=== PATIENT | male | born 1975 | race Caucasian/White ===

== ENCOUNTER → 2018-05-14 | Outpatient (CLI) | payer MEDICAID ==
[~2018-05-14] MED LIST: DOXY-227 PO; HYDR-34 PO; HYDR-3729 PO; HYDR-4196 PO; INSU100V16 SQ; INSU100V5 SQ; INSU1INS2 SQ; LORA1TAB59 PO; METF-399 PO; METO-354 PO; MTF500T PO; MULT-221 PO; ONDN4T PO
== END ==
LOC: WOUNDCARE 13:20
PROVIDERS: ATTEND Surgery
DX: E11.621 Type 2 diabetes mellitus with foot ulcer (principal); L97.512 Non-pressure chronic ulcer of other part of right foot with fat layer exposed; L97.513 Non-pressure chronic ulcer of other part of right foot with necrosis of muscle; L97.522 Non-pressure chronic ulcer of other part of left foot with fat layer exposed; L03.115 Cellulitis of right lower limb; E11.42 Type 2 diabetes mellitus with diabetic polyneuropathy
CPT/HCPCS: 11042; 11043; 87070; 87075; 87205

== ENCOUNTER → 2018-05-15 | Outpatient (CLI) | payer MEDICAID ==
[2018-05-15 15:44] LABS: BASOPHILS # (AUTO) 0.1 10^3/uL (0.0-0.1); BASOPHILS % (AUTO) 1 % (0-10); EOSINOPHILS # (AUTO) 0.2 10^3/uL (0.0-0.3); EOSINOPHILS % (AUTO) 2 % (0-10); HEMATOCRIT 38 % (40-54); HEMOGLOBIN 12.9 G/DL (13.3-17.7); LYMPHOCYTES # (AUTO) 2.6 X 10^3 (1.0-4.0); LYMPHOCYTES % (AUTO) 30 % (12-44); MEAN CORPUSCULAR HEMOGLOBIN 30 PG (25-34); MEAN CORPUSCULAR HGB CONC 34 G/DL (32-36); MEAN CORPUSCULAR VOLUME 88 FL (80-99); MEAN PLATELET VOLUME 9.1 FL (7.4-10.4); MONOCYTES # (AUTO) 0.6 X 10^3 (0.0-1.0); MONOCYTES % (AUTO) 7 % (0-12); NEUTROPHILS # (AUTO) 5.3 X 10^3 (1.8-7.8); NEUTROPHILS % (AUTO) 61 % (42-75); PLATELET COUNT 319 10^3/uL (130-400); RED CELL DISTRIBUTION WIDTH 12.8 % (10.0-14.5); WHITE BLOOD COUNT 8.7 10^3/uL (4.3-11.0)
--- NOTE | 2018-05-15 17:32 | Diagnostic Imaging Report ---
INDICATION: Diabetic ulcer and wound care. AP, oblique, and lateral views of the right foot are obtained. FINDINGS: There has been amputation of the first digit at the level of the MTP joint. There is no acute fracture or acute bony abnormality. There is no overt erosive bony lesion. There is plantar and posterior calcaneal spurring. IMPRESSION: Status post amputation of first digit. No acute-appearing bony abnormality. Dictated by: Dictated on workstation # [id number]
== END ==
LOC: RAD 15:28
PROVIDERS: ATTEND Surgery
DX: E11.621 Type 2 diabetes mellitus with foot ulcer (principal); E11.42 Type 2 diabetes mellitus with diabetic polyneuropathy; L97.512 Non-pressure chronic ulcer of other part of right foot with fat layer exposed; L97.513 Non-pressure chronic ulcer of other part of right foot with necrosis of muscle; L97.522 Non-pressure chronic ulcer of other part of left foot with fat layer exposed; L03.115 Cellulitis of right lower limb
CPT/HCPCS: 36415; 73630; 85025

== ENCOUNTER → 2018-05-19 | Outpatient (CLI) | payer MEDICAID | LOC: WOUNDCARE 15:39 | PROVIDERS: ATTEND Surgery | DX: E11.621 Type 2 diabetes mellitus with foot ulcer (principal); L97.512 Non-pressure chronic ulcer of other part of right foot with fat layer exposed; L97.513 Non-pressure chronic ulcer of other part of right foot with necrosis of muscle; L97.522 Non-pressure chronic ulcer of other part of left foot with fat layer exposed; L03.115 Cellulitis of right lower limb; E11.42 Type 2 diabetes mellitus with diabetic polyneuropathy | CPT/HCPCS: 11042 ==

== ENCOUNTER → 2018-05-26 | Outpatient (CLI) | payer MEDICAID | LOC: WOUNDCARE 14:09 | PROVIDERS: ATTEND Surgery | DX: E11.621 Type 2 diabetes mellitus with foot ulcer (principal); L97.512 Non-pressure chronic ulcer of other part of right foot with fat layer exposed; L97.522 Non-pressure chronic ulcer of other part of left foot with fat layer exposed; L03.115 Cellulitis of right lower limb; E11.42 Type 2 diabetes mellitus with diabetic polyneuropathy | CPT/HCPCS: 11042; 87070; 87075; 87077; 87205 ==

== ENCOUNTER → 2018-06-02 | Outpatient (CLI) | payer MEDICAID | LOC: WOUNDCARE 15:11 | PROVIDERS: ATTEND Surgery | DX: E11.621 Type 2 diabetes mellitus with foot ulcer (principal); L97.512 Non-pressure chronic ulcer of other part of right foot with fat layer exposed; L97.522 Non-pressure chronic ulcer of other part of left foot with fat layer exposed; E11.42 Type 2 diabetes mellitus with diabetic polyneuropathy | CPT/HCPCS: 11042 ==

== ENCOUNTER → 2018-06-09 | Outpatient (CLI) | payer MEDICAID | LOC: WOUNDCARE 15:06 | PROVIDERS: ATTEND Surgery | DX: E11.621 Type 2 diabetes mellitus with foot ulcer (principal); L97.512 Non-pressure chronic ulcer of other part of right foot with fat layer exposed; E11.42 Type 2 diabetes mellitus with diabetic polyneuropathy | CPT/HCPCS: 11042 ==

== ENCOUNTER → 2018-06-18 | Outpatient (CLI) | payer MEDICAID | LOC: WOUNDCARE 14:00 | PROVIDERS: ATTEND Orthopaedic Surgery Hand Surgery | DX: E11.621 Type 2 diabetes mellitus with foot ulcer (principal); E11.42 Type 2 diabetes mellitus with diabetic polyneuropathy; L97.512 Non-pressure chronic ulcer of other part of right foot with fat layer exposed | CPT/HCPCS: 11042 ==

== ENCOUNTER → 2018-07-02 | Outpatient (CLI) | payer MEDICAID ==
--- NOTE | 2018-07-02 18:38 | Diagnostic Imaging Report ---
INDICATION: Ulcer on first digit. AP, oblique, and lateral views of the right foot are obtained and compared with 05/15/2018. There has been amputation of the first digit at the level of the MTP joint. There are mild degenerative changes of the interphalangeal joints. There is mild degenerative change of the mid tarsal joint and talonavicular joint as well as calcaneal spurring. There is no erosive bony lesion or acute bony abnormality. IMPRESSION: Evidence of previous amputation of first digit. No erosive bony lesion. Multilevel degenerative changes are stable compared to the prior study. Dictated by: Dictated on workstation # [id number]
== END ==
LOC: RAD 14:57
PROVIDERS: ATTEND Orthopaedic Surgery Hand Surgery
DX: E11.621 Type 2 diabetes mellitus with foot ulcer (principal); L97.516 Non-pressure chronic ulcer of other part of right foot with bone involvement without evidence of necrosis; E11.42 Type 2 diabetes mellitus with diabetic polyneuropathy; M19.071 Primary osteoarthritis, right ankle and foot; Z89.411 Acquired absence of right great toe
CPT/HCPCS: 73630

== ENCOUNTER → 2018-07-02 | Outpatient (CLI) | payer MEDICAID | LOC: WOUNDCARE 13:53 | PROVIDERS: ATTEND Orthopaedic Surgery Hand Surgery | DX: E11.621 Type 2 diabetes mellitus with foot ulcer (principal); L97.516 Non-pressure chronic ulcer of other part of right foot with bone involvement without evidence of necrosis; E11.42 Type 2 diabetes mellitus with diabetic polyneuropathy | CPT/HCPCS: 11042; 87070; 87077; 87205 ==

== ENCOUNTER → 2018-07-09 | Outpatient (CLI) | payer MEDICAID | LOC: WOUNDCARE 13:54 | PROVIDERS: ATTEND Orthopaedic Surgery Hand Surgery | DX: E11.621 Type 2 diabetes mellitus with foot ulcer (principal); E11.42 Type 2 diabetes mellitus with diabetic polyneuropathy; L97.516 Non-pressure chronic ulcer of other part of right foot with bone involvement without evidence of necrosis; A49.9 Bacterial infection, unspecified | CPT/HCPCS: 11042 ==

== ENCOUNTER → 2018-07-16 | Outpatient (CLI) | payer MEDICAID | LOC: WOUNDCARE 13:58 | PROVIDERS: ATTEND Orthopaedic Surgery Hand Surgery | DX: E11.621 Type 2 diabetes mellitus with foot ulcer (principal); L97.516 Non-pressure chronic ulcer of other part of right foot with bone involvement without evidence of necrosis; E11.42 Type 2 diabetes mellitus with diabetic polyneuropathy; A49.9 Bacterial infection, unspecified | CPT/HCPCS: 11042 ==

== ENCOUNTER → 2018-07-19 | Outpatient (CLI) | payer MEDICAID ==
--- NOTE | 2018-07-19 10:42 | Diagnostic Imaging Report ---
PROCEDURE: MRI right lower extremity without contrast. TECHNIQUE: Multiplanar, multisequence non contrast-enhanced MRI of the right lower extremity was accomplished. INDICATION: Nonhealing ulcer. MRI of the right foot without contrast. There is an open ulcer at the base of the second metatarsal head. The metatarsals as well as the phalanges show normal marrow signal without evidence of edema. No cortical bony erosions are demonstrated. There is no evidence of joint effusion. There is a small collection of fluid between the second and third metatarsal heads measuring approximately 1.5 cm anterior to posteriorly and 3 mm in diameter. No other fluid collections are demonstrated. The plantar fascia shows mild edema along the anterior aspect at the level of ulceration. IMPRESSION: 1. Plantar ulcer at the base of the second metatarsal head. Small amount of fluid is noted between the second and third metatarsal heads as described. No other fluid collections are seen. 2. There are no bony changes that would indicate osteomyelitis at this time. Dictated by: Dictated on workstation # [id number]
== END ==
LOC: RAD 09:47
PROVIDERS: ATTEND Orthopaedic Surgery Hand Surgery
DX: E11.621 Type 2 diabetes mellitus with foot ulcer (principal); E11.42 Type 2 diabetes mellitus with diabetic polyneuropathy; L97.516 Non-pressure chronic ulcer of other part of right foot with bone involvement without evidence of necrosis; A49.9 Bacterial infection, unspecified

== ENCOUNTER → 2018-07-23 | Outpatient (CLI) | payer MEDICAID | LOC: WOUNDCARE 13:58 | PROVIDERS: ATTEND Orthopaedic Surgery Hand Surgery | DX: E11.621 Type 2 diabetes mellitus with foot ulcer (principal); L97.516 Non-pressure chronic ulcer of other part of right foot with bone involvement without evidence of necrosis; E11.42 Type 2 diabetes mellitus with diabetic polyneuropathy | CPT/HCPCS: 11042 ==

== ENCOUNTER → 2018-08-11 | Outpatient (CLI) | payer MEDICAID ==
[2018-08-11 16:30] LABS: BASOPHILS % (AUTO) 0 % (0-10); EOSINOPHILS # (AUTO) 0.2 10^3/uL (0.0-0.3); EOSINOPHILS % (AUTO) 2 % (0-10); HEMATOCRIT 40 % (40-54); HEMOGLOBIN 13.3 G/DL (13.3-17.7); LYMPHOCYTES # (AUTO) 2.5 X 10^3 (1.0-4.0); LYMPHOCYTES % (AUTO) 26 % (12-44); MEAN CORPUSCULAR HEMOGLOBIN 30 PG (25-34); MEAN CORPUSCULAR HGB CONC 33 G/DL (32-36); MEAN CORPUSCULAR VOLUME 90 FL (80-99); MEAN PLATELET VOLUME 8.7 FL (7.4-10.4); MONOCYTES # (AUTO) 0.8 X 10^3 (0.0-1.0); MONOCYTES % (AUTO) 9 % (0-12); NEUTROPHILS # (AUTO) 5.9 X 10^3 (1.8-7.8); NEUTROPHILS % (AUTO) 63 % (42-75); PLATELET COUNT 322 10^3/uL (130-400); RED BLOOD COUNT 4.45 10^6/uL (4.35-5.85); WHITE BLOOD COUNT 9.4 10^3/uL (4.3-11.0)
[2018-08-11 17:00] LABS: ALANINE AMINOTRANSFERASE 16 U/L (0-55); ALBUMIN 4.1 GM/DL (3.2-4.5); ALKALINE PHOSPHATASE 95 U/L (40-136); BILIRUBIN,TOTAL 0.3 MG/DL (0.1-1.0); BUN/CREATININE RATIO 20; CALCIUM 9.5 MG/DL (8.5-10.1); CARBON DIOXIDE 26 MMOL/L (21-32); CHLORIDE 104 MMOL/L (98-107); CREATININE SERUM 1.26 MG/DL (0.60-1.30); GFR ESTIMATED > 60; GLUCOSE 166 MG/DL (70-105); POTASSIUM 4.6 MMOL/L (3.6-5.0); SODIUM 139 MMOL/L (135-145); TOTAL PROTEIN 8.2 GM/DL (6.4-8.2)
== END ==
LOC: LAB 16:10
PROVIDERS: ATTEND Surgery
DX: E11.621 Type 2 diabetes mellitus with foot ulcer (principal); L97.512 Non-pressure chronic ulcer of other part of right foot with fat layer exposed
CPT/HCPCS: 36415; 80053; 83036; 85025

== ENCOUNTER → 2018-08-11 | Outpatient (CLI) | payer MEDICAID | LOC: WOUNDCARE 13:58 | PROVIDERS: ATTEND Surgery | DX: E11.621 Type 2 diabetes mellitus with foot ulcer (principal); L97.512 Non-pressure chronic ulcer of other part of right foot with fat layer exposed; E11.42 Type 2 diabetes mellitus with diabetic polyneuropathy; M20.41 Other hammer toe(s) (acquired), right foot | CPT/HCPCS: 11042; 87070; 87075; 87077; 87205 ==

== ENCOUNTER → 2018-08-18 | Outpatient (CLI) | payer MEDICAID | LOC: WOUNDCARE 13:58 | PROVIDERS: ATTEND Surgery | DX: E11.621 Type 2 diabetes mellitus with foot ulcer (principal); L97.512 Non-pressure chronic ulcer of other part of right foot with fat layer exposed; E11.42 Type 2 diabetes mellitus with diabetic polyneuropathy; M20.41 Other hammer toe(s) (acquired), right foot | CPT/HCPCS: 11042 ==

== ENCOUNTER → 2018-08-20 | Outpatient (CLI) | payer MEDICAID | LOC: WOUNDCARE 10:48 | PROVIDERS: ATTEND Surgery | DX: E11.621 Type 2 diabetes mellitus with foot ulcer (principal); L97.512 Non-pressure chronic ulcer of other part of right foot with fat layer exposed; E11.42 Type 2 diabetes mellitus with diabetic polyneuropathy; M20.41 Other hammer toe(s) (acquired), right foot | CPT/HCPCS: 29445 ==

== ENCOUNTER → 2018-08-25 | Outpatient (CLI) | payer MEDICAID | LOC: WOUNDCARE 13:54 | PROVIDERS: ATTEND Surgery | DX: E11.621 Type 2 diabetes mellitus with foot ulcer (principal); L97.512 Non-pressure chronic ulcer of other part of right foot with fat layer exposed; E11.42 Type 2 diabetes mellitus with diabetic polyneuropathy; M20.41 Other hammer toe(s) (acquired), right foot | CPT/HCPCS: 11042 ==

== ENCOUNTER → 2018-09-01 | Outpatient (CLI) | payer MEDICAID | LOC: WOUNDCARE 13:46 | PROVIDERS: ATTEND Surgery | DX: E11.621 Type 2 diabetes mellitus with foot ulcer (principal); L97.512 Non-pressure chronic ulcer of other part of right foot with fat layer exposed; E11.42 Type 2 diabetes mellitus with diabetic polyneuropathy; M20.41 Other hammer toe(s) (acquired), right foot | CPT/HCPCS: 11042 ==

== ENCOUNTER → 2018-09-03 | Outpatient (CLI) | payer MEDICAID | LOC: WOUNDCARE 10:41 | PROVIDERS: ATTEND Surgery | DX: E11.621 Type 2 diabetes mellitus with foot ulcer (principal); E11.42 Type 2 diabetes mellitus with diabetic polyneuropathy; L97.512 Non-pressure chronic ulcer of other part of right foot with fat layer exposed; M20.41 Other hammer toe(s) (acquired), right foot | CPT/HCPCS: 29445 ==

== ENCOUNTER → 2018-09-05 | Outpatient (CLI) | payer MEDICAID | LOC: WOUNDCARE 09:39 | PROVIDERS: ATTEND Surgery | DX: E11.621 Type 2 diabetes mellitus with foot ulcer (principal); E11.42 Type 2 diabetes mellitus with diabetic polyneuropathy; L97.512 Non-pressure chronic ulcer of other part of right foot with fat layer exposed; M20.41 Other hammer toe(s) (acquired), right foot | CPT/HCPCS: 29445 ==

== ENCOUNTER → 2018-09-08 | Outpatient (CLI) | payer MEDICAID | LOC: WOUNDCARE 13:33 | PROVIDERS: ATTEND Surgery | DX: E11.621 Type 2 diabetes mellitus with foot ulcer (principal); L97.512 Non-pressure chronic ulcer of other part of right foot with fat layer exposed; E11.42 Type 2 diabetes mellitus with diabetic polyneuropathy; M20.41 Other hammer toe(s) (acquired), right foot | CPT/HCPCS: 11042; 87070; 87075; 87077; 87205 ==

== ENCOUNTER → 2018-09-10 | Outpatient (CLI) | payer MEDICAID | LOC: WOUNDCARE 10:33 | PROVIDERS: ATTEND Surgery | DX: E11.621 Type 2 diabetes mellitus with foot ulcer (principal); L97.512 Non-pressure chronic ulcer of other part of right foot with fat layer exposed; E11.42 Type 2 diabetes mellitus with diabetic polyneuropathy; M20.41 Other hammer toe(s) (acquired), right foot | CPT/HCPCS: 99213 ==

== ENCOUNTER → 2018-09-15 | Outpatient (CLI) | payer MEDICAID | LOC: WOUNDCARE 13:34 | PROVIDERS: ATTEND Surgery | DX: E11.621 Type 2 diabetes mellitus with foot ulcer (principal); L97.512 Non-pressure chronic ulcer of other part of right foot with fat layer exposed; E11.42 Type 2 diabetes mellitus with diabetic polyneuropathy; M20.41 Other hammer toe(s) (acquired), right foot | CPT/HCPCS: 11042 ==

== ENCOUNTER → 2018-09-22 | Outpatient (CLI) | payer MEDICAID | LOC: WOUNDCARE 13:47 | PROVIDERS: ATTEND Surgery | DX: E11.621 Type 2 diabetes mellitus with foot ulcer (principal); L97.512 Non-pressure chronic ulcer of other part of right foot with fat layer exposed; E11.42 Type 2 diabetes mellitus with diabetic polyneuropathy; M20.41 Other hammer toe(s) (acquired), right foot | CPT/HCPCS: 11042 ==

== ENCOUNTER → 2018-09-29 | Outpatient (CLI) | payer MEDICAID | LOC: WOUNDCARE 13:45 | PROVIDERS: ATTEND Surgery | DX: E11.621 Type 2 diabetes mellitus with foot ulcer (principal); L97.512 Non-pressure chronic ulcer of other part of right foot with fat layer exposed; E11.42 Type 2 diabetes mellitus with diabetic polyneuropathy; M20.41 Other hammer toe(s) (acquired), right foot | CPT/HCPCS: 11042; 87070; 87077; 87205 ==

== ENCOUNTER → 2018-10-06 | Outpatient (CLI) | payer MEDICAID | LOC: WOUNDCARE 13:00 | PROVIDERS: ATTEND Surgery | DX: E11.621 Type 2 diabetes mellitus with foot ulcer (principal); L97.512 Non-pressure chronic ulcer of other part of right foot with fat layer exposed; E11.42 Type 2 diabetes mellitus with diabetic polyneuropathy; M20.41 Other hammer toe(s) (acquired), right foot | CPT/HCPCS: 11042 ==

== ENCOUNTER → 2018-10-13 | Outpatient (CLI) | payer MEDICAID | LOC: WOUNDCARE 14:00 | PROVIDERS: ATTEND Surgery | DX: E11.621 Type 2 diabetes mellitus with foot ulcer (principal); L97.512 Non-pressure chronic ulcer of other part of right foot with fat layer exposed; E11.42 Type 2 diabetes mellitus with diabetic polyneuropathy; M20.41 Other hammer toe(s) (acquired), right foot | CPT/HCPCS: 11042 ==

== ENCOUNTER → 2018-10-20 | Outpatient (CLI) | payer MEDICAID | LOC: WOUNDCARE 12:46 | PROVIDERS: ATTEND Surgery | DX: E11.621 Type 2 diabetes mellitus with foot ulcer (principal); L97.512 Non-pressure chronic ulcer of other part of right foot with fat layer exposed; E11.42 Type 2 diabetes mellitus with diabetic polyneuropathy; M20.41 Other hammer toe(s) (acquired), right foot | CPT/HCPCS: 11042; 87070; 87077; 87205 ==

== ENCOUNTER → 2018-10-27 | Outpatient (CLI) | payer MEDICAID | LOC: WOUNDCARE 14:02 | PROVIDERS: ATTEND Surgery | DX: E11.621 Type 2 diabetes mellitus with foot ulcer (principal); L97.512 Non-pressure chronic ulcer of other part of right foot with fat layer exposed; E11.42 Type 2 diabetes mellitus with diabetic polyneuropathy; M20.41 Other hammer toe(s) (acquired), right foot | CPT/HCPCS: 11042 ==

== ENCOUNTER → 2018-11-03 | Outpatient (CLI) | payer MEDICAID | LOC: WOUNDCARE 12:45 | PROVIDERS: ATTEND Surgery | DX: E11.621 Type 2 diabetes mellitus with foot ulcer (principal); L97.512 Non-pressure chronic ulcer of other part of right foot with fat layer exposed; E11.42 Type 2 diabetes mellitus with diabetic polyneuropathy; M20.41 Other hammer toe(s) (acquired), right foot | CPT/HCPCS: 11042 ==

== ENCOUNTER → 2018-11-19 | Outpatient (CLI) | payer MEDICAID | LOC: WOUNDCARE 13:13 | PROVIDERS: ATTEND Surgery | DX: E11.621 Type 2 diabetes mellitus with foot ulcer (principal); L97.516 Non-pressure chronic ulcer of other part of right foot with bone involvement without evidence of necrosis; E11.42 Type 2 diabetes mellitus with diabetic polyneuropathy; M20.41 Other hammer toe(s) (acquired), right foot | CPT/HCPCS: 11042; 87070; 87077; 87205 ==

== ENCOUNTER → 2018-11-24 | Outpatient (CLI) | payer MEDICAID | LOC: WOUNDCARE 13:16 | PROVIDERS: ATTEND Surgery | DX: E11.621 Type 2 diabetes mellitus with foot ulcer (principal); L97.512 Non-pressure chronic ulcer of other part of right foot with fat layer exposed; E11.42 Type 2 diabetes mellitus with diabetic polyneuropathy; M20.41 Other hammer toe(s) (acquired), right foot | CPT/HCPCS: 11043 ==

== ENCOUNTER → 2018-12-01 | Outpatient (CLI) | payer MEDICAID | LOC: WOUNDCARE 14:01 | PROVIDERS: ATTEND Surgery | DX: E11.621 Type 2 diabetes mellitus with foot ulcer (principal); L97.512 Non-pressure chronic ulcer of other part of right foot with fat layer exposed; E11.42 Type 2 diabetes mellitus with diabetic polyneuropathy; M20.41 Other hammer toe(s) (acquired), right foot | CPT/HCPCS: 11042 ==

== ENCOUNTER → 2018-12-15 | Outpatient (CLI) | payer MEDICAID | LOC: WOUNDCARE 13:58 | PROVIDERS: ATTEND Surgery | DX: E11.621 Type 2 diabetes mellitus with foot ulcer (principal); L97.512 Non-pressure chronic ulcer of other part of right foot with fat layer exposed; E11.42 Type 2 diabetes mellitus with diabetic polyneuropathy; M20.41 Other hammer toe(s) (acquired), right foot | CPT/HCPCS: 11042 ==

== ENCOUNTER → 2019-01-02 | Outpatient (CLI) | payer MEDICAID | LOC: WOUNDCARE 10:56 | PROVIDERS: ATTEND Surgery | DX: E11.621 Type 2 diabetes mellitus with foot ulcer (principal); L97.512 Non-pressure chronic ulcer of other part of right foot with fat layer exposed; E11.42 Type 2 diabetes mellitus with diabetic polyneuropathy; M20.41 Other hammer toe(s) (acquired), right foot | CPT/HCPCS: 11042 ==

== ENCOUNTER → 2019-01-12 | Outpatient (CLI) | payer MEDICAID | LOC: WOUNDCARE 12:50 | PROVIDERS: ATTEND Surgery | DX: E11.621 Type 2 diabetes mellitus with foot ulcer (principal); L97.512 Non-pressure chronic ulcer of other part of right foot with fat layer exposed; E11.42 Type 2 diabetes mellitus with diabetic polyneuropathy; M20.41 Other hammer toe(s) (acquired), right foot | CPT/HCPCS: 11042 ==

== ENCOUNTER 2019-01-18 16:51 | Inpatient (IN) | payer MEDICAID ==
[~2019-01-18] VITALS: Ht 193 cm; Wt 141.3 kg
[2019-01-18] VITALS (9 sets, daily range): BP systolic 119–145; BP diastolic 73–87
[2019-01-18] MEDS ORDERED: LACTATED RINGERS 1,000 ML IV ONE (17:08)
[2019-01-18] MEDS ORDERED: ONDANSETRON 4 MG/2 ML (SDV) Z0FRAN IV PRN (17:15)
[2019-01-18] MEDS ORDERED: ACETAMINOPHEN 500 MG TAB (TYLENOL) PO PRN (17:15)
--- NOTE | 2019-01-18 17:17 | ED General ---
General Stated Complaint: FEVER 103.4/VOMITING Source of Information: Patient Exam Limitations: No Limitations (JC BERTRAND APRN) History of Present Illness Date Seen by Provider: Jan 18, 2019 Time Seen by Provider: 17:12 Initial Comments To ER by private vehicle with reports of nausea vomiting diarrhea and fever. The fever and diarrhea began on after eating hibachi, the vomiting only began today. He is diabetic, he has a previous history of right toe amputation, chronic wound on the right foot for which she is seeing Dr. Lau and is scheduled to see a surgeon in [place] this week to evaluate for more proximal amputation of the foot. Timing/Duration: 3-4 Days Severity: Moderate (JC BERTRAND APRN) Allergies and Home Medications Allergies Coded Allergies: No Known Drug Allergies (Unverified , 01/18/19) Home Medications Hydrocodone/Acetaminophen 1 Each Tablet, 1 EACH PO Q6H PRN for PAIN Prescribed by: JUAN DIEGO GREEN on 02/16/16 1048 Insulin Aspart 100 Unit/1 Ml Susp, 15 UNITS SQ WM, (Reported) WILL HOLD IF BS IS 150 OR BELOW Insulin Determir 1,000 Units/10 Ml Soln, 20 UNITS SQ HS, (Reported) Metformin HCl 1,000 Mg Tablet, 1,000 MG PO BID, (Reported) LAST KNOWN FILLED DATE; 12/07/15 #60 Multivitamin 1 Each Tablet, 1 TAB PO DAILY, (Reported) Patient Home Medication List Home Medication List Reviewed: Yes (JC BERTRAND APRN) Home Medication List Reviewed: Yes (AUREA OLGUIN) Review of Systems Review of Systems Constitutional: see HPI, fever EENTM: see HPI Respiratory: no symptoms reported Cardiovascular: no symptoms reported Gastrointestinal: No abdominal pain; diarrhea, nausea, vomiting Genitourinary: no symptoms reported Musculoskeletal: no symptoms reported Skin: no symptoms reported Psychiatric/Neurological: No Symptoms Reported Hematologic/Lymphatic: No Symptoms Reported Immunological/Allergic: no symptoms reported (JC BERTRAND APRN) Past Upjgkin-Vvcooy-Wowghr Hx Patient Social History Recent Foreign Travel: No Contact w/Someone Who Travel: No (JC BERTRAND APRN) Past Medical History Abdominal Reproductive Disorders: No Diabetes, Insulin dep (JC BERTRAND APRN) Family Medical History Cardiovascular disease 19 MOTHER Diabetes mellitus 19 MOTHER Diabetes (JC BERTRAND APRN) Physical Exam Vital Signs Vital Signs - First Documented (AUREA OLGUIN) Vital Signs Capillary Refill : (JC BERTRAND APRN) Height, Weight, BMI Height: 6'4.00" Weight: 274lbs. 0.0oz. 124.725487be; 33.4 BMI Method:Stated General Appearance: No Apparent Distress, WD/WN Eyes: Bilateral Eye Normal Inspection, Bilateral Eye PERRL HEENT: PERRL/EOMI, Normal ENT Inspection Neck: Full Range of Motion, Normal Inspection Respiratory: No Accessory Muscle Use, No Respiratory Distress Gastrointestinal: Non Tender, Soft Extremity: Normal Capillary Refill Neurologic/Psychiatric: Alert, Oriented x3 Skin: Normal Color, Warm/Dry (JC BERTRAND APRN) Focused Exam Lactate Level 01/18/19 17:17: Lactic Acid Level 1.16 (AUREA OLGUIN) Lactic Acid Level Laboratory Tests Test 01/18/19 17:17 Lactic Acid Level 1.16 MMOL/L (0.50-2.00) (AUREA OLGUIN) Progress/Results/Core Measures Suspected Sepsis SIRS Temperature: Pulse: Respiratory Rate: Laboratory Tests 01/18/19 17:17: White Blood Count 18.8H Blood Pressure / Mean: 01/18/19 17:17: Lactic Acid Level 1.16 Laboratory Tests 01/18/19 17:17: Creatinine 1.42H, INR Comment 1.1, Platelet Count 322, Total Bilirubin 0.8 (JC BERTRAND APRN) Recent Fever Within 48 Hours: Yes Infection Criteria Present: Documented Infection New/Unexplained Altered Menta: No Within 3hrs of presentation: Admin fluids, Admin 30ml/kg IBW due to BMI>30, Blood cultures prior to ABX's, Lactate level (AUREA OLGUIN) Results/Orders Lab Results Laboratory Tests Test 01/18/19 17:17 01/18/19 18:26 Range/Units White Blood Count 18.8 H 4.3-11.0 10^3/uL Red Blood Count 4.04 L 4.35-5.85 10^6/uL Hemoglobin 12.2 L 13.3-17.7 G/DL Hematocrit 36 L 40-54 % Mean Corpuscular Volume 89 80-99 FL Mean Corpuscular Hemoglobin 30 25-34 PG Mean Corpuscular Hemoglobin Concent 34 32-36 G/DL Red Cell Distribution Width 12.9 10.0-14.5 % Platelet Count 322 130-400 10^3/uL Mean Platelet Volume 9.2 7.4-10.4 FL Neutrophils (%) (Auto) 83 H 42-75 % Lymphocytes (%) (Auto) 6 L 12-44 % Monocytes (%) (Auto) 9 0-12 % Eosinophils (%) (Auto) 1 0-10 % Basophils (%) (Auto) 0 0-10 % Neutrophils # (Auto) 15.7 H 1.8-7.8 X 10^3 Lymphocytes # (Auto) 1.2 1.0-4.0 X 10^3 Monocytes # (Auto) 1.8 H 0.0-1.0 X 10^3 Eosinophils # (Auto) 0.2 0.0-0.3 10^3/uL Basophils # (Auto) 0.0 0.0-0.1 10^3/uL Neutrophils % (Manual) 89 % Lymphocytes % (Manual) 5 % Monocytes % (Manual) 4 % Eosinophils % (Manual) 2 % Blood Morphology Comment NORMAL Prothrombin Time 14.3 12.2-14.7 SEC INR Comment 1.1 0.8-1.4 Activated Partial Thromboplast Time 39 H 24-35 SEC Sodium Level 136 135-145 MMOL/L Potassium Level 4.0 3.6-5.0 MMOL/L Chloride Level 102 98-107 MMOL/L Carbon Dioxide Level 23 21-32 MMOL/L Anion Gap 11 5-14 MMOL/L Blood Urea Nitrogen 16 7-18 MG/DL Creatinine 1.42 H 0.60-1.30 MG/DL Estimat Glomerular Filtration Rate 54 BUN/Creatinine Ratio 11 Glucose Level 234 H 70-105 MG/DL Lactic Acid Level 1.16 0.50-2.00 MMOL/L Calcium Level 9.5 8.5-10.1 MG/DL Corrected Calcium 9.7 8.5-10.1 MG/DL Total Bilirubin 0.8 0.1-1.0 MG/DL Aspartate Amino Transf (AST/SGOT) 10 5-34 U/L Alanine Aminotransferase (ALT/SGPT) 13 0-55 U/L Alkaline Phosphatase 90 40-136 U/L Total Protein 8.1 6.4-8.2 GM/DL Albumin 3.8 3.2-4.5 GM/DL Urine Color KAUR H Urine Clarity SLIGHTLY CLOUDY Urine pH 5 5-9 Urine Specific [place] 1.020 1.016-1.022 Urine Protein 4+ NEGATIVE Urine Glucose (UA) 2+ H NEGATIVE Urine Ketones 3+ H NEGATIVE Urine Nitrite NEGATIVE NEGATIVE Urine Bilirubin NEGATIVE NEGATIVE Urine Urobilinogen 1 NORMAL MG/DL Urine Leukocyte Esterase 1+ H NEGATIVE Urine RBC (Auto) 4+ H NEGATIVE Urine RBC 5-10 H /HPF Urine WBC 5-10 H /HPF Urine Squamous Epithelial Cells 0-2 /HPF Urine Crystals NONE /LPF Urine Bacteria FEW H /HPF Urine Casts NONE /LPF Urine Mucus LARGE H /LPF Urine Culture Indicated CULTURE PENDING (AUREA OLGUIN) My Orders Orders - AUREA OLGUIN Ed Iv/Invasive Line Start (01/18/19 18:40) Ns Iv 1000 Ml (Sodium Chloride 0.9%) (01/18/19 18:40) Ciprofloxacin Iv 400mg/200ml (Cipro Iv S (01/18/19 19:15) (AUREA OLGUIN) Medications Given in ED Current Medications Medications Dose Ordered Sig/Sonia Route Start Time Stop Time Status Last Admin Dose Admin Acetaminophen 1,000 mg ONCE PRN PO 01/18/19 17:15 01/18/19 17:24 DC 01/18/19 17:23 1,000 MG Ibuprofen 800 mg ONCE ONCE PO 01/18/19 17:30 01/18/19 17:31 DC 01/18/19 18:01 800 MG Lactated Ringer's 1,000 ml @ 0 mls/hr Q0M ONCE IV 01/18/19 17:08 01/18/19 17:10 DC 01/18/19 17:23 0 MLS/HR Ondansetron HCl 8 mg PRN PRN IV 01/18/19 17:15 01/18/19 17:24 DC 01/18/19 17:23 8 MG (AUREA OLGUIN) Vital Signs/I&O 01/18/19 01/18/19 01/18/19 01/18/19 17:15 17:15 17:15 17:23 Temp 103.1 103.1 103.1 Pulse 114 114 Resp 16 16 B/P (MAP) 136/87 (103) 136/87 (103) Pulse Ox 98 98 100 O2 Delivery Room Air Room Air Room Air 01/18/19 19:33 Pulse 94 Resp 14 B/P (MAP) 135/78 (97) Pulse Ox 98 O2 Delivery Room Air (AUREA OLGUIN) Vital Signs/I&O Capillary Refill : (JC BERTRAND APRN) Progress Note : Progress Note 1800 Assumed care of patient, received report from Jc Bertrand APRN. Patient denies any new complaints. IV infused 700 ml. Taking second glass of water. Temp 100.2*. Patient has not been able to urinate. 1834 Patient urinated, light brown in color. Dressing removed from right foot, previous amputation of great toe. Clear drainage from stump at first metatarsal. Wound to plantar surface with eschar noted. No active drainage from this site. Culture obtained. Foot much warmer than remainder of leg. No erythema or ecchymosis. Sensation intact and pedal pulses 2+. Sterile dressing applied. [address] Camargo, agreed with with admission for observation. Patient had no vomiting or diarrhea since admission. Discussed admission with patient, agreeable. Will ask Dr. Lau to see patient tomorrow, as he had a follow up appt with him. Will notify in am. (AUREA OLGUIN) Diagnostic Imaging Diagonstic Imaging: Xray Plain Films/CT/US/NM/MRI: chest Comments NAME: JOEL CHRISTINA [employer] REC#: [id number] PT STATUS: REG ER : 1975 PHYSICIAN: JC BERTRAND APRN ADMIT DATE: 01/18/19/ER Draft Date of Exam:01/18/19 CHEST 1 VIEW, AP/PA ONLY INDICATION: Fever. Portable chest at 05:39 p.m. FINDINGS: Heart size and pulmonary vascularity are normal. Lungs are clear. There are no effusions or pneumothoraces. IMPRESSION: Negative chest. Dictated on workstation # [id number] Dict: 01/18/191754 Trans: 01/18/191757 [id number] Interpreted by: EDISON ROE MD Electronically signed by: Reviewed: Reviewed by Me (AUREA OLGUIN) Departure Communication (Admissions) NAME: CARRIJOEL Kareem [employer] REC#: [id number] PT STATUS: REG ER : 1975 PHYSICIAN: JC BERTRAND APRN ADMIT DATE: 01/18/19/ER Draft Date of Exam:01/18/19 CHEST 1 VIEW, AP/PA ONLY INDICATION: Fever. Portable chest at 05:39 p.m. FINDINGS: Heart size and pulmonary vascularity are normal. Lungs are clear. There are no effusions or pneumothoraces. IMPRESSION: Negative chest. Dictated on workstation # [id number] Dict: 01/18/191754 Trans: 01/18/191757 [id number] Interpreted by: EDISON ROE MD Electronically signed by: (JC BERTRAND APRN) Impression Primary Impression: Diarrhea Qualified Codes: R19.7 - Diarrhea, unspecified Additional Impressions: Gastroenteritis Fever Qualified Codes: R50.9 - Fever, unspecified Ulcer of right foot Qualified Codes: L97.512 - Non-pressure chronic ulcer of other part of right foot with fat layer exposed Disposition: ADMITTED INPATIENT Condition: Stable Admissions Decision to Admit Reason: Admit from ER (General) (AUREA OLGUIN) Departure-Patient Inst. Referrals: [facility] (PCP/Family) Primary Care Physician JC BERTRAND APRN Jan 18, 2019 17:17 AUREA OLGUIN Jan 18, 2019 18:12
[2019-01-18] MEDS ORDERED: IBUPROFEN 800 MG (MOTRIN) TAB PO ONE (17:30)
[2019-01-18 17:34] LABS: BASOPHILS % (AUTO) 0 % (0-10); EOSINOPHILS # (AUTO) 0.2 10^3/uL (0.0-0.3); EOSINOPHILS % (AUTO) 1 % (0-10); HEMATOCRIT 36 % (40-54); HEMOGLOBIN 12.2 G/DL (13.3-17.7); LYMPHOCYTES # (AUTO) 1.2 X 10^3 (1.0-4.0); LYMPHOCYTES % (AUTO) 6 % (12-44); MEAN CORPUSCULAR HEMOGLOBIN 30 PG (25-34); MEAN CORPUSCULAR HGB CONC 34 G/DL (32-36); MEAN CORPUSCULAR VOLUME 89 FL (80-99); MEAN PLATELET VOLUME 9.2 FL (7.4-10.4); MONOCYTES # (AUTO) 1.8 X 10^3 (0.0-1.0); MONOCYTES % (AUTO) 9 % (0-12); NEUTROPHILS # (AUTO) 15.7 X 10^3 (1.8-7.8); NEUTROPHILS % (AUTO) 83 % (42-75); PLATELET COUNT 322 10^3/uL (130-400); RED CELL DISTRIBUTION WIDTH 12.9 % (10.0-14.5); WHITE BLOOD COUNT 18.8 10^3/uL (4.3-11.0)
[2019-01-18 17:46] LABS: INR 1.1 (0.8-1.4); PROTHROMBIN TIME PATIENT 14.3 SEC (12.2-14.7)
[2019-01-18 17:53] LABS: ALBUMIN 3.8 GM/DL (3.2-4.5); BILIRUBIN,TOTAL 0.8 MG/DL (0.1-1.0); CALCIUM 9.5 MG/DL (8.5-10.1); CREATININE SERUM 1.42 MG/DL (0.60-1.30); TOTAL PROTEIN 8.1 GM/DL (6.4-8.2)
[2019-01-18 17:55] LABS: NEUTROPHILS % (MANUAL) 89 %
[2019-01-18 17:56] LABS: EOSINOPHILS % (MANUAL) 2 %; LYMPHOCYTES % (MANUAL) 5 %; MONOCYTES % (MANUAL) 4 %; RBC MORPH NORMAL
--- NOTE | 2019-01-18 17:58 | Diagnostic Imaging Report ---
INDICATION: Fever. Portable chest at 05:39 p.m. FINDINGS: Heart size and pulmonary vascularity are normal. Lungs are clear. There are no effusions or pneumothoraces. IMPRESSION: Negative chest. Dictated by: Dictated on workstation # [id number]
[2019-01-18 18:30] LABS: BILIRUBIN,URINE NEGATIVE (NEGATIVE); CLARITY,URINE SLIGHTLY CLOUDY; COLOR,URINE AMBER; GLUCOSE, URINE (UA) 2+ (NEGATIVE); KETONES,URINE 3+ (NEGATIVE); LEUKOCYTE ESTERASE ,URINE 1+ (NEGATIVE); NITRITE,URINE NEGATIVE (NEGATIVE); PH,URINE 5 (5-9); PROTEIN,URINE 4+ (NEGATIVE); UROBILINOGEN,URINE 1 MG/DL (NORMAL)
[2019-01-18 18:40] LABS: BACTERIA,URINE FEW /HPF; SQUAMOUS EPITHELIAL CELL,UR 0-2 /HPF
[2019-01-18] MEDS: NS IV 1000 ML 1,000 ML IV SCH ×2 (19:07→20:22)
[2019-01-18] MEDS ORDERED: CIPROFLOXACIN IV 400MG/200ML 200 ML IV ONE (19:15)
--- NOTE | 2019-01-18 19:43 | NUR ---
JOEL CHRISTINA admitted to room 415-1, with an admitting diagnosis of FEVER DIARRHEA DEHYDRATION WOUND R FOOT DM2, on 01/18/19 from ED via , accompanied by ED STAFF, FAMILY.JOEL CHRISTINA V introduced to surroundings, call light, bed controls, phone, TV, temperature control, lights, meal times, smoking policy, visitor policy, side rail policy, bathrooms and showers. Patient Rights given to patient in the handbook.JOEL CHRISTINA V verbalizes understanding that [facility] is not responsible for the loss or damage to any personal effects or valuables that are kept in the patients posession during their hospitalization.
[2019-01-18] MEDS ORDERED: DIPHENOXYLATE/ATROPINE 2.5MG/0.025MG (LOMOTIL) TAB PO PRN (21:30)
[2019-01-18] MEDS ORDERED: IBUPROFEN 800 MG (MOTRIN) TAB PO PRN (21:30)
[2019-01-18] MEDS: metroNIDAZOLE 500 MG (FLAGYL) TAB PO SCH (22:31)
[2019-01-19] VITALS: BP 128/82
[2019-01-19 03:55] VITALS: BP 138/89
[2019-01-19 06:19] LABS: BASOPHILS % (AUTO) 0 % (0-10); EOSINOPHILS # (AUTO) 0.3 10^3/uL (0.0-0.3); EOSINOPHILS % (AUTO) 2 % (0-10); HEMATOCRIT 32 % (40-54); HEMOGLOBIN 10.7 G/DL (13.3-17.7); LYMPHOCYTES # (AUTO) 1.1 X 10^3 (1.0-4.0); LYMPHOCYTES % (AUTO) 6 % (12-44); MEAN CORPUSCULAR HEMOGLOBIN 31 PG (25-34); MEAN CORPUSCULAR HGB CONC 34 G/DL (32-36); MEAN CORPUSCULAR VOLUME 90 FL (80-99); MEAN PLATELET VOLUME 9.3 FL (7.4-10.4); MONOCYTES # (AUTO) 1.5 X 10^3 (0.0-1.0); MONOCYTES % (AUTO) 9 % (0-12); NEUTROPHILS # (AUTO) 14.3 X 10^3 (1.8-7.8); NEUTROPHILS % (AUTO) 83 % (42-75); PLATELET COUNT 299 10^3/uL (130-400); RED CELL DISTRIBUTION WIDTH 12.9 % (10.0-14.5); WHITE BLOOD COUNT 17.2 10^3/uL (4.3-11.0)
[2019-01-19 06:41] LABS: ALANINE AMINOTRANSFERASE 13 U/L (0-55); ALBUMIN 3.3 GM/DL (3.2-4.5); ALKALINE PHOSPHATASE 93 U/L (40-136); BILIRUBIN,TOTAL 0.7 MG/DL (0.1-1.0); BUN/CREATININE RATIO 11; CARBON DIOXIDE 22 MMOL/L (21-32); CHLORIDE 105 MMOL/L (98-107); CREATININE SERUM 1.25 MG/DL (0.60-1.30); GFR ESTIMATED > 60; GLUCOSE 268 MG/DL (70-105); POTASSIUM 3.8 MMOL/L (3.6-5.0); SODIUM 137 MMOL/L (135-145); TOTAL PROTEIN 7.1 GM/DL (6.4-8.2)
[2019-01-19] MEDS: NS IV 1000 ML 1,000 ML IV SCH ×4 (06:45→22:40)
[2019-01-19] MEDS ORDERED: CIPROFLOXACIN 400 MG/D5W 200 ML (PRE-MIX) IV SCH (07:00)
[2019-01-19 08:08] VITALS: BP 167/96
[2019-01-19] MEDS: metFORMIN 500 MG (GLUCOPHAGE) TAB PO SCH ×2 (08:55→12:25)
[2019-01-19] MEDS: metroNIDAZOLE 500 MG (FLAGYL) TAB PO SCH ×2 (08:55→12:25)
[2019-01-19] MEDS: inSUlin ASPART (NovoLOG) 1 UNIT/0.01 ML (CHARGE PER UNIT) SC SCH ×5 (08:58→20:51)
[2019-01-19] MEDS ORDERED: INSU100I14 SC (09:32)
[2019-01-19] MEDS ORDERED: ATOR40TA70 PO (09:32)
[2019-01-19] MEDS ORDERED: LISI-552 PO (09:32)
[2019-01-19] MEDS ORDERED: INSU100I29 SC (09:32)
--- NOTE | 2019-01-19 09:35 | NUR ---
SPOKE WITH THE PATIENT ABOUT HIS MEDICATIONS. HE LISTED WHAT HE IS TAKING AND I COMPARED IT WITH THE EXT MED HX. HE IS PAST DUE FOR REFILLS ON SEVERAL OF HIS MEDICATIONS, HE ADMITS HE NEEDS TO GET THEM REFILLED. HIS LISINOPRIL WAS FILLED #30 FOR 30 DAYS 11-24-18 HOWEVER HE STATES HE HAS ONLY BEEN TAKING 1/2 TAB DAILY. HE TAKES A MTV DAILY OTC.
--- NOTE | 2019-01-19 09:40 | History & Physical-Hospitalist ---
History of Present Illness Source: patient Exam Limitations: no limitations Date Seen 01/19/19 Time Seen by a Provider: 09:45 Attending Physician Dean Camargo MD [facility] Referring Physician Date of Admission Jan 18, 2019 at 19:00 Home Medications & Allergies Home Medications Reviewed patient Home Medication Reconciliation performed by pharmacy medication reconciliations septic tank service technician and/or nursing. Patients Allergies have been reviewed. Allergies Allergies Coded Allergies No Known Drug Allergies (Unverified01/18/19) Past Zfmrccu-Ziurul-Kvxjkd Hx Patient Social History Alcohol Use: Denies Use Recreational Drug Use: No Smoking Status: Never a Smoker Physical Abuse Screen: No Sexual Abuse: No Recent Foreign Travel: No Contact w/other who traveled: No Recent Hopitalizations: No Recent Infectious Disease Expo: No Seasonal Allergies Seasonal Allergies: No Past Medical History Surgeries: Abdominal Cardiac: Hypertension Reproductive: No Endocrine: Diabetes, Insulin dep Family History Cardiovascular disease 19 MOTHER Diabetes mellitus 19 MOTHER Diabetes Physical Exam Physical Exam Vital Signs Vital Signs - First Documented 01/19/19 08:08 O2 Flow Rate 0.00 Capillary Refill : Less Than 3 Seconds Height, Weight, BMI Height: 6'4.00" Weight: 304lbs. 6.4oz. 138.665037rf; 36.4 BMI Method:Stated Results Results/Procedures Labs Laboratory Tests 01/18/19 17:17 01/19/19 05:25 Patient resulted labs reviewed. Clinical Quality Measures DVT/VTE Risk/Contraindication: Risk Factor Score Per Nursin RFS Level Per Nursing on Admit: 1=Low/No VTE PPX LISA GODINEZ DO Jan 19, 2019 09:40
--- NOTE | 2019-01-19 10:24 | Short Stay Summary-Hospitalist ---
History of Present Illness HPI/Chief Complaint Hospital course: Pt had a short hospital course, he was admitted placed on IV fluids and Flagyl for diarrhea but the diarrhea had resolved within the last two days. Dr. Lau will will see him before he is discharged and I did secure a follow up appointment at [facility] with Jon Ma NP of 01/23. He will see [facility] for consultation of amputation since this is a chronic wound and has had multiple toe amputations in the past. I have restarted all of his home medications accept for Metformin due to the fact that he has diarrhea issues. After seen today and we decided to DC he began running a [address] Lau contacted me and recommended broad spectrum abx and debridement and PICC line and wound care so all orders placed Source: patient, RN/MD Exam Limitations: no limitations Date Seen 01/19/19 Time Seen by a Provider: 10:00 Attending Physician Dean Camargo MD PCP [facility] Referring Physician Date of Admission Jan 18, 2019 at 19:00 Home Medications & Allergies Home Medications Reviewed patient Home Medication Reconciliation performed by pharmacy medication reconciliations oil burner technician and/or nursing. Patients Allergies have been reviewed. 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) Alcohol Use: Denies Use Recreational Drug Use: No Smoking Status: Never a Smoker Physical Abuse Screen: No Sexual Abuse: No Recent Foreign Travel: No Contact w/other who traveled: No Recent Hopitalizations: No Recent Infectious Disease Expo: No Seasonal Allergies Seasonal Allergies: No Past Medical History Surgeries: Abdominal Cardiac: Hypertension Reproductive: No Endocrine: Diabetes, Insulin dep Family History Cardiovascular disease 19 MOTHER Diabetes mellitus 19 MOTHER Diabetes Review of Systems Constitutional: see HPI, weakness EENTM: no symptoms reported Respiratory: no symptoms reported Cardiovascular: no symptoms reported Gastrointestinal: no symptoms reported Genitourinary: no symptoms reported Musculoskeletal: joint pain Skin: no symptoms reported Psychiatric/Neurological: No Symptoms Reported All Other Systems Reviewed Negative Unless Noted: Yes Physical Exam Physical Exam Vital Signs Vital Signs - First Documented 01/19/19 08:08 O2 Flow Rate 0.00 Capillary Refill : Less Than 3 Seconds Height, Weight, BMI Height: 6'4.00" Weight: 304lbs. 6.4oz. 138.904754np; 36.4 BMI Method:Stated General Appearance: No Apparent Distress, WD/WN, Chronically ill, Obese Eyes: Bilateral Eye Normal Inspection, Bilateral Eye PERRL HEENT: PERRL/EOMI, Normal ENT Inspection Neck: Full Range of Motion, Normal Inspection Respiratory: Lungs Clear, Normal Breath Sounds, No Accessory Muscle Use, No Respiratory Distress Cardiovascular: Regular Rate, Rhythm, No Edema, No Gallop, No JVD, No Murmur, Normal Peripheral Pulses Gastrointestinal: Non Tender, Soft Extremity: Normal Capillary Refill Neurologic/Psychiatric: Alert, Oriented x3 Skin: Normal Color, Warm/Dry, Rash (right foot dressing with wound draining) Results Results/Procedures Labs Laboratory Tests 01/18/19 17:17 01/19/19 05:25 Patient resulted labs reviewed. Short Stay Diagnosis Discharge Diagnosis-Short Stay Admission Diagnosis Assessment: Right foot chronic DM wound with presumed cellulitis Fever Recent diarrhea DM Plan: IV abx Monitor glucose Christian Goodrich appreciated Final Discharge Diagnosis Assessment: Right foot chronic DM wound with presumed cellulitis Fever Recent diarrhea DM Plan: IV abx Monitor glucose Christian Goodrich appreciated Conclusion Plan Plan: Lovenox Debridement IV abx Diagnosis/Problems Diagnosis/Problems (1) Gastroenteritis Status: Resolved Resolution Date/Time: 01/19/19 @ 20:13 (2) Fever Status: Acute Qualifiers: Qualified Codes: R50.9 - Fever, unspecified (3) Ulcer of right foot Status: Acute Qualifiers: Qualified Codes: L97.512 - Non-pressure chronic ulcer of other part of right foot with fat layer exposed (4) Diabetes mellitus Status: Chronic Qualifiers: Qualified Codes: E11.69 - Type 2 diabetes mellitus with other specified complication; Z79.4 - senior care (current) use of insulin (5) Diarrhea Status: Acute Qualifiers: Qualified Codes: R19.7 - Diarrhea, unspecified (6) Wound, open, foot Status: Chronic Qualifiers: Qualified Codes: S91.301D - Unspecified open wound, right foot, subsequent encounter Clinical Quality Measures DVT/VTE Risk/Contraindication: Risk Factor Score Per Nursin RFS Level Per Nursing on Admit: 1=Low/No VTE PPX LISA GODINEZ DO Jan 19, 2019 10:24
[2019-01-19] MEDS: lisINopril 10 MG (PRINIVIL) TABLET PO SCH (12:25)
[2019-01-19] MEDS: ATORVASTATIN 40 MG (LIPITOR) TABLET PO SCH (12:25)
[2019-01-19 12:26] VITALS: BP 163/83
[2019-01-19] MEDS: ACETAMINOPHEN 500 MG TAB (TYLENOL) PO PRN (14:08)
[2019-01-19] MEDS ORDERED: VANCOMYCIN INJECTION 1,000 MG in NS (IVPB) 250 ML IV SCH (14:15)
--- NOTE | 2019-01-19 14:24 | Wound Care Assessment ---
Wound Care Assessment Date Seen by Provider: Jan 19, 2019 Time Seen by Provider: 13:50 Chief Complaint Abscess R foot. HPI The patient is a 43 year old male with a non-healing R plantar foot ulcer, which has progressed to a deep space infection. Unable to obtain MRI of limb in a timely manner. Discussed case with Dr. Arellano, and she will call Dr. Fontenot. to consult re debridement of necrotic tissue. Dakin's dressings ordered. Smoking Status: Never a Smoker Recreational Drug Use: No Alcohol Use: Denies Use Exam Vital Signs Date Time Temp Pulse Resp B/P (MAP) Pulse Ox O2 Delivery O2 Flow Rate FiO2 01/19/19 14:08 101.5 01/19/19 12:26 105 20 163/83 (109) 96 Room Air 0.00 Capillary Refill : Less Than 3 Seconds Results Laboratory Tests 01/18/19 17:17: White Blood Count 18.8H, Red Blood Count 4.04L, Hemoglobin 12.2L, Hematocrit 36L , Mean Corpuscular Volume 89, Mean Corpuscular Hemoglobin 30, Mean Corpuscular Hemoglobin Concent 34, Red Cell Distribution Width 12.9, Platelet Count 322, Mean Platelet Volume 9.2, Neutrophils (%) (Auto) 83H, Lymphocytes (%) (Auto) 6L, Monocytes (%) (Auto) 9, Eosinophils (%) (Auto) 1, Basophils (%) (Auto) 0, Neutrophils # (Auto) 15.7H, Lymphocytes # (Auto) 1.2, Monocytes # (Auto) 1.8H, Eosinophils # (Auto) 0.2, Basophils # (Auto) 0.0, Neutrophils % (Manual) 89, Lymphocytes % (Manual) 5, Monocytes % (Manual) 4, Eosinophils % (Manual) 2, Blood Morphology Comment NORMAL, Prothrombin Time 14.3, INR Comment 1.1, Activated Partial Thromboplast Time 39H, Sodium Level 136, Potassium Level 4.0, Chloride Level 102, Carbon Dioxide Level 23, Anion Gap 11, Blood Urea Nitrogen 16, Creatinine 1.42H, Estimat Glomerular Filtration Rate 54, BUN/Creatinine Ratio 11, Glucose Level 234H, Lactic Acid Level 1.16, Calcium Level 9.5, Corrected Calcium 9.7, Total Bilirubin 0.8, Aspartate Amino Transf (AST/SGOT) 10, Alanine Aminotransferase (ALT/SGPT) 13, Alkaline Phosphatase 90, Total Protein 8.1, Albumin 3.8 01/18/19 18:26: Urine Color AMBERH, Urine Clarity SLIGHTLY CLOUDY, Urine pH 5, Urine Specific [place] 1.020, Urine Protein 4+, Urine Glucose (UA) 2+H, Urine Ketones 3+H, Urine Nitrite NEGATIVE, Urine Bilirubin NEGATIVE, Urine Urobilinogen 1, Urine Leukocyte Esterase 1+H, Urine RBC (Auto) 4+H, Urine RBC 5-10H, Urine WBC 5-10H, Urine Squamous Epithelial Cells 0-2, Urine Crystals NONE, Urine Bacteria FEWH, Urine Casts NONE, Urine Mucus LARGEH, Urine Culture Indicated CULTURE PENDING 01/18/19 20:05: Glucometer 236H 01/19/19 00:08: Glucometer 328H 01/19/19 04:20: Glucometer 269H 01/19/19 05:25: White Blood Count 17.2H, Red Blood Count 3.49L, Hemoglobin 10.7L, Hematocrit 32L , Mean Corpuscular Volume 90, Mean Corpuscular Hemoglobin 31, Mean Corpuscular Hemoglobin Concent 34, Red Cell Distribution Width 12.9, Platelet Count 299, Mean Platelet Volume 9.3, Neutrophils (%) (Auto) 83H, Lymphocytes (%) (Auto) 6L, Monocytes (%) (Auto) 9, Eosinophils (%) (Auto) 2, Basophils (%) (Auto) 0, N eutrophils # (Auto) 14.3H, Lymphocytes # (Auto) 1.1, Monocytes # (Auto) 1.5H, Eosinophils # (Auto) 0.3, Basophils # (Auto) 0.0, Sodium Level 137, Potassium Level 3.8, Chloride Level 105, Carbon Dioxide Level 22, Anion Gap 10, Blood Urea Nitrogen 14, Creatinine 1.25, Estimat Glomerular Filtration Rate > 60, BUN/Creatinine Ratio 11, Glucose Level 268H, Calcium Level 9.0, Corrected Calcium 9.6, Total Bilirubin 0.7, Aspartate Amino Transf (AST/SGOT) 12, Alanine Aminotransferase (ALT/SGPT) 13, Alkaline Phosphatase 93, Total Protein 7.1, Albumin 3.3 01/19/19 11:37: Glucometer 234H PAULIE MILLER MD Jan 19, 2019 14:24
[2019-01-19] MEDS ORDERED: VANCOMYCIN INJECTION 2,250 MG in NS IV 500 ML 500 ML IV NR (14:30)
[2019-01-19] MEDS ORDERED: PIPERACILLIN/TAZO 4.5 GM/NS 100 ML IV NR ×2 (14:30)
--- NOTE | 2019-01-19 14:35 | NUR ---
CR 1.25; CR CL > 80; WT 138 KG; VANCO 2250 MG IV BOLUS THEN 1750 MG IV Q12H; TROUGH AFTER 2ND DOSE
--- NOTE | 2019-01-19 14:55 | NUR ---
Pastoral care visit.
[2019-01-19 16:01] VITALS: BP 134/76
[2019-01-19] MEDS ORDERED: KETOROLAC 30 MG/ML VIAL IVP PRN (17:15)
[2019-01-19] MEDS: DAKIN'S 1/4 STRENGTH (0.125%) 473 ML BTL TOP SCH ×2 (18:22→21:07)
--- NOTE | 2019-01-19 18:33 | Consultation (Surgery) ---
History of Present Illness History of Present Illness Patient Consulted On(tavia/time) 01/19/19 18:33 Date Seen by Provider: Jan 19, 2019 Time Seen by Provider: 18:33 History of Present Illness consult requested by Dr. Arellano for right foot abscess/ulcer Patient is a 43-year-old male who states he's been undergoing wound care for approximately 6 months. Patient with nonhealing wound that is planning on having consultation with podiatry for possible transmetatarsal amputation. Patient has history of right great toe amputation. Patient states over the last 4 days he's been having increasing pain in the right foot. He's her having some swelling moderate discomfort. He start having significant fever. Patient states that it is really making things better. Walking would make the pain significantly worse. Patient was having some nausea and vomiting. patient is diabetic but states his blood sugars have been under control for quite some time. At this time he denies any nausea vomiting fever sweats chills shortness of breath or chest pain. Allergies and Home Medications Allergies Coded Allergies: No Known Drug Allergies (Unverified , 01/18/19) Home Medications Atorvastatin Calcium 40 Mg Tablet, 40 MG PO 1500, (Reported) LAST FILLED #30 11-24-19 Insulin Aspart 300 Units/3 Ml Solution, 10-15 UNITS SC TIDAC, (Reported) Insulin Detemir 100 Unit/1 Ml Insuln.pen, 30 UNITS SC BID, (Reported) Lisinopril 20 Mg Tablet, 10 MG PO 1200, (Reported) TAKES 1/2 (20MG) TABLET Metformin HCl 1,000 Mg Tablet, 1,000 MG PO 0800,1200, (Reported) LAST FILLED #180 2--19 Multivitamin 1 Each Tablet, 1 TAB PO DAILY, (Reported) Patient Home Medication List Home Medication List Reviewed: Yes Past Yialcjd-[id number]-Jztdqu Hx Patient Social History Alcohol Use: Denies Use Recreational Drug Use: No Smoking Status: Never a Smoker Recent Foreign Travel: No Contact w/Someone Who Travel: No Recent Infectious Disease Expo: No Recent Hopitalizations: No Physical Abuse Screen: No Sexual Abuse: No Seasonal Allergies Seasonal Allergies: No Surgeries History of Surgeries: Yes (RT GREAT TOE REMOVED.) Surgeries: Abdominal Respiratory History of Respiratory Disorde: No Cardiovascular History of Cardiac Disorders: Yes Cardiac Disorders: Hypertension Neurological History of Neurological Disord: No Reproductive System Hx Reproductive Disorders: No Gastrointestinal History of Gastrointestinal Di: No Musculoskeletal History of Musculoskeletal Dis: No Endocrine History of Endocrine Disorders: Yes Endocrine Disorders: Diabetes, Insulin dep HEENT History of HEENT Disorders: No Cancer History of Cancer: No Psychosocial History of Psychiatric Problem: No Integumentary History of Skin or Integumenta: No Family Medical History Significant Family History: Diabetes Family Medial History: Cardiovascular disease 19 MOTHER Diabetes mellitus 19 MOTHER Review of Systems-General Constitutional: see HPI EENTM: no symptoms reported Respiratory: no symptoms reported Cardiovascular: no symptoms reported Gastrointestinal: no symptoms reported Genitourinary: no symptoms reported Musculoskeletal: no symptoms reported Skin: see HPI Psychiatric/Neurological: No Symptoms Reported Physical Exam-General Problems Physical Exam Vital Signs Vital Signs - First Documented 01/19/19 08:08 O2 Flow Rate 0.00 Capillary Refill : Less Than 3 Seconds General Appearance: WD/WN, no apparent distress HEENT: PERRL/EOMI, normal ENT inspection Neck: non-tender, full range of motion Respiratory: chest non-tender, no respiratory distress, no accessory muscle use Cardiovascular: regular rate, rhythm Gastrointestinal: normal bowel sounds, non tender, soft Rectal: deferred Back: no CVA tenderness Extremities: normal range of motion, no pedal edema, no calf tenderness, other (right foot wound with surrounding erythema fluctuance where the right great toe amputation was also with plantar ulceration) Neurologic/Psychiatric: alert, normal mood/affect, oriented x 3 Skin: warm/dry (except right foot where erythema present) Lymphatic: no adenopathy Data Review Labs Laboratory Tests 01/18/19 20:05: Glucometer 236H 01/19/19 00:08: Glucometer 328H 01/19/19 04:20: Glucometer 269H 01/19/19 05:25: White Blood Count 17.2H, Red Blood Count 3.49L, Hemoglobin 10.7L, Hematocrit 32L , Mean Corpuscular Volume 90, Mean Corpuscular Hemoglobin 31, Mean Corpuscular Hemoglobin Concent 34, Red Cell Distribution Width 12.9, Platelet Count 299, Mean Platelet Volume 9.3, Neutrophils (%) (Auto) 83H, Lymphocytes (%) (Auto) 6L, Monocytes (%) (Auto) 9, Eosinophils (%) (Auto) 2, Basophils (%) (Auto) 0, Neutrophils # (Auto) 14.3H, Lymphocytes # (Auto) 1.1, Monocytes # (Auto) 1.5H, Eosinophils # (Auto) 0.3, Basophils # (Auto) 0.0, Sodium Level 137, Potassium Level 3.8, Chloride Level 105, Carbon Dioxide Level 22, Anion Gap 10, Blood Urea Nitrogen 14, Creatinine 1.25, Estimat Glomerular Filtration Rate > 60, BUN/Creatinine Ratio 11, Glucose Level 268H, Calcium Level 9.0, Corrected Calcium 9.6, Total Bilirubin 0.7, Aspartate Amino Transf (AST/SGOT) 12, Alanine Aminotransferase (ALT/SGPT) 13, Alkaline Phosphatase 93, Total Protein 7.1, Albumin 3.3 01/19/19 11:37: Glucometer 234H 01/19/19 16:52: Glucometer 156H Microbiology 01/18/19 Blood Culture - Preliminary, Resulted No growth 01/18/19 Urine Culture - Final, Complete NO GROWTH 01/18/19 Gram Stain, Resulted Pending 01/18/19 Wound Culture - Preliminary, Resulted Staphylococcus aureus Assessment/Plan Assessment/Plan Assessment/Plan patient is a 43-year-old male with diabetic foot ulcer with also abscess on the right lower extremity foot. Patient was discuss risk and benefits of having incision and drainage and debridement and all other indicated procedures performed and he understands and wishes to proceed. Patient to be nothing by mouth after midnight. Continue current medical management. Patient will need long-term wound care. Patient will still likely need transmetatarsal amputation. Clinical Quality Measures DVT/VTE Risk/Contraindication: Risk Factor Score Per Nursin RFS Level Per Nursing on Admit: 1=Low/No VTE PPX MARÍA CABAN DO Jan 19, 2019 18:33
[2019-01-19 19:34] VITALS: BP 125/76
[2019-01-19] MEDS: PIPERACILLIN/TAZOBACTAM (BULK) 4.5 GM in NS (IVPB) 100 ML IV SCH (21:06)
[2019-01-19] MEDS: ENOXAPARIN 40 MG/0.4 ML (LOVENOX) SYR SC SCH (21:06)
[2019-01-20] VITALS (13 sets, daily range): BP systolic 91–182; BP diastolic 54–91
[2019-01-20] MEDS: inSUlin ASPART (NovoLOG) 1 UNIT/0.01 ML (CHARGE PER UNIT) SC SCH ×9 (00:09→20:52)
[2019-01-20] MEDS ORDERED: VANCOMYCIN 1,750 MG/NS 500 ML IVPB IV SCH ×2 (02:00)
[2019-01-20] MEDS: MULTIVIT W/MINERALS TAB (THERAGRAN M) PO SCH (05:20)
[2019-01-20] MEDS: PIPERACILLIN/TAZOBACTAM (BULK) 4.5 GM in NS (IVPB) 100 ML IV SCH ×3 (05:46→20:20)
[2019-01-20 06:01] LABS: BASOPHILS % (AUTO) 0 % (0-10); EOSINOPHILS # (AUTO) 0.4 10^3/uL (0.0-0.3); EOSINOPHILS % (AUTO) 5 % (0-10); HEMATOCRIT 31 % (40-54); HEMOGLOBIN 10.4 G/DL (13.3-17.7); LYMPHOCYTES # (AUTO) 1.1 X 10^3 (1.0-4.0); LYMPHOCYTES % (AUTO) 14 % (12-44); MEAN CORPUSCULAR HGB CONC 34 G/DL (32-36); MEAN CORPUSCULAR VOLUME 89 FL (80-99); MEAN PLATELET VOLUME 9.1 FL (7.4-10.4); MONOCYTES % (AUTO) 14 % (0-12); NEUTROPHILS # (AUTO) 5.1 X 10^3 (1.8-7.8); NEUTROPHILS % (AUTO) 67 % (42-75); PLATELET COUNT 269 10^3/uL (130-400); RED CELL DISTRIBUTION WIDTH 13.4 % (10.0-14.5); WHITE BLOOD COUNT 7.6 10^3/uL (4.3-11.0)
[2019-01-20 06:02] LABS: MEAN CORPUSCULAR HEMOGLOBIN 30 PG (25-34)
[2019-01-20 06:22] LABS: ALBUMIN 2.8 GM/DL (3.2-4.5); BILIRUBIN,TOTAL 0.2 MG/DL (0.1-1.0); CALCIUM 8.4 MG/DL (8.5-10.1); CREATININE SERUM 1.3 MG/DL (0.60-1.30); POTASSIUM 3.5 MMOL/L (3.6-5.0); TOTAL PROTEIN 6.2 GM/DL (6.4-8.2)
--- NOTE | 2019-01-20 07:48 | Progress Note ---
Subjective Date Seen by a Provider: Jan 20, 2019 Time Seen by a Provider: 07:45 Subjective/Events-last exam Patient doing okay. No new complaints. right foot no change from yesterday. wbc down. denies n/v fever sweats chills shortness of breath or chest pain at this time. Focused Exam Lactate Level 01/18/19 17:17: Lactic Acid Level 1.16 Objective Exam Vital Signs Date Time Temp Pulse Resp B/P (MAP) Pulse Ox O2 Delivery O2 Flow Rate FiO2 01/20/19 04:00 96.9 78 18 151/84 (106) 98 Room Air 0.00 01/20/19 00:05 98.1 80 18 153/87 (109) 96 Room Air 0.00 01/19/19 20:15 96 Room Air 01/19/19 19:34 98.0 81 20 125/76 (92) 96 Room Air 0.00 01/19/19 16:01 99.5 102 22 134/76 (95) 96 Room Air 0.00 01/19/19 14:55 101.1 01/19/19 14:45 100.0 01/19/19 14:08 101.5 01/19/19 12:26 102.4 105 20 163/83 (109) 96 Room Air 0.00 01/19/19 08:08 99.9 100 22 167/96 (119) 97 Room Air 0.00 I & O 01/20/19 07:00 Intake Total 4562.5 ml Output Total 400 ml Balance 4162.5 ml Capillary Refill : Less Than 3 Seconds General Appearance: No Apparent Distress, WD/WN, Chronically ill, Obese HEENT: PERRL/EOMI, Normal ENT Inspection Neck: Full Range of Motion, Normal Inspection, Non Tender Respiratory: Chest Non Tender, No Accessory Muscle Use, No Respiratory Distress Cardiovascular: Regular Rate, Rhythm Gastrointestinal: non tender, soft, no organomegaly Extremity: Normal Capillary Refill, Other (right foot with ulceration plantar and fluctuant area at scar of great toe amputation surrounding erythema) Neurologic/Psychiatric: Alert, Oriented x3 Skin: Normal Color, Warm/Dry, Rash (right foot dressing with wound draining) Lymphatic: No Adenopathy Results Lab Laboratory Tests 01/19/19 11:37: Glucometer 234H 01/19/19 16:52: Glucometer 156H 01/19/19 20:44: Glucometer 128H 01/20/19 00:08: Glucometer 150H 01/20/19 04:09: Glucometer 140H 01/20/19 05:05: White Blood Count 7.6, Red Blood Count 3.41L, Hemoglobin 10.4L, Hematocrit 31L, Mean Corpuscular Volume 89, Mean Corpuscular Hemoglobin 30, Mean Corpuscular Hemoglobin Concent 34, Red Cell Distribution Width 13.4, Platelet Count 269, Mean Platelet Volume 9.1, Neutrophils (%) (Auto) 67, Lymphocytes (%) (Auto) 14, Monocytes (%) (Auto) 14H, Eosinophils (%) (Auto) 5, Basophils (%) (Auto) 0, Neutrophils # (Auto) 5.1, Lymphocytes # (Auto) 1.1, Monocytes # (Auto) 1.0, Eosinophils # (Auto) 0.4H, Basophils # (Auto) 0.0 01/20/19 05:15: Sodium Level 141, Potassium Level 3.5L, Chloride Level 111H, Carbon Dioxide Level 21, Anion Gap 9, Blood Urea Nitrogen 17, Creatinine 1.30, Estimat Mary merular Filtration Rate 60, BUN/Creatinine Ratio 13, Glucose Level 145H, Calcium Level 8.4L, Corrected Calcium 9.4, Total Bilirubin 0.2, Aspartate Amino Transf (AST/SGOT) 21, Alanine Aminotransferase (ALT/SGPT) 16, Alkaline Phosphatase 85, Total Protein 6.2L, Albumin 2.8L Microbiology 01/18/19 Blood Culture - Preliminary, Resulted No growth 01/18/19 Urine Culture - Final, Complete NO GROWTH 01/18/19 Gram Stain - Final, Resulted 01/18/19 Wound Culture - Preliminary, Resulted Staphylococcus aureus Assessment/Plan Assessment/Plan Assessment/Plan patient is a 43-year-old male with diabetic foot ulcer with also abscess on the right lower extremity foot. Patient was discuss risk and benefits of having in cision and drainage and debridement and all other indicated procedures performed and he understands and wishes to proceed. Patient to be nothing by mouth Continue current medical management. Patient will need long-term wound care. Patient will still likely need transmetatarsal amputation. To OR today for incision and drainage and debridement of right foot ulceration abscess Clinical Quality Measures DVT/VTE Risk/Contraindication: Risk Factor Score Per Nursin RFS Level Per Nursing on Admit: 1=Low/No VTE PPX MARÍA CABAN DO Jan 20, 2019 07:48
--- NOTE | 2019-01-20 07:57 | Diagnostic Imaging Report ---
INDICATION: PICC placement. COMPARISON: 01/18/2019. FINDINGS: Left PICC has tip terminating near the superior cavoatrial junction. Visualized lungs are clear. Posterior lower lobes are poorly evaluated by portable radiography. Stable borderline enlargement of cardiac silhouette. No pleural effusion or pneumothorax. IMPRESSION: Well-positioned left PICC. Dictated by: Dictated on workstation # [id number]
[2019-01-20] MEDS ORDERED: LIDOCAINE PF 2% 5 ML (XYLOCAINE) VIAL ONE (08:06)
[2019-01-20] MEDS ORDERED: MIDAZOLAM 2 MG/2 ML (VERSED) VIAL ONE (08:06)
[2019-01-20] MEDS ORDERED: ONDANSETRON 4 MG/2 ML (SDV) Z0FRAN ONE (08:06)
[2019-01-20] MEDS ORDERED: proPOfol 200 MG/20 ML (DIPRIVAN) VIAL IV ONE (08:06)
[2019-01-20] MEDS ORDERED: fentaNYL INJECTION 100 MCG/2 ML AMP ONE (08:06)
[2019-01-20] MEDS ORDERED: SEVOFLURANE (ULTANE) 15 ML INHAL SOLN ONE (08:06)
[2019-01-20] MEDS ORDERED: LIDOCAINE 1% INJ 20 ML 20 ML VIAL ONE (08:12)
[2019-01-20] MEDS ORDERED: BUP/EPI 0.5% 1:200,000 (SENSORCAINE) 30 ML VIAL ONE (08:12)
--- NOTE | 2019-01-20 08:15 | NUR ---
GOT CALL FROM PICC LINE RN OK TO USE PICC LINE
--- NOTE | 2019-01-20 08:30 | NUR ---
PT TAKEN DOWN FOR SURG
[2019-01-20] MEDS: metFORMIN 500 MG (GLUCOPHAGE) TAB PO SCH ×2 (08:37→13:47)
[2019-01-20] MEDS: DAKIN'S 1/4 STRENGTH (0.125%) 473 ML BTL TOP SCH ×2 (08:38→20:23)
[2019-01-20] MEDS ORDERED: LACTATED RINGERS 1,000 ML IV PRN (08:43)
[2019-01-20] MEDS ORDERED: HYDROmorphone 2 MG/ML VIAL (DILAUDID) IV ONE (08:45)
[2019-01-20] MEDS ORDERED: morphine INJ 10 MG/ML 1ML (SYR OR VIAL) IVP ONE (08:45)
[2019-01-20] MEDS ORDERED: ONDANSETRON 4 MG/2 ML (SDV) Z0FRAN IVP PRN (08:45)
--- NOTE | 2019-01-20 10:03 | Progress Note-Post Operative ---
Post-Operative Progess Note Surgeon (s)/Molded Candles Wicker (s) Surgeon MARÍA CABAN DO Molded Candles Wicker: NA Pre-Operative Diagnosis RIGHT FOOT ULCER/ABSCESS Post-Operative Diagnosis SAME Procedure & Operative Findings Date of Procedure 01/20/19 Procedure Performed/Findings EXCSIONAL DEBRIDEMENT 7.5X5CM SKIN SUBCUTANEOUS TISSUE AND MUSCLED USING CUT CAUTERY Anesthesia Type GEN Estimated Blood Loss Estimated blood loss (mL): MIN Specimens/Packing Specimens Removed RIGHT FOOT WOUND MARÍA CABAN DO Jan 20, 2019 10:03
--- NOTE | 2019-01-20 10:06 | Progress Note-Hospitalist ---
Subjective HPI/CC On Admission Date Seen by Provider: Jan 20, 2019 Time Seen by Provider: 09:30 Hospital course: Pt had a short hospital course, he was admitted placed on IV fluids and Flagyl for diarrhea but the diarrhea had resolved within the last two days. Dr. Lau will will see him before he is discharged and I did secure a follow up appointment at [facility] with Jon Ma NP of 01/23. He will see [facility] for consultation of amputation since this is a chronic wound and has had multiple toe amputations in the past. I have restarted all of his home medications accept for Metformin due to the fact that he has diarrhea issues. After seen today and we decided to DC he began running a [address] Lau contacted me and recommended broad spectrum abx and debridement and PICC line and wound care so all orders placed Subjective/Events-last exam Pt had debridement from Dr. Fontenot without complication Maintained on Vanc and Zosyn with normalization of white blood cell count now Blood cultures positive for Staph aureus and he is maintained on Vanc so good coverage there empirically No diarrhea reported Reviewed labs and diabetes is better controlled Appreciated both Dr. Lau and Dr. Fontenot Review of Systems General: Fatigue Focused Exam Lactate Level 01/18/19 17:17: Lactic Acid Level 1.16 Objective Exam Vital Signs Vital Signs Date Time Temp Pulse Resp B/P (MAP) Pulse Ox O2 Delivery O2 Flow Rate FiO2 01/20/19 16:00 98.6 84 22 182/88 (119) 98 Room Air 01/20/19 10:00 3 Capillary Refill : Less Than 3 Seconds General Appearance: No Apparent Distress, WD/WN, Chronically ill, Obese HEENT: PERRL/EOMI, Normal ENT Inspection Neck: Full Range of Motion, Normal Inspection, Non Tender Respiratory: Chest Non Tender, No Accessory Muscle Use, No Respiratory Distress Cardiovascular: Regular Rate, Rhythm Gastrointestinal: Non Tender, Soft Extremity: Normal Capillary Refill, Other (right foot with ulceration plantar and fluctuant area at scar of great toe amputation surrounding erythema) Neurologic/Psychiatric: Alert, Oriented x3 Skin: Normal Color, Warm/Dry, Rash (right foot dressing with wound draining) Lymphatic: No Adenopathy Results/Procedures Lab Laboratory Tests 01/20/19 05:05 01/20/19 05:15 Patient resulted labs reviewed. Assessment/Plan Assessment and Plan Assess & Plan/Chief Complaint Assessment: Right foot chronic DM wound with presumed cellulitis and osteomyelitis s/p debridement POD # 0 Staph bacteremia Fever Recent diarrhea DM Plan: IV abx Monitor glucose Christian Fontenot and Judi appreciated Diagnosis/Problems Diagnosis/Problems (1) Staphylococcus aureus bacteremia Status: Acute (2) Gastroenteritis Status: Resolved Resolution Date/Time: 01/19/19 @ 20:13 (3) Fever Status: Acute Qualifiers: Fever type: unspecified Qualified Codes: R50.9 - Fever, unspecified (4) Ulcer of right foot Status: Acute Qualifiers: Non-pressure ulcer stage: with fat layer exposed Qualified Codes: L97.512 - Non-pressure chronic ulcer of other part of right foot with fat layer exposed (5) Diabetes mellitus Status: Chronic Qualifiers: Diabetes mellitus type: type 2 Diabetes mellitus skilled nursing insulin use: with intermediate frame tender use Diabetes mellitus complication status: with other specified complication Qualified Codes: E11.69 - Type 2 diabetes mellitus with other specified complication; Z79.4 - halfway (current) use of insulin (6) Diarrhea Status: Acute Qualifiers: Diarrhea type: unspecified type Qualified Codes: R19.7 - Diarrhea, unspecified (7) Wound, open, foot Status: Chronic Qualifiers: Encounter type: subsequent encounter Laterality: right Qualified Codes: S91.301D - Unspecified open wound, right foot, subsequent encounter Clinical Quality Measures DVT/VTE Risk/Contraindication: Risk Factor Score Per Nursin RFS Level Per Nursing on Admit: 1=Low/No VTE PPX LISA GODINEZ DO Jan 20, 2019 10:06
--- NOTE | 2019-01-20 10:20 | NUR ---
PT BACK FROM RECOVERY WITH PARAMEDICAL AIDE ASHLEY -- REPORT TO THIS RN --
[2019-01-20] MEDS ORDERED: TROUGH ORDER-PHARMACY XX NR (13:00)
[2019-01-20] MEDS: NS IV 1000 ML 1,000 ML IV SCH ×2 (13:46→22:54)
[2019-01-20] MEDS: lisINopril 10 MG (PRINIVIL) TABLET PO SCH (13:47)
--- NOTE | 2019-01-20 15:01 | OPERATIVE REPORT ---
DATE OF SERVICE: 01/20/2019 PREOPERATIVE DIAGNOSIS: Right foot ulceration/abscess. POSTOPERATIVE DIAGNOSIS: Right foot ulceration/abscess. PROCEDURE: Excisional debridement 7.5 x 5 cm skin and subcutaneous tissue and muscle using cautery. SURGEON: María Fontenot DO. ANESTHESIA: General. ESTIMATED BLOOD LOSS: Minimal. COMPLICATIONS: None. INDICATIONS: The patient is a 43-year-old male with a right foot ulcer with an abscess. He is diabetic. The patient understands risks and benefits of procedure and wished to proceed with procedure. Consent was signed in the chart. DESCRIPTION OF PROCEDURE: The patient was taken to the operating suite, prepped and draped in sterile fashion. Timeout was performed. Over the fluctuant area of abscess on the right great toe location, cautery was used to cut the end of the fluctuant area. Some purulent material erupted from all the tissue, the skin and subcutaneous tissue and some of the muscles necrotic. This incision was then extended down into the ulceration on the plantar surface. The entire area was opened and the necrotic skin, subcutaneous tissue and part of the muscle were removed. Overall, dimensions 7.5 x 5 cm. The wound was then irrigated with copious amounts of irrigation and suctioned. Hemostasis was achieved. The wound was then packed with Kerlix wet to dry and sterile bandage was applied. The patient tolerated the procedure well without any complications, was taken to recovery room in stable condition. SPECIMEN: Culture of some of the tissue was sent as well. Job ID: [id number] DocumentID: [id number] Dictated Date: 01/20/2019 10:02:36 Diamond Powder Technician Date: 01/20/2019 15:00:26 Dictated By: MARÍA FONTENOT DO [facility]
[2019-01-20] MEDS: VANCOMYCIN INJECTION 1,500 MG in NS IV 500 ML 500 ML IV SCH (15:42)
[2019-01-20] MEDS: ATORVASTATIN 40 MG (LIPITOR) TABLET PO SCH (16:37)
[2019-01-20] MEDS: ACETAMINOPHEN 500 MG TAB (TYLENOL) PO PRN (20:19)
[2019-01-20] MEDS: ENOXAPARIN 40 MG/0.4 ML (LOVENOX) SYR SC SCH (20:20)
[2019-01-21] VITALS: BP 152/86
[2019-01-21] MEDS: VANCOMYCIN INJECTION 1,500 MG in NS IV 500 ML 500 ML IV SCH ×2 (02:03→14:35)
[2019-01-21] MEDS: ONDANSETRON 4 MG/2 ML (SDV) Z0FRAN IV PRN ×2 (03:23→17:38)
[2019-01-21 03:41] VITALS: BP 160/80
[2019-01-21] MEDS: PIPERACILLIN/TAZOBACTAM (BULK) 4.5 GM in NS (IVPB) 100 ML IV SCH ×3 (04:54→21:31)
[2019-01-21 05:05] LABS: BASOPHILS # (AUTO) 0.1 10^3/uL (0.0-0.1); BASOPHILS % (AUTO) 1 % (0-10); EOSINOPHILS # (AUTO) 0.2 10^3/uL (0.0-0.3); EOSINOPHILS % (AUTO) 2 % (0-10); HEMATOCRIT 29 % (40-54); HEMOGLOBIN 9.7 G/DL (13.3-17.7); LYMPHOCYTES # (AUTO) 1.3 X 10^3 (1.0-4.0); LYMPHOCYTES % (AUTO) 14 % (12-44); MEAN CORPUSCULAR HEMOGLOBIN 30 PG (25-34); MEAN CORPUSCULAR HGB CONC 34 G/DL (32-36); MEAN CORPUSCULAR VOLUME 89 FL (80-99); MONOCYTES # (AUTO) 1.2 X 10^3 (0.0-1.0); MONOCYTES % (AUTO) 13 % (0-12); NEUTROPHILS # (AUTO) 6.5 X 10^3 (1.8-7.8); NEUTROPHILS % (AUTO) 70 % (42-75); PLATELET COUNT 285 10^3/uL (130-400); RED CELL DISTRIBUTION WIDTH 13.1 % (10.0-14.5); WHITE BLOOD COUNT 9.3 10^3/uL (4.3-11.0)
[2019-01-21 05:23] LABS: ALBUMIN 2.7 GM/DL (3.2-4.5); BILIRUBIN,TOTAL 0.3 MG/DL (0.1-1.0); CREATININE SERUM 1.41 MG/DL (0.60-1.30); POTASSIUM 3.9 MMOL/L (3.6-5.0)
[2019-01-21] MEDS: MULTIVIT W/MINERALS TAB (THERAGRAN M) PO SCH (06:06)
[2019-01-21] MEDS: inSUlin ASPART (NovoLOG) 1 UNIT/0.01 ML (CHARGE PER UNIT) SC SCH ×7 (06:07→21:12)
[2019-01-21 08:00] VITALS: BP 162/68
[2019-01-21] MEDS: metFORMIN 500 MG (GLUCOPHAGE) TAB PO SCH ×2 (09:41→12:50)
[2019-01-21] MEDS: NS IV 1000 ML 1,000 ML IV SCH ×2 (09:42→21:33)
--- NOTE | 2019-01-21 12:12 | Progress Note-Hospitalist ---
Subjective HPI/CC On Admission Date Seen by Provider: Jan 21, 2019 Time Seen by Provider: 10:00 Hospital course: Pt had a short hospital course, he was admitted placed on IV fluids and Flagyl for diarrhea but the diarrhea had resolved within the last two days. Dr. Lau will will see him before he is discharged and I did secure a follow up appointment at [facility] with Jon Ma NP of 01/23. He will see [facility] for consultation of amputation since this is a chronic wound and has had multiple toe amputations in the past. I have restarted all of his home medications accept for Metformin due to the fact that he has diarrhea issues. After seen today and we decided to DC he began running a [address] Lau contacted me and recommended broad spectrum abx and debridement and PICC line and wound care so all orders placed Subjective/Events-last exam Pt doing well but overall having some low sugars so holding his insulin. Eating okay. BM is loose but not diarrhea. Maintain on broad spectrum antibiotics until culture returns. No pain is reported other than the right foot. Review of Systems Musculoskeletal: foot pain Focused Exam Lactate Level Objective Exam Vital Signs Vital Signs Date Time Temp Pulse Resp B/P (MAP) Pulse Ox O2 Delivery O2 Flow Rate FiO2 01/21/19 16:00 99.7 105 18 184/70 (108) 92 Room Air 01/21/19 12:59 0.00 Capillary Refill : Less Than 3 Seconds General Appearance: No Apparent Distress, WD/WN, Chronically ill, Obese HEENT: PERRL/EOMI, Normal ENT Inspection Neck: Full Range of Motion, Normal Inspection, Non Tender Respiratory: Chest Non Tender, No Accessory Muscle Use, No Respiratory Distress Cardiovascular: Regular Rate, Rhythm Gastrointestinal: Non Tender, Soft Extremity: Normal Capillary Refill, Other (right foot with ulceration plantar and fluctuant area at scar of great toe amputation surrounding erythema) Neurologic/Psychiatric: Alert, Oriented x3 Skin: Normal Color, Warm/Dry, Rash (right foot dressing with wound draining) Lymphatic: No Adenopathy Results/Procedures Lab Laboratory Tests 01/21/19 04:45 Patient resulted labs reviewed. Assessment/Plan Assessment and Plan Assess & Plan/Chief Complaint Assessment: Right foot chronic DM wound with presumed cellulitis and osteomyelitis s/p d ebridement POD # 1 Staph bacteremia Fever Recent diarrhea DM Plan: IV abx Vanc PICC Monitor glucose Christian Fontenot and Judi appreciated Diagnosis/Problems Diagnosis/Problems (1) Staphylococcus aureus bacteremia Status: Acute (2) Gastroenteritis Status: Resolved Resolution Date/Time: 01/19/19 @ 20:13 (3) Fever Status: Acute Qualifiers: Fever type: unspecified Qualified Codes: R50.9 - Fever, unspecified (4) Ulcer of right foot Status: Acute Qualifiers: Non-pressure ulcer stage: with fat layer exposed Qualified Codes: L97.512 - Non-pressure chronic ulcer of other part of right foot with fat layer exposed (5) Diabetes mellitus Status: Chronic Qualifiers: Diabetes mellitus type: type 2 Diabetes mellitus terminal clerk insulin use: with [facility] use Diabetes mellitus complication status: with other specified complication Qualified Codes: E11.69 - Type 2 diabetes mellitus with other specified complication; Z79.4 - [facility] (current) use of insulin (6) Diarrhea Status: Acute Qualifiers: Diarrhea type: unspecified type Qualified Codes: R19.7 - Diarrhea, unspecified (7) Wound, open, foot Status: Chronic Qualifiers: Encounter type: subsequent encounter Laterality: right Qualified Codes: S91.301D - Unspecified open wound, right foot, subsequent encounter Clinical Quality Measures DVT/VTE Risk/Contraindication: Risk Factor Score Per Nursin RFS Level Per Nursing on Admit: 1=Low/No VTE PPX LISA GODINEZ DO Jan 21, 2019 12:11
--- NOTE | 2019-01-21 12:44 | Anesthesia-General Post-Op ---
General Patient Condition Mental Status/LOC: Same as Preop Cardiovascular: Satisfactory Nausea/Vomiting: Absent Respiratory: Satisfactory Pain: Controlled Complications: Absent Post Op Complications Complications None Follow Up Care/Instructions Patient Instructions None needed. Anesthesia/Patient Condition Patient Condition Patient is doing well, no complaints, stable vital signs, no apparent adverse anesthesia problems. No complications reported per nursing. KARON IGLESIAS CRNA Jan 21, 2019 12:44
[2019-01-21] MEDS: lisINopril 10 MG (PRINIVIL) TABLET PO SCH (12:49)
[2019-01-21] MEDS: DAKIN'S 1/4 STRENGTH (0.125%) 473 ML BTL TOP SCH ×2 (12:49→21:34)
[2019-01-21 12:59] VITALS: BP 170/66
[2019-01-21] MEDS ORDERED: TROUGH ORDER-PHARMACY XX NR (13:00)
--- NOTE | 2019-01-21 14:30 | NUR ---
VANCO TROUGH NOT DONE NOT ORDERED IN LAB ONLY ON EMAR. PHARMACIST NOTIFIED AND WILL REORDER. VANC GIVEN ORDERED.
[2019-01-21 16:00] VITALS: BP 184/70
[2019-01-21] MEDS: ATORVASTATIN 40 MG (LIPITOR) TABLET PO SCH (17:06)
--- NOTE | 2019-01-21 17:10 | NUR ---
VOMITED X1. REFUSED INSULIN.
--- NOTE | 2019-01-21 17:40 | NUR ---
ZOFRAN 8MG IV FOR NAUSEA.
[2019-01-21 20:00] VITALS: BP 172/68
--- NOTE | 2019-01-21 20:48 | Progress Note ---
Subjective Date Seen by a Provider: Jan 21, 2019 Time Seen by a Provider: 17:25 Subjective/Events-last exam Patient pain is controlled in right foot. Feels a like hes having the shakes a little. He has no other complaints at this time. Objective Exam Vital Signs Date Time Temp Pulse Resp B/P (MAP) Pulse Ox O2 Delivery O2 Flow Rate FiO2 01/21/19 20:00 101.1 106 20 172/68 (102) 94 Room Air 01/21/19 16:00 99.7 105 18 184/70 (108) 92 Room Air 01/21/19 12:59 98.2 88 22 170/66 (100) 99 Room Air 0.00 01/21/19 08:00 98.4 92 20 162/68 (99) 97 Room Air 0.00 01/21/19 08:00 Room Air 01/21/19 03:41 98.8 89 18 160/80 (106) 93 Room Air 01/21/19 00:00 99.7 104 20 152/86 (108) 97 Room Air I & O 01/21/19 07:00 Intake Total 3555 ml Output Total 400 ml Balance 3155 ml Capillary Refill : Less Than 3 SecondsLess Than 3 Seconds General Appearance: No Apparent Distress, WD/WN, Chronically ill, Obese HEENT: PERRL/EOMI, Normal ENT Inspection Neck: Full Range of Motion, Normal Inspection, Non Tender Respiratory: Chest Non Tender, No Accessory Muscle Use, No Respiratory Distress Cardiovascular: Regular Rate, Rhythm Gastrointestinal: non tender, soft, no organomegaly Extremity: Normal Capillary Refill, Other (right foot wound stable from yesterday after debridement and incision and drainage) Neurologic/Psychiatric: Alert, Oriented x3 Skin: Normal Color, Warm/Dry, Rash (right foot dressing with wound draining) Lymphatic: No Adenopathy Results Lab Laboratory Tests 01/21/19 04:45: White Blood Count 9.3, Red Blood Count 3.20L, Hemoglobin 9.7L, Hematocrit 29L, Mean Corpuscular Volume 89, Mean Corpuscular Hemoglobin 30, Mean Corpuscular Hemoglobin Concent 34, Red Cell Distribution Width 13.1, Platelet Count 285, Mean Platelet Volume 9.0, Neutrophils (%) (Auto) 70, Lymphocytes (%) (Auto) 14, Monocytes (%) (Auto) 13H, Eosinophils (%) (Auto) 2, Basophils (%) (Auto) 1, Neutrophils # (Auto) 6.5, Lymphocytes # (Auto) 1.3, Monocytes # (Auto) 1.2H, Eosinophils # (Auto) 0.2, Basophils # (Auto) 0.1, Sodium Level 139, Potassium Level 3.9, Chloride Level 108H, Carbon Dioxide Level 20L, Anion Gap 11, Blood Urea Nitrogen 12, Creatinine 1.41H, Estimat Glomerular Filtration Rate 55, BUN/Creatinine Ratio 9, Glucose Level 150H, Calcium Level 8.0L, Corrected Calcium 9.0, Total Bilirubin 0.3, Aspartate Amino Transf (AST/SGOT) 19, Alanine Aminotransferase (ALT/SGPT) 18, Alkaline Phosphatase 75, Total Protein 6.0L, Albumin 2.7L 01/21/19 16:11: Glucometer 165H Microbiology 01/18/19 Blood Culture - Preliminary, Resulted Staphylococcus aureus 01/20/19 C. difficile GDH Antigen & Toxins - Final, Resulted 01/20/19 Stool Culture - Preliminary, Resulted 01/19/19 MRSA Screen - Final, Complete 01/18/19 Urine Culture - Final, Complete NO GROWTH 01/20/19 Gram Stain - Final, Resulted 01/20/19 Anaerobic Culture, Resulted Pending 01/20/19 Surgical Culture - Preliminary, Resulted Staphylococcus aureus Assessment/Plan Assessment/Plan Assessment/Plan s/p right foot incision, drainage, and debridment continue wound care and medical management no changes to care at this time. will follow. Clinical Quality Measures DVT/VTE Risk/Contraindication: Risk Factor Score Per Nursin RFS Level Per Nursing on Admit: 1=Low/No VTE PPX MARÍA CABAN DO Jan 21, 2019 20:48
[2019-01-21] MEDS: ACETAMINOPHEN 500 MG TAB (TYLENOL) PO PRN (21:17)
[2019-01-21] MEDS: ENOXAPARIN 40 MG/0.4 ML (LOVENOX) SYR SC SCH (21:18)
[2019-01-22 00:40] VITALS: BP 139/75
[2019-01-22] MEDS ORDERED: TROUGH ORDER-PHARMACY XX NR (01:00)
[2019-01-22] MEDS: VANCOMYCIN INJECTION 1,500 MG in NS IV 500 ML 500 ML IV SCH (02:23)
[2019-01-22] MEDS: ONDANSETRON 4 MG/2 ML (SDV) Z0FRAN IV PRN (03:23)
[2019-01-22] MEDS: PIPERACILLIN/TAZOBACTAM (BULK) 4.5 GM in NS (IVPB) 100 ML IV SCH (04:27)
[2019-01-22 04:53] VITALS: BP 158/87
[2019-01-22] MEDS: MULTIVIT W/MINERALS TAB (THERAGRAN M) PO SCH (06:48)
[2019-01-22 06:51] LABS: BASOPHILS % (AUTO) 0 % (0-10); EOSINOPHILS # (AUTO) 0.1 10^3/uL (0.0-0.3); EOSINOPHILS % (AUTO) 2 % (0-10); HEMATOCRIT 26 % (40-54); HEMOGLOBIN 8.6 G/DL (13.3-17.7); LYMPHOCYTES # (AUTO) 1.4 X 10^3 (1.0-4.0); LYMPHOCYTES % (AUTO) 16 % (12-44); MEAN CORPUSCULAR HEMOGLOBIN 30 PG (25-34); MEAN CORPUSCULAR HGB CONC 33 G/DL (32-36); MEAN CORPUSCULAR VOLUME 90 FL (80-99); MEAN PLATELET VOLUME 8.7 FL (7.4-10.4); MONOCYTES # (AUTO) 1.1 X 10^3 (0.0-1.0); MONOCYTES % (AUTO) 12 % (0-12); NEUTROPHILS % (AUTO) 70 % (42-75); PLATELET COUNT 290 10^3/uL (130-400); RED CELL DISTRIBUTION WIDTH 13.3 % (10.0-14.5); WHITE BLOOD COUNT 8.6 10^3/uL (4.3-11.0)
[2019-01-22] MEDS: NS IV 1000 ML 1,000 ML IV SCH (06:52)
[2019-01-22 07:09] LABS: ALANINE AMINOTRANSFERASE 21 U/L (0-55); ALBUMIN 2.4 GM/DL (3.2-4.5); ALKALINE PHOSPHATASE 60 U/L (40-136); BILIRUBIN,TOTAL 0.3 MG/DL (0.1-1.0); BUN/CREATININE RATIO 8; CALCIUM 7.3 MG/DL (8.5-10.1); CARBON DIOXIDE 21 MMOL/L (21-32); CHLORIDE 110 MMOL/L (98-107); CREATININE SERUM 1.16 MG/DL (0.60-1.30); GFR ESTIMATED > 60; GLUCOSE 180 MG/DL (70-105); POTASSIUM 3.2 MMOL/L (3.6-5.0); SODIUM 140 MMOL/L (135-145); TOTAL PROTEIN 5.4 GM/DL (6.4-8.2)
[2019-01-22] MEDS: inSUlin ASPART (NovoLOG) 1 UNIT/0.01 ML (CHARGE PER UNIT) SC SCH ×2 (07:20→08:04)
[2019-01-22 08:00] VITALS: BP 170/84
[2019-01-22] MEDS: metFORMIN 500 MG (GLUCOPHAGE) TAB PO SCH (09:30)
--- NOTE | 2019-01-22 09:30 | Physician Query Clarification ---
PQ-Intro New Diagnosis Admission/Discharge Admission Date: Jan 19, 2019 at 12:26 Discharge Date: The medical record reflects the following clinical scenario: History/Risk Factors: Previous amputation or right great toe. 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 Clinical Findings: Positive blood culture for moderate growth of Staphylococcus aureus (MRSA isolated). WBC 17.2, T 102.4, pulse 105 and BP 163/83. Treatment: Debridement of muscle necrosis right foot-Dr. Fontenot and IV Zosyn and IV Vancomycin HCI. Question: What condition best reflects the above clinical scenario? Please document a response in the Progress Noter or Discharge Summary. 1. Staph aureus bacteremia with sepsis. 2. Staph aureus bacteremia only without sepsis. 3. Other, with explanation of the clinical findings. 4. Clinically undetermined, no explanation for the clinical findings. PHYSICIAN RESPONSE What condition reflects above: 1 Please remember a lack of response to the above will prompt a phone page by CDI/Coding staff. In responding to this query, please exercise your independent professional judgment. The purpose of this communication is to more accurately reflect the complexity of your patients condition. The fact that a question is asked does not imply that any particular answer is desired or expected. Thank you for your timely response to this clarification. Requestors name: Apple Carr [facility] Phone # ext [phone] or [phone] THIS PHYSICIAN QUERY FORM IS A PERMANENT PART OF THE MEDICAL RECORD [facility] Jan 22, 2019 09:30 LISA GODINEZ DO Jan 22, 2019 10:50
--- NOTE | 2019-01-22 09:38 | Physician Query Clarification ---
PQ-Link Infection to Dev/Proc Admission/Discharge Admission Date: Jan 19, 2019 at 12:26 Discharge Date: The medical record reflects the following clinical scenario: History/Risk Factors: Previous right great toe amputation. Chronic wound right foot with ulcer with diabetes and necrosis of muscle. Clinical Findings: MRSA infection Treatment: Excision debridement of right foot Question: Can you specify if the chronic wound infection is a complication/infection of amputation stump? Please document a response in Progress Note or Discharge Summary. 1. Yes - [infection] is due to/associated with [device or procedure]. 2. No - [infection] is not due to/associated with [device or procedure]. 3. Other, with explanation of the clinical findings. 4. Clinically undetermined, no explanation for the clinical findings. PHYSICIAN RESPONSE Specify if infection: Clinically undetermined Please remember a lack of response to the above will prompt a phone page by CDI/Coding staff. In responding to this query, please exercise your independent professional judgment. The purpose of this communication is to more accurately reflect the complexity of your patients condition. The fact that a question is asked does not imply that any particular answer is desired or expected. Thank you for your timely response to this clarification. Requestors name: Apple Carr [facility] Phone # ext [phone] or [phone] THIS PHYSICIAN QUERY FORM IS A PERMANENT PART OF THE MEDICAL RECORD [facility] Jan 22, 2019 09:38 LISA GODINEZ DO Jan 22, 2019 10:51
[2019-01-22] MEDS ORDERED: ATOR40TA70 PO (10:01)
[2019-01-22] MEDS ORDERED: DAPT500V3 IV (10:01)
--- NOTE | 2019-01-22 10:35 | Discharge Summary-Hospitalist ---
Diagnosis/Chief Complaint Date of Admission Jan 19, 2019 at 12:26 Date of Discharge Discharge Date: Jan 19, 2019 Admission Diagnosis Assessment: Right foot chronic DM wound with presumed cellulitis Fever Recent diarrhea DM Plan: IV abx Monitor glucose Christian Fontenot and Judi appreciated Discharge Diagnosis (1) Staphylococcus aureus bacteremia Status: Acute (2) Gastroenteritis Status: Resolved (3) Fever Status: Acute (4) Ulcer of right foot Status: Acute (5) Diabetes mellitus Status: Chronic (6) Diarrhea Status: Acute (7) Wound, open, foot Status: Chronic Discharge Summary Discharge Physical Exam Allergies: Coded Allergies: No Known Drug Allergies (Unverified , 01/18/19) Vitals & I&Os Vital Signs Date Time Temp Pulse Resp B/P (MAP) Pulse Ox O2 Delivery O2 Flow Rate FiO2 01/22/19 11:57 91 18 170/84 90 Room Air 0.00 01/22/19 08:00 98.9 General Appearance: No Apparent Distress, WD/WN Respiratory: Chest Non Tender, Lungs Clear, Normal Breath Sounds, No Accessory Muscle Use, No Respiratory Distress Cardiovascular: Regular Rate, Rhythm, No Edema, No Gallop, No JVD, No Murmur, Normal Peripheral Pulses Neurologic/Psychiatric: Alert, Oriented x3, No Motor/Sensory Deficits, Normal Mood/Affect Hospital Course Was the Problem List Reviewed?: Yes Hospital Course: Pt had a complex hospital course for 4 days. He was admitted for cellulitis of the right foot acute on chronic while managed by Dr. Lau in wound care preparing for additional amputation but he was admitted for severe diarrhea and dehydration. He was given supportive care, IV fluids and pt's diarrhea resolved but fever of [address] Lau was consulted and found pt to be in sepsis, given IV fluid and antibiotics empirically per protocol and Staph aureus resulted in the blood culture confirming Staph Bacteremia. He remained afebrile and was able to have a pic line placed. He Weill have Daptomycin IV daily for one week to treat the bacteremia and then Dr. Lau will switch over to oral antibiotics and proceed on with additional amputations as planned. All home medications were confirmed and he was deemed stable for DC with close follow up at [facility]. Labs (last 24 hrs) Laboratory Tests 01/22/19 01:20: Vancomycin Level Trough 18.8 01/22/19 06:20: Glucometer 181H 01/22/19 06:35: White Blood Count 8.6, Red Blood Count 2.87L, Hemoglobin 8.6L, Hematocrit 26L, Mean Corpuscular Volume 90, Mean Corpuscular Hemoglobin 30, Mean Corpuscular Hemoglobin Concent 33, Red Cell Distribution Width 13.3, Platelet Count 290, Mean Platelet Volume 8.7, Neutrophils (%) (Auto) 70, Lymphocytes (%) (Auto) 16, Monocytes (%) (Auto) 12, Eosinophils (%) (Auto) 2, Basophils (%) (Auto) 0, Elier trophils # (Auto) 6.0, Lymphocytes # (Auto) 1.4, Monocytes # (Auto) 1.1H, Eosinophils # (Auto) 0.1, Basophils # (Auto) 0.0, Sodium Level 140, Potassium Level 3.2L, Chloride Level 110H, Carbon Dioxide Level 21, Anion Gap 9, Blood Urea Nitrogen 9, Creatinine 1.16, Estimat Glomerular Filtration Rate > 60, BUN/Creatinine Ratio 8, Glucose Level 180H, Calcium Level 7.3L, Corrected Calcium 8.6, Total Bilirubin 0.3, Aspartate Amino Transf (AST/SGOT) 22, Alanine Aminotransferase (ALT/SGPT) 21, Alkaline Phosphatase 60, Total Protein 5.4L, Albumin 2.4L 01/22/19 10:50: Glucometer 194H Microbiology 01/18/19 Blood Culture - Final, Complete Staphylococcus aureus 01/20/19 C. difficile GDH Antigen & Toxins - Final, Resulted 01/20/19 Stool Culture - Preliminary, Resulted 01/19/19 MRSA Screen - Final, Complete 01/18/19 Urine Culture - Final, Complete NO GROWTH 01/20/19 Gram Stain - Final, Resulted 01/20/19 Anaerobic Culture - Preliminary, Resulted No anaerobes isolated 01/20/19 Surgical Culture - Preliminary, Resulted Staphylococcus aureus Patient resulted labs reviewed. Pending Labs Discussion & Recommendations Discharge Planning: <30 minutes discharge planning Discharge Home Medications: Active Scripts Active Daptomycin 500 Mg Vial 500 Mg IV DAILY 7 Days Atorvastatin Calcium 40 Mg Tablet 40 Mg PO 1500 30 Days HOLD WHILE ON DAPTOMYCIN (CUBICIN) IV Reported Levemir Flextouch (Insulin Detemir) 100 Unit/1 Ml Insuln.pen 30 Units SC BID Lisinopril 20 Mg Tablet 10 Mg PO 1200 TAKES 1/2 (20MG) TABLET Novolog Flexpen (Insulin Aspart) 300 Units/3 Ml Solution 10-15 Units SC TIDAC One-A-Day Essential (Multivitamin) 1 Each Tablet 1 Tab PO DAILY Instructions to patient/family Please see electronic discharge instructions given to patient. Clinical Quality Measures DVT/VTE Risk/Contraindication: Risk Factor Score Per Nursin RFS Level Per Nursing on Admit: 1=Low/No VTE PPX Problem Qualifiers (1) Fever: Fever type: unspecified Qualified Codes: R50.9 - Fever, unspecified (2) Ulcer of right foot: Non-pressure ulcer stage: with fat layer exposed Qualified Codes: L97.512 - Non-pressure chronic ulcer of other part of right foot with fat layer exposed (3) Diabetes mellitus: Diabetes mellitus type: type 2 Diabetes mellitus long-term insulin use: with long-term use Diabetes mellitus complication status: with other specified complication Qualified Codes: E11.69 - Type 2 diabetes mellitus with other specified complication; 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
[2019-01-22] MEDS ORDERED: DAPTOmycin 500 MG/NS 50 ML IVPB IV SCH ×2 (11:00)
--- NOTE | 2019-01-22 11:06 | NUR ---
CM/SS set up daily [facility] with [facility] for daily at 2pm. Patient and Day Surg have all this information, patient will stop in for registration this day. He did not feel he had any other discharge needs.
[2019-01-22 11:57] VITALS: BP 170/84
== END 2019-01-22 11:57 | disposition home or self-care (01) | DRG 854 ==
LOC: EDUNIT# 16:51 → ER 16:53 → 4TH 19:00 → OBSVTOIN 01-19 12:26
PROVIDERS: ADMIT Family Medicine; ATTEND Family Medicine
PROC: 0KBV0ZZ Excision of Right Foot Muscle, Open Approach (ICD-10-PCS; principal; 2019-01-20 08:45)
DX: A41.02 Sepsis due to Methicillin resistant Staphylococcus aureus (principal); E11.621 Type 2 diabetes mellitus with foot ulcer; L97.513 Non-pressure chronic ulcer of other part of right foot with necrosis of muscle; E11.628 Type 2 diabetes mellitus with other skin complications; L02.611 Cutaneous abscess of right foot; L03.115 Cellulitis of right lower limb; B95.62 Methicillin resistant Staphylococcus aureus infection as the cause of diseases classified elsewhere; E66.9 Obesity, unspecified; K52.9 Noninfective gastroenteritis and colitis, unspecified; I10 Essential (primary) hypertension; Z89.411 Acquired absence of right great toe; Z79.4 Long term (current) use of insulin; Z68.37 Body mass index [BMI] 37.0-37.9, adult
CPT/HCPCS: 36415; 36569; 71045; 76937; 80053; 80202; 81000; 82962; 83605; 85007; 85025; 85027; 85610; 85730; 87015; 87040; 87045; 87046; 87070; 87075; 87077; 87081; 87088; 87186; 87205; 87449; 87899; 96361; 96374; G0378

== ENCOUNTER → 2019-01-26 | Outpatient (CLI) | payer MEDICAID ==
[~2019-01-26] MED LIST changes: +ATOR40TA70 PO; +DAPT500V3 IV; +DOXY100C42 PO; +INSU100I14 SC; +INSU100I29 SC; +LISI-552 PO; +RIFA300C3 PO
== END ==
LOC: WOUNDCARE 12:18
PROVIDERS: ATTEND Surgery
DX: E11.621 Type 2 diabetes mellitus with foot ulcer (principal); L97.512 Non-pressure chronic ulcer of other part of right foot with fat layer exposed; M65.071 Abscess of tendon sheath, right ankle and foot; E11.42 Type 2 diabetes mellitus with diabetic polyneuropathy; M20.41 Other hammer toe(s) (acquired), right foot
CPT/HCPCS: 11042; 11045

== ENCOUNTER 2019-01-28 14:09 | Outpatient (RCR) | payer MEDICAID ==
[2019-01-23 14:09] VITALS: BP_SYST 162; BP_SYST 178; BP_DIAS 102; BP_DIAS 92
[2019-01-23] MEDS: DAPTOmycin 500 MG/NS 50 ML IVPB IV SCH ×2 (14:35)
[2019-01-24 14:42] VITALS: BP 150/90
[2019-01-24] MEDS: DAPTOmycin 500 MG/NS 50 ML IVPB IV SCH ×2 (15:00)
[2019-01-25 14:08] VITALS: BP 173/114
[2019-01-25] MEDS: DAPTOmycin 500 MG/NS 50 ML IVPB IV SCH ×2 (14:14)
[2019-01-26] MEDS: DAPTOmycin 500 MG/NS 50 ML IVPB IV SCH ×2 (13:45)
[2019-01-26 14:17] VITALS: BP 161/99
[2019-01-27 11:00] VITALS: BP 158/89
[2019-01-27] MEDS: DAPTOmycin 500 MG/NS 50 ML IVPB IV SCH ×2 (11:10)
[~2019-01-28] VITALS: Ht 193 cm; Wt 136.3 kg
[~2019-01-28 14:09] MED LIST changes: -DOXY100C42 PO; -RIFA300C3 PO
[2019-01-28] MEDS: DAPTOmycin 500 MG/NS 50 ML IVPB IV SCH ×2 (14:21)
[2019-01-28 14:28] VITALS: BP 158/89
[2019-01-29] MEDS ORDERED: DOXY100C42 PO (08:57)
[2019-01-29] MEDS ORDERED: RIFA300C3 PO (08:57)
--- NOTE | 2019-01-29 09:12 | Physician Query-Final Dx ---
JACQUI ROMERO 01/29/19 0912: Final Diagnosis Give Final Diagnosis Please give Final Diagnosis Dr Arellano Please give a diagnosis for the Daptomycin treatment thank you LISA ARELLANO DO 01/29/19 1117: Final Diagnosis Give Final Diagnosis Staph aureus bacteremia JACQUI ROMERO Jan 29, 2019 09:12 LISA ARELLANO DO Jan 29, 2019 11:17
== END 2019-04-23 | disposition home or self-care (01) ==
LOC: SDC 14:09
PROVIDERS: ATTEND Internal Medicine
DX: R78.81 Bacteremia (principal); B95.8 Unspecified staphylococcus as the cause of diseases classified elsewhere
CPT/HCPCS: 96365

== ENCOUNTER 2019-01-28 22:41 | Observation (INO) | payer MEDICAID ==
[~2019-01-28] VITALS: Ht 193 cm; Wt 136.3 kg
[2019-01-28] MEDS ORDERED: fentaNYL INJECTION 100 MCG/2 ML AMP ONE (22:53)
[2019-01-28] MEDS ORDERED: ONDANSETRON 4 MG/2 ML (SDV) Z0FRAN ONE (22:53)
[2019-01-28] MEDS ORDERED: FAMOTIDINE 20MG/2ML IV (PEPCID) ONE (22:53)
[2019-01-28] MEDS ORDERED: NS IV 1000 ML 1,000 ML ONE (22:53)
[2019-01-28] MEDS ORDERED: PROMETHAZINE INJ 25 MG/ML (PHENERGAN) AMP ONE (23:23)
[2019-01-29 00:15] LABS: CREATININE SERUM 1.51 MG/DL (0.60-1.30); POTASSIUM 3.5 MMOL/L (3.6-5.0)
[2019-01-29 00:16] LABS: BILIRUBIN,TOTAL 0.5 MG/DL (0.1-1.0); CALCIUM 9.4 MG/DL (8.5-10.1)
--- OUTSIDE RECORDS SUMMARY | 2019-01-29 00:16 | XMS REPORT ---
Author Author Migration, Doctor Organization [facility] Address Unknown Phone Unavailable Care Team Providers Care Account Liaison Hospice Name Role Phone Migration, Doctor Unavailable Unavailable PROBLEMS Type Condition ICD9-CM Code WIS15-WI Code Onset Dates Condition Status SNOMED Code Problem Type 2 diabetes mellitus with foot ulcer E11.621 Active 270905602 Problem Non-pressure chronic ulcer of other part of right foot with unspecified severity L97.519 Active 984650337 Problem 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 Active 720056201 Problem Diabetic retinopathy associated with type 2 diabetes mellitus, without macular edema, with unspecified retinopathy severity E11.319 Active 002011759 Problem Non-pressure chronic ulcer of other part of right foot with fat layer exposed L97.512 Active 688982491 Problem Boxers fracture S62.309A Active 04821972 Problem Erectile dysfunction due to diseases classified elsewhere N52.1 Active 349268098 Problem Eye exam abnormal R93.8 Active 629590024 Problem 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 L97.412 Active 131795408 Problem long-term current use of insulin Z79.4 Active 518786658 Problem Type 2 diabetes mellitus with unspecified complications E11.8 Active 00793631 Problem Diabetes mellitus due to underlying condition with foot ulcer E08.621 Active 344654808 ALLERGIES No Information ENCOUNTERS Encounter Location Date Diagnosis [facility] [id number] [address] December, Type 2 diabetes mellitus with foot ulcer E11.621 [facility] [id number] [address] December, [facility] [id number] [address] December, [facility] [id number] [address] Nov, [facility] [address] [address] Nov, [facility] [id number] [place] [address] Nov, [facility] [id number] [place] [address] Nov, Type 2 diabetes mellitus with foot ulcer E11.621 [facility] [id number] [place] [address] Nov, Type 2 diabetes mellitus with foot ulcer E11.621 and Erectile dysfunction due to diseases classified elsewhere N52.1 [facility] [id number] [place] [address] Oct, [facility] [id number] [place] [address] Oct, [facility] [id number] [place] [address] Sep, [facility] [id number] [place] [address] Sep, [facility] [id number] [place] [address] Sep, Type 2 diabetes mellitus with foot ulcer E11.621 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.4 [facility] [id number] [place] [address] Sep, [facility] [address] [address] Aug, [facility] [id number] [place] [address] Jul, [facility] [id number] [place] [address] Jun, Type 2 diabetes mellitus with unspecified complications E11.8 [facility] [id number] [place] [address] Jun, [facility] [address] [address] Jun, Type 2 diabetes mellitus with unspecified complications E11.8 [facility] [id number] [place] [address] May, [facility] [id number] [place] [address] May, Impingement syndrome, shoulder, left M75.42 and Bankart lesion of left shoulder, subsequent encounter S43.492D [facility] [id number] [place] [address] May, Type 2 diabetes mellitus with unspecified complications E11.8 [facility] [id number] [place] [address] May, Type 2 diabetes mellitus with unspecified complications E11.8 [facility] [id number] [place] [address] May, Type 2 diabetes mellitus with unspecified complications E11.8 [facility] [id number] [place] [address] May, Type 2 diabetes mellitus with foot ulcer E11.621 [facility] [id number] [place] [address] May, Diabetes mellitus due to underlying condition with foot ulcer E08.621 [facility] [id number] [place] [address] Apr, Type 2 diabetes mellitus with foot ulcer E11.621 [facility] [id number] [place] [address] Mar, Impingement syndrome, shoulder, left M75.42 [facility] [id number] [place] [address] Mar, [facility] [id number] [place] [address] Mar, Type 2 diabetes mellitus with unspecified complications E11.8 and Angioedema, initial encounter T78.3[address] [facility] [id number] [place] [address] Mar, 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 L97.412 [address] [id number] [place] [address] Feb, 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 L97.412 [facility] [id number] [place] [address] Feb, Impingement syndrome, shoulder, left M75.42 [address] [id number] [place] [address] Jan, Non-pressure chronic ulcer of other part of right foot with unspecified severity L97.519 [facility] [id number] [place] [address] December, Non-pressure chronic ulcer of other part of right foot with unspecified severity L97.519 [facility] [id number] [place] [address] December, Left anterior shoulder pain M25.512 ; Type 2 diabetes mellitus with unspecified complications E11.8 and long-term current use of insulin Z79.4 [address] [id number] [place] [address] Nov, Non-pressure chronic ulcer of other part of right foot with unspecified severity L97.519 [address] [id number] [place] [address] Oct, Type 2 diabetes mellitus with foot ulcer E11.621 [address] [id number] [place] [address] Sep, Type 2 diabetes mellitus with unspecified complications E11.8 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.4 [facility] [id number] [place] [address] Aug, Type 2 diabetes mellitus with foot ulcer E11.621 and 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 L97.412 [facility] [id number] [place] [address] Aug, Type 2 diabetes mellitus with foot ulcer E11.621 ; 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 ; Other specified postprocedural states Z98.890 and Decubitus ulcer of right foot, stage 4 L89.894 [facility] [id number] [place] [address] Apr, [facility] [id number] [place] [address] Mar, [facility] [id number] [place] [address] Jan, [facility] [id number] [place] [address] Jan, [facility] [id number] [place] [address] December, [facility] [id number] [place] [address] December, Type 2 diabetes mellitus with foot ulcer E11.621 [address] [id number] [place] [address] December, [facility] [id number] [place] [address] December, Boxer's fracture with routine healing S62.309D [address] [id number] [place] [address] Nov, [facility] [id number] [place] [address] Nov, Boxers fracture S62.309A [address] [id number] [place] [address] Oct, Diabetic retinopathy associated with type 2 diabetes mellitus, without macular edema, with unspecified retinopathy severity E11.319 [facility] [id number] [place] [address] Oct, Diabetic retinopathy associated with type 2 diabetes mellitus, without macular edema, with unspecified retinopathy severity E11.319 ; Boxers fracture S62.309A ; Type 2 diabetes mellitus with foot ulcer E11.621 and Non-pressure chronic ulcer of other part of right foot with unspecified severity L97.519 [facility] [id number] [place] [address] Oct, Boxers fracture S62.309A [facility] [id number] [place] [address] Oct, Boxers fracture S62.309A and Left wrist pain M25.532 [facility] [id number] [place] [address] Oct, Acute left otitis media H66.92 and Acute upper respiratory infection J06.9 [facility] [id number] [place] [address] Jul, [facility] [id number] [place] [address] Jun, [address] [facility] [id number] [place] [address] Jun, [facility] [id number] [place] [address] May, [facility] [id number] [place] [address] May, [facility] [id number] [place] [address] Apr, Diabetes 250.00 [address] [place] [address] Feb, [facility] [address] [id number] [address] Feb, [facility] [id number] [place] [address] Feb, [facility] [address] [address] Feb, Diabetes 250.00 and Diabetic ulcer of right great toe 250.80 [facility] [address] [facility] [id number] [place] [address] 16 Feb, 2015 Diabetes mellitus 250.00 and Abscess of great toe, right 681.10 [facility] [id number] [place] [address], [place] [address] 14 Nov, 2014 [facility] [id number] [place] [address] Nov, [facility] [id number] [place] [address] Jul, [facility] [address] [address] Jul, [facility] [address] [address] Jun, [facility] [address] [address] Jun, [facility] [address] [address] May, [facility] [id number] [address] May, [facility] [id number] [place] [address] Apr, [facility] [id number] [address] Apr, [facility] [id number] [place] [address] Feb, [facility] [place] [facility] [address] [id number] [place] [address] Feb, [facility] [place] [facility] [address] [id number] [place] [address] Feb, [facility] [place] [facility] [address] [id number] [place] [address] Feb, [facility] [place] [facility] [address] [id number] [place] [address] Nov, [facility] [place] [facility] [address] [id number] [place] [address] Nov, [facility] [place] [facility] [address] [id number] [place] [address] Aug, [facility] [place] [facility] [address] [id number] [place] [address] Aug, [facility] [place] [facility] [address] [id number] [place] [address] Aug, [facility] [place] [facility] [address] [id number] [place] [address] Aug, [facility] [place] [facility] [address] [id number] [place] [address] Jul, [facility] [place] [facility] [address] [id number] [place] [address] Jul, [facility] [place] [facility] [address] [id number] [place] [address] Jul, [facility] [place] [facility] [address] [id number] [place] [address] Jul, [facility] [place] [facility] [address] [id number] [place] [address] Apr, [facility] [place] [facility] [address] [id number] [place] [address] Mar, [facility] [place] [facility] [address] [id number] [place] [address] Mar, [facility] [address] [id number] [place] [address] Mar, [facility] [place] [facility] [address] [id number] [place] [address] Mar, [facility] [place] [facility] [address] [id number] [place] [address] Mar, [facility] [place] [facility] [address] [id number] [place] [address] Nov, [facility] [place] [facility] [address] [id number] [place] [address] Sep, [facility] [place] [facility] [address] [id number] [place] [address] Sep, [facility] [place] [facility] [address] [id number] [place] [address] Jul, [facility] [address] [id number] [place] [address] Jul, [facility] [place] [facility] [address] [id number] [place] [address] Jul, [facility] [place] [facility] [address] [facility] [id number] [place] [address] Jul, [facility] [place] [facility] [address] [id number] [place] [address] May, [facility] [place] [facility] [address] [id number] [place] [address] May, [facility] [place] [facility] [address] [id number] [place] [address] May, [facility] [place] [facility] [address] [id number] [place] [address] May, [facility] [place] [facility] [address] [id number] [place] [address] May, [facility] [address] [facility] [id number] [address] May, [facility] [address] [facility] [id number] [address] May, [facility] [address] [facility] [id number] [address] Apr, [facility] [address] [facility] [id number] [address] Mar, IMMUNIZATIONS No Known Immunizations SOCIAL HISTORY Never Assessed REASON FOR VISIT EMR-[facility] [place] PLAN OF CARE VITAL SIGNS MEDICATIONS Unknown Medications RESULTS No Results PROCEDURES No Known procedures INSTRUCTIONS MEDICATIONS ADMINISTERED No Known Medications MEDICAL (GENERAL) HISTORY Type Description Date Medical History diabetes mellitus Medical History Eye exam abnormal Medical History Eye exam abnormal Surgical History cholecystectomy Surgical History appendectomy Surgical History amputation, right great toe Hospitalization History surgeries
--- OUTSIDE RECORDS SUMMARY | 2019-01-29 00:16 | XMS REPORT ---
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 Name Role Phone OSCAR AVILEZ Unavailable PROBLEMS Type Condition ICD9-CM Code QET46-BP Code Onset Dates Condition Status SNOMED Code Problem Non-pressure chronic ulcer of other part of right foot with unspecified severity L97.519 Active 395440764 Problem Type 2 diabetes mellitus with foot ulcer E11.621 Active 780673918 Problem Boxers fracture S62.309A Active 15329557 Problem Non-pressure chronic ulcer of other part of right foot with fat layer exposed L97.512 Active 171265040 Problem Eye exam abnormal R93.8 Active 695443703 Problem Diabetes mellitus due to underlying condition with foot ulcer E08.621 Active 153194688 Problem Diabetic retinopathy associated with type 2 diabetes mellitus, without macular edema, with unspecified retinopathy severity E11.319 Active 417877661 Problem 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 Active 324880743 Problem 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 L97.412 Active 231369470 Problem Type 2 diabetes mellitus with unspecified complications E11.8 Active 77659972 Problem halfway current use of insulin Z79.4 Active [id number] ALLERGIES No Information ENCOUNTERS Encounter Location Date Diagnosis [facility] [id number] [address] Nov, [facility] [address] [address] Oct, [facility] [address] [address] Oct, [facility] [id number] [address] Sep, [facility] [address] [address] Sep, [facility] [address] [address] Sep, Type 2 diabetes mellitus with foot ulcer E11.621 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 [facility] [address] [address] Sep, [facility] [id number] [place] [address] Aug, [facility] [address] [place] [address] Jul, [place] [facility] [id number] [place] [address] Jun, Type 2 diabetes mellitus with unspecified complications E11.8 [facility] [id number] [place] [address] Jun, [facility] [address] [place] [address] Jun, Type 2 diabetes mellitus with unspecified complications E11.8 [place] [address] [place] [address] May, [facility] [address] [address] May, Impingement syndrome, shoulder, left M75.42 and Bankart lesion of left shoulder, subsequent encounter S43.492D [facility] [address] [address] May, Type 2 diabetes mellitus with unspecified complications E11.8 [facility] [address] [address] May, Type 2 diabetes mellitus with unspecified complications E11.8 [facility] [address], [place] [address] May, Type 2 diabetes mellitus with unspecified complications E11.8 [facility] [id number] [place] [address] May, Type 2 diabetes mellitus with foot ulcer E11.621 [place] [id number] [place] [address] May, Diabetes mellitus due to underlying condition with foot ulcer E08.621 [place] [address] [address] Apr, Type 2 diabetes mellitus with foot ulcer E11.621 [facility] [id number] [place] [address] Mar, Impingement syndrome, shoulder, left M75.42 [facility] [id number] [place] [address] Mar, [place] [address] [address] Mar, Type 2 diabetes mellitus with unspecified complications E11.8 and Angioedema, initial encounter T78.3XXA [place] [address] [address] Mar, 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 L97.412 [facility] [id number] [place] [address] Feb, 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 L97.412 [facility] [id number] [place] [address] Feb, Impingement syndrome, shoulder, left M75.42 [place] [facility] [address] [address] Jan, Non-pressure chronic ulcer of other part of right foot with unspecified severity L97.519 [facility] [id number] [place] [address] December, Non-pressure chronic ulcer of other part of right foot with unspecified severity L97.519 [place] [address] [place] [address] December, Left anterior shoulder pain M25.512 ; Type 2 diabetes mellitus with unspecified complications E11.8 and halfway current use of insulin Z79.4 [place] [address] [place] [address] Nov, Non-pressure chronic ulcer of other part of right foot with unspecified severity L97.519 [facility] [id number] [place] [address] Oct, Type 2 diabetes mellitus with foot ulcer E11.621 [facility] [id number] [place] [address] Sep, Type 2 diabetes mellitus with unspecified complications E11.8 and halfway current use of insulin Z79.4 [facility] [id number] [place] [address] Aug, Type 2 diabetes mellitus with foot ulcer E11.621 and 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 L97.412 [place] [address] [place] [address] Aug, Type 2 diabetes mellitus with foot ulcer E11.621 ; 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 ; Other specified postprocedural states Z98.890 and Decubitus ulcer of right foot, stage 4 L89.894 [facility] [address], [place] [address] Apr, [facility] [id number] [place] [address] Mar, [place] [address] [place] [place] [address] Jan, [facility] [id number] [place] [address] Jan, [place] [address] [place] [place] [address] December, [facility] [id number] [place] [place] [address] December, Type 2 diabetes mellitus with foot ulcer E11.621 [facility] [id number] [place] [address] December, [facility] [id number] [place] [address] December, Boxer's fracture with routine healing S62.309D [place] [address] [address] Nov, [facility] [id number] [place] [address] Nov, Boxers fracture S62.309A [facility] [id number] [place] [address] Oct, Diabetic retinopathy associated with type 2 diabetes mellitus, without macular edema, with unspecified retinopathy severity E11.319 [facility] [id number] [place] [address] Oct, Diabetic retinopathy associated with type 2 diabetes mellitus, without macular edema, with unspecified retinopathy severity E11.319 ; Boxers fracture S62.309A ; Type 2 diabetes mellitus with foot ulcer E11.621 and Non-pressure chronic ulcer of other part of right foot with unspecified severity L97.519 [place] [address] [place] [place] [address] Oct, Boxers fracture S62.309A [facility] [id number] [place] [address] Oct, Boxers fracture S62.309A and Left wrist pain M25.532 [facility] [address] [place] [place] [address] Oct, Acute left otitis media H66.92 and Acute upper respiratory infection J06.9 [facility] [address], [place] [address] Jul, [facility] [address], [place] [address] Jun, [facility] [address], [place] [address] Jun, [facility] [id number] [place] [address] May, [facility] [address], [place] [address] May, [facility] [id number] [place] [address] Apr, Diabetes 250.00 [facility] [id number] [place] [address] Feb, [facility] [address], [place] [address] Feb, [facility] [address], [place] [address] Feb, [facility] [address], [place] [address] Feb, Diabetes 250.00 and Diabetic ulcer of right great toe 250.80 [facility] [address], [place] [address] Feb, Diabetes mellitus 250.00 and Abscess of great toe, right 681.10 [facility] [address], [place] [address] Nov, [facility] [address], [place] [address] Nov, [facility] [id number], [place] [address] Jul, [facility] [address] [address] Jul, [facility] [place] [facility] [address] [id number] [place] [address] Jun, [facility] [place] [facility] [address] [id number] [place] [address] Jun, [facility] [place] [facility] [address] [id number] [place] [address] May, [facility] [place] [facility] [address] [id number] [place] [address] May, [facility] [place] [facility] [address] [id number] [place] [address] Apr, [facility] [place] [facility] [address] [id number] [place] [address] Apr, [facility] [place] [facility] [address] [id number] [place] [address] Feb, [facility] [place] [facility] [address] [id number] [place] [address] Feb, [facility] [place] [facility] [address] [id number] [place] [address] Feb, [facility] [place] [facility] [address] [id number] [place] [address] Feb, [facility] [place] [facility] [address] [id number] [place] [address] Nov, [facility] [place] [facility] [address] [id number] [place] [address] Nov, [facility] [place] [facility] [address] [id number] [place] [address] Aug, [facility] [place] [facility] [address] [id number] [place] [address] Aug, [facility] [place] [facility] [address] [id number] [place] [address] Aug, [facility] [address] [id number] [place] [address] Aug, [facility] [place] [facility] [address] [id number] [place] [address] Jul, [facility] [place] [facility] [address] [id number] [place] [address] Jul, [facility] [place] [facility] [address] [id number] [place] [address] Jul, [facility] [place] [facility] [address] [id number] [place] [address] Jul, [facility] [place] [facility] [address] [id number] [place] [address] Apr, [facility] [place] [facility] [address] [id number] [place] [address] Mar, [facility] [place] [facility] [address] [id number] [place] [address] Mar, [facility] [place] [facility] [address] [id number] [place] [address] Mar, [facility] [place] [facility] [address] [id number] [place] [address] Mar, [facility] [place] [facility] [address] [id number] [place] [address] Mar, [facility] [place] [facility] [address] [id number] [place] [address] Nov, [facility] [place] [facility] [address] [id number] [place] [address] Sep, [facility] [place] [facility] [address] [id number] [place] [address] Sep, [facility] [place] [facility] [address] [id number] [place] [address] Jul, [facility] [place] [facility] [address], [place] [address] Jul, [facility] [address], [place] [address] Jul, [facility] [address], [place] [address] Jul, [facility] [address], [place] [address] May, [facility] [address], [place] [address] May, [facility] [address] [place] [address] May, [facility] [address], [place] [address] May, [facility] [address], [place] [address] May, [facility] [address], [place] [address] May, [facility] [address], [place] [address] May, [facility] [id number], [place] [address] Apr, [facility] [id number], [place] [address] Mar, IMMUNIZATIONS No Known Immunizations SOCIAL HISTORY Never Assessed REASON FOR VISIT BS f/u- foot wound PLAN OF CARE VITAL SIGNS MEDICATIONS Unknown Medications RESULTS No Results PROCEDURES No Known procedures INSTRUCTIONS MEDICATIONS ADMINISTERED No Known Medications MEDICAL (GENERAL) HISTORY Type Description Date Medical History diabetes mellitus Medical History Eye exam abnormal Medical History Eye exam abnormal Surgical History cholecystectomy Surgical History appendectomy Surgical History amputation, right great toe Hospitalization History surgeries
--- OUTSIDE RECORDS SUMMARY | 2019-01-29 00:17 | XMS REPORT ---
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 [employer] Name Role Phone FATMATAOSCAR Unavailable PROBLEMS Type Condition ICD9-CM Code RYJ26-VG Code Onset Dates Condition Status SNOMED Code Problem Non-pressure chronic ulcer of other part of right foot with unspecified severity L97.519 Active 895382344 Problem Boxers fracture S62.309A Active 85435287 Problem Type 2 diabetes mellitus with foot ulcer E11.621 Active 767079033 Problem Diabetic retinopathy associated with type 2 diabetes mellitus, without macular edema, with unspecified retinopathy severity E11.319 Active 622271813 Problem Eye exam abnormal R93.8 Active 070841822 Problem Diabetes mellitus due to underlying condition with foot ulcer E08.621 Active 937348624 Problem Non-pressure chronic ulcer of other part of right foot with fat layer exposed L97.512 Active 640352906 Problem 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 L97.412 Active 037339603 Problem 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 Active 458670271 Problem 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 Z79.4 Active 088419279 Problem Type 2 diabetes mellitus with unspecified complications E11.8 Active 55182489 ALLERGIES No Information ENCOUNTERS Encounter Location Date Diagnosis [facility] [facility] [id number] [address] Jun, [facility] [id number] [address] Jun, Type 2 diabetes mellitus with unspecified complications E11.8 [facility] [id number] [address] May, [facility] [address] [address] May, Impingement syndrome, shoulder, left M75.42 and Bankart lesion of left shoulder, subsequent encounter S43.492D [place] [id number] [place] [address] May, Type 2 diabetes mellitus with unspecified complications E11.8 [facility] [facility] [id number] [place] [address] May, Type 2 diabetes mellitus with unspecified complications E11.8 [facility] [facility] [id number] [place] [address] May, Type 2 diabetes mellitus with unspecified complications E11.8 [place] [address] [address] May, Type 2 diabetes mellitus with foot ulcer E11.621 [place] [id number] [place] [address] May, Diabetes mellitus due to underlying condition with foot ulcer E08.621 [place] [id number] [place] [address] Apr, Type 2 diabetes mellitus with foot ulcer E11.621 [place] [id number] [place] [address] Mar, Impingement syndrome, shoulder, left M75.42 [facility] [facility] [id number] [place] [address] Mar, [place] [id number] [place] [address] Mar, Type 2 diabetes mellitus with unspecified complications E11.8 and Angioedema, initial encounter T78.3XXA [place] [address] [address] Mar, 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 L97.412 [facility] [facility] [address] [address] Feb, 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 L97.412 [facility] [id number] [place] [address] Feb, Impingement syndrome, shoulder, left M75.42 [facility] [facility] [id number] [place] [address] Jan, Non-pressure chronic ulcer of other part of right foot with unspecified severity L97.519 [facility] [id number] [place] [address] December, Non-pressure chronic ulcer of other part of right foot with unspecified severity L97.519 [facility] [id number] [place] [address] December, Left anterior shoulder pain M25.512 ; Type 2 diabetes mellitus with unspecified complications E11.8 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 [place] [id number] [place] [address] Nov, Non-pressure chronic ulcer of other part of right foot with unspecified severity L97.519 [facility] [id number] [place] [address] Oct, Type 2 diabetes mellitus with foot ulcer E11.621 [facility] [place] [id number] [place] [address] Sep, Type 2 diabetes mellitus with unspecified complications E11.8 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 [place] [address] [place] [address] Aug, Type 2 diabetes mellitus with foot ulcer E11.621 and 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 L97.412 [place] [id number] [place] [address] Aug, Type 2 diabetes mellitus with foot ulcer E11.621 ; 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 ; Other specified postprocedural states Z98.890 and Decubitus ulcer of right foot, stage 4 L89.894 [facility] [address] [address] Apr, [facility] [address] [place] [address] Mar, [facility] [id number] [place] [address] Jan, [facility] [id number] [place] [address] Jan, [facility] [id number] [place] [address] December, [place] [id number] [place] [address] December, Type 2 diabetes mellitus with foot ulcer E11.621 [place] [id number] [place] [address] December, [facility] [address] [place] [address] December, Boxer's fracture with routine healing S62.309D [facility] [address] [place] [address] Nov, [place] [address] [place] [address] Nov, Boxers fracture S62.309A [place] [address] [address] Oct, Diabetic retinopathy associated with type 2 diabetes mellitus, without macular edema, with unspecified retinopathy severity E11.319 [place] [id number] [place] [address] Oct, Diabetic retinopathy associated with type 2 diabetes mellitus, without macular edema, with unspecified retinopathy severity E11.319 ; Boxers fracture S62.309A ; Type 2 diabetes mellitus with foot ulcer E11.621 and Non-pressure chronic ulcer of other part of right foot with unspecified severity L97.519 [facility] [address] [address] Oct, Boxers fracture S62.309A [facility] [address] [address] 15 Oct, 2015 Boxers fracture S62.309A and Left wrist pain M25.532 [facility] [address], [place] [address] Oct, Acute left otitis media H66.92 and Acute upper respiratory infection J06.9 [facility] [address] [place] [address] Jul, [facility] [address] [address] Jun, [facility] [address] [place] [address] Jun, [facility] [address] [address] May, [facility] [address] [place] [address] May, [facility] [address] [address] Apr, Diabetes 250.00 [facility] [address] [address] Feb, [facility] [address] [address] Feb, [facility] [address] [place] [address] Feb, [facility] [address] [address] Feb, Diabetes 250.00 and Diabetic ulcer of right great toe 250.80 [facility] [address] [address] 16 Feb, 2015 Diabetes mellitus 250.00 and Abscess of great toe, right 681.10 [facility] [place] [address] [id number] [place] [address] 14 Nov, 2014 [facility] [address] [facility] [id number] [place] [address] Nov, [facility] [address] [id number] [place] [address] Jul, [facility] [address] [id number] [place] [address] Jul, [facility] [address] [facility] [id number] [place] [address] Jun, [facility] [id number] [place] [address] Jun, [facility] [id number] [place] [address] May, [facility] [address] [id number] [place] [address] May, [facility] [address] [place] [address] Apr, [facility] [address] [id number] [place] [address] Apr, [facility] [address] [id number] [address] Feb, [facility] [place] [facility] [address] [id number] [place] [address] Feb, [facility] [address] [facility] [id number] [address] Feb, [facility] [place] [facility] [address] [facility] [id number] [place] [address] Feb, [facility] [address] [facility] [id number] [place] [address] Nov, [facility] [address] [id number] [place] [address] Nov, [facility] [place] [facility] [address] [id number] [place] [address] Aug, [facility] [place] [facility] [address] [id number] [place] [address] Aug, [facility] [place] [facility] [address] [id number] [place] [address] Aug, [facility] [place] [facility] [address] [id number] [place] [address] Aug, [facility] [place] [facility] [address] [id number] [place] [address] Jul, [facility] [place] [facility] [address] [id number] [place] [address] Jul, [facility] [place] [facility] [address] [id number] [place] [address] Jul, [facility] [place] [facility] [address] [id number] [place] [address] Jul, [facility] [place] [facility] [address] [id number] [place] [address] Apr, [facility] [place] [facility] [address] [id number] [place] [address] Mar, [facility] [place] [facility] [address] [id number] [place] [address] Mar, [facility] [place] [facility] [address] [id number] [place] [address] Mar, [facility] [place] [facility] [address] [id number] [place] [address] Mar, [facility] [place] [facility] [address] [id number] [place] [address] Mar, [facility] [place] [facility] [address] [id number] [place] [address] Nov, [facility] [place] [facility] [address] [id number] [place] [address] Sep, [facility] [place] [facility] [address] [id number] [place] [address] Sep, [facility] [place] [facility] [address] [id number] [place] [address] Jul, [facility] [place] [facility] [address] [id number] [place] [address] Jul, [facility] [place] [facility] [address] [id number] [place] [address] Jul, [facility] [place] [facility] [address] [id number] [place] [address] Jul, [facility] [place] [facility] [address] [id number] [place] [address] May, [facility] [place] [facility] [address] [id number] [place] [address] May, [facility] [place] [facility] [address] [id number] [place] [address] May, [facility] [place] [facility] [address] [id number] [place] [address] May, [facility] [place] [facility] [address] [id number] [address] May, [facility] [place] [facility] [address] [id number] [place] [address] May, [facility] [place] [facility] [address] [id number] [place] [address] May, [facility] [place] [facility] [address] [id number] [place] [address] Apr, [facility] [place] [facility] [address] [id number] [place] [address] Mar, IMMUNIZATIONS No Known Immunizations SOCIAL HISTORY Never Assessed REASON FOR VISIT BS ck attempt PLAN OF CARE VITAL SIGNS MEDICATIONS Unknown Medications RESULTS No Results PROCEDURES No Known procedures INSTRUCTIONS MEDICATIONS ADMINISTERED No Known Medications MEDICAL (GENERAL) HISTORY Type Description Date Medical History diabetes mellitus Medical History Eye exam abnormal Medical History Eye exam abnormal Surgical History cholecystectomy Surgical History appendectomy Surgical History amputation, right great toe Hospitalization History surgeries
--- OUTSIDE RECORDS SUMMARY | 2019-01-29 00:17 | XMS REPORT ---
Author Author Migration, Doctor Organization [facility] Address Unknown Phone Unavailable Care Team Providers Care Clinical Care Manager Name Role Phone Migration, Doctor Unavailable Unavailable PROBLEMS Type Condition ICD9-CM Code ZVM61-SM Code Onset Dates Condition Status SNOMED Code Problem Non-pressure chronic ulcer of other part of right foot with unspecified severity L97.519 Active 539353287 Problem Type 2 diabetes mellitus with foot ulcer E11.621 Active 638747781 Problem Boxers fracture S62.309A Active 17272784 Problem Non-pressure chronic ulcer of other part of right foot with fat layer exposed L97.512 Active 433104624 Problem Eye exam abnormal R93.8 Active 848705226 Problem Diabetes mellitus due to underlying condition with foot ulcer E08.621 Active 102981969 Problem Diabetic retinopathy associated with type 2 diabetes mellitus, without macular edema, with unspecified retinopathy severity E11.319 Active 584239616 Problem 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 Active 185848824 Problem 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 L97.412 Active 572435364 Problem Type 2 diabetes mellitus with unspecified complications E11.8 Active 98734997 Problem 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 Active 150377918 ALLERGIES No Information ENCOUNTERS Encounter Location Date Diagnosis [place] [id number] [address] Nov, [facility] [id number] [address] Oct, [facility] [id number] [place] [address] Oct, [facility] [id number] [place] [address] Sep, [facility] [address] [address] Sep, [place] [address] [address] Sep, Type 2 diabetes mellitus with foot ulcer E11.621 and intermediate current use of insulin Z79.4 [facility] [address] [address] Sep, [facility] [id number] [place] [address] Aug, [facility] [id number] [place] [address] Jul, [place] [id number] [place] [address] Jun, Type 2 diabetes mellitus with unspecified complications E11.8 [place] [id number] [place] [address] Jun, [facility] [id number] [place] [address] Jun, Type 2 diabetes mellitus with unspecified complications E11.8 [place] [address] [address] May, [facility] [id number] [place] [address] May, Impingement syndrome, shoulder, left M75.42 and Bankart lesion of left shoulder, subsequent encounter S43.492D [facility] [address] [address] May, Type 2 diabetes mellitus with unspecified complications E11.8 [facility] [address] [address] May, Type 2 diabetes mellitus with unspecified complications E11.8 [facility] [address] [address] May, Type 2 diabetes mellitus with unspecified complications E11.8 [facility] [id number] [place] [address] May, Type 2 diabetes mellitus with foot ulcer E11.621 [place] [id number] [place] [address] May, Diabetes mellitus due to underlying condition with foot ulcer E08.621 [place] [id number] [place] [address] Apr, Type 2 diabetes mellitus with foot ulcer E11.621 [place] [id number] [place] [address] Mar, Impingement syndrome, shoulder, left M75.42 [place] [id number] [place] [address] Mar, [place] [id number] [place] [address] Mar, Type 2 diabetes mellitus with unspecified complications E11.8 and Angioedema, initial encounter T78.3XXA [place] [id number] [place] [address] Mar, 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 L97.412 [place] [id number] [place] [address] Feb, 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 L97.412 [place] [id number] [place] [address] Feb, Impingement syndrome, shoulder, left M75.42 [place] [id number] [place] [address] Jan, Non-pressure chronic ulcer of other part of right foot with unspecified severity L97.519 [place] [id number] [place] [address] December, Non-pressure chronic ulcer of other part of right foot with unspecified severity L97.519 [place] [id number] [place] [address] December, Left anterior shoulder pain M25.512 ; Type 2 diabetes mellitus with unspecified complications E11.8 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 [place] [id number] [place] [address] Nov, Non-pressure chronic ulcer of other part of right foot with unspecified severity L97.519 [place] [id number] [place] [address] Oct, Type 2 diabetes mellitus with foot ulcer E11.621 [place] [address] [address] Sep, Type 2 diabetes mellitus with unspecified complications E11.8 and intermediate current use of insulin Z79.4 [place] [id number] [place] [address] Aug, Type 2 diabetes mellitus with foot ulcer E11.621 and 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 L97.412 [place] [id number] [place] [address] Aug, Type 2 diabetes mellitus with foot ulcer E11.621 ; 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 ; Other specified postprocedural states Z98.890 and Decubitus ulcer of right foot, stage 4 L89.894 [place] [id number] [place] [address] Apr, [place] [id number] [place] [address] Mar, [place] [id number] [place] [address] Jan, [place] [id number] [place] [address] Jan, [place] [id number] [place] [address] December, [place] [address] [address] December, Type 2 diabetes mellitus with foot ulcer E11.621 [place] [address] [place] [address] December, [place] [id number] [place] [address] December, Boxer's fracture with routine healing S62.309D [place] [id number] [place] [address] Nov, [place] [id number] [place] [address] Nov, Boxers fracture S62.309A [place] [id number] [place] [address] Oct, Diabetic retinopathy associated with type 2 diabetes mellitus, without macular edema, with unspecified retinopathy severity E11.319 [place] [address] [place] [address] Oct, Diabetic retinopathy associated with type 2 diabetes mellitus, without macular edema, with unspecified retinopathy severity E11.319 ; Boxers fracture S62.309A ; Type 2 diabetes mellitus with foot ulcer E11.621 and Non-pressure chronic ulcer of other part of right foot with unspecified severity L97.519 [place] [address] [place] [address] Oct, Boxers fracture S62.309A [place] [address] [place] [address] Oct, Boxers fracture S62.309A and Left wrist pain M25.532 [facility] [address] [address] Oct, Acute left otitis media H66.92 and Acute upper respiratory infection J06.9 [place] [id number] [address] Jul, [facility] [address] [address] Jun, [facility] [address] [address] Jun, [facility] [address] [address] May, [facility] [address] [address] May, [facility] [address] [place] [address] Apr, Diabetes 250.00 [facility] [address] [address] Feb, [facility] [id number] [place] [address] Feb, [facility] [address] [address] Feb, [facility] [address] [address] Feb, Diabetes 250.00 and Diabetic ulcer of right great toe 250.80 [facility] [address] [address] Feb, Diabetes mellitus 250.00 and Abscess of great toe, right 681.10 [facility] [address] [address] Nov, [facility] [address] [address] Nov, [facility] [address] [address] Jul, [facility] [id number] [address] Jul, [facility] [place] [facility] [address] [id number] [place] [address] Jun, [facility] [place] [facility] [address] [id number] [place] [address] Jun, [facility] [place] [facility] [address] [id number] [place] [address] May, [facility] [place] [facility] [address] [id number] [place] [address] May, [facility] [place] [facility] [address] [id number] [place] [address] Apr, [facility] [place] [facility] [address] [id number] [place] [address] Apr, [facility] [place] [facility] [address] [id number] [place] [address] Feb, [facility] [place] [facility] [address] [id number] [place] [address] Feb, [facility] [place] [facility] [address] [id number] [place] [address] Feb, [facility] [place] [facility] [address] [id number] [place] [address] Feb, [facility] [place] [facility] [address] [id number] [place] [address] Nov, [facility] [place] [facility] [address] [id number] [place] [address] Nov, [facility] [place] [facility] [address] [id number] [place] [address] Aug, [facility] [place] [facility] [address] [id number] [place] [address] Aug, [facility] [place] [facility] [address] [id number] [place] [address] Aug, [facility] [place] [facility] [address] [id number] [address] Aug, [facility] [address] [id number] [place] [address] Jul, [facility] [place] [facility] [address] [id number] [place] [address] Jul, [facility] [address] [facility] [id number] [place] [address] Jul, [facility] [place] [facility] [address] [id number] [place] [address] Jul, [facility] [address] [id number] [place] [address] Apr, [facility] [address] [id number] [place] [address] Mar, [facility] [address] [place] [address] Mar, [facility] [place] [facility] [address] [id number] [place] [address] Mar, [facility] [address] [id number] [place] [address] Mar, [facility] [place] [facility] [address] [facility] [id number] [place] [address] Mar, [facility] [address] [id number] [place] [address] Nov, [facility] [place] [facility] [address] [id number] [address] Sep, [facility] [place] [facility] [address] [id number] [place] [address] Sep, [facility] [place] [facility] [address] [id number] [place] [address] Jul, [facility] [place] [facility] [address] [facility] [id number] [place] [address] Jul, [facility] [place] [facility] [id number] [address] Jul, [facility] [address] [address] Jul, [facility] [address] [facility] [id number] [address] May, [facility] [address] [facility] [id number] [address] May, [facility] [address] [facility] [id number] [address] May, [facility] [address] [address] May, [facility] [address] [address] May, [facility] [address] [address] May, [facility] [address] [address] May, [facility] [address] [address] Apr, [facility] [id number] [address] Mar, IMMUNIZATIONS No Known Immunizations SOCIAL HISTORY Never Assessed REASON FOR VISIT [facility] PLAN OF CARE VITAL SIGNS MEDICATIONS Medication Instructions Dosage Frequency Start Date End Date Duration Status Bactrim DS 800-160 mg 1 tablet by Oral route 2 times per day for 10 day(s) Mar, Active metformin 1,000 mg 1 tablet by Oral route 2 times per day with meals Apr, Active Levemir Flexpen 100 unit/mL (3 mL) 25 Unit by Subcutaneous route 1 time per day May, Active Cephalexin 500 mg take 1 Capsule by Oral route 3 times per day for 10 days Feb, Active TobraDex 0.3-0.1 % 2 drop by Ophthalmic route 2 times per day for 7 day(s) Sep, Active Silvadene 1 % apply 1 dose a 1/16 inch (1.5 mm) thick layer to entire burn area by Topical route 1 time per day May, Active RESULTS No Results PROCEDURES No Known procedures INSTRUCTIONS MEDICATIONS ADMINISTERED No Known Medications MEDICAL (GENERAL) HISTORY Type Description Date Medical History diabetes mellitus Medical History Eye exam abnormal Medical History Eye exam abnormal Surgical History cholecystectomy Surgical History appendectomy Surgical History amputation, right great toe Hospitalization History surgeries
--- OUTSIDE RECORDS SUMMARY | 2019-01-29 00:17 | XMS REPORT ---
Author Author OSCAR AVILEZ Organization [facility] Address [address] [place] [address] Care Team Providers Care Director Insurance Name Role Phone FATM[employer] Unavailable PROBLEMS Type Condition ICD9-CM Code [id number] Code Onset Dates Condition Status SNOMED Code Problem Non-pressure chronic ulcer of other part of right foot with unspecified severity L97.519 Active 725764206 Problem Boxers fracture S62.309A Active 74194844 Problem Type 2 diabetes mellitus with foot ulcer E11.621 Active 232845209 Problem Diabetic retinopathy associated with type 2 diabetes mellitus, without macular edema, with unspecified retinopathy severity E11.319 Active 175344525 Problem Eye exam abnormal R93.8 Active 281832607 Problem Diabetes mellitus due to underlying condition with foot ulcer E08.621 Active 004566664 Problem Non-pressure chronic ulcer of other part of right foot with fat layer exposed L97.512 Active 367936776 Problem 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 L97.412 Active 347001180 Problem 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 Active 469893638 Problem 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 Active 837406859 Problem Type 2 diabetes mellitus with unspecified complications E11.8 Active 25187150 ALLERGIES No Information ENCOUNTERS Encounter Location Date Diagnosis [place] [address] [facility] [id number] [address] Jul, [facility] [id number] [address] Jun, Type 2 diabetes mellitus with unspecified complications E11.8 [facility] [id number] [address] Jun, [facility] [id number] [address] Jun, Type 2 diabetes mellitus with unspecified complications E11.8 [place] [address] [address] May, [facility] [id number] [place] [address] May, Impingement syndrome, shoulder, left M75.42 and Bankart lesion of left shoulder, subsequent encounter S43.492D [place] [id number] [place] [address] May, Type 2 diabetes mellitus with unspecified complications E11.8 [place] [address] [id number] [place] [address] May, Type 2 diabetes mellitus with unspecified complications E11.8 [place] [id number] [place] [address] May, Type 2 diabetes mellitus with unspecified complications E11.8 [place] [address] [id number] [place] [address] May, Type 2 diabetes mellitus with foot ulcer E11.621 [place] [id number] [place] [address] May, Diabetes mellitus due to underlying condition with foot ulcer E08.621 [place] [id number] [place] [address] Apr, Type 2 diabetes mellitus with foot ulcer E11.621 [place] [address] [address] [id number] [place] [address] Mar, Impingement syndrome, shoulder, left M75.42 [place] [address] [id number] [place] [address] Mar, [place] [address] [id number] [place] [address] Mar, Type 2 diabetes mellitus with unspecified complications E11.8 and Angioedema, initial encounter T78.3XXA [place] [id number] [place] [address] Mar, 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 L97.412 [place] [address] [id number] [place] [address] Feb, 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 L97.412 [place] [id number] [place] [address] Feb, Impingement syndrome, shoulder, left M75.42 [place] [address] [address] [id number] [place] [address] Jan, Non-pressure chronic ulcer of other part of right foot with unspecified severity L97.519 [place] [id number] [place] [address] December, Non-pressure chronic ulcer of other part of right foot with unspecified severity L97.519 [place] [id number] [place] [address] December, Left anterior shoulder pain M25.512 ; Type 2 diabetes mellitus with unspecified complications E11.8 and long term current use of insulin Z79.4 [place] [address] [id number] [place] [address] Nov, Non-pressure chronic ulcer of other part of right foot with unspecified severity L97.519 [place] [address] [id number] [place] [address] Oct, Type 2 diabetes mellitus with foot ulcer E11.621 [place] [address] [id number] [place] [address] Sep, Type 2 diabetes mellitus with unspecified complications E11.8 and 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 [place] [id number] [place] [address] Aug, Type 2 diabetes mellitus with foot ulcer E11.621 and 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 L97.412 [facility] [address], [place] [address] Aug, Type 2 diabetes mellitus with foot ulcer E11.621 ; 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 ; Other specified postprocedural states Z98.890 and Decubitus ulcer of right foot, stage 4 L89.894 [facility] [address] [place] [address] Apr, [facility] [id number] [address] Mar, [place] [address] [address] [id number] [place] [address] Jan, [place] [address] [address] [id number] [place] [address] Jan, [facility] [id number] [place] [address] December, [facility] [address] [place] [address] December, Type 2 diabetes mellitus with foot ulcer E11.621 [place] [address] [place] [address] December, [facility] [address], [place] [address] December, Boxer's fracture with routine healing S62.309D [facility] [address], [place] [address] Nov, [place] [address] [place] [address] [id number] [place] [address] Nov, Boxers fracture S62.309A [place] [address], [place] [address] Oct, Diabetic retinopathy associated with type 2 diabetes mellitus, without macular edema, with unspecified retinopathy severity E11.319 [place] [address], [place] [address] Oct, Diabetic retinopathy associated with type 2 diabetes mellitus, without macular edema, with unspecified retinopathy severity E11.319 ; Boxers fracture S62.309A ; Type 2 diabetes mellitus with foot ulcer E11.621 and Non-pressure chronic ulcer of other part of right foot with unspecified severity L97.519 [facility] [id number] [place] [address] Oct, Boxers fracture S62.309A [facility] [id number] [place] [address] Oct, Boxers fracture S62.309A and Left wrist pain M25.532 [facility] [address], [place] [address] Oct, Acute left otitis media H66.92 and Acute upper respiratory infection J06.9 [facility] [id number] [place] [address] Jul, [facility] [id number] [place] [address] Jun, [facility] [id number] [place] [address] Jun, [facility] [address], [place] [address] May, [facility] [id number] [place] [address] May, [facility] [address] [place] [address] Apr, Diabetes 250.00 [facility] [id number] [place] [address] Feb, [facility] [id number] [address] Feb, [facility] [address] [place] [address] Feb, [facility] [address] [facility] [id number] [place] [address] 27 Feb, 2015 Diabetes 250.00 and Diabetic ulcer of right great toe 250.80 [facility] [address] [facility] [id number] [place] [address] 16 Feb, 2015 Diabetes mellitus 250.00 and Abscess of great toe, right 681.10 [facility] [address] [id number] [place] [address] 14 Nov, 2014 [facility] [address] [facility] [id number] [place] [address], [place] [address] Nov, [facility] [address] [facility] [id number] [place] [address] Jul, [facility] [address] [place] [address] Jul, [facility] [id number] [place] [address] Jun, [facility] [address] [address] Jun, [facility] [address] [address] May, [facility] [id number] [place] [address] May, [facility] [address] [facility] [id number], [place] [address] Apr, [facility] [id number] [place] [address] Apr, [facility] [address] [facility] [id number] [place] [address] Feb, [facility] [id number] [place] [address] Feb, [facility] [address] [id number] [place] [address] Feb, [facility] [place] [facility] [address] [id number] [place] [address] Feb, [facility] [place] [facility] [address] [id number] [place] [address] Nov, [facility] [place] [facility] [address] [id number] [place] [address] Nov, [facility] [place] [facility] [address] [id number] [place] [address] Aug, [facility] [place] [facility] [address] [id number] [place] [address] Aug, [facility] [place] [facility] [address] [id number] [place] [address] Aug, [facility] [place] [facility] [address] [id number] [place] [address] Aug, [facility] [place] [facility] [address] [id number] [place] [address] Jul, [facility] [place] [facility] [address] [id number] [place] [address] Jul, [facility] [place] [facility] [address] [id number] [place] [address] Jul, [facility] [place] [facility] [address] [id number] [place] [address] Jul, [facility] [place] [facility] [address] [id number] [place] [address] Apr, [facility] [place] [facility] [address] [id number] [place] [address] Mar, [facility] [place] [facility] [address] [id number] [place] [address] Mar, [facility] [place] [facility] [address] [id number] [place] [address] Mar, [facility] [place] [facility] [address] [id number] [place] [address] Mar, [facility] [place] [facility] [address] [id number] [place] [address] Mar, [facility] [place] [facility] [address] [id number] [place] [address] Nov, [facility] [place] [facility] [address] [id number] [place] [address] Sep, [facility] [place] [facility] [address] [id number] [place] [address] Sep, [facility] [place] [facility] [address] [id number] [place] [address] Jul, [facility] [place] [facility] [address] [id number] [place] [address] Jul, [facility] [place] [facility] [address] [id number] [place] [address] Jul, [facility] [place] [facility] [address] [id number] [place] [address] Jul, [facility] [place] [facility] [address] [id number] [place] [address] May, [facility] [place] [facility] [address] [id number], [place] [address] May, [facility] [place] [facility] [address] [id number], [place] [address] May, [facility] [place] [facility] [address] [id number] [place] [address] May, [facility] [place] [facility] [address] [id number] [place] [address] May, [facility] [place] [facility] [address] [id number] [place] [address] May, [facility] [place] [facility] [address] [facility] [id number] [place] [address] May, [facility] [address] [facility] [id number] [place] [address] Apr, [facility] [address] [facility] [id number] [place] [address] Mar, IMMUNIZATIONS No Known Immunizations SOCIAL HISTORY Never Assessed REASON FOR VISIT BS f/u PLAN OF CARE VITAL SIGNS MEDICATIONS Unknown Medications RESULTS No Results PROCEDURES No Known procedures INSTRUCTIONS MEDICATIONS ADMINISTERED No Known Medications MEDICAL (GENERAL) HISTORY Type Description Date Medical History diabetes mellitus Medical History Eye exam abnormal Medical History Eye exam abnormal Surgical History cholecystectomy Surgical History appendectomy Surgical History amputation, right great toe Hospitalization History surgeries
--- OUTSIDE RECORDS SUMMARY | 2019-01-29 00:17 | XMS REPORT ---
Author Author OSCAR AVILEZ Organization [facility] Address [address] [place] [address] Care Team Providers Care Post Framer Name Role Phone OSCAR AVILEZ Unavailable PROBLEMS Type Condition ICD9-CM Code LCG62-ZG Code Onset Dates Condition Status SNOMED Code Problem Non-pressure chronic ulcer of other part of right foot with unspecified severity L97.519 Active 718041380 Problem Boxers fracture S62.309A Active 17459794 Problem Type 2 diabetes mellitus with foot ulcer E11.621 Active 467611210 Problem Diabetic retinopathy associated with type 2 diabetes mellitus, without macular edema, with unspecified retinopathy severity E11.319 Active 906943627 Problem Eye exam abnormal R93.8 Active 606029004 Problem Diabetes mellitus due to underlying condition with foot ulcer E08.621 Active 364789039 Problem Non-pressure chronic ulcer of other part of right foot with fat layer exposed L97.512 Active 528947086 Problem 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 L97.412 Active 592986390 Problem 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 Active 700341622 Problem jail current use of insulin Z79.4 Active 448004738 Problem Type 2 diabetes mellitus with unspecified complications E11.8 Active 16591660 ALLERGIES No Information ENCOUNTERS Encounter Location Date Diagnosis [place] [id number] [address] Jun, Type 2 diabetes mellitus with unspecified complications E11.8 [place] [address], [place] [address] May, [place] [address] [address] May, Impingement syndrome, shoulder, left M75.42 and Bankart lesion of left shoulder, subsequent encounter S43.492D [place] [id number] [place] [address] May, Type 2 diabetes mellitus with unspecified complications E11.8 [place] [id number] [place] [address] May, Type 2 diabetes mellitus with unspecified complications E11.8 [place] [id number] [place] [address] May, Type 2 diabetes mellitus with unspecified complications E11.8 [place] [id number] [place] [address] May, Type 2 diabetes mellitus with foot ulcer E11.621 [place] [id number] [place] [address] May, Diabetes mellitus due to underlying condition with foot ulcer E08.621 [place] [id number] [place] [address] Apr, Type 2 diabetes mellitus with foot ulcer E11.621 [place] [id number] [place] [address] Mar, Impingement syndrome, shoulder, left M75.42 [place] [id number] [place] [address] Mar, [place] [id number] [place] [address] Mar, Type 2 diabetes mellitus with unspecified complications E11.8 and Angioedema, initial encounter T78.3XXA [place] [id number] [place] [address] Mar, 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 L97.412 [place] [id number] [place] [address] Feb, 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 L97.412 [place] [id number] [place] [address] Feb, Impingement syndrome, shoulder, left M75.42 [place] [address] [place] [address] Jan, Non-pressure chronic ulcer of other part of right foot with unspecified severity L97.519 [place] [id number] [place] [address] December, Non-pressure chronic ulcer of other part of right foot with unspecified severity L97.519 [place] [id number] [place] [address] December, Left anterior shoulder pain M25.512 ; Type 2 diabetes mellitus with unspecified complications E11.8 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.4 [place] [id number] [place] [address] Nov, Non-pressure chronic ulcer of other part of right foot with unspecified severity L97.519 [place] [id number] [place] [address] Oct, Type 2 diabetes mellitus with foot ulcer E11.621 [place] [id number] [place] [address] Sep, Type 2 diabetes mellitus with unspecified complications E11.8 and jail current use of insulin Z79.4 [place] [id number] [place] [address] Aug, Type 2 diabetes mellitus with foot ulcer E11.621 and 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 L97.412 [place] [id number] [place] [address] Aug, Type 2 diabetes mellitus with foot ulcer E11.621 ; 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 ; Other specified postprocedural states Z98.890 and Decubitus ulcer of right foot, stage 4 L89.894 [place] [id number] [place] [address] Apr, [facility] [address], [place] [address] Mar, [facility] [address] [place] [address] Jan, [facility] [address], [place] [address] Jan, [facility] [id number] [place] [address] December, [facility] [id number] [place] [address] December, Type 2 diabetes mellitus with foot ulcer E11.621 [place] [id number] [place] [address] December, [facility] [id number] [place] [address] December, Boxer's fracture with routine healing S62.309D [facility] [address] [place] [address] Nov, [facility] [id number] [place] [address] Nov, Boxers fracture S62.309A [facility] [address] [place] [address] Oct, Diabetic retinopathy associated with type 2 diabetes mellitus, without macular edema, with unspecified retinopathy severity E11.319 [facility] [id number], [place] [address] Oct, Diabetic retinopathy associated with type 2 diabetes mellitus, without macular edema, with unspecified retinopathy severity E11.319 ; Boxers fracture S62.309A ; Type 2 diabetes mellitus with foot ulcer E11.621 and Non-pressure chronic ulcer of other part of right foot with unspecified severity L97.519 [facility] [id number] [place] [address] Oct, Boxers fracture S62.309A [facility] [address] [place] [address] Oct, Boxers fracture S62.309A and Left wrist pain M25.532 [facility] [address], [place] [address] Oct, Acute left otitis media H66.92 and Acute upper respiratory infection J06.9 [facility] [address], [place] [address] Jul, [facility] [id number] [place] [address] Jun, [facility] [address], [place] [address] Jun, [facility] [address] [place] [address] May, [facility] [address], [place] [address] May, [facility] [address], [place] [address] Apr, Diabetes 250.00 [facility] [address], [place] [address] Feb, [facility] [address], [place] [address] Feb, [facility] [id number], [place] [address] Feb, [facility] [id number] [place] [address] Feb, Diabetes 250.00 and Diabetic ulcer of right great toe 250.80 [facility] [id number], [place] [address] Feb, Diabetes mellitus 250.00 and Abscess of great toe, right 681.10 [facility] [place] [facility] [address] [id number] [place] [address] 14 Nov, 2014 [facility] [place] [facility] [address] [id number] [place] [address] 13 Nov, 2014 [facility] [place] [facility] [address] [id number] [place] [address] 15 Jul, 2014 [facility] [place] [facility] [address] [id number] [place] [address] Jul, [facility] [place] [facility] [address] [id number] [place] [address] Jun, [facility] [place] [facility] [address] [id number] [place] [address] Jun, [facility] [place] [facility] [address] [id number] [place] [address] May, [facility] [place] [facility] [address] [id number] [place] [address] May, [facility] [place] [facility] [address] [id number] [place] [address] Apr, [facility] [place] [facility] [address] [id number] [place] [address] Apr, [facility] [place] [facility] [address] [id number] [place] [address] Feb, [facility] [place] [facility] [address] [id number] [place] [address] Feb, [facility] [place] [facility] [address] [id number] [place] [address] Feb, [facility] [place] [facility] [address] [id number] [place] [address] Feb, [facility] [place] [facility] [address] [id number] [place] [address] Nov, [facility] [place] [facility] [address] [id number] [place] [address] Nov, [facility] [address] [id number] [place] [address] Aug, [facility] [place] [facility] [address] [id number] [place] [address] Aug, [facility] [address] [id number] [place] [address] Aug, [facility] [place] [facility] [address] [id number] [place] [address] Aug, [facility] [place] [facility] [address] [id number] [place] [address] Jul, [facility] [place] [facility] [address] [id number] [place] [address] Jul, [facility] [address] [id number] [place] [address] Jul, [facility] [place] [facility] [address] [id number] [place] [address] Jul, [facility] [place] [facility] [address] [id number] [place] [address] Apr, [facility] [place] [facility] [address] [id number] [place] [address] Mar, [facility] [place] [facility] [address] [id number] [place] [address] Mar, [facility] [place] [facility] [address] [id number] [place] [address] Mar, [facility] [place] [facility] [address] [id number] [place] [address] Mar, [facility] [place] [facility] [address] [id number] [place] [address] Mar, [facility] [place] [facility] [address] [id number] [place] [address] Nov, [facility] [address] [facility] [id number] [address] Sep, [facility] [address] [facility] [id number], [place] [address] Sep, [facility] [address] [facility] [id number], [place] [address] Jul, [facility] [address] [facility] [id number] [place] [address] Jul, [facility] [address] [facility] [id number] [place] [address] Jul, [facility] [address] [facility] [id number] [place] [address] Jul, [facility] [address], [place] [address] May, [facility] [address] [place] [address] May, [facility] [address], [place] [address] May, [facility] [address], [place] [address] May, [facility] [address], [place] [address] May, [facility] [address], [place] [address] May, [facility] [id number], [place] [address] May, [facility] [address], [place] [address] Apr, [facility] [id number], [place] [address] Mar, IMMUNIZATIONS No Known Immunizations SOCIAL HISTORY Never Assessed REASON FOR VISIT BS ck PLAN OF CARE VITAL SIGNS MEDICATIONS Medication Instructions Dosage Frequency Start Date End Date Duration Status NovoLog Flexpen 100 UNIT/ML Subcutaneous 3 times a day Inject 20 units 8h 24 May, 2018 Active RESULTS No Results PROCEDURES No Known procedures INSTRUCTIONS MEDICATIONS ADMINISTERED No Known Medications MEDICAL (GENERAL) HISTORY Type Description Date Medical History diabetes mellitus Medical History Eye exam abnormal Medical History Eye exam abnormal Surgical History cholecystectomy Surgical History appendectomy Surgical History amputation, right great toe Hospitalization History surgeries
--- OUTSIDE RECORDS SUMMARY | 2019-01-29 00:18 | XMS REPORT ---
Author Author GERARDO PATEL [facility] Address [address] [place] [address] Care Team Providers Care Tools Programmer Name Role Phone GERARDO PATEL Unavailable PROBLEMS Type Condition ICD9-CM Code QCK00-SW Code Onset Dates Condition Status SNOMED Code Problem Non-pressure chronic ulcer of other part of right foot with unspecified severity L97.519 Active 932919020 Problem Boxers fracture S62.309A Active 43386141 Problem Type 2 diabetes mellitus with foot ulcer E11.621 Active 844631782 Problem Diabetic retinopathy associated with type 2 diabetes mellitus, without macular edema, with unspecified retinopathy severity E11.319 Active 852077192 Problem Eye exam abnormal R93.8 Active 749788851 Problem Diabetes mellitus due to underlying condition with foot ulcer E08.621 Active 575637204 Problem Non-pressure chronic ulcer of other part of right foot with fat layer exposed L97.512 Active 831604961 Problem 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 L97.412 Active 915587167 Problem 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 Active 847674283 Problem senior care current use of insulin Z79.4 Active 403996467 Problem Type 2 diabetes mellitus with unspecified complications E11.8 Active 06973210 ALLERGIES No Information ENCOUNTERS Encounter Location Date Diagnosis [place] [id number] [place] [address] May, Impingement syndrome, shoulder, left M75.42 and Bankart lesion of left shoulder, subsequent encounter S43.492D [place] [id number] [place] [address] May, Type 2 diabetes mellitus with unspecified complications E11.8 [place] [address], [place] [address] May, Type 2 diabetes mellitus with unspecified complications E11.8 [place] [id number] [place] [address] May, Type 2 diabetes mellitus with unspecified complications E11.8 [place] [address] [place] [id number] [place] [address] May, Type 2 diabetes mellitus with foot ulcer E11.621 [place] [address] [place] [id number] [place] [address] May, Diabetes mellitus due to underlying condition with foot ulcer E08.621 [place] [address] [place] [id number] [place] [address] Apr, Type 2 diabetes mellitus with foot ulcer E11.621 [place] [address] [place] [id number] [place] [address] Mar, Impingement syndrome, shoulder, left M75.42 [place] [address] [place] [id number] [place] [address] Mar, [place] [address] [place] [id number] [place] [address] Mar, Type 2 diabetes mellitus with unspecified complications E11.8 and Angioedema, initial encounter T78.3XXA [place] [address] [place] [id number] [place] [address] Mar, 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 L97.412 [place] [address] [place] [id number] [place] [address] Feb, 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 L97.412 [place] [address] [place] [id number] [place] [address] Feb, Impingement syndrome, shoulder, left M75.42 [place] [address] [place] [id number] [place] [address] Jan, Non-pressure chronic ulcer of other part of right foot with unspecified severity L97.519 [place] [address] [place] [id number] [place] [address] December, Non-pressure chronic ulcer of other part of right foot with unspecified severity L97.519 [place] [address] [place] [id number] [place] [address] December, Left anterior shoulder pain M25.512 ; Type 2 diabetes mellitus with unspecified complications E11.8 and 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.4 [place] [address] [place] [id number] [place] [address] Nov, Non-pressure chronic ulcer of other part of right foot with unspecified severity L97.519 [place] [address] [place] [id number] [place] [address] Oct, Type 2 diabetes mellitus with foot ulcer E11.621 [place] [address] [place] [id number] [place] [address] Sep, Type 2 diabetes mellitus with unspecified complications E11.8 and 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.4 [place] [address] [place] [id number] [place] [address] Aug, Type 2 diabetes mellitus with foot ulcer E11.621 and 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 L97.412 [place] [address] [place] [id number] [place] [address] Aug, Type 2 diabetes mellitus with foot ulcer E11.621 ; 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 ; Other specified postprocedural states Z98.890 and Decubitus ulcer of right foot, stage 4 L89.894 [place] [address] [place] [id number] [place] [address] Apr, [place] [address] [place] [id number] [place] [address] Mar, [place] [address] [place] [id number] [place] [address] Jan, [facility] [address] [address] Jan, [facility] [id number] [place] [address] December, [facility] [id number] [place] [address] December, Type 2 diabetes mellitus with foot ulcer E11.621 [place] [address] [place] [id number] [place] [address] December, [place] [address] [place] [id number] [place] [address] December, Boxer's fracture with routine healing S62.309D [place] [address] [place] [id number] [place] [address] Nov, [place] [address] [place] [id number] [place] [address] Nov, Boxers fracture S62.309A [place] [address] [place] [id number] [place] [address] 30 Oct, 2015 Diabetic retinopathy associated with type 2 diabetes mellitus, without macular edema, with unspecified retinopathy severity E11.319 [place] [address] [place] [address] Oct, Diabetic retinopathy associated with type 2 diabetes mellitus, without macular edema, with unspecified retinopathy severity E11.319 ; Boxers fracture S62.309A ; Type 2 diabetes mellitus with foot ulcer E11.621 and Non-pressure chronic ulcer of other part of right foot with unspecified severity L97.519 [place] [address] [place] [id number] [place] [address] Oct, Boxers fracture S62.309A [place] [address] [place] [id number] [place] [address] 15 Oct, 2015 Boxers fracture S62.309A and Left wrist pain M25.532 [facility] [address], [place] [address] Oct, Acute left otitis media H66.92 and Acute upper respiratory infection J06.9 [facility] [address] [address] Jul, [facility] [address] [place] [id number] [place] [address] Jun, [facility] [address] [place] [id number] [address] Jun, [facility] [address] [place] [id number] [place] [address] May, [facility] [address] [place] [id number] [place] [address] May, [facility] [address] [place] [id number] [place] [address] Apr, Diabetes 250.00 [facility] [address] [place] [id number] [place] [address] Feb, [facility] [address] [place] [id number] [place] [address] Feb, [facility] [address], [place] [address] Feb, [facility] [address] [place] [id number] [address] Feb, Diabetes 250.00 and Diabetic ulcer of right great toe 250.80 [facility] [address], [place] [address] Feb, Diabetes mellitus 250.00 and Abscess of great toe, right 681.10 [facility] [address], [place] [address] 14 Nov, 2014 [facility] [address] [place] [id number] [place] [address] Nov, [facility] [place] [facility] [address] [id number] [place] [address] Jul, [facility] [place] [facility] [address] [id number] [place] [address] Jul, [facility] [place] [facility] [address] [id number] [place] [address] Jun, [facility] [place] [facility] [address] [id number] [place] [address] Jun, [facility] [place] [facility] [address] [id number] [place] [address] May, [facility] [place] [facility] [address] [id number] [place] [address] May, [facility] [place] [facility] [address] [id number] [place] [address] Apr, [facility] [place] [facility] [address] [id number] [place] [address] Apr, [facility] [place] [facility] [address] [id number] [place] [address] Feb, [facility] [place] [facility] [address] [id number] [place] [address] Feb, [facility] [place] [facility] [address] [id number] [place] [address] Feb, [facility] [place] [facility] [address] [id number], [place] [address] Feb, [facility] [place] [facility] [address] [id number] [place] [address] Nov, [facility] [place] [facility] [address] [id number] [place] [address] Nov, [facility] [place] [facility] [address] [id number] [place] [address] Aug, [facility] [place] [facility] [address] [id number] [address] Aug, [facility] [address] [id number] [place] [address] Aug, [facility] [place] [facility] [address] [facility] [id number] [place] [address] Aug, [facility] [address] [facility] [id number] [place] [address] Jul, [facility] [place] [facility] [address] [id number] [place] [address] Jul, [facility] [address] [id number] [place] [address] Jul, [facility] [place] [facility] [address] [id number] [place] [address] Jul, [facility] [address] [place] [address] Apr, [facility] [place] [facility] [address] [id number] [place] [address] Mar, [facility] [address] [id number] [place] [address] Mar, [facility] [place] [facility] [address] [place] [id number] [place] [address] Mar, [facility] [place] [facility] [address] [id number] [place] [address] Mar, [facility] [place] [facility] [address] [id number], [place] [address] Mar, [facility] [place] [facility] [address] [id number] [place] [address] Nov, [facility] [place] [facility] [address] [facility] [id number] [place] [address] Sep, [facility] [place] [facility] [address] [place] [id number] [place] [address] Sep, [facility] [place] [facility] [address], [place] [address] Jul, [facility] [address], [place] [address] Jul, [facility] [address], [place] [address] Jul, [facility] [address] [place] [address] Jul, [facility] [address], [place] [address] May, [facility] [id number] [place] [address] May, [facility] [address] [place] [id number] [place] [address] May, [facility] [address] [place] [id number] [place] [address] May, [facility] [address], [place] [address] May, [facility] [address] [place] [address] May, [facility] [address], [place] [address] May, [facility] [address], [place] [address] Apr, [facility] [address] [place] [id number], [place] [address] Mar, IMMUNIZATIONS No Known Immunizations SOCIAL HISTORY Never Assessed REASON FOR VISIT BS f/u PLAN OF CARE VITAL SIGNS MEDICATIONS Medication Instructions Dosage Frequency Start Date End Date Duration Status Levemir FlexTouch 100 UNIT/ML Subcutaneous twice a day 28 units 12h 06 Sep, 2017 Active RESULTS No Results PROCEDURES No Known procedures INSTRUCTIONS MEDICATIONS ADMINISTERED No Known Medications MEDICAL (GENERAL) HISTORY Type Description Date Medical History diabetes mellitus Medical History Eye exam abnormal Medical History Eye exam abnormal Surgical History cholecystectomy Surgical History appendectomy Surgical History amputation, right great toe Hospitalization History surgeries
--- OUTSIDE RECORDS SUMMARY | 2019-01-29 00:18 | XMS REPORT ---
Author Author OSCAR AVILEZ Organization [facility] Address [address] [place] [address] Care Team Providers Care Retail Product Demo Specialist Name Role Phone OSCAR AVILEZ Unavailable PROBLEMS Type Condition ICD9-CM Code [id number] Code Onset Dates Condition Status SNOMED Code Problem Non-pressure chronic ulcer of other part of right foot with unspecified severity L97.519 Active 012309670 Problem Boxers fracture S62.309A Active 90816441 Problem Type 2 diabetes mellitus with foot ulcer E11.621 Active 230125144 Problem Diabetic retinopathy associated with type 2 diabetes mellitus, without macular edema, with unspecified retinopathy severity E11.319 Active 569551764 Problem Eye exam abnormal R93.8 Active 713399611 Problem Diabetes mellitus due to underlying condition with foot ulcer E08.621 Active 468493863 Problem Non-pressure chronic ulcer of other part of right foot with fat layer exposed L97.512 Active 222343773 Problem 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 L97.412 Active 531766802 Problem 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 Active 789488281 Problem longterm current use of insulin Z79.4 Active 279129060 Problem Type 2 diabetes mellitus with unspecified complications E11.8 Active 79770341 ALLERGIES No Information ENCOUNTERS Encounter Location Date Diagnosis [place] [id number], [place] [address] May, [facility] [address], [place] [address] May, Impingement syndrome, shoulder, left M75.42 and Bankart lesion of left shoulder, subsequent encounter S43.492D [facility] [id number], [place] [address] May, Type 2 diabetes mellitus with unspecified complications E11.8 [place] [address], [place] [address] May, Type 2 diabetes mellitus with unspecified complications E11.8 [place] [address] [place] [address] [id number] [place] [address] May, Type 2 diabetes mellitus with unspecified complications E11.8 [place] [id number] [place] [address] May, Type 2 diabetes mellitus with foot ulcer E11.621 [place] [id number] [place] [address] May, Diabetes mellitus due to underlying condition with foot ulcer E08.621 [place] [id number] [place] [address] Apr, Type 2 diabetes mellitus with foot ulcer E11.621 [place] [id number] [place] [address] Mar, Impingement syndrome, shoulder, left M75.42 [place] [id number] [place] [address] Mar, [place] [id number] [place] [address] Mar, Type 2 diabetes mellitus with unspecified complications E11.8 and Angioedema, initial encounter T78.3XXA [place] [id number] [place] [address] Mar, 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 L97.412 [place] [id number] [place] [address] Feb, 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 L97.412 [place] [id number] [place] [address] Feb, Impingement syndrome, shoulder, left M75.42 [place] [id number] [place] [address] Jan, Non-pressure chronic ulcer of other part of right foot with unspecified severity L97.519 [place] [address] [id number] [place] [address] December, Non-pressure chronic ulcer of other part of right foot with unspecified severity L97.519 [place] [address] [id number] [place] [address] December, Left anterior shoulder pain M25.512 ; Type 2 diabetes mellitus with unspecified complications E11.8 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 [place] [address] [place] [id number] [place] [address] Nov, Non-pressure chronic ulcer of other part of right foot with unspecified severity L97.519 [place] [address] [id number] [place] [address] Oct, Type 2 diabetes mellitus with foot ulcer E11.621 [place] [id number] [place] [address] Sep, Type 2 diabetes mellitus with unspecified complications E11.8 and longterm current use of insulin Z79.4 [place] [address] [place] [id number] [place] [address] Aug, Type 2 diabetes mellitus with foot ulcer E11.621 and 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 L97.412 [place] [id number] [place] [address] Aug, Type 2 diabetes mellitus with foot ulcer E11.621 ; 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 ; Other specified postprocedural states Z98.890 and Decubitus ulcer of right foot, stage 4 L89.894 [place] [id number] [place] [address] Apr, [place] [address] [id number] [place] [address] Mar, [facility] [address], [place] [address] Jan, [facility] [address], [place] [address] Jan, [facility] [address], [place] [address] December, [facility] [id number] [place] [address] December, Type 2 diabetes mellitus with foot ulcer E11.621 [place] [address] [place] [id number] [place] [address] December, [place] [address] [id number] [place] [address] December, Boxer's fracture with routine healing S62.309D [place] [address] [id number] [place] [address] Nov, [place] [address] [id number] [place] [address] Nov, Boxers fracture S62.309A [place] [address] [place] [address] Oct, Diabetic retinopathy associated with type 2 diabetes mellitus, without macular edema, with unspecified retinopathy severity E11.319 [place] [address], [place] [address] Oct, Diabetic retinopathy associated with type 2 diabetes mellitus, without macular edema, with unspecified retinopathy severity E11.319 ; Boxers fracture S62.309A ; Type 2 diabetes mellitus with foot ulcer E11.621 and Non-pressure chronic ulcer of other part of right foot with unspecified severity L97.519 [place] [address], [place] [address] Oct, Boxers fracture S62.309A [place] [address] [place] [address] Oct, Boxers fracture S62.309A and Left wrist pain M25.532 [facility] [id number] [place] [address] Oct, Acute left otitis media H66.92 and Acute upper respiratory infection J06.9 [facility] [id number] [place] [address] Jul, [facility] [id number] [place] [address] Jun, [facility] [id number] [place] [address] Jun, [facility] [id number] [place] [address] May, [facility] [id number] [place] [address] May, [facility] [id number] [place] [address] Apr, Diabetes 250.00 [facility] [id number] [place] [address] Feb, [facility] [id number] [place] [address] Feb, [facility] [id number] [place] [address] Feb, [facility] [id number] [place] [address] Feb, Diabetes 250.00 and Diabetic ulcer of right great toe 250.80 [facility] [id number] [place] [address] Feb, Diabetes mellitus 250.00 and Abscess of great toe, right 681.10 [facility] [id number] [place] [address] Nov, [facility] [place] [facility] [address] [id number] [place] [address] Nov, [facility] [place] [facility] [address] [id number] [place] [address] Jul, [facility] [place] [facility] [address] [id number] [place] [address] Jul, [facility] [place] [facility] [address] [id number] [place] [address] Jun, [facility] [place] [facility] [address] [id number] [place] [address] Jun, [facility] [place] [facility] [address] [id number] [place] [address] May, [facility] [place] [facility] [address] [id number] [place] [address] May, [facility] [place] [facility] [address] [id number] [place] [address] Apr, [facility] [place] [facility] [address] [id number] [place] [address] Apr, [facility] [place] [facility] [address] [id number] [place] [address] Feb, [facility] [place] [facility] [address] [id number] [place] [address] Feb, [facility] [place] [facility] [address] [id number] [place] [address] Feb, [facility] [place] [facility] [address] [id number] [place] [address] Feb, [facility] [place] [facility] [address] [id number] [place] [address] Nov, [facility] [place] [facility] [address] [id number] [place] [address] Nov, [facility] [place] [facility] [address] [id number] [place] [address] Aug, [facility] [place] [facility] [address] [id number] [place] [address] Aug, [facility] [place] [facility] [address] [id number] [place] [address] Aug, [facility] [place] [facility] [address] [id number] [place] [address] Aug, [facility] [place] [facility] [address] [id number] [place] [address] Jul, [facility] [place] [facility] [address] [id number] [place] [address] Jul, [facility] [place] [facility] [address] [id number] [place] [address] Jul, [facility] [place] [facility] [address] [id number] [place] [address] Jul, [facility] [place] [facility] [address] [id number] [place] [address] Apr, [facility] [place] [facility] [address] [id number] [place] [address] Mar, [facility] [place] [facility] [address] [id number] [place] [address] Mar, [facility] [place] [facility] [address] [id number] [place] [address] Mar, [facility] [place] [facility] [address] [id number] [address] Mar, [facility] [place] [facility] [address] [id number] [place] [address] Mar, [facility] [place] [facility] [address] [id number] [place] [address] Nov, [facility] [place] [facility] [address] [id number] [place] [address] Sep, [facility] [place] [facility] [address], [place] [address] Sep, [facility] [address], [place] [address] Jul, [facility] [address], [place] [address] Jul, [facility] [address], [place] [address] Jul, [facility] [address], [place] [address] Jul, [facility] [id number] [place] [address] May, [facility] [id number] [place] [address] May, [facility] [id number] [place] [address] May, [facility] [address], [place] [address] May, [facility] [id number] [place] [address] May, [facility] [address], [place] [address] May, [facility] [address], [place] [address] May, [facility] [address], [place] [address] Apr, [facility] [address], [place] [address] Mar, IMMUNIZATIONS No Known Immunizations SOCIAL HISTORY [...]
--- OUTSIDE RECORDS SUMMARY | 2019-01-29 00:18 | XMS REPORT ---
Author Author COLLIN GUEVARA [facility] Address [address] [place] [address] Care Team Providers Care Actuarial Assistant Name Role Phone PAOLA COLLIN Unavailable PROBLEMS Type Condition ICD9-CM Code KND38-IT Code Onset Dates Condition Status SNOMED Code Problem Non-pressure chronic ulcer of other part of right foot with unspecified severity L97.519 Active 689103690 Problem Boxers fracture S62.309A Active 42753703 Problem Type 2 diabetes mellitus with foot ulcer E11.621 Active 368159323 Problem Diabetic retinopathy associated with type 2 diabetes mellitus, without macular edema, with unspecified retinopathy severity E11.319 Active 222604695 Problem Eye exam abnormal R93.8 Active 867405200 Problem Diabetes mellitus due to underlying condition with foot ulcer E08.621 Active 515100711 Problem Non-pressure chronic ulcer of other part of right foot with fat layer exposed L97.512 Active 810646977 Problem 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 L97.412 Active 249638923 Problem 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 Active 359557200 Problem assisted current use of insulin Z79.4 Active 120993975 Problem Type 2 diabetes mellitus with unspecified complications E11.8 Active 18062565 ALLERGIES No Information ENCOUNTERS Encounter Location Date Diagnosis [place] [id number] [address] Jun, Type 2 diabetes mellitus with unspecified complications E11.8 [place] [id number] [address] May, [place] [address] [address] May, Impingement syndrome, shoulder, left M75.42 and Bankart lesion of left shoulder, subsequent encounter S43.492D [place] [id number] [place] [address] May, Type 2 diabetes mellitus with unspecified complications E11.8 [place] [id number] [place] [address] May, Type 2 diabetes mellitus with unspecified complications E11.8 [place] [id number] [place] [address] May, Type 2 diabetes mellitus with unspecified complications E11.8 [place] [id number] [place] [address] May, Type 2 diabetes mellitus with foot ulcer E11.621 [place] [id number] [place] [address] May, Diabetes mellitus due to underlying condition with foot ulcer E08.621 [place] [id number] [place] [address] Apr, Type 2 diabetes mellitus with foot ulcer E11.621 [place] [id number] [place] [address] Mar, Impingement syndrome, shoulder, left M75.42 [place] [id number] [place] [address] Mar, [place] [id number] [place] [address] Mar, Type 2 diabetes mellitus with unspecified complications E11.8 and Angioedema, initial encounter T78.3XXA [place] [id number] [place] [address] Mar, 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 L97.412 [place] [id number] [place] [address] Feb, 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 L97.412 [place] [id number] [place] [address] Feb, Impingement syndrome, shoulder, left M75.42 [place] [id number] [place] [address] Jan, Non-pressure chronic ulcer of other part of right foot with unspecified severity L97.519 [place] [id number] [place] [address] December, Non-pressure chronic ulcer of other part of right foot with unspecified severity L97.519 [place] [id number] [place] [address] December, Left anterior shoulder pain M25.512 ; Type 2 diabetes mellitus with unspecified complications E11.8 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 [place] [id number] [place] [address] Nov, Non-pressure chronic ulcer of other part of right foot with unspecified severity L97.519 [place] [id number] [place] [address] Oct, Type 2 diabetes mellitus with foot ulcer E11.621 [place] [id number] [place] [address] Sep, Type 2 diabetes mellitus with unspecified complications E11.8 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 [place] [id number] [place] [address] Aug, Type 2 diabetes mellitus with foot ulcer E11.621 and 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 L97.412 [place] [id number] [place] [address] Aug, Type 2 diabetes mellitus with foot ulcer E11.621 ; 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 ; Other specified postprocedural states Z98.890 and Decubitus ulcer of right foot, stage 4 L89.894 [place] [address] [place] [address] Apr, [facility] [address], [place] [address] Mar, [facility] [address], [place] [address] Jan, [facility] [address], [place] [address] Jan, [facility] [address], [place] [address] December, [facility] [address] [place] [address] December, Type 2 diabetes mellitus with foot ulcer E11.621 [place] [address], [place] [address] December, [facility] [address], [place] [address] December, Boxer's fracture with routine healing S62.309D [facility] [address], [place] [address] Nov, [facility] [address] [address] Nov, Boxers fracture S62.309A [facility] [address] [address] Oct, Diabetic retinopathy associated with type 2 diabetes mellitus, without macular edema, with unspecified retinopathy severity E11.319 [facility] [id number], [place] [address] Oct, Diabetic retinopathy associated with type 2 diabetes mellitus, without macular edema, with unspecified retinopathy severity E11.319 ; Boxers fracture S62.309A ; Type 2 diabetes mellitus with foot ulcer E11.621 and Non-pressure chronic ulcer of other part of right foot with unspecified severity L97.519 [facility] [id number] [address] Oct, Boxers fracture S62.309A [facility] [id number] [place] [address] Oct, Boxers fracture S62.309A and Left wrist pain M25.532 [facility] [address] [place] [address] Oct, Acute left otitis media H66.92 and Acute upper respiratory infection J06.9 [facility] [address] [place] [address] Jul, [facility] [id number] [place] [address] Jun, [facility] [id number] [place] [address] Jun, [facility] [id number] [place] [address] May, [facility] [address] [place] [address] May, [facility] [address] [place] [address] Apr, Diabetes 250.00 [facility] [address] [place] [address] Feb, [facility] [address] [place] [address] Feb, [facility] [address] [place] [address] Feb, [facility] [id number] [place] [address] Feb, Diabetes 250.00 and Diabetic ulcer of right great toe 250.80 [facility] [address] [place] [address] Feb, Diabetes mellitus 250.00 and Abscess of great toe, right 681.10 [facility] [address] [id number] [place] [address] 14 Nov, 2014 [facility] [address] [id number] [place] [address] Nov, [facility] [address] [facility] [id number] [place] [address] Jul, [facility] [address] [id number] [place] [address] Jul, [facility] [address] [id number] [place] [address] Jun, [facility] [address] [facility] [id number] [place] [address] Jun, [facility] [address] [facility] [id number] [place] [address] May, [facility] [address] [id number] [place] [address] May, [facility] [address] [id number] [place] [address] Apr, [facility] [place] [facility] [address] [id number] [place] [address] Apr, [facility] [address] [id number] [place] [address] Feb, [facility] [place] [facility] [address] [id number] [place] [address] Feb, [facility] [place] [facility] [address] [id number] [place] [address] Feb, [facility] [place] [facility] [address] [facility] [id number] [place] [address] Feb, [facility] [place] [facility] [address] [facility] [id number] [place] [address] Nov, [facility] [address] [id number] [place] [address] Nov, [facility] [address] [id number] [place] [address] Aug, [facility] [address] [id number] [place] [address] Aug, [facility] [address] [id number] [place] [address] Aug, [facility] [address] [id number] [place] [address] Aug, [facility] [address] [id number] [place] [address] Jul, [facility] [address] [id number] [place] [address] Jul, [facility] [address] [id number] [place] [address] Jul, [facility] [address] [id number] [place] [address] Jul, [facility] [address] [id number] [place] [address] Apr, [facility] [address] [id number] [place] [address] Mar, [facility] [place] [facility] [address] [id number] [place] [address] Mar, [facility] [address] [id number] [place] [address] Mar, [facility] [place] [facility] [address] [id number] [place] [address] Mar, [facility] [place] [facility] [address] [id number] [place] [address] Mar, [facility] [address] [id number] [place] [address] Nov, [facility] [address] [facility] [id number] [place] [address] Sep, [facility] [address] [facility] [id number], [place] [address] Sep, [facility] [address] [facility] [id number], [place] [address] Jul, [facility] [address] [facility] [id number], [place] [address] Jul, [facility] [address] [facility] [id number] [place] [address] Jul, [facility] [address] [facility] [id number], [place] [address] Jul, [facility] [address] [facility] [id number], [place] [address] May, [facility] [address] [facility] [id number], [place] [address] May, [facility] [address] [facility] [id number], [place] [address] May, [facility] [address] [facility] [id number], [place] [address] May, [facility] [address] [facility] [id number], [place] [address] May, [facility] [address] [facility] [id number], [place] [address] May, [facility] [address] [facility] [id number], [place] [address] May, [facility] [address] [facility] [id number], [place] [address] Apr, [facility] [id number] [address] Mar, IMMUNIZATIONS No Known Immunizations SOCIAL HISTORY Never Assessed REASON FOR VISIT 8 week f/u - [employer], [place] PLAN OF CARE Activity Details Follow Up prn Reason: VITAL SIGNS Height 76 in 2018-05-29 Blood pressure systolic 141 mmHg 2018-05-29 Blood pressure diastolic 88 mmHg 2018-05-29 MEDICATIONS Unknown Medications RESULTS No Results PROCEDURES Procedure Date Ordered Result Body Site DRAIN/INJECT, JOINT/BURSA May 29, 2018 DEPO MEDROL 80 MG/ML May 29, 2018 INSTRUCTIONS MEDICATIONS ADMINISTERED No Known Medications MEDICAL (GENERAL) HISTORY Type Description Date Medical History diabetes mellitus Medical History Eye exam abnormal Medical History Eye exam abnormal Surgical History cholecystectomy Surgical History appendectomy Surgical History amputation, right great toe Hospitalization History surgeries
--- OUTSIDE RECORDS SUMMARY | 2019-01-29 00:18 | XMS REPORT ---
Author Author OSCAR AVILEZ Organization [facility] Address [address] [place] [address] Care Team Providers Care Steward/Stewardess Night Name Role Phone FATMATAOSCAR Unavailable PROBLEMS Type Condition ICD9-CM Code LPI81-[place] Code Onset Dates Condition Status SNOMED Code Problem Non-pressure chronic ulcer of other part of right foot with unspecified severity L97.519 Active 739020763 Problem Boxers fracture S62.309A Active 41071692 Problem Type 2 diabetes mellitus with foot ulcer E11.621 Active 239667319 Problem Diabetic retinopathy associated with type 2 diabetes mellitus, without macular edema, with unspecified retinopathy severity E11.319 Active 565455388 Problem Eye exam abnormal R93.8 Active 285485784 Problem Diabetes mellitus due to underlying condition with foot ulcer E08.621 Active 692105271 Problem Non-pressure chronic ulcer of other part of right foot with fat layer exposed L97.512 Active 883341136 Problem 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 L97.412 Active 069594173 Problem 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 Active 265214583 Problem longterm current use of insulin Z79.4 Active 472402789 Problem Type 2 diabetes mellitus with unspecified complications E11.8 Active 53836461 ALLERGIES No Information ENCOUNTERS Encounter Location Date Diagnosis [place] [id number] [place] [address] May, Impingement syndrome, shoulder, left M75.42 and Bankart lesion of left shoulder, subsequent encounter S43.492D [place] [address] [place] [id number] [place] [address] May, Type 2 diabetes mellitus with unspecified complications E11.8 [place] [id number] [address] May, Type 2 diabetes mellitus with unspecified complications E11.8 [place] [address] [place] [id number] [place] [address] May, Type 2 diabetes mellitus with unspecified complications E11.8 [place] [address] [place] [id number] [place] [address] May, Type 2 diabetes mellitus with foot ulcer E11.621 [place] [address] [place] [id number] [place] [address] May, Diabetes mellitus due to underlying condition with foot ulcer E08.621 [place] [address] [place] [id number] [place] [address] Apr, Type 2 diabetes mellitus with foot ulcer E11.621 [place] [address] [place] [id number] [place] [address] Mar, Impingement syndrome, shoulder, left M75.42 [place] [address] [address] Mar, [place] [address] [place] [id number] [place] [address] Mar, Type 2 diabetes mellitus with unspecified complications E11.8 and Angioedema, initial encounter T78.3XXA [place] [address] [place] [id number] [place] [address] Mar, 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 L97.412 [place] [address] [place] [id number] [place] [address] Feb, 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 L97.412 [place] [address] [place] [id number] [place] [address] Feb, Impingement syndrome, shoulder, left M75.42 [place] [address] [place] [id number] [place] [address] Jan, Non-pressure chronic ulcer of other part of right foot with unspecified severity L97.519 [place] [address] [place] [address] December, Non-pressure chronic ulcer of other part of right foot with unspecified severity L97.519 [place] [address] [place] [id number] [place] [address] December, Left anterior shoulder pain M25.512 ; Type 2 diabetes mellitus with unspecified complications E11.8 and longterm current use of insulin Z79.4 [place] [address] [place] [id number] [place] [address] Nov, Non-pressure chronic ulcer of other part of right foot with unspecified severity L97.519 [place] [address] [place] [id number] [place] [address] Oct, Type 2 diabetes mellitus with foot ulcer E11.621 [place] [address] [place] [id number] [place] [address] Sep, Type 2 diabetes mellitus with unspecified complications E11.8 and longterm current use of insulin Z79.4 [place] [address] [place] [id number] [place] [address] Aug, Type 2 diabetes mellitus with foot ulcer E11.621 and 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 L97.412 [place] [address] [place] [id number] [place] [address] Aug, Type 2 diabetes mellitus with foot ulcer E11.621 ; 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 ; Other specified postprocedural states Z98.890 and Decubitus ulcer of right foot, stage 4 L89.894 [place] [address] [place] [id number] [place] [address] Apr, [place] [address] [place] [id number] [place] [address] Mar, [place] [address] [place] [id number] [place] [address] Jan, [place] [address] [place] [address] Jan, [facility] [address] [place] [id number] [place] [address] December, [place] [address] [place] [id number] [place] [address] December, Type 2 diabetes mellitus with foot ulcer E11.621 [place] [address] [place] [id number] [place] [address] December, [place] [address] [place] [id number] [place] [address] December, Boxer's fracture with routine healing S62.309D [place] [address] [place] [id number] [place] [address] Nov, [place] [address] [place] [id number] [place] [address] Nov, Boxers fracture S62.309A [place] [address] [place] [id number] [place] [address] 30 Oct, 2015 Diabetic retinopathy associated with type 2 diabetes mellitus, without macular edema, with unspecified retinopathy severity E11.319 [place] [address] [place] [id number] [place] [address] Oct, Diabetic retinopathy associated with type 2 diabetes mellitus, without macular edema, with unspecified retinopathy severity E11.319 ; Boxers fracture S62.309A ; Type 2 diabetes mellitus with foot ulcer E11.621 and Non-pressure chronic ulcer of other part of right foot with unspecified severity L97.519 [place] [address] [place] [id number] [place] [address] Oct, Boxers fracture S62.309A [place] [address] [place] [address] 15 Oct, 2015 Boxers fracture S62.309A and Left wrist pain M25.[address] [facility] [address] [address] Oct, Acute left otitis media H66.92 and Acute upper respiratory infection J06.9 [facility] [address] [address] Jul, [facility] [address] [address] Jun, [facility] [address] [place] [address] Jun, [facility] [address] [place] [id number] [place] [address] May, [facility] [address] [place] [id number] [place] [address] May, [facility] [address] [place] [id number] [place] [address] Apr, Diabetes 250.00 [facility] [address] [address] Feb, [facility] [address] [place] [id number] [place] [address] Feb, [facility] [address] [address] Feb, [facility] [address] [place] [address] Feb, Diabetes 250.00 and Diabetic ulcer of right great toe 250.80 [facility] [address] [address] Feb, Diabetes mellitus 250.00 and Abscess of great toe, right 681.10 [facility] [address] [address] 14 Nov, 2014 [facility] [address] [address] Nov, [facility] [place] [facility] [address] [id number] [place] [address] Jul, [facility] [place] [facility] [address] [id number] [place] [address] Jul, [facility] [place] [facility] [address] [id number] [place] [address] Jun, [facility] [place] [facility] [address] [id number] [place] [address] Jun, [facility] [place] [facility] [address] [id number] [place] [address] May, [facility] [place] [facility] [address] [id number] [place] [address] May, [facility] [place] [facility] [address] [id number] [place] [address] Apr, [facility] [place] [facility] [address] [id number] [place] [address] Apr, [facility] [place] [facility] [address] [id number] [place] [address] Feb, [facility] [place] [facility] [address] [id number] [place] [address] Feb, [facility] [place] [facility] [address] [id number] [place] [address] Feb, [facility] [place] [facility] [address] [id number] [place] [address] Feb, [facility] [place] [facility] [address] [id number] [place] [address] Nov, [facility] [place] [facility] [address] [id number] [place] [address] Nov, [facility] [place] [facility] [address] [id number] [place] [address] Aug, [facility] [place] [facility] [address] [id number] [place] [address] Aug, [facility] [address] [id number] [place] [address] Aug, [facility] [place] [facility] [address] [id number] [place] [address] Aug, [facility] [place] [facility] [address] [id number] [place] [address] Jul, [facility] [place] [facility] [address] [id number] [place] [address] Jul, [facility] [place] [facility] [address] [id number] [place] [address] Jul, [facility] [place] [facility] [address] [id number] [place] [address] Jul, [facility] [place] [facility] [address] [id number] [place] [address] Apr, [facility] [place] [facility] [address] [id number] [place] [address] Mar, [facility] [place] [facility] [address] [id number] [place] [address] Mar, [facility] [place] [facility] [address] [id number] [place] [address] Mar, [facility] [place] [facility] [address] [id number] [place] [address] Mar, [facility] [place] [facility] [address] [id number] [address] Mar, [facility] [place] [facility] [address] [id number] [place] [address] Nov, [facility] [place] [facility] [address] [id number] [place] [address] Sep, [facility] [place] [facility] [address] [id number] [place] [address] Sep, [facility] [place] [facility] [address] [address] Jul, [facility] [address] [address] Jul, [facility] [address] [facility] [id number] [address] Jul, [facility] [address] [address] Jul, [facility] [address] [address] May, [facility] [address] [place] [address] May, [facility] [address] [place] [address] May, [facility] [address] [place] [address] May, [facility] [address] [address] May, [facility] [address] [place] [address] May, [facility] [address], [place] [address] May, [facility] [address] [address] Apr, [facility] [address], [place] [address] Mar, IMMUNIZATIONS No Known Immunizations SOCIAL HISTORY Never Assessed REASON FOR VISIT Refill request PLAN OF CARE VITAL SIGNS MEDICATIONS Medication Instructions Dosage Frequency Start Date End Date Duration Status Levemir FlexTouch 100 UNIT/ML Subcutaneous twice a day 25 units 12h 06 Sep, 2017 30 days Active NovoLog Flexpen 100 UNIT/ML Subcutaneous 3 times a day Inject 40 units 8h 24 May, 2018 30 days Active RESULTS No Results PROCEDURES No Known procedures INSTRUCTIONS MEDICATIONS ADMINISTERED No Known Medications MEDICAL (GENERAL) HISTORY Type Description Date Medical History diabetes mellitus Medical History Eye exam abnormal Medical History Eye exam abnormal Surgical History cholecystectomy Surgical History appendectomy Surgical History amputation, right great toe Hospitalization History surgeries
--- OUTSIDE RECORDS SUMMARY | 2019-01-29 00:19 | XMS REPORT ---
Author Author GERARDO PATEL [facility] Address [address] [place] [address] Care Team Providers Care Summer Sessions Director Name Role Phone GERARDO PATEL Unavailable PROBLEMS Type Condition ICD9-CM Code TEU40-WA Code Onset Dates Condition Status SNOMED Code Problem Non-pressure chronic ulcer of other part of right foot with unspecified severity L97.519 Active 794945196 Problem Boxers fracture S62.309A Active 51834184 Problem Type 2 diabetes mellitus with foot ulcer E11.621 Active 330163027 Problem Diabetic retinopathy associated with type 2 diabetes mellitus, without macular edema, with unspecified retinopathy severity E11.319 Active 333709426 Problem Eye exam abnormal R93.8 Active 344092540 Problem Diabetes mellitus due to underlying condition with foot ulcer E08.621 Active 637137526 Problem Non-pressure chronic ulcer of other part of right foot with fat layer exposed L97.512 Active 075278967 Problem 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 L97.412 Active 657840206 Problem 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 Active 875498733 Problem FDC current use of insulin Z79.4 Active 049147109 Problem Type 2 diabetes mellitus with unspecified complications E11.8 Active 97077759 ALLERGIES No Known Allergies ENCOUNTERS Encounter Location Date Diagnosis [facility] [id number] [address] May, [facility] [id number] [address] May, [facility] [id number] [address] May, Type 2 diabetes mellitus with foot ulcer E11.621 [facility] [id number] [address] May, Diabetes mellitus due to underlying condition with foot ulcer E08.621 [facility] [id number] [place] [address] Apr, Type 2 diabetes mellitus with foot ulcer E11.621 [facility] [id number] [place] [address] Mar, Impingement syndrome, shoulder, left M75.42 [place] [facility] [address] [address] Mar, [place] [address] [address] Mar, Type 2 diabetes mellitus with unspecified complications E11.8 and Angioedema, initial encounter T78.3XXA [place] [facility] [address] [address] Mar, 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 L97.412 [facility] [id number] [place] [address] Feb, 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 L97.412 [facility] [id number] [place] [address] Feb, Impingement syndrome, shoulder, left M75.42 [place] [id number] [place] [address] Jan, Non-pressure chronic ulcer of other part of right foot with unspecified severity L97.519 [facility] [id number] [place] [address] December, Non-pressure chronic ulcer of other part of right foot with unspecified severity L97.519 [facility] [id number] [place] [address] December, Left anterior shoulder pain M25.512 ; Type 2 diabetes mellitus with unspecified complications E11.8 and [employer]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.4 [place] [address] [place] [address] Nov, Non-pressure chronic ulcer of other part of right foot with unspecified severity L97.519 [facility] [id number] [place] [address] Oct, Type 2 diabetes mellitus with foot ulcer E11.621 [place] [address] [address] Sep, Type 2 diabetes mellitus with unspecified complications E11.8 and [employer]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.4 [facility] [facility] [id number] [place] [address] Aug, Type 2 diabetes mellitus with foot ulcer E11.621 and 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 L97.412 [facility] [id number] [place] [address] Aug, Type 2 diabetes mellitus with foot ulcer E11.621 ; 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 ; Other specified postprocedural states Z98.890 and Decubitus ulcer of right foot, stage 4 L89.894 [place] [facility] [id number] [place] [address] Apr, [facility] [id number] [place] [address] Mar, [facility] [id number] [place] [address] Jan, [facility] [id number] [place] [address] Jan, [facility] [id number] [place] [address] December, [facility] [id number] [place] [address] December, Type 2 diabetes mellitus with foot ulcer E11.621 [place] [address] [place] [address] December, [facility] [id number] [place] [address] December, Boxer's fracture with routine healing S62.309D [facility] [id number] [place] [address] Nov, [place] [id number] [place] [address] Nov, Boxers fracture S62.309A [place] [id number] [place] [address] Oct, Diabetic retinopathy associated with type 2 diabetes mellitus, without macular edema, with unspecified retinopathy severity E11.319 [place] [facility] [id number] [place] [address] Oct, Diabetic retinopathy associated with type 2 diabetes mellitus, without macular edema, with unspecified retinopathy severity E11.319 ; Boxers fracture S62.309A ; Type 2 diabetes mellitus with foot ulcer E11.621 and Non-pressure chronic ulcer of other part of right foot with unspecified severity L97.519 [place] [id number] [place] [address] Oct, Boxers fracture S62.309A [place] [address] [place] [address] Oct, Boxers fracture S62.309A and Left wrist pain M25.532 [facility] [address] [place] [address] Oct, Acute left otitis media H66.92 and Acute upper respiratory infection J06.9 [place] [address] [place] [address] Jul, [place] [address] [place] [address] Jun, [place] [address] [address] Jun, [facility] [address] [address] May, [facility] [address] [address] May, [facility] [address] [place] [address] Apr, Diabetes 250.00 [facility] [id number] [place] [address] Feb, [facility] [id number] [place] [address] Feb, [facility] [address] [address] Feb, [facility] [address] [place] [address] Feb, Diabetes 250.00 and Diabetic ulcer of right great toe 250.80 [facility] [address] [place] [address] Feb, Diabetes mellitus 250.00 and Abscess of great toe, right 681.10 [facility] [address] [address] 14 Nov, 2014 [facility] [id number] [address] Nov, [facility] [address] [address] Jul, [facility] [address] [address] Jul, [facility] [id number] [address] Jun, [facility] [address] [address] Jun, [facility] [place] [facility] [address] [id number] [place] [address] May, [facility] [place] [facility] [address] [id number] [place] [address] May, [facility] [place] [facility] [address] [id number] [place] [address] Apr, [facility] [place] [facility] [address] [id number] [place] [address] Apr, [facility] [place] [facility] [address] [id number] [place] [address] Feb, [facility] [place] [facility] [address] [id number] [place] [address] Feb, [facility] [place] [facility] [address] [id number] [place] [address] Feb, [facility] [place] [facility] [address] [id number] [place] [address] Feb, [facility] [place] [facility] [address] [id number] [place] [address] Nov, [facility] [place] [facility] [address] [id number] [place] [address] Nov, [facility] [place] [facility] [address] [id number] [place] [address] Aug, [facility] [place] [facility] [address] [id number] [place] [address] Aug, [facility] [place] [facility] [address] [id number] [place] [address] Aug, [facility] [place] [facility] [address] [id number] [place] [address] Aug, [facility] [place] [facility] [address] [id number] [place] [address] Jul, [facility] [place] [facility] [address] [id number] [place] [address] 12 Jul, 2013 [facility] [address] [id number] [place] [address] Jul, [facility] [address] [id number] [place] [address] Jul, [facility] [address] [id number] [place] [address] Apr, [facility] [address] [id number] [place] [address] Mar, [facility] [address] [id number] [place] [address] Mar, [facility] [address] [id number] [place] [address] Mar, [facility] [address] [id number] [place] [address] Mar, [facility] [address] [id number] [place] [address] Mar, [facility] [address] [id number] [place] [address] Nov, [facility] [address] [id number] [place] [address] Sep, [facility] [address] [id number] [place] [address] Sep, [facility] [address] [id number] [place] [address] Jul, [facility] [address] [id number] [place] [address] 18 Jul, 2012 [facility] [address] [id number] [place] [address] 14 Jul, 2012 [facility] [address] [id number] [place] [address] Jul, [facility] [address] [address] May, [facility] [address] [address] May, [facility] [address] [address] May, [facility] [address] [address] May, [facility] [address] [address] May, [facility] [address] [place] [address] May, [facility] [address] [address] May, [facility] [address] [address] Apr, [facility] [address] [address] Mar, IMMUNIZATIONS No Known Immunizations SOCIAL HISTORY Never Assessed REASON FOR VISIT DM foot wound Pt has a hole in bottom of R foot, now has a new one where the " index toe" connects to the foot PRIETO Nelson PLAN OF CARE Activity Details Follow Up 4 Weeks Reason:DM VITAL SIGNS Height 76 in 2018-05-07 Weight 286.5 lbs 2018-05-07 Temperature 98.4 degrees Fahrenheit 2018-05-07 Heart Rate 96 bpm 2018-05-07 Respiratory Rate 18 2018-05-07 BMI 34.87 kg/m2 2018-05-07 Blood pressure systolic 156 mmHg 2018-05-07 Blood pressure diastolic 92 mmHg 2018-05-07 MEDICATIONS Medication Instructions Dosage Frequency Start Date End Date Duration Status NovoLog 100 UNIT/ML Subcutaneous 3 times a day before meals Inject 25 units 90 days Active Levemir FlexTouch 100 UNIT/ML Subcutaneous Once a day Inject 35 units at bedtime 24h Sep, Active Multivitamin Adult - Orally Once a day 24h Active Advil Active Silvadene 1 % Externally Once a day 1 application to affected area 24h Mar, Active Metformin HCl 1000 MG Orally 2 times a day TAKE ONE TABLET BY MOUTH TWICE DAILY WITH MEALS 12h 90 days Active Atorvastatin Calcium 40 mg Orally Once a day 1 tablet 24h Mar, 30 day(s) Active Lisinopril 20 MG Orally Once a day 1 tablet 24h Mar, 30 day(s) Active RESULTS No Results PROCEDURES No Known procedures INSTRUCTIONS MEDICATIONS ADMINISTERED No Known Medications MEDICAL (GENERAL) HISTORY Type Description Date Medical History diabetes mellitus Medical History Eye exam abnormal Medical History Eye exam abnormal Surgical History cholecystectomy Surgical History appendectomy Surgical History amputation, right great toe Hospitalization History surgeries
--- OUTSIDE RECORDS SUMMARY | 2019-01-29 00:19 | XMS REPORT ---
Author Author ROSCOE TOTH Organization [facility] Address [address] [place] [address] Care Team Providers Care Byproducts Operator Name Role Phone ROSCOE TOTH Unavailable PROBLEMS Type Condition ICD9-CM Code [id number] Code Onset Dates Condition Status SNOMED Code Problem Diabetic retinopathy associated with type 2 diabetes mellitus, without macular edema, with unspecified retinopathy severity E11.319 Active 438107300 Problem Boxers fracture S62.309A Active 98388157 Problem Eye exam abnormal R93.8 Active 532527564 Problem Type 2 diabetes mellitus with unspecified complications E11.8 Active 16730625 Problem FCI current use of insulin Z79.4 Active 359771726 Problem Type 2 diabetes mellitus with foot ulcer E11.621 Active 265010846 Problem Non-pressure chronic ulcer of other part of right foot with unspecified severity L97.519 Active 378373953 Problem 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 L97.412 Active 647689129 Problem 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 Active 704205943 ALLERGIES No Known Allergies ENCOUNTERS Encounter Location Date Diagnosis [place] [id number] [place] [address] May, [place] [id number] [place] [address] Apr, [place] [id number] [place] [address] Mar, Impingement syndrome, shoulder, left M75.42 [place] [id number] [place] [address] Mar, [place] [id number] [place] [address] 14 Mar, 2018 Type 2 diabetes mellitus with unspecified complications E11.8 and Angioedema, initial encounter T78.3XXA [place] [id number] [place] [address] Mar, 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 L97.412 [place] [id number] [place] [address] Feb, 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 L97.412 [place] [id number] [place] [address] Feb, Impingement syndrome, shoulder, left M75.42 [place] [address] [address] Jan, Non-pressure chronic ulcer of other part of right foot with unspecified severity L97.519 [place] [id number] [place] [address] December, Non-pressure chronic ulcer of other part of right foot with unspecified severity L97.519 [place] [id number] [place] [address] December, Left anterior shoulder pain M25.512 ; Type 2 diabetes mellitus with unspecified complications E11.8 and FCI current use of insulin Z79.4 [place] [id number] [place] [address] Nov, Non-pressure chronic ulcer of other part of right foot with unspecified severity L97.519 [place] [id number] [place] [address] Oct, Type 2 diabetes mellitus with foot ulcer E11.621 [place] [id number] [place] [address] Sep, Type 2 diabetes mellitus with unspecified complications E11.8 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.4 [place] [id number] [place] [address] Aug, Type 2 diabetes mellitus with foot ulcer E11.621 and 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 L97.412 [facility] [address] [place] [address] Aug, Type 2 diabetes mellitus with foot ulcer E11.621 ; 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 ; Other specified postprocedural states Z98.890 and Decubitus ulcer of right foot, stage 4 L89.894 [facility] [address] [address] Apr, [facility] [id number] [place] [address] Mar, [facility] [id number] [place] [address] Jan, [facility] [id number] [place] [address] Jan, [facility] [address] [place] [address] December, [facility] [id number] [place] [address] December, Type 2 diabetes mellitus with foot ulcer E11.621 [facility] [address] [address] December, [facility] [address] [address] December, Boxer's fracture with routine healing S62.309D [facility] [address] [address] Nov, [facility] [id number] [place] [address] Nov, Boxers fracture S62.309A [facility] [address] [address] Oct, Diabetic retinopathy associated with type 2 diabetes mellitus, without macular edema, with unspecified retinopathy severity E11.319 [facility] [id number] [place] [address] Oct, Diabetic retinopathy associated with type 2 diabetes mellitus, without macular edema, with unspecified retinopathy severity E11.319 ; Boxers fracture S62.309A ; Type 2 diabetes mellitus with foot ulcer E11.621 and Non-pressure chronic ulcer of other part of right foot with unspecified severity L97.519 [facility] [id number] [place] [address] Oct, Boxers fracture S62.309A [facility] [address] [address] Oct, Boxers fracture S62.309A and Left wrist pain M25.532 [facility] [id number] [place] [address] Oct, Acute left otitis media H66.92 and Acute upper respiratory infection J06.9 [facility] [id number] [place] [address] Jul, [facility] [id number] [place] [address] Jun, [place] [id number] [place] [address] Jun, [facility] [id number] [place] [address] May, [facility] [id number] [place] [address] May, [facility] [id number] [place] [address] 16 Apr, 2015 Diabetes 250.00 [place] [id number] [place] [address] Feb, [facility] [address] [address] Feb, [facility] [address] [id number], [place] [address] Feb, [facility] [address] [facility] [id number], [place] [address] Feb, Diabetes 250.00 and Diabetic ulcer of right great toe 250.80 [facility] [id number] [place] [address] 16 Feb, 2015 Diabetes mellitus 250.00 and Abscess of great toe, right 681.10 [facility] [address] [id number], [place] [address] 14 Nov, 2014 [facility] [address] [facility] [id number] [place] [address] Nov, [facility] [address] [facility] [id number], [place] [address] Jul, [facility] [address] [facility] [id number], [place] [address] Jul, [facility] [id number] [address] Jun, [facility] [address] [facility] [id number], [place] [address] Jun, [facility] [id number] [address] May, [facility] [address] [id number], [place] [address] May, [facility] [address] [facility] [id number], [place] [address] Apr, [facility] [address] [facility] [id number], [place] [address] Apr, [facility] [address] [facility] [id number], [place] [address] Feb, [facility] [address] [facility] [id number] [place] [address] Feb, [facility] [place] [facility] [address] [id number] [place] [address] Feb, [facility] [place] [facility] [address] [id number] [place] [address] Feb, [facility] [place] [facility] [address] [id number] [place] [address] Nov, [facility] [place] [facility] [address] [id number] [place] [address] Nov, [facility] [place] [facility] [address] [id number] [place] [address] Aug, [facility] [place] [facility] [address] [id number] [place] [address] Aug, [facility] [place] [facility] [address] [id number] [place] [address] Aug, [facility] [place] [facility] [address] [id number] [place] [address] Aug, [facility] [place] [facility] [address] [id number] [place] [address] Jul, [facility] [place] [facility] [address] [id number] [place] [address] Jul, [facility] [place] [facility] [address] [id number] [place] [address] Jul, [facility] [place] [facility] [address] [id number] [place] [address] Jul, [facility] [place] [facility] [address] [id number] [place] [address] Apr, [facility] [place] [facility] [address] [id number] [place] [address] Mar, [facility] [place] [facility] [address] [id number] [place] [address] Mar, [facility] [place] [facility] [address] [id number] [place] [address] Mar, [facility] [place] [facility] [address] [id number] [place] [address] Mar, [facility] [place] [facility] [address] [id number] [place] [address] Mar, [facility] [place] [facility] [address] [id number] [place] [address] Nov, [facility] [place] [facility] [address] [id number] [place] [address] Sep, [facility] [place] [facility] [address] [id number] [place] [address] Sep, [facility] [place] [facility] [address] [id number] [place] [address] Jul, [facility] [place] [facility] [address] [id number] [place] [address] Jul, [facility] [place] [facility] [address] [id number] [place] [address] Jul, [facility] [place] [facility] [address] [id number] [place] [address] Jul, [facility] [place] [facility] [address] [facility] [id number], [place] [address] May, [facility] [place] [facility] [address] [id number], [place] [address] May, [facility] [place] [facility] [address] [id number] [place] [address] May, [facility] [place] [facility] [address] [id number] [place] [address] May, [facility] [place] [facility] [address] [id number], [place] [address] May, [facility] [place] [facility] [address] [id number], [place] [address] May, [facility] [address] [facility] [id number], [place] [address] May, [facility] [address] [facility] [id number], [place] [address] Apr, [facility] [address] [facility] [id number], [place] [address] Mar, IMMUNIZATIONS No Known Immunizations SOCIAL HISTORY Never Assessed REASON FOR VISIT Swelling, PT reports that Thursday 03/15 he woke up with some swelling on his bot shannon lip right side, Saturday the whole lower lip was swollen. PT notes it has cont inued to worsened along with discomfort and burning.PT denies any injury and has been trying ibuprofen that has not seemed to help. PT does report this has kevin ewhat happened previously but not to this extent, it was in the past when he acc idently bit his lip and caused a small infected puss pocket. PT feels this is no t the same caswe. -Ruslan MOREAU PLAN OF CARE Activity Details Follow Up Will call after lab Reason: VITAL SIGNS Height 76 in 2018-03-18 Weight 280 lbs 2018-03-18 Temperature 98.8 degrees Fahrenheit 2018-03-18 Heart Rate 104 bpm 2018-03-18 Respiratory Rate 18 2018-03-18 Oximetry 96 % 2018-03-18 BMI 34.08 kg/m2 2018-03-18 Blood pressure systolic 150 mmHg 2018-03-18 Blood pressure diastolic 90 mmHg 2018-03-18 MEDICATIONS Medication Instructions Dosage Frequency Start Date End Date Duration Status Ibuprofen 800 MG Orally 3 times a day 8h Active PredniSONE 20 mg Orally Once a day 2 tablet 24h Mar, Mar, 05 days Active Silvadene 1 % Externally Once a day 1 application to affected area 24h Mar, Active Multivitamin Adult - Orally Once a day 24h Active Metformin HCl 1000 MG Orally 2 times a day TAKE ONE TABLET BY MOUTH TWICE DAILY WITH MEALS 12h 90 days Active Levemir FlexTouch 100 UNIT/ML Subcutaneous Once a day Inject 35 units at bedtime 24h Sep, Active NovoLog 100 UNIT/ML Subcutaneous 3 times a day before meals Inject 25 units 90 days Active RESULTS No Results PROCEDURES Procedure Date Ordered Result Body Site GLYCATED HEMOGLOBIN TEST Mar 18, 2018 LAB NOT BILLED BY [facility] Mar 18, 2018 INSTRUCTIONS MEDICATIONS ADMINISTERED No Known Medications MEDICAL (GENERAL) HISTORY Type Description Date Medical History diabetes mellitus Medical History Eye exam abnormal Medical History Eye exam abnormal Surgical History cholecystectomy Surgical History appendectomy Surgical History amputation, right great toe Hospitalization History surgeries
--- OUTSIDE RECORDS SUMMARY | 2019-01-29 00:19 | XMS REPORT ---
Author Author ROSCOE TOTH Organization [facility] Address [address] [place] [address] Care Team Providers Care Anvil Worker Name Role Phone ROSCOE TOTH Unavailable PROBLEMS Type Condition ICD9-CM Code JZN40-CK Code Onset Dates Condition Status SNOMED Code Problem Diabetic retinopathy associated with type 2 diabetes mellitus, without macular edema, with unspecified retinopathy severity E11.319 Active 059486244 Problem Boxers fracture S62.309A Active 02429990 Problem Eye exam abnormal R93.8 Active 867725549 Problem Type 2 diabetes mellitus with unspecified complications E11.8 Active 30780734 Problem MCC current use of insulin Z79.4 Active 429189426 Problem Type 2 diabetes mellitus with foot ulcer E11.621 Active 578975287 Problem Non-pressure chronic ulcer of other part of right foot with unspecified severity L97.519 Active 422221456 Problem 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 L97.412 Active 418124015 Problem 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 Active 814198344 ALLERGIES No Information ENCOUNTERS Encounter Location Date Diagnosis [facility] [facility] [id number] [place] [address] May, [place] [facility] [id number] [place] [address] Apr, [place] [id number] [place] [address] Mar, Impingement syndrome, shoulder, left M75.42 [facility] [facility] [id number] [place] [address] Mar, [place] [id number] [place] [address] 14 Mar, 2018 Type 2 diabetes mellitus with unspecified complications E11.8 and Angioedema, initial encounter T78.3XXA [facility] [facility] [id number] [place] [address] Mar, 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 L97.412 [place] [id number] [place] [address] Feb, 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 L97.412 [place] [id number] [place] [address] Feb, Impingement syndrome, shoulder, left M75.42 [place] [address] [address] Jan, Non-pressure chronic ulcer of other part of right foot with unspecified severity L97.519 [place] [id number] [place] [address] December, Non-pressure chronic ulcer of other part of right foot with unspecified severity L97.519 [facility] [id number] [place] [address] December, Left anterior shoulder pain M25.512 ; Type 2 diabetes mellitus with unspecified complications E11.8 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.4 [place] [id number] [place] [address] Nov, Non-pressure chronic ulcer of other part of right foot with unspecified severity L97.519 [place] [id number] [place] [address] Oct, Type 2 diabetes mellitus with foot ulcer E11.621 [place] [id number] [place] [address] Sep, Type 2 diabetes mellitus with unspecified complications E11.8 and MCC current use of insulin Z79.4 [place] [id number] [place] [address] Aug, Type 2 diabetes mellitus with foot ulcer E11.621 and 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 L97.412 [facility] [id number] [place] [address] Aug, Type 2 diabetes mellitus with foot ulcer E11.621 ; 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 ; Other specified postprocedural states Z98.890 and Decubitus ulcer of right foot, stage 4 L89.894 [facility] [id number] [place] [address] Apr, [facility] [id number] [place] [address] Mar, [facility] [id number] [place] [address] Jan, [place] [id number] [place] [address] Jan, [facility] [id number] [place] [address] December, [facility] [id number] [place] [address] December, Type 2 diabetes mellitus with foot ulcer E11.621 [facility] [address] [address] December, [facility] [id number] [place] [address] December, Boxer's fracture with routine healing S62.309D [facility] [address] [address] Nov, [facility] [id number] [place] [address] Nov, Boxers fracture S62.309A [facility] [id number] [place] [address] Oct, Diabetic retinopathy associated with type 2 diabetes mellitus, without macular edema, with unspecified retinopathy severity E11.319 [facility] [id number] [place] [address] Oct, Diabetic retinopathy associated with type 2 diabetes mellitus, without macular edema, with unspecified retinopathy severity E11.319 ; Boxers fracture S62.309A ; Type 2 diabetes mellitus with foot ulcer E11.621 and Non-pressure chronic ulcer of other part of right foot with unspecified severity L97.519 [facility] [id number] [place] [address] Oct, Boxers fracture S62.309A [facility] [address] [address] Oct, Boxers fracture S62.309A and Left wrist pain M25.532 [facility] [id number] [place] [address] Oct, Acute left otitis media H66.92 and Acute upper respiratory infection J06.9 [facility] [id number] [place] [address] Jul, [facility] [id number] [place] [address] Jun, [place] [id number] [place] [address] Jun, [facility] [id number] [place] [address] May, [facility] [id number] [place] [address] May, [facility] [id number] [place] [address] 16 Apr, 2015 Diabetes 250.00 [facility] [id number] [place] [address] Feb, [facility] [address] [address] Feb, [facility] [address] [id number] [address] Feb, [facility] [address] [facility] [id number] [address] Feb, Diabetes 250.00 and Diabetic ulcer of right great toe 250.80 [facility] [id number] [place] [address] 16 Feb, 2015 Diabetes mellitus 250.00 and Abscess of great toe, right 681.10 [facility] [address] [id number] [address] 14 Nov, 2014 [facility] [address] [facility] [id number] [place] [address] Nov, [facility] [id number] [address] Jul, [facility] [address] [facility] [id number] [address] Jul, [facility] [id number] [address] Jun, [facility] [id number] [address] Jun, [facility] [address] [address] May, [facility] [address] [id number], [place] [address] May, [facility] [address] [facility] [id number] [address] Apr, [facility] [address] [facility] [id number] [address] Apr, [facility] [id number] [address] Feb, [facility] [address] [id number] [place] [address] Feb, [facility] [place] [facility] [address] [id number] [place] [address] Feb, [facility] [place] [facility] [address] [id number] [place] [address] Feb, [facility] [place] [facility] [address] [id number] [place] [address] Nov, [facility] [place] [facility] [address] [id number] [place] [address] Nov, [facility] [place] [facility] [address] [id number] [place] [address] Aug, [facility] [place] [facility] [address] [id number] [place] [address] Aug, [facility] [place] [facility] [address] [id number] [place] [address] Aug, [facility] [place] [facility] [address] [id number] [place] [address] Aug, [facility] [place] [facility] [address] [id number] [place] [address] Jul, [facility] [place] [facility] [address] [id number] [place] [address] Jul, [facility] [place] [facility] [address] [id number] [place] [address] Jul, [facility] [place] [facility] [address] [id number] [place] [address] Jul, [facility] [place] [facility] [address] [id number] [place] [address] Apr, [facility] [place] [facility] [address] [id number] [place] [address] Mar, [facility] [place] [facility] [address] [id number] [place] [address] Mar, [facility] [place] [facility] [address] [id number] [place] [address] Mar, [facility] [place] [facility] [address] [id number] [place] [address] Mar, [facility] [place] [facility] [address] [id number] [place] [address] Mar, [facility] [place] [facility] [address] [id number] [place] [address] Nov, [facility] [place] [facility] [address] [id number] [place] [address] Sep, [facility] [place] [facility] [address] [id number] [place] [address] Sep, [facility] [place] [facility] [address] [id number] [place] [address] Jul, [facility] [place] [facility] [address] [id number] [place] [address] Jul, [facility] [place] [facility] [address] [id number] [place] [address] Jul, [facility] [place] [facility] [address] [id number] [place] [address] Jul, [facility] [place] [facility] [address] [id number] [place] [address] May, [facility] [place] [facility] [address] [id number] [address] May, [facility] [place] [facility] [address] [id number] [place] [address] May, [facility] [place] [facility] [address] [id number] [place] [address] May, [facility] [place] [facility] [address] [id number] [place] [address] May, [facility] [place] [facility] [address] [id number] [place] [address] May, [facility] [address] [facility] [id number], [place] [address] May, [facility] [address] [facility] [id number], [place] [address] Apr, [facility] [address] [facility] [id number][place] [address] Mar, IMMUNIZATIONS No Known Immunizations SOCIAL HISTORY Never Assessed REASON FOR VISIT PLAN OF CARE VITAL SIGNS MEDICATIONS Medication Instructions Dosage Frequency Start Date End Date Duration Status Atorvastatin Calcium 40 mg Orally Once a day 1 tablet 24h Mar, 30 day(s) Active Lisinopril 10 mg Orally Once a day 1 tablet [...]
--- OUTSIDE RECORDS SUMMARY | 2019-01-29 00:19 | XMS REPORT ---
Author Author OSCAR AVILEZ Organization [facility] [place] Address [address] [place] [address] Care Team Providers Care Academic Services Professional Name Role Phone OSCAR AVILEZ Unavailable PROBLEMS Type Condition ICD9-CM Code CZT24-FZ Code Onset Dates Condition Status SNOMED Code Problem Non-pressure chronic ulcer of other part of right foot with unspecified severity L97.519 Active 081617370 Problem Boxers fracture S62.309A Active 83698182 Problem Type 2 diabetes mellitus with foot ulcer E11.621 Active 047474558 Problem Diabetic retinopathy associated with type 2 diabetes mellitus, without macular edema, with unspecified retinopathy severity E11.319 Active 928710098 Problem Eye exam abnormal R93.8 Active 334522139 Problem Diabetes mellitus due to underlying condition with foot ulcer E08.621 Active 155592891 Problem Non-pressure chronic ulcer of other part of right foot with fat layer exposed L97.512 Active 271851623 Problem 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 L97.412 Active 503906890 Problem 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 Active 111226942 Problem intermediate current use of insulin Z79.4 Active 831968207 Problem Type 2 diabetes mellitus with unspecified complications E11.8 Active 85124289 ALLERGIES No Known Allergies ENCOUNTERS Encounter Location Date Diagnosis [facility] [place] [id number], [place] [address] May, [facility] [place] [address], [place] [address] May, [facility] [place] [id number] [place] [address] May, Diabetes mellitus due to underlying condition with foot ulcer E08.621 [facility] [place] [id number], [place] [address] Apr, Type 2 diabetes mellitus with foot ulcer E11.621 [place] [id number] [place] [address] Mar, Impingement syndrome, shoulder, left M75.42 [place] [id number] [place] [address] Mar, [place] [id number] [place] [address] Mar, Type 2 diabetes mellitus with unspecified complications E11.8 and Angioedema, initial encounter T78.3XXA [place] [id number] [place] [address] Mar, 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 L97.412 [place] [id number] [place] [address] Feb, 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 L97.412 [place] [id number] [place] [address] Feb, Impingement syndrome, shoulder, left M75.42 [place] [id number] [place] [address] Jan, Non-pressure chronic ulcer of other part of right foot with unspecified severity L97.519 [place] [id number] [place] [address] December, Non-pressure chronic ulcer of other part of right foot with unspecified severity L97.519 [place] [id number] [place] [address] December, Left anterior shoulder pain M25.512 ; Type 2 diabetes mellitus with unspecified complications E11.8 and intermediate current use of insulin Z79.4 [place] [id number] [place] [address] Nov, Non-pressure chronic ulcer of other part of right foot with unspecified severity L97.519 [place] [id number] [place] [address] Oct, Type 2 diabetes mellitus with foot ulcer E11.621 [place] [id number] [place] [address] Sep, Type 2 diabetes mellitus with unspecified complications E11.8 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 [place] [id number] [place] [address] Aug, Type 2 diabetes mellitus with foot ulcer E11.621 and 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 L97.412 [place] [id number] [place] [address] Aug, Type 2 diabetes mellitus with foot ulcer E11.621 ; 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 ; Other specified postprocedural states Z98.890 and Decubitus ulcer of right foot, stage 4 L89.894 [place] [id number] [place] [address] Apr, [place] [id number] [place] [address] Mar, [place] [id number] [place] [address] Jan, [place] [id number] [place] [phone] Jan, [place] [id number] [place] [address] December, [place] [id number] [place] [address] December, Type 2 diabetes mellitus with foot ulcer E11.621 [place] [id number] [place] [address] December, [place] [id number] [place] [address] December, Boxer's fracture with routine healing S62.309D [place] [id number] [place] [address] Nov, [facility] [place] [id number] [place] [address] Nov, Boxers fracture S62.309A [place] [id number] [place] [address] Oct, Diabetic retinopathy associated with type 2 diabetes mellitus, without macular edema, with unspecified retinopathy severity E11.319 [place] [id number] [place] [address] Oct, Diabetic retinopathy associated with type 2 diabetes mellitus, without macular edema, with unspecified retinopathy severity E11.319 ; Boxers fracture S62.309A ; Type 2 diabetes mellitus with foot ulcer E11.621 and Non-pressure chronic ulcer of other part of right foot with unspecified severity L97.519 [place] [id number] [place] [address] Oct, Boxers fracture S62.309A [place] [id number] [place] [address] Oct, Boxers fracture S62.309A and Left wrist pain M25.532 [facility] [address] [place] [address] Oct, Acute left otitis media H66.92 and Acute upper respiratory infection J06.9 [facility] [place] [id number] [place] [address] Jul, [facility] [place] [id number] [place] [phone] Jun, [place] [id number] [place] [address] Jun, [facility] [place] [id number] [place] [address] May, [facility] [place] [id number], [place] [address] May, [facility] [place] [address], [place] [address] Apr, Diabetes 250.00 [facility] [place] [address], [place] [address] Feb, [facility] [place] [address], [place] [address] Feb, [facility] [place] [address], [place] [address] Feb, [facility] [place] [address], [place] [address] Feb, Diabetes 250.00 and Diabetic ulcer of right great toe 250.80 [facility] [place] [address], [place] [address] Feb, Diabetes mellitus 250.00 and Abscess of great toe, right 681.10 [facility] [place] [address], [place] [address] Nov, [facility] [place] [address], [place] [address] Nov, [facility] [place] [id number], [place] [address] Jul, [facility] [place] [address], [place] [address] Jul, [facility] [place] [address], [place] [address] Jun, [facility] [place] [address], [place] [address] Jun, [facility] [place] [id number], [place] [address] May, [facility] [place] [address] [place] [address] May, [facility] [address] [id number] [place] [address] Apr, [facility] [place] [facility] [address] [id number] [place] [address] Apr, [facility] [address] [id number] [place] [address] Feb, [facility] [place] [facility] [address] [id number] [place] [address] Feb, [facility] [address] [id number] [place] [address] Feb, [facility] [address] [id number] [place] [address] Feb, [facility] [address] [id number] [place] [address] Nov, [facility] [address] [id number] [place] [address] Nov, [facility] [place] [facility] [address] [id number] [place] [address] Aug, [facility] [address] [id number] [place] [address] Aug, [facility] [place] [facility] [address] [id number] [place] [address] Aug, [facility] [place] [facility] [address] [id number] [place] [address] Aug, [facility] [place] [facility] [address] [id number] [place] [address] Jul, [facility] [place] [facility] [address] [id number] [place] [address] Jul, [facility] [place] [facility] [address] [id number] [place] [address] Jul, [facility] [address] [id number] [place] [address] Jul, [facility] [place] [facility] [address] [id number] [place] [address] Apr, [facility] [place] [facility] [address] [id number] [place] [address] Mar, [facility] [place] [facility] [address] [id number] [place] [address] Mar, [facility] [place] [facility] [address] [id number] [place] [address] Mar, [facility] [place] [facility] [address] [id number] [place] [address] Mar, [facility] [place] [facility] [address] [id number] [place] [address] Mar, [facility] [place] [facility] [address] [id number] [place] [address] Nov, [facility] [place] [facility] [address] [id number] [place] [address] Sep, [facility] [place] [facility] [address] [id number] [place] [address] Sep, [facility] [place] [facility] [address] [id number] [place] [address] Jul, [facility] [place] [facility] [address] [id number] [place] [address] Jul, [facility] [place] [facility] [address] [id number] [place] [address] Jul, [facility] [place] [facility] [address] [id number] [place] [address] Jul, [facility] [place] [facility] [address] [id number] [place] [address] May, [facility] [place] [facility] [address] [id number] [address] May, [facility] [place] [address], [place] [address] May, [facility] [place] [address], [place] [address] May, [facility] [place] [address], [place] [address] May, [facility] [place] [id number] [place] [address] May, [facility] [place] [id number] [place] [address] May, [facility] [place] [address], [place] [address] Apr, [facility] [place] [address], [place] [address] Mar, IMMUNIZATIONS No Known Immunizations SOCIAL HISTORY Never Assessed REASON FOR VISIT Diabetes, Hole on the bottom of right foot-index js -Ruslan MOREAU PLAN OF CARE Activity Details Follow Up 4 Weeks Reason:dm2 uncontrolled VITAL SIGNS Height 76 in 2018-05-01 Weight 287.3 lbs 2018-05-01 Temperature 98.6 degrees Fahrenheit 2018-05-01 Heart Rate 103 bpm 2018-05-01 Respiratory Rate 18 2018-05-01 Oximetry 96 % 2018-05-01 BMI 34.97 kg/m2 2018-05-01 Blood pressure systolic 160 mmHg 2018-05-01 Blood pressure diastolic 90 mmHg 2018-05-01 MEDICATIONS Medication Instructions Dosage Frequency Start Date End Date Duration Status Metformin HCl 1000 MG Orally 2 times a day TAKE ONE TABLET BY MOUTH TWICE DAILY WITH MEALS 12h 90 days Active Lisinopril 20 MG Orally Once a day 1 tablet 24h Mar, 30 day(s) Active Multivitamin Adult - Orally Once a day 24h Active Levemir FlexTouch 100 UNIT/ML Subcutaneous Once a day Inject 35 units at bedtime 24h Sep, Active NovoLog 100 UNIT/ML Subcutaneous 3 times a day before meals Inject 25 units 90 days Active Ibuprofen 800 MG Orally 3 times a day 8h Not-Taking Advil Active Silvadene 1 % Externally Once a day 1 application to affected area 24h Mar, Active Atorvastatin Calcium 40 mg Orally Once [...]
[2019-01-29 00:20] LABS: ALBUMIN 3.3 GM/DL (3.2-4.5); TOTAL PROTEIN 8.1 GM/DL (6.4-8.2)
--- OUTSIDE RECORDS SUMMARY | 2019-01-29 00:20 | XMS REPORT ---
Author Author OSCAR AVILEZ Organization [facility] Address [address] [place] [address] Care Team Providers Care Heel Curver Name Role Phone OSCAR AVILEZ Unavailable PROBLEMS Type Condition ICD9-CM Code SZE07-TM Code Onset Dates Condition Status SNOMED Code Problem Diabetic retinopathy associated with type 2 diabetes mellitus, without macular edema, with unspecified retinopathy severity E11.319 Active 726791821 Problem Boxers fracture S62.309A Active 93379455 Problem Eye exam abnormal R93.8 Active 409036811 Problem Type 2 diabetes mellitus with unspecified complications E11.8 Active 19821689 Problem longterm current use of insulin Z79.4 Active 378489511 Problem Type 2 diabetes mellitus with foot ulcer E11.621 Active 236658149 Problem Non-pressure chronic ulcer of other part of right foot with unspecified severity L97.519 Active 937378170 Problem 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 L97.412 Active 832886286 Problem 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 Active 715225078 ALLERGIES No Known Allergies ENCOUNTERS Encounter Location Date Diagnosis [place] [id number] [place] [address] May, [place] [id number] [place] [address] Apr, [place] [id number] [place] [address] 30 Mar, 2018 Impingement syndrome, shoulder, left M75.42 [place] [id number] [place] [address] Mar, [place] [id number] [place] [address] 14 Mar, 2018 Type 2 diabetes mellitus with unspecified complications E11.8 and Angioedema, initial encounter T78.3XXA [place] [id number] [place] [address] Mar, 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 L97.412 [place] [id number] [place] [address] Feb, 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 L97.412 [place] [id number] [place] [address] Feb, Impingement syndrome, shoulder, left M75.42 [place] [address] [address] Jan, Non-pressure chronic ulcer of other part of right foot with unspecified severity L97.519 [place] [id number] [place] [address] December, Non-pressure chronic ulcer of other part of right foot with unspecified severity L97.519 [place] [id number] [place] [address] December, Left anterior shoulder pain M25.512 ; Type 2 diabetes mellitus with unspecified complications E11.8 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 [place] [id number] [place] [address] Nov, Non-pressure chronic ulcer of other part of right foot with unspecified severity L97.519 [place] [id number] [place] [address] Oct, Type 2 diabetes mellitus with foot ulcer E11.621 [place] [id number] [place] [address] Sep, Type 2 diabetes mellitus with unspecified complications E11.8 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 [id number] [place] [address] Aug, Type 2 diabetes mellitus with foot ulcer E11.621 ; 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 ; Other specified postprocedural states Z98.890 and Decubitus ulcer of right foot, stage [address] [facility] [id number] [place] [address] Apr, [facility] [id number] [place] [address] Mar, [facility] [id number] [place] [address] Jan, [place] [id number] [place] [address] Jan, [facility] [id number] [place] [address] December, [facility] [id number] [place] [address] December, Type 2 diabetes mellitus with foot ulcer E11.621 [facility] [id number] [place] [address] December, [facility] [id number] [place] [address] December, Boxer's fracture with routine healing S62.309D [facility] [id number] [place] [address] Nov, [facility] [id number] [place] [address] Nov, Boxers fracture S62.309A [facility] [id number] [place] [address] Oct, Diabetic retinopathy associated with type 2 diabetes mellitus, without macular edema, with unspecified retinopathy severity E11.319 [facility] [id number] [place] [address] Oct, Diabetic retinopathy associated with type 2 diabetes mellitus, without macular edema, with unspecified retinopathy severity E11.319 ; Boxers fracture S62.309A ; Type 2 diabetes mellitus with foot ulcer E11.621 and Non-pressure chronic ulcer of other part of right foot with unspecified severity L97.519 [facility] [id number] [place] [address] Oct, Boxers fracture S62.309A [facility] [id number] [place] [address] Oct, Boxers fracture S62.309A and Left wrist pain M25.532 [facility] [id number] [place] [address] Oct, Acute left otitis media H66.92 and Acute upper respiratory infection J06.9 [facility] [id number] [place] [address] Jul, [place] [id number] [place] [address] Jun, [place] [id number] [place] [address] Jun, [facility] [id number] [place] [address] May, [facility] [id number] [place] [address] May, [facility] [id number] [place] [address] Apr, Diabetes [address] [facility] [id number] [place] [address] Feb, [facility] [id number] [place] [address] Feb, [facility] [address] [id number] [place] [address] Feb, [facility] [address] [id number] [place] [address] Feb, Diabetes 250.00 and Diabetic ulcer of right great toe 250.80 [facility] [address] [id number] [address] 16 Feb, 2015 Diabetes mellitus 250.00 and Abscess of great toe, right 681.10 [facility] [address] [id number] [place] [address] 14 Nov, 2014 [facility] [id number] [place] [address] Nov, [facility] [address] [facility] [id number] [place] [address] Jul, [facility] [address] [facility] [id number] [address] Jul, [facility] [address] [facility] [id number] [place] [address] Jun, [facility] [address] [facility] [id number] [address] Jun, [facility] [address] [facility] [id number] [place] [address] May, [facility] [address] [facility] [id number] [place] [address] May, [facility] [address] [id number] [place] [address] Apr, [facility] [address] [facility] [id number] [place] [address] Apr, [facility] [address] [facility] [id number] [place] [address] Feb, [facility] [address] [id number] [place] [address] Feb, [facility] [address] [id number] [place] [address] Feb, [facility] [place] [facility] [address] [id number] [place] [address] Feb, [facility] [place] [facility] [address] [id number] [place] [address] Nov, [facility] [place] [facility] [address] [id number] [place] [address] Nov, [facility] [place] [facility] [address] [id number] [place] [address] Aug, [facility] [place] [facility] [address] [id number] [place] [address] Aug, [facility] [address] [id number] [place] [address] Aug, [facility] [place] [facility] [address] [id number] [place] [address] Aug, [facility] [place] [facility] [address] [id number] [place] [address] Jul, [facility] [place] [facility] [address] [id number] [place] [address] Jul, [facility] [place] [facility] [address] [id number] [place] [address] Jul, [facility] [place] [facility] [address] [id number] [place] [address] Jul, [facility] [place] [facility] [address] [id number] [place] [address] Apr, [facility] [place] [facility] [address] [id number] [place] [address] Mar, [facility] [place] [facility] [address] [id number] [place] [address] Mar, [facility] [place] [facility] [address] [id number] [place] [address] Mar, [facility] [place] [facility] [address] [id number] [place] [address] Mar, [facility] [place] [facility] [address] [id number] [place] [address] Mar, [facility] [place] [facility] [address] [id number] [place] [address] Nov, [facility] [place] [facility] [address] [id number] [place] [address] Sep, [facility] [place] [facility] [address] [id number] [place] [address] Sep, [facility] [place] [facility] [address] [id number] [place] [address] Jul, [facility] [place] [facility] [address] [id number] [place] [address] Jul, [facility] [place] [facility] [address] [id number] [place] [address] Jul, [facility] [place] [facility] [address] [id number] [place] [address] Jul, [facility] [place] [facility] [address] [id number] [place] [address] May, [facility] [place] [facility] [address] [id number] [place] [address] May, [facility] [place] [facility] [address] [id number] [place] [address] May, [facility] [place] [facility] [address] [id number] [place] [address] May, [facility] [place] [facility] [address] [id number] [place] [address] May, [facility] [place] [facility] [address] [id number] [address] May, [facility] [address] [facility] [id number] [place] [address] May, [facility] [address] [facility] [id number] [address] Apr, [facility] [address] [facility] [id number] [place] [address] Mar, IMMUNIZATIONS No Known Immunizations SOCIAL HISTORY Never Assessed REASON FOR VISIT Foot Wound f/u, PT stated that the wound is sealing -Sami MOREAU PLAN OF CARE Activity Details Follow Up 4 Weeks Reason:dm foot wound VITAL SIGNS Height 76 in 2018-02-10 Weight 293.6 lbs 2018-02-10 Temperature 98.7 degrees Fahrenheit 2018-02-10 Heart Rate 94 bpm 2018-02-10 Respiratory Rate 18 2018-02-10 BMI 35.73 kg/m2 2018-02-10 Blood pressure systolic 138 mmHg 2018-02-10 Blood pressure diastolic 82 mmHg 2018-02-10 MEDICATIONS Medication Instructions Dosage Frequency Start Date End Date Duration Status Multivitamin Adult - Orally Once a day 24h Active Metformin HCl 1000 MG Orally 2 times a day TAKE ONE TABLET BY MOUTH TWICE DAILY WITH MEALS 12h 90 days Active NovoLog 100 UNIT/ML Subcutaneous 3 times a day before meals Inject 25 units 90 days Active Levemir FlexTouch 100 UNIT/ML Subcutaneous Once a day Inject 35 units at bedtime 24h Sep, Active RESULTS No Results PROCEDURES No Known procedures INSTRUCTIONS MEDICATIONS ADMINISTERED No Known Medications MEDICAL (GENERAL) HISTORY Type Description Date Medical History diabetes mellitus Medical History Eye exam abnormal Medical History Eye exam abnormal Surgical History cholecystectomy Surgical History appendectomy Surgical History amputation, right great toe Hospitalization History surgeries
--- OUTSIDE RECORDS SUMMARY | 2019-01-29 00:20 | XMS REPORT ---
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 Role Phone COLLIN GUEVARA Unavailable PROBLEMS Type Condition ICD9-CM Code OCK55-LY Code Onset Dates Condition Status SNOMED Code Problem Diabetic retinopathy associated with type 2 diabetes mellitus, without macular edema, with unspecified retinopathy severity E11.319 Active 263460427 Problem Boxers fracture S62.309A Active 96960214 Problem Eye exam abnormal R93.8 Active 357124500 Problem Type 2 diabetes mellitus with unspecified complications E11.8 Active 41707344 Problem [facility] current use of insulin Z79.4 Active 746847592 Problem Type 2 diabetes mellitus with foot ulcer E11.621 Active 001869175 Problem Non-pressure chronic ulcer of other part of right foot with unspecified severity L97.519 Active 668211951 Problem 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 L97.412 Active 555407436 Problem 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 Active 320273693 ALLERGIES No Information ENCOUNTERS Encounter Location Date Diagnosis [place] [id number] [place] [id number] May, [place] [id number] [place] [address] Apr, [place] [id number] [place] [address] 30 Mar, 2018 Impingement syndrome, shoulder, left M75.42 [place] [id number] [place] [id number] 16 Mar, 2018 [place] [id number] [place] [address] 14 Mar, 2018 Type 2 diabetes mellitus with unspecified complications E11.8 and Angioedema, initial encounter T78.3XXA [place] [id number] [place] [address] Mar, 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 L97.412 [place] [id number] [place] [address] Feb, 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 L97.412 [place] [id number] [place] [address] Feb, Impingement syndrome, shoulder, left M75.42 [place] [address] [address] Jan, Non-pressure chronic ulcer of other part of right foot with unspecified severity L97.519 [place] [id number] [place] [address] December, Non-pressure chronic ulcer of other part of right foot with unspecified severity L97.519 [place] [id number] [place] [address] December, Left anterior shoulder pain M25.512 ; Type 2 diabetes mellitus with unspecified complications E11.8 and [facility] current use of insulin Z79.4 [place] [id number] [place] [address] Nov, Non-pressure chronic ulcer of other part of right foot with unspecified severity L97.519 [place] [id number] [place] [address] Oct, Type 2 diabetes mellitus with foot ulcer E11.621 [place] [id number] [place] [address] Sep, Type 2 diabetes mellitus with unspecified complications E11.8 and [facility] current use of insulin Z79.4 [place] [id number] [place] [address] Aug, Type 2 diabetes mellitus with foot ulcer E11.621 and 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 L97.412 [facility] [id number] [place] [address] Aug, Type 2 diabetes mellitus with foot ulcer E11.621 ; 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 ; Other specified postprocedural states Z98.890 and Decubitus ulcer of right foot, stage 4 L89.894 [facility] [id number] [place] [address] Apr, [facility] [id number] [place] [address] Mar, [facility] [id number] [place] [address] Jan, [place] [id number] [place] [address] Jan, [facility] [id number] [place] [address] December, [facility] [id number] [place] [address] December, Type 2 diabetes mellitus with foot ulcer E11.621 [facility] [address] [address] December, [facility] [id number] [place] [address] December, Boxer's fracture with routine healing S62.309D [facility] [address] [address] Nov, [facility] [id number] [place] [address] Nov, Boxers fracture S62.309A [facility] [id number] [place] [address] Oct, Diabetic retinopathy associated with type 2 diabetes mellitus, without macular edema, with unspecified retinopathy severity E11.319 [facility] [id number] [place] [address] Oct, Diabetic retinopathy associated with type 2 diabetes mellitus, without macular edema, with unspecified retinopathy severity E11.319 ; Boxers fracture S62.309A ; Type 2 diabetes mellitus with foot ulcer E11.621 and Non-pressure chronic ulcer of other part of right foot with unspecified severity L97.519 [facility] [id number] [place] [address] Oct, Boxers fracture S62.309A [facility] [address] [address] Oct, Boxers fracture S62.309A and Left wrist pain M25.532 [facility] [id number] [place] [address] Oct, Acute left otitis media H66.92 and Acute upper respiratory infection J06.9 [facility] [id number] [place] [address] Jul, [facility] [id number] [place] [address] Jun, [place] [id number] [place] [address] Jun, [facility] [id number] [place] [address] May, [facility] [id number] [place] [address] May, [facility] [id number] [place] [address] 16 Apr, 2015 Diabetes 250.00 [facility] [id number] [place] [address] Feb, [facility] [address] [address] Feb, [facility] [address] [id number] [address] Feb, [facility] [address] [facility] [id number], [place] [address] Feb, Diabetes 250.00 and Diabetic ulcer of right great toe 250.80 [facility] [id number] [place] [address] 16 Feb, 2015 Diabetes mellitus 250.00 and Abscess of great toe, right 681.10 [facility] [address] [id number], [place] [address] 14 Nov, 2014 [facility] [address] [facility] [id number] [place] [address] Nov, [facility] [id number] [address] Jul, [facility] [address] [facility] [id number], [place] [address] Jul, [facility] [id number] [address] Jun, [facility] [id number] [address] Jun, [facility] [address] [address] May, [facility] [address] [id number], [place] [address] May, [facility] [address] [facility] [id number], [place] [address] Apr, [facility] [address] [facility] [id number], [place] [address] Apr, [facility] [id number], [place] [address] Feb, [facility] [address] [id number] [place] [address] Feb, [facility] [place] [facility] [address] [id number] [place] [address] Feb, [facility] [place] [facility] [address] [id number] [place] [address] Feb, [facility] [place] [facility] [address] [id number] [place] [address] Nov, [facility] [place] [facility] [address] [id number] [place] [address] Nov, [facility] [place] [facility] [address] [id number] [place] [address] Aug, [facility] [place] [facility] [address] [id number] [place] [address] Aug, [facility] [place] [facility] [address] [id number] [place] [address] Aug, [facility] [place] [facility] [address] [id number] [place] [address] Aug, [facility] [place] [facility] [address] [id number] [place] [address] Jul, [facility] [place] [facility] [address] [id number] [place] [address] Jul, [facility] [place] [facility] [address] [id number] [place] [address] Jul, [facility] [place] [facility] [address] [id number] [place] [address] Jul, [facility] [place] [facility] [address] [id number] [place] [address] Apr, [facility] [place] [facility] [address] [id number] [place] [address] Mar, [facility] [place] [facility] [address] [id number] [place] [address] Mar, [facility] [place] [facility] [address] [id number] [place] [address] Mar, [facility] [place] [facility] [address] [id number] [place] [address] Mar, [facility] [place] [facility] [address] [id number] [place] [address] Mar, [facility] [place] [facility] [address] [id number] [place] [address] Nov, [facility] [place] [facility] [address] [id number] [place] [address] Sep, [facility] [place] [facility] [address] [id number] [place] [address] Sep, [facility] [place] [facility] [address] [id number] [place] [address] Jul, [facility] [place] [facility] [address] [id number] [place] [address] Jul, [facility] [place] [facility] [address] [id number] [place] [address] Jul, [facility] [place] [facility] [address] [id number] [place] [address] Jul, [facility] [place] [facility] [address] [id number] [place] [address] May, [facility] [place] [facility] [address] [id number], [place] [address] May, [facility] [place] [facility] [address] [id number] [place] [address] May, [facility] [place] [facility] [address] [id number] [place] [address] May, [facility] [place] [facility] [address] [id number] [place] [address] May, [facility] [place] [facility] [address] [id number] [place] [address] May, [facility] [address] [facility] [id number], [place] [address] May, [facility] [address] [facility] [id number], [place] [address] Apr, [facility] [address] [facility] [id number], [place] [address] Mar, IMMUNIZATIONS No Known Immunizations SOCIAL HISTORY Never Assessed REASON FOR VISIT left shoulder pain-xray done PLAN OF CARE Activity Details Follow Up 8 weeks Reason: VITAL SIGNS MEDICATIONS Unknown Medications RESULTS No Results PROCEDURES Procedure Date Ordered Result Body Site DRAIN/INJECT, JOINT/BURSA February 06, 2018 DEPO MEDROL 80 MG/ML February 06, 2018 INSTRUCTIONS MEDICATIONS ADMINISTERED No Known Medications MEDICAL (GENERAL) HISTORY Type Description Date Medical History diabetes mellitus Medical History Eye exam abnormal Medical History Eye exam abnormal Surgical History cholecystectomy Surgical History appendectomy Surgical History amputation, right great toe Hospitalization History surgeries
--- OUTSIDE RECORDS SUMMARY | 2019-01-29 00:20 | XMS REPORT ---
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 Name Role Phone OSCAR AVILEZ Unavailable PROBLEMS Type Condition ICD9-CM Code DEJ40-LE Code Onset Dates Condition Status SNOMED Code Problem Diabetic retinopathy associated with type 2 diabetes mellitus, without macular edema, with unspecified retinopathy severity E11.319 Active 757489352 Problem Boxers fracture S62.309A Active 95514776 Problem Eye exam abnormal R93.8 Active 591282918 Problem Type 2 diabetes mellitus with unspecified complications E11.8 Active 54750963 Problem assisted current use of insulin Z79.4 Active 605061669 Problem Type 2 diabetes mellitus with foot ulcer E11.621 Active 162179116 Problem Non-pressure chronic ulcer of other part of right foot with unspecified severity L97.519 Active 524280006 Problem 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 L97.412 Active 497008170 Problem 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 Active 747013358 ALLERGIES No Known Allergies ENCOUNTERS Encounter Location Date Diagnosis [facility] [id number] [place] [address] May, [facility] [id number] [place] [address] Apr, [place] [id number] [place] [address] Mar, Impingement syndrome, shoulder, left M75.42 [place] [id number] [place] [address] Mar, [facility] [facility] [id number] [place] [address] Mar, Type 2 diabetes mellitus with unspecified complications E11.8 and Angioedema, initial encounter T78.3XXA [facility] [facility] [id number] [place] [address] Mar, 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 L97.412 [place] [id number] [place] [address] Feb, 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 L97.412 [facility] [id number] [place] [address] Feb, Impingement syndrome, shoulder, left M75.42 [place] [address] [address] Jan, Non-pressure chronic ulcer of other part of right foot with unspecified severity L97.519 [place] [id number] [place] [address] December, Non-pressure chronic ulcer of other part of right foot with unspecified severity L97.519 [facility] [id number] [place] [address] December, Left anterior shoulder pain M25.512 ; Type 2 diabetes mellitus with unspecified complications E11.8 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.4 [place] [id number] [place] [address] Nov, Non-pressure chronic ulcer of other part of right foot with unspecified severity L97.519 [facility] [id number] [place] [address] Oct, Type 2 diabetes mellitus with foot ulcer E11.621 [place] [id number] [place] [address] Sep, Type 2 diabetes mellitus with unspecified complications E11.8 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.4 [place] [id number] [place] [address] Aug, Type 2 diabetes mellitus with foot ulcer E11.621 and 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 L97.412 [facility] [id number] [place] [address] Aug, Type 2 diabetes mellitus with foot ulcer E11.621 ; 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 ; Other specified postprocedural states Z98.890 and Decubitus ulcer of right foot, stage 4 L89.894 [facility] [id number] [place] [address] Apr, [facility] [id number] [place] [address] Mar, [facility] [id number] [place] [address] Jan, [place] [id number] [place] [address] Jan, [facility] [id number] [place] [address] December, [facility] [id number] [place] [address] December, Type 2 diabetes mellitus with foot ulcer E11.621 [facility] [id number] [place] [address] December, [facility] [id number] [place] [address] December, Boxer's fracture with routine healing S62.309D [facility] [id number] [place] [address] Nov, [facility] [id number] [place] [address] Nov, Boxers fracture S62.309A [facility] [id number] [place] [address] Oct, Diabetic retinopathy associated with type 2 diabetes mellitus, without macular edema, with unspecified retinopathy severity E11.319 [facility] [id number] [place] [address] Oct, Diabetic retinopathy associated with type 2 diabetes mellitus, without macular edema, with unspecified retinopathy severity E11.319 ; Boxers fracture S62.309A ; Type 2 diabetes mellitus with foot ulcer E11.621 and Non-pressure chronic ulcer of other part of right foot with unspecified severity L97.519 [facility] [id number] [place] [address] Oct, Boxers fracture S62.309A [facility] [id number] [place] [address] Oct, Boxers fracture S62.309A and Left wrist pain M25.532 [facility] [id number] [place] [address] Oct, Acute left otitis media H66.92 and Acute upper respiratory infection J06.9 [facility] [id number] [place] [address] Jul, [place] [id number] [place] [address] Jun, [place] [id number] [place] [address] Jun, [facility] [id number] [place] [address] May, [facility] [id number] [place] [address] May, [facility] [id number] [place] [address] Apr, Diabetes 250.00 [facility] [id number] [place] [address] Feb, [facility] [id number] [place] [address] Feb, [facility] [address] [id number] [place] [address] Feb, [facility] [address] [id number] [place] [address] Feb, Diabetes 250.00 and Diabetic ulcer of right great toe 250.80 [facility] [address] [id number] [address] 16 Feb, 2015 Diabetes mellitus 250.00 and Abscess of great toe, right 681.10 [facility] [address] [id number] [place] [address] 14 Nov, 2014 [facility] [id number] [place] [address] Nov, [facility] [address] [facility] [id number] [place] [address] Jul, [facility] [address] [facility] [id number] [place] [address] Jul, [facility] [address] [facility] [id number] [place] [address] Jun, [facility] [address] [facility] [id number] [address] Jun, [facility] [address] [facility] [id number] [place] [address] May, [facility] [address] [facility] [id number] [place] [address] May, [facility] [address] [id number] [place] [address] Apr, [facility] [address] [facility] [id number] [place] [address] Apr, [facility] [address] [facility] [id number] [place] [address] Feb, [facility] [address] [id number] [place] [address] Feb, [facility] [address] [id number] [place] [address] Feb, [facility] [place] [facility] [address] [id number] [place] [address] Feb, [facility] [place] [facility] [address] [id number] [place] [address] Nov, [facility] [place] [facility] [address] [id number] [place] [address] Nov, [facility] [place] [facility] [address] [id number] [place] [address] Aug, [facility] [place] [facility] [address] [id number] [place] [address] Aug, [facility] [address] [id number] [place] [address] Aug, [facility] [place] [facility] [address] [id number] [place] [address] Aug, [facility] [place] [facility] [address] [id number] [place] [address] Jul, [facility] [place] [facility] [address] [id number] [place] [address] Jul, [facility] [place] [facility] [address] [id number] [place] [address] Jul, [facility] [place] [facility] [address] [id number] [place] [address] Jul, [facility] [place] [facility] [address] [id number] [place] [address] Apr, [facility] [place] [facility] [address] [id number] [place] [address] Mar, [facility] [place] [facility] [address] [id number] [place] [address] Mar, [facility] [place] [facility] [address] [id number] [place] [address] Mar, [facility] [place] [facility] [address] [id number] [place] [address] Mar, [facility] [place] [facility] [address] [id number] [place] [address] Mar, [facility] [place] [facility] [address] [id number] [place] [address] Nov, [facility] [place] [facility] [address] [id number] [place] [address] Sep, [facility] [place] [facility] [address] [id number] [place] [address] Sep, [facility] [place] [facility] [address] [id number] [place] [address] Jul, [facility] [place] [facility] [address] [id number] [place] [address] Jul, [facility] [place] [facility] [address] [id number] [place] [address] Jul, [facility] [place] [facility] [address] [id number] [place] [address] Jul, [facility] [place] [facility] [address] [id number] [place] [address] May, [facility] [place] [facility] [address] [id number] [place] [address] May, [facility] [place] [facility] [address] [id number] [place] [address] May, [facility] [place] [facility] [address] [id number] [place] [address] May, [facility] [place] [facility] [address] [id number] [place] [address] May, [facility] [place] [facility] [address] [id number] [place] [address] May, [facility] [address] [facility] [id number] [place] [address] May, [facility] [address] [facility] [id number] [place] [address] Apr, [facility] [address] [facility] [id number] [place] [address] Mar, IMMUNIZATIONS No Known Immunizations SOCIAL HISTORY Never Assessed REASON FOR VISIT DM foot wound f/u . Lesley.PRIETO Santillan PLAN OF CARE Activity Details Follow Up 4 Weeks Reason:diabetic foot wound. VITAL SIGNS Height 76 in 2018-03-13 Weight 292.5 lbs 2018-03-13 Temperature 98.1 degrees Fahrenheit 2018-03-13 Heart Rate 90 bpm 2018-03-13 Respiratory Rate 18 2018-03-13 BMI 35.60 kg/m2 2018-03-13 Blood pressure systolic 140 mmHg 2018-03-13 Blood pressure diastolic 84 mmHg 2018-03-13 MEDICATIONS Medication Instructions Dosage Frequency Start Date End Date Duration Status NovoLog 100 UNIT/ML Subcutaneous 3 times a day before meals Inject 25 units 90 days Active Silvadene 1 % Externally Once a day 1 application to affected area 24h Mar, Active Metformin HCl 1000 MG Orally 2 times a day TAKE ONE TABLET BY MOUTH TWICE DAILY WITH MEALS 12h 90 days Active Multivitamin Adult - Orally Once a [...]
--- OUTSIDE RECORDS SUMMARY | 2019-01-29 00:20 | XMS REPORT ---
Author Author OSCAR AVILEZ Organization [facility] Address [address] [place] [address] Care Team Providers Care Gold Reclaimer Name Role Phone OSCAR AVILEZ Unavailable PROBLEMS Type Condition ICD9-CM Code [id number] Code Onset Dates Condition Status SNOMED Code Problem Diabetic retinopathy associated with type 2 diabetes mellitus, without macular edema, with unspecified retinopathy severity E11.319 Active 236821310 Problem Boxers fracture S62.309A Active 95929077 Problem Eye exam abnormal R93.8 Active 288735731 Problem Type 2 diabetes mellitus with unspecified complications E11.8 Active 84774161 Problem alf current use of insulin Z79.4 Active 076272185 Problem Type 2 diabetes mellitus with foot ulcer E11.621 Active 640215856 Problem Non-pressure chronic ulcer of other part of right foot with unspecified severity L97.519 Active 356958018 Problem 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 L97.412 Active 868652196 Problem 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 Active 372459222 ALLERGIES No Known Allergies ENCOUNTERS Encounter Location Date Diagnosis [facility] [id number] [place] [address] Apr, [place] [address] [address] Mar, [place] [facility] [id number] [place] [address] Mar, [place] [address] [address] Mar, Type 2 diabetes mellitus with unspecified complications E11.8 and Angioedema, initial encounter T78.3XXA [place] [address] [address] 09 Mar, 2018 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 L97.412 [facility] [facility] [id number] [place] [address] Feb, 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 L97.412 [facility] [facility] [id number] [place] [address] Feb, Impingement syndrome, shoulder, left M75.42 [place] [id number] [place] [address] Jan, Non-pressure chronic ulcer of other part of right foot with unspecified severity L97.519 [place] [id number] [place] [address] December, Non-pressure chronic ulcer of other part of right foot with unspecified severity L97.519 [place] [id number] [place] [address] December, Left anterior shoulder pain M25.512 ; Type 2 diabetes mellitus with unspecified complications E11.8 and alf current use of insulin Z79.4 [place] [facility] [id number] [place] [address] Nov, Non-pressure chronic ulcer of other part of right foot with unspecified severity L97.519 [place] [id number] [place] [address] Oct, Type 2 diabetes mellitus with foot ulcer E11.621 [place] [id number] [place] [address] Sep, Type 2 diabetes mellitus with unspecified complications E11.8 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 [address] [address] Apr, [facility] [id number] [place] [address] Mar, [facility] [id number] [place] [address] Jan, [place] [id number] [place] [address] Jan, [place] [id number] [place] [address] December, [facility] [id number] [place] [address] December, Type 2 diabetes mellitus with foot ulcer E11.621 [place] [id number] [place] [address] December, [place] [id number] [place] [address] December, Boxer's fracture with routine healing S62.309D [place] [id number] [place] [address] Nov, [place] [id number] [place] [address] Nov, Boxers fracture S62.309A [place] [id number] [place] [address] Oct, Diabetic retinopathy associated with type 2 diabetes mellitus, without macular edema, with unspecified retinopathy severity E11.319 [place] [id number] [place] [address] Oct, Diabetic retinopathy associated with type 2 diabetes mellitus, without macular edema, with unspecified retinopathy severity E11.319 ; Boxers fracture S62.309A ; Type 2 diabetes mellitus with foot ulcer E11.621 and Non-pressure chronic ulcer of other part of right foot with unspecified severity L97.519 [facility] [address] [address] Oct, Boxers fracture S62.309A [facility] [id number] [place] [address] Oct, Boxers fracture S62.309A and Left wrist pain M25.532 [facility] [id number] [place] [address] Oct, Acute left otitis media H66.92 and Acute upper respiratory infection J06.9 [facility] [id number] [place] [address] Jul, [facility] [id number] [place] [address] Jun, [facility] [id number] [place] [address] Jun, [facility] [id number] [place] [address] May, [facility] [id number] [place] [address] May, [facility] [id number] [place] [address] Apr, Diabetes 250.00 [facility] [id number] [place] [address] Feb, [facility] [id number] [place] [address] Feb, [facility] [id number] [place] [address] Feb, [facility] [address] [facility] [id number] [place] [address] 27 Feb, 2015 Diabetes 250.00 and Diabetic ulcer of right great toe 250.80 [facility] [address] [facility] [id number] [place] [address] 16 Feb, 2015 Diabetes mellitus 250.00 and Abscess of great toe, right 681.10 [facility] [address] [facility] [id number] [place] [address] 14 Nov, 2014 [facility] [address] [facility] [id number] [place] [address] Nov, [facility] [id number] [place] [address] Jul, [facility] [id number] [address] Jul, [facility] [id number] [address] Jun, [facility] [id number] [place] [address] Jun, [facility] [id number] [address] May, [facility] [id number] [place] [address] May, [facility] [id number] [place] [address] Apr, [facility] [address] [facility] [id number] [place] [address] Apr, [facility] [id number] [place] [address] Feb, [facility] [address] [facility] [id number] [place] [address] Feb, [facility] [id number] [place] [address] Feb, [facility] [place] [facility] [address] [id number] [place] [address] Feb, [facility] [place] [facility] [address] [id number] [place] [address] Nov, [facility] [place] [facility] [address] [id number] [place] [address] Nov, [facility] [place] [facility] [address] [id number] [place] [address] Aug, [facility] [place] [facility] [address] [id number] [place] [address] Aug, [facility] [place] [facility] [address] [id number] [place] [address] Aug, [facility] [place] [facility] [address] [id number] [place] [address] Aug, [facility] [place] [facility] [address] [id number] [place] [address] Jul, [facility] [place] [facility] [address] [id number] [place] [address] Jul, [facility] [place] [facility] [address] [id number] [place] [address] Jul, [facility] [place] [facility] [address] [id number] [place] [address] Jul, [facility] [place] [facility] [address] [id number] [place] [address] Apr, [facility] [place] [facility] [address] [id number] [place] [address] Mar, [facility] [place] [facility] [address] [id number] [place] [address] Mar, [facility] [place] [facility] [address] [id number] [place] [address] Mar, [facility] [place] [facility] [address] [id number] [place] [address] Mar, [facility] [place] [facility] [address] [id number] [place] [address] Mar, [facility] [place] [facility] [address] [id number] [place] [address] Nov, [facility] [place] [facility] [address] [id number] [place] [address] Sep, [facility] [place] [facility] [address] [id number] [place] [address] Sep, [facility] [place] [facility] [address] [id number] [place] [address] Jul, [facility] [place] [facility] [address] [id number] [place] [address] Jul, [facility] [place] [facility] [address] [facility] [id number] [place] [address] Jul, [facility] [place] [facility] [address] [id number] [place] [address] Jul, [facility] [place] [facility] [address] [facility] [id number] [place] [address] May, [facility] [place] [facility] [address] [facility] [id number] [place] [address] May, [facility] [place] [facility] [address] [facility] [id number] [place] [address] May, [facility] [place] [facility] [address] [id number] [place] [address] May, [facility] [place] [facility] [address] [id number] [place] [address] May, [facility] [place] [facility] [address] [facility] [id number] [place] [address] May, [facility] [place] [facility] [address] [facility] [id number] [place] [address] May, [facility] [address] [facility] [id number] [place] [address] Apr, [facility] [address] [facility] [id number] [address] Mar, IMMUNIZATIONS No Known Immunizations SOCIAL HISTORY Never Assessed REASON FOR VISIT Righ foot wound f/u, Wound is getting better-Sami [employer] PLAN OF CARE VITAL SIGNS Height 76 in 2018-01-10 Weight 297.6 lbs 2018-01-10 Temperature 98.2 degrees Fahrenheit 2018-01-10 Heart Rate 68 bpm 2018-01-10 Respiratory Rate 18 2018-01-10 BMI 36.22 kg/m2 2018-01-10 Blood pressure systolic 138 mmHg 2018-01-10 Blood pressure diastolic 88 mmHg 2018-01-10 MEDICATIONS Medication Instructions Dosage Frequency Start Date End Date Duration Status NovoLog 100 UNIT/ML Subcutaneous 3 times a day before meals Inject 25 units 90 days Active Multivitamin Adult - Orally Once a day 24h Active Levemir FlexTouch 100 UNIT/ML Subcutaneous Once a day Inject 35 units at bedtime 24h Sep, Active Metformin HCl 1000 MG Orally 2 times a day TAKE ONE TABLET BY MOUTH TWICE DAILY WITH MEALS 12h 90 days Active RESULTS No Results PROCEDURES No Known procedures INSTRUCTIONS MEDICATIONS ADMINISTERED No Known Medications MEDICAL (GENERAL) HISTORY Type Description Date Medical History diabetes mellitus Medical History Eye exam abnormal Medical History Eye exam abnormal Surgical History cholecystectomy Surgical History appendectomy Surgical History amputation, right great toe Hospitalization History surgeries
--- OUTSIDE RECORDS SUMMARY | 2019-01-29 00:21 | XMS REPORT ---
Author Author GERARDO PATEL [facility] Address [address] [place] [address] Care Team Providers Care Manager Inspection Name Role Phone GERARDO PATEL Unavailable PROBLEMS Type Condition ICD9-CM Code QRH90-KP Code Onset Dates Condition Status SNOMED Code Problem Diabetic retinopathy associated with type 2 diabetes mellitus, without macular edema, with unspecified retinopathy severity E11.319 Active 955959939 Problem Boxers fracture S62.309A Active 64079364 Problem Eye exam abnormal R93.8 Active 474400446 Problem Type 2 diabetes mellitus with unspecified complications E11.8 Active 02978595 Problem detention current use of insulin Z79.4 Active 938677700 Problem Type 2 diabetes mellitus with foot ulcer E11.621 Active 783867795 Problem Non-pressure chronic ulcer of other part of right foot with unspecified severity L97.519 Active 106894526 Problem 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 L97.412 Active 560813666 Problem 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 Active 356085242 ALLERGIES No Known Allergies ENCOUNTERS Encounter Location Date Diagnosis [facility] [id number] [place] [address] Apr, [place] [facility] [id number] [place] [address] Mar, [place] [id number] [place] [address] Mar, [place] [address] [address] Mar, Type 2 diabetes mellitus with unspecified complications E11.8 and Angioedema, initial encounter T78.3XXA [place] [address] [address] Mar, 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 L97.412 [place] [id number] [place] [address] Feb, 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 L97.412 [place] [id number] [place] [address] Feb, Impingement syndrome, shoulder, left M75.42 [place] [id number] [place] [address] Jan, Non-pressure chronic ulcer of other part of right foot with unspecified severity L97.519 [place] [id number] [place] [address] December, Non-pressure chronic ulcer of other part of right foot with unspecified severity L97.519 [place] [id number] [place] [address] December, Left anterior shoulder pain M25.512 ; Type 2 diabetes mellitus with unspecified complications E11.8 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.4 [place] [id number] [place] [address] Nov, Non-pressure chronic ulcer of other part of right foot with unspecified severity L97.519 [place] [address], [place] [address] Oct, Type 2 diabetes mellitus with foot ulcer E11.621 [place] [id number] [place] [address] Sep, Type 2 diabetes mellitus with unspecified complications E11.8 and detention current use of insulin Z79.4 [place] [address] [place] [address] Aug, Type 2 diabetes mellitus with foot ulcer E11.621 and 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 L97.412 [place] [address] [address] Aug, Type 2 diabetes mellitus with foot ulcer E11.621 ; 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 ; Other specified postprocedural states Z98.890 and Decubitus ulcer of right foot, stage 4 L89.894 [facility] [address] [address] Apr, [facility] [id number] [place] [address] Mar, [facility] [address] [place] [address] Jan, [place] [id number] [place] [address] Jan, [place] [id number] [place] [address] December, [facility] [id number] [place] [address] December, Type 2 diabetes mellitus with foot ulcer E11.621 [place] [id number] [place] [address] December, [place] [address] [place] [address] December, Boxer's fracture with routine healing S62.309D [facility] [id number] [place] [address] Nov, [place] [address] [address] Nov, Boxers fracture S62.309A [place] [address] [place] [address] Oct, Diabetic retinopathy associated with type 2 diabetes mellitus, without macular edema, with unspecified retinopathy severity E11.319 [place] [id number] [place] [address] Oct, Diabetic retinopathy associated with type 2 diabetes mellitus, without macular edema, with unspecified retinopathy severity E11.319 ; Boxers fracture S62.309A ; Type 2 diabetes mellitus with foot ulcer E11.621 and Non-pressure chronic ulcer of other part of right foot with unspecified severity L97.519 [facility] [id number] [place] [address] Oct, Boxers fracture S62.309A [facility] [id number] [place] [address] Oct, Boxers fracture S62.309A and Left wrist pain M25.532 [facility] [id number] [place] [address] Oct, Acute left otitis media H66.92 and Acute upper respiratory infection J06.9 [facility] [id number] [place] [address] Jul, [facility] [id number] [place] [address] Jun, [facility] [id number] [place] [address] Jun, [facility] [id number] [place] [address] May, [facility] [id number] [place] [address] May, [facility] [id number] [place] [address] Apr, Diabetes 250.00 [facility] [id number] [place] [address] Feb, [facility] [id number] [place] [address] Feb, [facility] [id number] [place] [address] Feb, [facility] [address] [facility] [id number], [place] [address] 27 Feb, 2015 Diabetes 250.00 and Diabetic ulcer of right great toe 250.80 [facility] [address] [facility] [id number], [place] [address] 16 Feb, 2015 Diabetes mellitus 250.00 and Abscess of great toe, right 681.10 [facility] [address] [id number], [place] [address] 14 Nov, 2014 [facility] [address] [id number], [place] [address] Nov, [facility] [address] [facility] [id number], [place] [address] Jul, [facility] [id number] [address] Jul, [facility] [id number] [address] Jun, [facility] [id number] [address] Jun, [facility] [address], [place] [address] May, [facility] [id number] [address] May, [facility] [address] [facility] [id number], [place] [address] Apr, [facility] [address] [facility] [id number], [place] [address] Apr, [facility] [address] [facility] [id number], [place] [address] Feb, [facility] [address] [facility] [id number], [place] [address] Feb, [facility] [address] [address] Feb, [facility] [place] [facility] [address] [id number] [place] [address] Feb, [facility] [place] [facility] [address] [id number] [place] [address] Nov, [facility] [place] [facility] [address] [id number] [place] [address] Nov, [facility] [place] [facility] [address] [id number] [place] [address] Aug, [facility] [place] [facility] [address] [id number] [place] [address] Aug, [facility] [place] [facility] [address] [id number] [place] [address] Aug, [facility] [place] [facility] [address] [id number] [place] [address] Aug, [facility] [place] [facility] [address] [id number] [place] [address] Jul, [facility] [place] [facility] [address] [id number] [place] [address] Jul, [facility] [place] [facility] [address] [id number] [place] [address] Jul, [facility] [place] [facility] [address] [id number] [place] [address] Jul, [facility] [place] [facility] [address] [id number] [place] [address] Apr, [facility] [place] [facility] [address] [id number] [place] [address] Mar, [facility] [place] [facility] [address] [id number] [place] [address] Mar, [facility] [place] [facility] [address] [id number] [place] [address] Mar, [facility] [place] [facility] [address] [id number] [place] [address] Mar, [facility] [place] [facility] [address] [id number] [place] [address] Mar, [facility] [place] [facility] [address] [id number] [place] [address] Nov, [facility] [place] [facility] [address] [id number] [place] [address] Sep, [facility] [place] [facility] [address] [id number] [place] [address] Sep, [facility] [place] [facility] [address] [id number] [place] [address] Jul, [facility] [place] [facility] [address] [id number] [place] [address] Jul, [facility] [place] [facility] [address] [id number] [place] [address] Jul, [facility] [place] [facility] [address] [id number] [place] [address] Jul, [facility] [place] [facility] [address] [id number] [place] [address] May, [facility] [place] [facility] [address] [id number] [place] [address] May, [facility] [place] [facility] [address] [id number] [place] [address] May, [facility] [place] [facility] [address] [id number] [place] [address] May, [facility] [place] [facility] [address] [id number] [place] [address] May, [facility] [place] [facility] [address] [id number] [place] [address] May, [facility] [place] [facility] [address] [id number] [place] [address] May, [facility] [address] [facility] [id number] [place] [address] Apr, [facility] [address] [facility] [id number] [place] [address] Mar, IMMUNIZATIONS No Known Immunizations SOCIAL HISTORY Never Assessed REASON FOR VISIT Diabetes WB-MA, Left shoulder has been bothering the patieint for the past few w [employer] PLAN OF CARE Activity Details Follow Up 3 Months Reason:DM and fasting labs VITAL SIGNS Height 76 in 2017-12-09 Weight 299 lbs 2017-12-09 Temperature 97.7 degrees Fahrenheit 2017-12-09 Heart Rate 80 bpm 2017-12-09 Respiratory Rate 20 2017-12-09 BMI 36.39 kg/m2 2017-12-09 Blood pressure systolic 152 mmHg 2017-12-09 Blood pressure diastolic 94 mmHg 2017-12-09 MEDICATIONS Medication Instructions Dosage Frequency Start Date [...] - Orally Once a day 24h Active RESULTS Name Result Date Reference Range A1C (IN HOUSE) 2017-12-09 A1C IN HOUSE 9.9 4.3 - 5.6 % Previous A1c 11.2 Lot [id number] Exp date 09/2019 MICROALBUMIN, URINE (IN HOUSE) 2017-12-09 MICROALBUMIN Abnormal Lot # [id number] Exp date 07/2018 Clarity clear Color yellow ALB 150 CRE 300 A:C (IN HOUSE) 30-300 Control Control Lot # Exp date Xray : Shoulder, Left 2 view (IN HOUSE) 2017-12-09 PROCEDURES Procedure Date Ordered Result Body Site X-RAY EXAM OF SHOULDER December 09, 2017 MICROALBUMIN, SEMIQUANT December 09, 2017 GLYCATED HEMOGLOBIN TEST December 09, 2017 INSTRUCTIONS MEDICATIONS ADMINISTERED No Known Medications MEDICAL (GENERAL) HISTORY Type Description Date Medical History diabetes mellitus Medical History Eye exam abnormal Medical History Eye exam abnormal Surgical History cholecystectomy Surgical History appendectomy Surgical History amputation, right great toe Hospitalization History surgeries
--- OUTSIDE RECORDS SUMMARY | 2019-01-29 00:21 | XMS REPORT ---
Author Author OSCAR AVILEZ Organization [facility] Address [address] [place] [address] Care Team Providers Care Atmospheric Physicist Name Role Phone OSCAR AVILEZ Unavailable PROBLEMS Type Condition ICD9-CM Code OSC21-XY Code Onset Dates Condition Status SNOMED Code Problem Diabetic retinopathy associated with type 2 diabetes mellitus, without macular edema, with unspecified retinopathy severity E11.319 Active 024432390 Problem Boxers fracture S62.309A Active 91705419 Problem Eye exam abnormal R93.8 Active 580725523 Problem Type 2 diabetes mellitus with unspecified complications E11.8 Active 29342168 Problem correction current use of insulin Z79.4 Active 010911013 Problem Type 2 diabetes mellitus with foot ulcer E11.621 Active 589868709 Problem Non-pressure chronic ulcer of other part of right foot with unspecified severity L97.519 Active 468953683 Problem 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 L97.412 Active 800705716 Problem 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 Active 294745192 ALLERGIES No Known Allergies ENCOUNTERS Encounter Location Date Diagnosis [place] [id number] [place] [address] Apr, [place] [id number] [place] [address] Mar, [place] [id number] [place] [address] Mar, 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 L97.412 [place] [address] [id number] [place] [address] Feb, 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 L97.412 [place] [address] [id number] [place] [address] Feb, Impingement syndrome, shoulder, left M75.42 [place] [id number] [place] [address] Jan, Non-pressure chronic ulcer of other part of right foot with unspecified severity L97.519 [place] [id number] [place] [address] December, Non-pressure chronic ulcer of other part of right foot with unspecified severity L97.519 [place] [id number] [place] [address] December, Left anterior shoulder pain M25.512 ; Type 2 diabetes mellitus with unspecified complications E11.8 and correction current use of insulin Z79.4 [place] [id number] [place] [address] Nov, Non-pressure chronic ulcer of other part of right foot with unspecified severity L97.519 [place] [id number] [place] [address] Oct, Type 2 diabetes mellitus with foot ulcer E11.621 [place] [id number] [place] [address] Sep, Type 2 diabetes mellitus with unspecified complications E11.8 and correction current use of insulin Z79.4 [place] [id number] [place] [address] Aug, Type 2 diabetes mellitus with foot ulcer E11.621 and 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 L97.412 [place] [id number] [place] [address] Aug, Type 2 diabetes mellitus with foot ulcer E11.621 ; 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 ; Other specified postprocedural states Z98.890 and Decubitus ulcer of right foot, stage 4 L89.894 [place] [id number] [place] [address] Apr, [facility] [address] [address] Mar, [facility] [address] [address] Jan, [facility] [address] [address] Jan, [facility] [address], [place] [address] December, [facility] [address], [place] [address] December, Type 2 diabetes mellitus with foot ulcer E11.621 [facility] [address], [place] [address] December, [facility] [address], [place] [address] December, Boxer's fracture with routine healing S62.309D [facility] [address], [place] [address] Nov, [facility] [address], [place] [address] Nov, Boxers fracture S62.309A [facility] [address], [place] [address] Oct, Diabetic retinopathy associated with type 2 diabetes mellitus, without macular edema, with unspecified retinopathy severity E11.319 [facility] [id number], [place] [address] Oct, Diabetic retinopathy associated with type 2 diabetes mellitus, without macular edema, with unspecified retinopathy severity E11.319 ; Boxers fracture S62.309A ; Type 2 diabetes mellitus with foot ulcer E11.621 and Non-pressure chronic ulcer of other part of right foot with unspecified severity L97.519 [facility] [id number] [place] [address] Oct, Boxers fracture S62.309A [facility] [address] [facility] [id number] [place] [address] Oct, Boxers fracture S62.309A and Left wrist pain M25.532 [facility] [address], [place] [address] Oct, Acute left otitis media H66.92 and Acute upper respiratory infection J06.9 [facility] [address] [place] [address] Jul, [facility] [id number] [place] [address] Jun, [facility] [id number] [place] [address] Jun, [facility] [id number] [place] [address] May, [facility] [id number] [place] [address] May, [facility] [id number] [place] [address] Apr, Diabetes [address] [facility] [address] [place] [address] Feb, [facility] [address] [place] [address] Feb, [facility] [address] [place] [address] Feb, [facility] [address] [place] [address] Feb, Diabetes 250.00 and Diabetic ulcer of right great toe 250.80 [facility] [address], [place] [address] Feb, Diabetes mellitus 250.00 and Abscess of great toe, right 681.10 [facility] [place] [facility] [address] [id number] [place] [address] 14 Nov, 2014 [facility] [place] [facility] [address] [id number] [place] [address] 13 Nov, 2014 [facility] [place] [facility] [address] [id number] [place] [address] 15 Jul, 2014 [facility] [place] [facility] [address] [id number] [place] [address] Jul, [facility] [place] [facility] [address] [id number] [place] [address] Jun, [facility] [place] [facility] [address] [id number] [place] [address] Jun, [facility] [place] [facility] [address] [id number] [place] [address] May, [facility] [place] [facility] [address] [id number] [place] [address] May, [facility] [place] [facility] [address] [id number] [place] [address] Apr, [facility] [place] [facility] [address] [id number] [place] [address] Apr, [facility] [place] [facility] [address] [id number] [place] [address] Feb, [facility] [place] [facility] [address] [id number] [place] [address] Feb, [facility] [place] [facility] [address] [id number] [place] [address] Feb, [facility] [place] [facility] [address] [id number] [place] [address] Feb, [facility] [place] [facility] [address] [id number] [place] [address] 29 Nov, 2013 [facility] [place] [facility] [address] [id number], [place] [address] Nov, [facility] [address] [id number] [place] [address] Aug, [facility] [place] [facility] [address] [id number] [place] [address] Aug, [facility] [place] [facility] [address] [id number] [place] [address] Aug, [facility] [place] [facility] [address] [id number] [place] [address] Aug, [facility] [place] [facility] [address] [id number] [place] [address] Jul, [facility] [place] [facility] [address] [id number] [place] [address] Jul, [facility] [address] [id number] [place] [address] Jul, [facility] [place] [facility] [address] [id number] [place] [address] Jul, [facility] [place] [facility] [address] [id number] [place] [address] Apr, [facility] [place] [facility] [address] [facility] [id number] [place] [address] Mar, [facility] [place] [facility] [address] [id number] [place] [address] Mar, [facility] [place] [facility] [address] [id number] [place] [address] Mar, [facility] [place] [facility] [address] [id number] [place] [address] Mar, [facility] [place] [facility] [address] [id number] [place] [address] Mar, [facility] [place] [facility] [address] [id number] [place] [address] Nov, [facility] [place] [facility] [address] [facility] [id number], [place] [address] Sep, [facility] [address] [facility] [id number], [place] [address] Sep, [facility] [address] [facility] [id number], [place] [address] Jul, [facility] [address] [facility] [id number] [place] [address] Jul, [facility] [address] [facility] [id number] [place] [address] Jul, [facility] [address] [facility] [id number] [place] [address], [place] [address] Jul, [facility] [id number], [place] [address] May, [facility] [address] [address] May, [facility] [address], [place] [address] May, [facility] [address], [place] [address] May, [facility] [address], [place] [address] May, [facility] [address], [place] [address] May, [facility] [address] [facility] [id number], [place] [address] May, [facility] [address] [facility] [id number], [place] [address] Apr, [facility] [address] [facility] [id number], [place] [address] Mar, IMMUNIZATIONS No Known Immunizations SOCIAL HISTORY Never Assessed REASON FOR VISIT Foot wound f/u from the right foot[place] PLAN OF CARE Activity Details Follow Up 4 Weeks Reason:diabetic foot wound VITAL SIGNS Height 76 in 2017-12-11 Weight 298.5 lbs 2017-12-11 Temperature 98.4 degrees Fahrenheit 2017-12-11 Heart Rate 76 bpm 2017-12-11 Respiratory Rate 20 2017-12-11 BMI 36.33 kg/m2 2017-12-11 Blood pressure systolic 134 mmHg 2017-12-11 Blood pressure diastolic 88 mmHg 2017-12-11 MEDICATIONS Medication Instructions Dosage Frequency Start Date [...] Orally Once a day 24h Active RESULTS No Results PROCEDURES No Known procedures INSTRUCTIONS MEDICATIONS ADMINISTERED No Known Medications MEDICAL (GENERAL) HISTORY Type Description Date Medical History diabetes mellitus Medical History Eye exam abnormal Medical History Eye exam abnormal Surgical History cholecystectomy Surgical History appendectomy Surgical History amputation, right great toe Hospitalization History surgeries
--- OUTSIDE RECORDS SUMMARY | 2019-01-29 00:21 | XMS REPORT ---
Author Author OSCAR AVILEZ Organization [facility] Address [address] [place] [address] Care Team Providers Care Media Analytics Manager Name Role Phone OSCAR AVILEZ Unavailable PROBLEMS Type Condition ICD9-CM Code YFV75-AK Code Onset Dates Condition Status SNOMED Code Problem Diabetic retinopathy associated with type 2 diabetes mellitus, without macular edema, with unspecified retinopathy severity E11.319 Active 204420046 Problem Boxers fracture S62.309A Active 52666531 Problem Eye exam abnormal R93.8 Active 487669774 Problem Type 2 diabetes mellitus with unspecified complications E11.8 Active 85985041 Problem USP current use of insulin Z79.4 Active 326751172 Problem Type 2 diabetes mellitus with foot ulcer E11.621 Active 062267492 Problem Non-pressure chronic ulcer of other part of right foot with unspecified severity L97.519 Active 827202895 Problem 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 L97.412 Active 869053769 Problem 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 Active 477380234 ALLERGIES No Known Allergies ENCOUNTERS Encounter Location Date Diagnosis [place] [id number] [place] [address] Mar, [facility] [id number] [place] [address] Mar, [place] [id number] [place] [address] Feb, 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 L97.412 [facility] [id number] [place] [address] Feb, Impingement syndrome, shoulder, left M75.42 [place] [id number] [place] [address] Jan, Non-pressure chronic ulcer of other part of right foot with unspecified severity L97.519 [place] [id number] [place] [address] December, Non-pressure chronic ulcer of other part of right foot with unspecified severity L97.519 [place] [id number] [place] [address] December, Left anterior shoulder pain M25.512 ; Type 2 diabetes mellitus with unspecified complications E11.8 and USP current use of insulin Z79.4 [place] [id number] [place] [address] Nov, Non-pressure chronic ulcer of other part of right foot with unspecified severity L97.519 [place] [id number] [place] [address] Oct, Type 2 diabetes mellitus with foot ulcer E11.621 [place] [address] [address] Sep, Type 2 diabetes mellitus with unspecified complications E11.8 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.4 [place] [id number] [place] [address] Aug, Type 2 diabetes mellitus with foot ulcer E11.621 and 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 L97.412 [place] [id number] [place] [address] Aug, Type 2 diabetes mellitus with foot ulcer E11.621 ; 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 ; Other specified postprocedural states Z98.890 and Decubitus ulcer of right foot, stage 4 L89.894 [place] [id number] [place] [address] Apr, [place] [id number] [place] [address] Mar, [place] [address] [address] Jan, [place] [address] [place] [address] Jan, [facility] [address] [place] [address] December, [place] [id number] [place] [address] December, Type 2 diabetes mellitus with foot ulcer E11.621 [place] [address] [place] [address] December, [place] [id number] [place] [address] December, Boxer's fracture with routine healing S62.309D [place] [id number] [place] [address] Nov, [place] [id number] [place] [address] Nov, Boxers fracture S62.309A [place] [id number] [place] [address] 30 Oct, 2015 Diabetic retinopathy associated with type 2 diabetes mellitus, without macular edema, with unspecified retinopathy severity E11.319 [place] [address] [place] [address] Oct, Diabetic retinopathy associated with type 2 diabetes mellitus, without macular edema, with unspecified retinopathy severity E11.319 ; Boxers fracture S62.309A ; Type 2 diabetes mellitus with foot ulcer E11.621 and Non-pressure chronic ulcer of other part of right foot with unspecified severity L97.519 [place] [address] [place] [address] Oct, Boxers fracture S62.309A [place] [address] [place] [address] 15 Mar, 2016 Boxers fracture S62.309A and Left wrist pain M25.532 [facility] [address], [place] [address] Oct, Acute left otitis media H66.92 and Acute upper respiratory infection J06.9 [facility] [address], [place] [address] Jul, [facility] [id number] [place] [address] Jun, [facility] [id number] [address] Jun, [facility] [id number] [place] [address] May, [facility] [id number] [place] [address] May, [facility] [id number] [place] [address] Apr, Diabetes 250.00 [facility] [id number] [place] [address] Feb, [facility] [id number] [place] [address] Feb, [facility] [address], [place] [address] Feb, [facility] [id number] [place] [address] Feb, Diabetes 250.00 and Diabetic ulcer of right great toe 250.80 [facility] [id number] [place] [address] Feb, Diabetes mellitus 250.00 and Abscess of great toe, right 681.10 [facility] [address], [place] [address] Nov, [facility] [id number] [place] [address] [place] [address] Nov, [facility] [place] [facility] [address] [id number] [place] [address] Jul, [facility] [place] [facility] [address] [id number] [place] [address] Jul, [facility] [place] [facility] [address] [id number] [place] [address] Jun, [facility] [place] [facility] [address] [id number] [place] [address] Jun, [facility] [place] [facility] [address] [id number] [place] [address] May, [facility] [place] [facility] [address] [id number] [place] [address] May, [facility] [place] [facility] [address] [id number] [place] [address] Apr, [facility] [place] [facility] [address] [id number] [place] [address] Apr, [facility] [place] [facility] [address] [id number] [place] [address] Feb, [facility] [place] [facility] [address] [id number] [place] [address] Feb, [facility] [place] [facility] [address] [id number] [place] [address] Feb, [facility] [place] [facility] [address] [id number] [place] [address] Feb, [facility] [place] [facility] [address] [id number] [place] [address] Nov, [facility] [place] [facility] [address] [id number] [place] [address] Nov, [facility] [place] [facility] [address] [id number] [place] [address] Aug, [facility] [place] [facility] [address] [id number] [place] [address] Aug, [facility] [place] [facility] [address] [id number] [place] [address] Aug, [facility] [place] [facility] [address] [id number] [place] [address] Aug, [facility] [place] [facility] [address] [id number] [place] [address] Jul, [facility] [place] [facility] [address] [id number] [place] [address] Jul, [facility] [place] [facility] [address] [id number] [place] [address] Jul, [facility] [place] [facility] [address] [id number] [place] [address] Jul, [facility] [place] [facility] [address] [id number] [place] [address] Apr, [facility] [place] [facility] [address] [id number] [place] [address] Mar, [facility] [place] [facility] [address] [id number] [place] [address] Mar, [facility] [place] [facility] [address] [id number] [place] [address] Mar, [facility] [place] [facility] [address] [id number] [place] [address] Mar, [facility] [place] [facility] [address] [id number] [place] [address] Mar, [facility] [place] [facility] [address] [id number] [place] [address] Nov, [facility] [place] [facility] [address] [id number] [place] [address] Sep, [facility] [place] [facility] [address] [id number] [place] [address] Sep, [facility] [address], [place] [address] Jul, [facility] [address], [place] [address] Jul, [facility] [address], [place] [address] Jul, [facility] [address], [place] [address] Jul, [facility] [address], [place] [address] May, [facility] [address] [place] [address] May, [facility] [address] [place] [address] May, [facility] [address] [place] [address] May, [facility] [address] [place] [address] May, [facility] [address], [place] [address] May, [facility] [address], [place] [address] May, [facility] [address], [place] [address] Apr, [facility] [address], [place] [address] Mar, IMMUNIZATIONS No Known Immunizations SOCIAL HISTORY Never Assessed REASON FOR VISIT F/U foot ulcer----Iliana PLAN OF CARE Activity Details Follow Up 4 Weeks Reason:dm foot wound VITAL SIGNS Height 76 in 2017-11-11 Weight 304 lbs 2017-11-11 Temperature 98.7 degrees Fahrenheit 2017-11-11 Heart Rate 60 bpm 2017-11-11 Respiratory Rate 20 2017-11-11 BMI 37.00 kg/m2 2017-11-11 Blood pressure systolic 144 mmHg 2017-11-11 Blood pressure diastolic 90 mmHg 2017-11-11 MEDICATIONS Medication Instructions Dosage Frequency Start Date End Date Duration Status Levemir FlexTouch 100 UNIT/ML Subcutaneous Once a day Inject 30 units at bedtime 24h Sep, 90 days Active Metformin HCl 1000 MG Orally 2 times a day TAKE ONE TABLET BY MOUTH TWICE DAILY WITH MEALS 12h 90 days Active Multivitamin Adult - Orally Once a day 24h Active NovoLog 100 UNIT/ML Subcutaneous 3 times [...]
--- OUTSIDE RECORDS SUMMARY | 2019-01-29 00:22 | XMS REPORT ---
Author Author GERARDO PATEL [facility] Address [address] [place] [address] Care Team Providers Care Protocol Manager Name Role Phone GERARDO PATEL Unavailable PROBLEMS Type Condition ICD9-CM Code JWT55-CW Code Onset Dates Condition Status SNOMED Code Problem Diabetic retinopathy associated with type 2 diabetes mellitus, without macular edema, with unspecified retinopathy severity E11.319 Active 680027943 Problem Boxers fracture S62.309A Active 56893731 Problem Eye exam abnormal R93.8 Active 261180076 Problem Type 2 diabetes mellitus with unspecified complications E11.8 Active 66805373 Problem 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 Active 329723319 Problem Type 2 diabetes mellitus with foot ulcer E11.621 Active 324325077 Problem Non-pressure chronic ulcer of other part of right foot with unspecified severity L97.519 Active 076091726 Problem 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 L97.412 Active 418017852 Problem 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 Active 940868680 ALLERGIES No Known Allergies ENCOUNTERS Encounter Location Date Diagnosis [place] [address], [place] [address] Feb, [facility] [id number] [place] [address] Feb, [facility] [address], [place] [address] Jan, Non-pressure chronic ulcer of other part of right foot with unspecified severity L97.519 [facility] [address], [place] [address] December, Non-pressure chronic ulcer of other part of right foot with unspecified severity L97.519 [facility] [id number] [place] [address] December, Left anterior shoulder pain M25.512 ; Type 2 diabetes mellitus with unspecified complications E11.8 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.4 [place] [id number] [place] [address] Nov, Non-pressure chronic ulcer of other part of right foot with unspecified severity L97.519 [place] [id number] [place] [address] Oct, Type 2 diabetes mellitus with foot ulcer E11.621 [place] [id number] [place] [address] Sep, Type 2 diabetes mellitus with unspecified complications E11.8 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.4 [place] [id number] [place] [address] Aug, Type 2 diabetes mellitus with foot ulcer E11.621 and 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 L97.412 [place] [id number] [place] [address] Aug, Type 2 diabetes mellitus with foot ulcer E11.621 ; 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 ; Other specified postprocedural states Z98.890 and Decubitus ulcer of right foot, stage 4 L89.894 [place] [id number] [place] [address] Apr, [place] [id number] [place] [address] Mar, [place] [id number] [place] [address] Jan, [place] [id number] [place] [address] Jan, [place] [id number] [place] [address] December, [place] [address] [place] [address] December, Type 2 diabetes mellitus with foot ulcer E11.621 [place] [address] [place] [address] December, [place] [id number] [place] [address] December, Boxer's fracture with routine healing S62.309D [place] [id number] [place] [address] Nov, [place] [id number] [place] [address] Nov, Boxers fracture S62.309A [place] [id number] [place] [address] Oct, Diabetic retinopathy associated with type 2 diabetes mellitus, without macular edema, with unspecified retinopathy severity E11.319 [place] [address] [place] [address] Oct, Diabetic retinopathy associated with type 2 diabetes mellitus, without macular edema, with unspecified retinopathy severity E11.319 ; Boxers fracture S62.309A ; Type 2 diabetes mellitus with foot ulcer E11.621 and Non-pressure chronic ulcer of other part of right foot with unspecified severity L97.519 [place] [address] [place] [address] Oct, Boxers fracture S62.309A [place] [address] [place] [address] Oct, Boxers fracture S62.309A and Left wrist pain M25.532 [facility] [address] [place] [address] Oct, Acute left otitis media H66.92 and Acute upper respiratory infection J06.9 [place] [id number] [place] [address] Jul, [facility] [id number], [place] [address] Jun, [facility] [address], [place] [address] Jun, [facility] [address], [place] [address] May, [facility] [address], [place] [address] May, [facility] [id number], [place] [address] Apr, Diabetes 250.00 [facility] [address], [place] [address] Feb, [facility] [address], [place] [address] Feb, [facility] [address], [place] [address] Feb, [facility] [address], [place] [address] Feb, Diabetes 250.00 and Diabetic ulcer of right great toe 250.80 [facility] [id number], [place] [address] Feb, Diabetes mellitus 250.00 and Abscess of great toe, right 681.10 [facility] [address], [place] [address] Nov, [facility] [id number], [place] [address] Nov, [facility] [address], [place] [address] Jul, [facility] [id number], [place] [address] Jul, [facility] [place] [facility] [address] [id number] [place] [address] Jun, [facility] [place] [facility] [address] [id number] [place] [address] Jun, [facility] [place] [facility] [address] [id number] [place] [address] May, [facility] [place] [facility] [address] [id number] [place] [address] May, [facility] [place] [facility] [address] [id number] [place] [address] Apr, [facility] [place] [facility] [address] [id number] [place] [address] Apr, [facility] [place] [facility] [address] [id number] [place] [address] Feb, [facility] [place] [facility] [address] [id number] [place] [address] Feb, [facility] [place] [facility] [address] [id number] [place] [address] Feb, [facility] [place] [facility] [address] [id number] [place] [address] Feb, [facility] [place] [facility] [address] [id number] [place] [address] Nov, [facility] [place] [facility] [address] [id number] [place] [address] Nov, [facility] [place] [facility] [address] [id number] [place] [address] Aug, [facility] [place] [facility] [address] [id number] [place] [address] Aug, [facility] [place] [facility] [address] [id number] [place] [address] Aug, [facility] [place] [facility] [address] [id number] [place] [address] Aug, [facility] [place] [facility] [address] [id number] [place] [address] Jul, [facility] [place] [facility] [address] [id number] [place] [address] Jul, [facility] [place] [facility] [address] [id number] [place] [address] Jul, [facility] [place] [facility] [address] [id number] [place] [address] Jul, [facility] [place] [facility] [address] [id number] [place] [address] Apr, [facility] [place] [facility] [address] [id number] [place] [address] Mar, [facility] [place] [facility] [address] [id number] [place] [address] Mar, [facility] [place] [facility] [address] [id number] [place] [address] Mar, [facility] [place] [facility] [address] [id number] [place] [address] Mar, [facility] [place] [facility] [address] [id number] [place] [address] Mar, [facility] [place] [facility] [address] [id number] [place] [address] Nov, [facility] [place] [facility] [address] [id number] [address] Sep, [facility] [place] [facility] [address] [id number] [place] [address] Sep, [facility] [place] [facility] [address] [id number] [place] [address] Jul, [facility] [place] [facility] [address] [id number] [place] [address] Jul, [facility] [place] [facility] [address], [place] [address] Jul, [facility] [address], [place] [address] Jul, [facility] [address], [place] [address] May, [facility] [address], [place] [address] May, [facility] [address], [place] [address] May, [facility] [id number] [place] [address] May, [facility] [id number] [place] [address] May, [facility] [id number] [place] [phone] May, [facility] [id number] [address] May, [facility] [id number] [address] Apr, [facility] [id number] [address] Mar, IMMUNIZATIONS No Known Immunizations SOCIAL HISTORY Never Assessed REASON FOR VISIT Diabetes- Alexys Gambino RN PLAN OF CARE Activity Details Follow Up 2 Months Reason:DM VITAL SIGNS Height 76 in 2017-08-14 Weight 297 lbs 2017-08-14 Temperature 98.7 degrees Fahrenheit 2017-08-14 Heart Rate 78 bpm 2017-08-14 Respiratory Rate 22 2017-08-14 BMI 36.15 kg/m2 2017-08-14 Blood pressure systolic 146 mmHg 2017-08-14 Blood pressure diastolic 86 mmHg 2017-08-14 MEDICATIONS Medication Instructions Dosage Frequency Start Date End Date Duration Status Levemir Flexpen 100 unit/mL (3 mL) 30 Unit by Subcutaneous route 1 time per day May, Active Metformin HCl 1000 MG Orally 2 times a day TAKE ONE TABLET BY MOUTH TWICE DAILY WITH MEALS 12h 90 days Active NovoLog 100 UNIT/ML Subcutaneous 3 times a day before meals 25u Active RESULTS Name Result Date Reference Range A1C (IN HOUSE) 2017-08-14 A1C IN HOUSE 11.2 4.3 - 5.6 % Previous A1c 9.0 Lot [id number] Exp date 05/23 PROCEDURES Procedure Date Ordered Result Body Site GLYCATED HEMOGLOBIN TEST Aug 14, 2017 INSTRUCTIONS MEDICATIONS ADMINISTERED No Known Medications MEDICAL (GENERAL) HISTORY Type Description Date Medical History diabetes mellitus Medical History Eye exam abnormal Medical History Eye exam abnormal Surgical History cholecystectomy Surgical History appendectomy Surgical History amputation, right great toe
--- OUTSIDE RECORDS SUMMARY | 2019-01-29 00:22 | XMS REPORT ---
Author Author GERARDO PATEL Organization [employer] Address Unknown Phone Unavailable Care Team Providers Care Jack Setter Name Role Phone GERARDO PATEL CP Unavailable Allergies No Known Allergies Problems Problem Type Condition Code Onset Dates Condition Status Problem Secondary diabetes mellitus with neurological manifestations, not stated as uncontrolled, or unspecified 249.60 Active Problem Diabetes with neurological manifestations, type II or unspecified type, uncontrolled 250.62 Active Problem Unspecified conjunctivitis 372.30 Active Problem Cellulitis and abscess of foot, except toes 682.7 Active Problem Diabetic ulcer of right great toe 250.80 Active Problem Unspecified hereditary and idiopathic peripheral neuropathy 356.9 Active Problem Diabetes 250.00 Active Problem Unspecified disease of nail 703.9 Active Problem Injury, other and unspecified, knee, leg, ankle, and foot 959.7 Active Problem Psychosexual dysfunction with inhibited sexual excitement 302.72 Active Problem Open wound of toe(s), without mention of complication 893.0 Active Medications No Known Medications Results No Known Results Summary Purpose [employer]Clinical[employer] Submission
--- OUTSIDE RECORDS SUMMARY | 2019-01-29 00:22 | XMS REPORT ---
Author Author OSCAR AVILEZ Organization [facility] Address [address] [place] [address] Care Team Providers Care Permastone Applicator Name Role Phone OSCAR AVILEZ Unavailable PROBLEMS Type Condition ICD9-CM Code [id number] Code Onset Dates Condition Status SNOMED Code Problem Diabetic retinopathy associated with type 2 diabetes mellitus, without macular edema, with unspecified retinopathy severity E11.319 Active 253823257 Problem Boxers fracture S62.309A Active 23329979 Problem Eye exam abnormal R93.8 Active 251053600 Problem Type 2 diabetes mellitus with unspecified complications E11.8 Active 43992085 Problem correction current use of insulin Z79.4 Active 025364150 Problem Type 2 diabetes mellitus with foot ulcer E11.621 Active 848855128 Problem Non-pressure chronic ulcer of other part of right foot with unspecified severity L97.519 Active 558215561 Problem 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 L97.412 Active 954230373 Problem 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 Active 981520965 ALLERGIES No Known Allergies ENCOUNTERS Encounter Location Date Diagnosis [place] [id number] [place] [address] Mar, [facility] [id number] [place] [address] Mar, [place] [id number] [place] [address] Feb, 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 L97.412 [facility] [id number] [place] [address] Feb, Impingement syndrome, shoulder, left M75.42 [place] [id number] [place] [address] Jan, Non-pressure chronic ulcer of other part of right foot with unspecified severity L97.519 [place] [id number] [place] [address] December, Non-pressure chronic ulcer of other part of right foot with unspecified severity L97.519 [place] [id number] [place] [address] December, Left anterior shoulder pain M25.512 ; Type 2 diabetes mellitus with unspecified complications E11.8 and correction current use of insulin Z79.4 [place] [id number] [place] [address] Nov, Non-pressure chronic ulcer of other part of right foot with unspecified severity L97.519 [place] [id number] [place] [address] Oct, Type 2 diabetes mellitus with foot ulcer E11.621 [place] [address] [address] Sep, Type 2 diabetes mellitus with unspecified complications E11.8 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.4 [place] [id number] [place] [address] Aug, Type 2 diabetes mellitus with foot ulcer E11.621 and 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 L97.412 [place] [id number] [place] [address] Aug, Type 2 diabetes mellitus with foot ulcer E11.621 ; 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 ; Other specified postprocedural states Z98.890 and Decubitus ulcer of right foot, stage 4 L89.894 [place] [id number] [place] [address] Apr, [place] [id number] [place] [address] Mar, [place] [address] [address] Jan, [place] [id number] [place] [address] Jan, [facility] [id number] [place] [address] December, [place] [id number] [place] [address] December, Type 2 diabetes mellitus with foot ulcer E11.621 [place] [id number] [place] [address] December, [place] [id number] [place] [address] December, Boxer's fracture with routine healing S62.309D [place] [id number] [place] [address] Nov, [place] [id number] [place] [address] Nov, Boxers fracture S62.309A [place] [id number] [place] [address] 30 Oct, 2015 Diabetic retinopathy associated with type 2 diabetes mellitus, without macular edema, with unspecified retinopathy severity E11.319 [place] [id number] [place] [address] Oct, Diabetic retinopathy associated with type 2 diabetes mellitus, without macular edema, with unspecified retinopathy severity E11.319 ; Boxers fracture S62.309A ; Type 2 diabetes mellitus with foot ulcer E11.621 and Non-pressure chronic ulcer of other part of right foot with unspecified severity L97.519 [place] [id number] [place] [address] Oct, Boxers fracture S62.309A [place] [id number] [place] [address] 15 Mar, 2016 Boxers fracture S62.309A and Left wrist pain M25.532 [facility] [address] [address] Oct, Acute left otitis media H66.92 and Acute upper respiratory infection J06.9 [facility] [address] [address] Jul, [facility] [id number] [place] [address] Jun, [facility] [id number] [address] Jun, [facility] [id number] [place] [address] May, [facility] [id number] [place] [address] May, [facility] [id number] [place] [address] Apr, Diabetes 250.00 [facility] [id number] [place] [address] Feb, [facility] [id number] [place] [address] Feb, [facility] [address] [address] Feb, [facility] [id number] [place] [address] Feb, Diabetes 250.00 and Diabetic ulcer of right great toe 250.80 [facility] [id number] [place] [address] Feb, Diabetes mellitus 250.00 and Abscess of great toe, right 681.10 [facility] [address] [address] Nov, [facility] [id number] [place] [address] [place] [address] Nov, [facility] [place] [facility] [address] [id number] [place] [address] Jul, [facility] [place] [facility] [address] [id number] [place] [address] Jul, [facility] [place] [facility] [address] [id number] [place] [address] Jun, [facility] [place] [facility] [address] [id number] [place] [address] Jun, [facility] [place] [facility] [address] [id number] [place] [address] May, [facility] [place] [facility] [address] [id number] [place] [address] May, [facility] [place] [facility] [address] [id number] [place] [address] Apr, [facility] [place] [facility] [address] [id number] [place] [address] Apr, [facility] [place] [facility] [address] [id number] [place] [address] Feb, [facility] [place] [facility] [address] [id number] [place] [address] Feb, [facility] [place] [facility] [address] [id number] [place] [address] Feb, [facility] [place] [facility] [address] [id number] [place] [address] Feb, [facility] [place] [facility] [address] [id number] [place] [address] Nov, [facility] [place] [facility] [address] [id number] [place] [address] Nov, [facility] [place] [facility] [address] [id number] [place] [address] Aug, [facility] [place] [facility] [address] [id number] [place] [address] Aug, [facility] [place] [facility] [address] [id number] [place] [address] Aug, [facility] [place] [facility] [address] [id number] [place] [address] Aug, [facility] [place] [facility] [address] [id number] [place] [address] Jul, [facility] [place] [facility] [address] [id number] [place] [address] Jul, [facility] [place] [facility] [address] [id number] [place] [address] Jul, [facility] [place] [facility] [address] [id number] [place] [address] Jul, [facility] [place] [facility] [address] [id number] [place] [address] Apr, [facility] [place] [facility] [address] [id number] [place] [address] Mar, [facility] [place] [facility] [address] [id number] [place] [address] Mar, [facility] [place] [facility] [address] [id number] [place] [address] Mar, [facility] [place] [facility] [address] [id number] [place] [address] Mar, [facility] [place] [facility] [address] [id number] [place] [address] Mar, [facility] [place] [facility] [address] [id number] [place] [address] Nov, [facility] [place] [facility] [address] [id number] [place] [address] Sep, [facility] [place] [facility] [address] [id number] [place] [address] Sep, [facility] [address] [address] Jul, [facility] [address], [place] [address] Jul, [facility] [address], [place] [address] Jul, [facility] [address], [place] [address] Jul, [facility] [address], [place] [address] May, [facility] [address] [place] [address] May, [facility] [address] [place] [address] May, [facility] [address], [place] [address] May, [facility] [address], [place] [address] May, [facility] [address], [place] [address] May, [facility] [address], [place] [address] May, [facility] [address], [place] [address] Apr, [facility] [id number] [address] Mar, IMMUNIZATIONS No Known Immunizations SOCIAL HISTORY Never Assessed REASON FOR VISIT F/U from an ulcer on the bottom of right foot-Sami MOREAU PLAN OF CARE Activity Details Follow Up 4 Weeks Reason:dm foot wound VITAL SIGNS Height 76 in 2017-10-03 Weight 301.6 lbs 2017-10-03 Temperature 98.7 degrees Fahrenheit 2017-10-03 Heart Rate 76 bpm 2017-10-03 Respiratory Rate 20 2017-10-03 BMI 36.71 kg/m2 2017-10-03 Blood pressure systolic 148 mmHg 2017-10-03 Blood pressure diastolic 82 mmHg 2017-10-03 MEDICATIONS Medication Instructions Dosage Frequency Start Date [...] at bedtime 24h Sep, 90 days Active RESULTS No Results PROCEDURES No Known procedures INSTRUCTIONS MEDICATIONS ADMINISTERED No Known Medications MEDICAL (GENERAL) HISTORY Type Description Date Medical History diabetes mellitus Medical History Eye exam abnormal Medical History Eye exam abnormal Surgical History cholecystectomy Surgical History appendectomy Surgical History amputation, right great toe
--- OUTSIDE RECORDS SUMMARY | 2019-01-29 00:22 | XMS REPORT ---
Author Author GERARDO PATEL Organization [facility] Address [address] [place] [address] Care Team Providers Care Assurance Senior Manager Insurance Name Role Phone GERARDO PATEL Unavailable PROBLEMS Type Condition ICD9-CM Code CCO02-EK Code Onset Dates Condition Status SNOMED Code Problem Psychosexual dysfunction with inhibited sexual excitement 302.72 Active [id number] Problem Diabetic retinopathy associated with type 2 diabetes mellitus, without macular edema, with unspecified retinopathy severity E11.319 Active 668492167 Problem Unspecified hereditary and idiopathic peripheral neuropathy 356.9 Active 064945565 Problem Boxers fracture S62.309A Active 87202818 Problem Type 2 diabetes mellitus with foot ulcer E11.621 Active 269026681 Problem Diabetic ulcer of right great toe 250.80 Active 78151188 Problem Eye exam abnormal R93.8 Active 806245832 Problem Non-pressure chronic ulcer of other part of right foot with unspecified severity L97.519 Active Problem Diabetes 250.00 Active 47072458 Problem Cellulitis and abscess of foot, except toes 682.7 Active 995040105 Problem Diabetes with neurological manifestations, type II or unspecified type, uncontrolled 250.62 Active 393269261 Problem Injury, other and unspecified, knee, leg, ankle, and foot 959.7 Active 291740205 Problem Secondary diabetes mellitus with neurological manifestations, not stated as uncontrolled, or unspecified 249.60 Active 914692107 Problem Unspecified disease of nail 703.9 Active 97229949 Problem Unspecified conjunctivitis 372.30 Active 1240723 Problem Open wound of toe(s), without mention of complication 893.0 Active 37825219 ALLERGIES Unknown Allergies SOCIAL HISTORY No smoking Hx information available PLAN OF CARE VITAL SIGNS MEDICATIONS Unknown Medications RESULTS No Results PROCEDURES No Known procedures IMMUNIZATIONS No Known Immunizations
--- OUTSIDE RECORDS SUMMARY | 2019-01-29 00:22 | XMS REPORT ---
Author Author GERARDO PATEL Organization [employer] Address Unknown Phone Unavailable Care Team Providers Care Experiential Therapist Name Role Phone GERARDO PATEL CP Unavailable Allergies No Known Allergies Problems Problem Type Condition Code Onset Dates Condition Status Problem Open wound of toe(s), without mention of complication 893.0 Active Problem Unspecified hereditary and idiopathic peripheral neuropathy 356.9 Active Problem Psychosexual dysfunction with inhibited sexual excitement 302.72 Active Problem Type 2 diabetes mellitus with foot ulcer E11.621 Active Problem Non-pressure chronic ulcer of other part of right foot with unspecified severity L97.519 Active Problem Boxers fracture S62.309A Active Problem Eye exam abnormal R93.8 Active Problem Diabetic retinopathy associated with type 2 diabetes mellitus, without macular edema, with unspecified retinopathy severity E11.319 Active Problem Diabetes 250.00 Active Problem Diabetic ulcer of right great toe 250.80 Active Problem Unspecified conjunctivitis 372.30 Active Problem Diabetes with neurological manifestations, type II or unspecified type, uncontrolled 250.62 Active Problem Cellulitis and abscess of foot, except toes 682.7 Active Problem Injury, other and unspecified, knee, leg, ankle, and foot 959.7 Active Problem Secondary diabetes mellitus with neurological manifestations, not stated as uncontrolled, or unspecified 249.60 Active Problem Unspecified disease of nail 703.9 Active Medications No Known Medications Results No Known Results Summary Purpose [employer] Submission
--- OUTSIDE RECORDS SUMMARY | 2019-01-29 00:22 | XMS REPORT ---
Author Author COLLIN GUEVARA [facility] [employer] Address Unknown Phone Unavailable Care Team Providers Care Car Shakeout Operator Name Role Phone COLLIN GUEVARA Unavailable Allergies No Known Allergies Problems Problem [...] ulcer of right great toe 250.80 Active Assessment Boxers fracture S62.309A Active Problem Unspecified conjunctivitis 372.30 Active Problem [...] nail 703.9 Active Medications No Known Medications Procedures Procedure Coding System Code Date X-RAY EXAM OF HAND CPT-4 50737 November 17, 2015 Office Visit, Est Pt., Level 3 CPT-4 77217 November 17, 2015 Vital Signs Date/Time: November 17, 2015 Blood Pressure Diastolic 72 mmHg Blood Pressure Systolic 130 mmHg Height 76 in Results Name Result Date Reference Range Unit Abnormality Flag Xray : Hand, Right 3 views (IN HOUSE) Summary Purpose [employer] Submission
--- OUTSIDE RECORDS SUMMARY | 2019-01-29 00:22 | XMS REPORT ---
Author Author GERARDO PATEL Organization [employer] Address Unknown Phone Unavailable Care Team Providers Care Radiology Administrator Name Role Phone GERARDO PATEL CP Unavailable Allergies No Known Allergies Problems Problem Type Condition Code Onset Dates Condition Status Problem Diabetes with neurological manifestations, type II or unspecified type, uncontrolled 250.62 Active Problem Unspecified disease of nail 703.9 Active Problem Injury, other and unspecified, knee, leg, ankle, and foot 959.7 Active Problem Diabetic ulcer of right great toe 250.80 Active Problem Eye exam abnormal R93.8 Active Problem Diabetes 250.00 Active Problem Psychosexual dysfunction with inhibited sexual excitement 302.72 Active Problem Open wound of toe(s), without mention of complication 893.0 Active Problem Diabetic retinopathy associated with type 2 diabetes mellitus, without macular edema, with unspecified retinopathy severity E11.319 Active Problem Unspecified hereditary and idiopathic peripheral neuropathy 356.9 Active Problem Cellulitis and abscess of foot, except toes 682.7 Active Problem Secondary diabetes mellitus with neurological manifestations, not stated as uncontrolled, or unspecified 249.60 Active Problem Unspecified conjunctivitis 372.30 Active Medications No Known Medications Results No Known Results Summary Purpose [employer] Submission
--- OUTSIDE RECORDS SUMMARY | 2019-01-29 00:22 | XMS REPORT ---
Author Author GERARDO PATEL Organization [employer] Address Unknown Phone Unavailable Care Team Providers Care Diamond Sizer And Sorter Name Role Phone GERARDO PATEL CP Unavailable [...]
--- OUTSIDE RECORDS SUMMARY | 2019-01-29 00:22 | XMS REPORT ---
Author Author GERARDO PATEL [facility] Address [address] [place] [address] Care Team Providers Care Sheet Metal Apprentice Name Role Phone GERARDO PATEL Unavailable PROBLEMS Type Condition ICD9-CM Code SDP94-LR Code Onset Dates Condition Status SNOMED Code Problem Diabetic retinopathy associated with type 2 diabetes mellitus, without macular edema, with unspecified retinopathy severity E11.319 Active 772236985 Problem Boxers fracture S62.309A Active 67895163 Problem Eye exam abnormal R93.8 Active 780130816 Problem Type 2 diabetes mellitus with unspecified complications E11.8 Active 85351355 Problem intermediate current use of insulin Z79.4 Active 938617598 Problem Type 2 diabetes mellitus with foot ulcer E11.621 Active 442664252 Problem Non-pressure chronic ulcer of other part of right foot with unspecified severity L97.519 Active 598399100 Problem 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 L97.412 Active 693613069 Problem 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 Active 564210337 ALLERGIES No Information ENCOUNTERS Encounter Location Date Diagnosis [place] [id number] [address] Feb, [facility] [id number] [place] [address] Feb, [facility] [address] [address] Jan, Non-pressure chronic ulcer of other part of right foot with unspecified severity L97.519 [facility] [address], [place] [address] December, Non-pressure chronic ulcer of other part of right foot with unspecified severity L97.519 [facility] [address] [place] [id number] [place] [address] December, Left anterior shoulder pain M25.512 ; Type 2 diabetes mellitus with unspecified complications E11.8 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.4 [place] [address] [place] [id number] [place] [address] Nov, Non-pressure chronic ulcer of other part of right foot with unspecified severity L97.519 [place] [address] [place] [address] [id number] [place] [address] Oct, Type 2 diabetes mellitus with foot ulcer E11.621 [place] [address] [place] [id number] [place] [address] Sep, Type 2 diabetes mellitus with unspecified complications E11.8 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.4 [place] [address] [place] [id number] [place] [address] Aug, Type 2 diabetes mellitus with foot ulcer E11.621 and 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 L97.412 [place] [address] [place] [address] [id number] [place] [address] Aug, Type 2 diabetes mellitus with foot ulcer E11.621 ; 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 ; Other specified postprocedural states Z98.890 and Decubitus ulcer of right foot, stage 4 L89.894 [place] [address] [place] [id number] [place] [address] Apr, [place] [address] [place] [address] [id number] [place] [address] Mar, [place] [address] [place] [address] [id number] [place] [address] Jan, [place] [address] [address] [id number] [place] [address] Jan, [place] [address] [place] [id number] [place] [address] December, [place] [id number] [place] [address] December, Type 2 diabetes mellitus with foot ulcer E11.621 [place] [id number] [place] [address] December, [place] [address] [place] [id number] [place] [address] December, Boxer's fracture with routine healing S62.309D [place] [address] [place] [id number] [place] [address] Nov, [place] [address] [place] [address] [id number] [place] [address] Nov, Boxers fracture S62.309A [place] [address] [place] [id number] [place] [address] Oct, Diabetic retinopathy associated with type 2 diabetes mellitus, without macular edema, with unspecified retinopathy severity E11.319 [place] [address] [place] [address] Oct, Diabetic retinopathy associated with type 2 diabetes mellitus, without macular edema, with unspecified retinopathy severity E11.319 ; Boxers fracture S62.309A ; Type 2 diabetes mellitus with foot ulcer E11.621 and Non-pressure chronic ulcer of other part of right foot with unspecified severity L97.519 [place] [address] [place] [address] Oct, Boxers fracture S62.309A [place] [address] [place] [id number] [place] [address] Oct, Boxers fracture S62.309A and Left wrist pain M25.532 [facility] [address] [place] [address] Oct, Acute left otitis media H66.92 and Acute upper respiratory infection J06.9 [place] [address] [place] [id number] [place] [address] Jul, [facility] [address] [id number], [place] [address] Jun, [facility] [address], [place] [address] Jun, [facility] [address], [place] [address] May, [facility] [address] [place] [address] May, [facility] [address], [place] [address] Apr, Diabetes 250.00 [facility] [address], [place] [address] Feb, [facility] [address] [place] [address] Feb, [facility] [address], [place] [address] Feb, [facility] [address], [place] [address] Feb, Diabetes 250.00 and Diabetic ulcer of right great toe 250.80 [facility] [address] [id number], [place] [address] Feb, Diabetes mellitus 250.00 and Abscess of great toe, right 681.10 [facility] [id number], [place] [address] Nov, [facility] [id number], [place] [address] Nov, [facility] [address], [place] [address] Jul, [facility] [id number], [place] [address] Jul, [facility] [place] [facility] [address] [facility] [id number] [place] [address] Jun, [facility] [place] [facility] [address] [id number] [place] [address] Jun, [facility] [place] [facility] [address] [id number] [place] [address] May, [facility] [place] [facility] [address] [id number] [place] [address] May, [facility] [place] [facility] [address] [id number] [place] [address] Apr, [facility] [place] [facility] [address] [id number] [place] [address] Apr, [facility] [place] [facility] [address] [id number] [place] [address] Feb, [facility] [place] [facility] [address] [id number] [place] [address] Feb, [facility] [place] [facility] [address] [id number] [place] [address] Feb, [facility] [place] [facility] [address] [id number] [place] [address] Feb, [facility] [place] [facility] [address] [id number] [place] [address] Nov, [facility] [place] [facility] [address] [id number] [place] [address] Nov, [facility] [place] [facility] [address] [id number] [place] [address] Aug, [facility] [place] [facility] [address] [id number] [place] [address] Aug, [facility] [place] [facility] [address] [id number] [place] [address] Aug, [facility] [place] [facility] [address] [id number] [place] [address] Aug, [facility] [address] [id number] [place] [address] Jul, [facility] [place] [facility] [address] [id number] [place] [address] Jul, [facility] [place] [facility] [address] [id number] [place] [address] Jul, [facility] [place] [facility] [address] [id number] [place] [address] Jul, [facility] [place] [facility] [address] [id number] [place] [address] Apr, [facility] [place] [facility] [address] [id number] [place] [address] Mar, [facility] [place] [facility] [address] [id number] [place] [address] Mar, [facility] [place] [facility] [address] [id number] [place] [address] Mar, [facility] [place] [facility] [address] [id number] [place] [address] Mar, [facility] [place] [facility] [address] [id number] [place] [address] Mar, [facility] [place] [facility] [address] [id number] [place] [address] Nov, [facility] [place] [facility] [address] [id number] [address] Sep, [facility] [place] [facility] [address] [id number] [place] [address] Sep, [facility] [place] [facility] [address] [id number] [place] [address] Jul, [facility] [place] [facility] [address] [id number] [place] [address] Jul, [facility] [place] [facility] [id number], [place] [address] Jul, [facility] [address] [facility] [id number], [place] [address] Jul, [facility] [address] [facility] [id number], [place] [address] May, [facility] [address] [facility] [id number], [place] [address] May, [facility] [address] [facility] [id number], [place] [address] May, [facility] [address] [facility] [id number], [place] [address] May, [facility] [address] [facility] [id number], [place] [address] May, [facility] [address], [place] [address] May, [facility] [address], [place] [address] May, [facility] [address], [place] [address] Apr, [facility] [id number], [place] [address] Mar, IMMUNIZATIONS No Known Immunizations SOCIAL HISTORY Never Assessed REASON FOR VISIT PALS/Novolog and Levemir PLAN OF CARE VITAL SIGNS MEDICATIONS Medication Instructions Dosage Frequency Start Date End Date Duration Status Levemir FlexTouch 100 UNIT/ML Subcutaneous Once a day Inject 30 units at bedtime 24h Sep, 90 days Active NovoLog 100 UNIT/ML Subcutaneous [...]
--- OUTSIDE RECORDS SUMMARY | 2019-01-29 00:23 | XMS REPORT ---
Author Author GERARDO PATEL Organization [employer] Address Unknown Phone Unavailable Care Team Providers Care Yard Operator Name Role Phone GERARDO PATEL CP Unavailable [...]
--- OUTSIDE RECORDS SUMMARY | 2019-01-29 00:23 | XMS REPORT ---
Author Author GERARDO PATEL Organization [employer] Address Unknown Phone Unavailable Care Team Providers Care Monument Setter Helper Name Role Phone GERARDO PATEL CP Unavailable [...] without mention of complication 893.0 Active Medications Medication Code System Code Instructions Start Date End Date Status Dosage Levemir Flexpen [facility] [address]-69 100 unit/mL (3 mL) May 22, 2012 30 Unit by Subcutaneous route 1 time per day Results No Known Results Summary Purpose [employer] Submission
[2019-01-29 00:24] LABS: HEMATOCRIT 32 % (40-54); HEMOGLOBIN 10.6 G/DL (13.3-17.7); MEAN CORPUSCULAR HEMOGLOBIN 30 PG (25-34); MEAN CORPUSCULAR HGB CONC 33 G/DL (32-36); MEAN CORPUSCULAR VOLUME 90 FL (80-99); WHITE BLOOD COUNT 10.5 10^3/uL (4.3-11.0)
[2019-01-29] MEDS ORDERED: LACTATED RINGERS 1,000 ML IV ONE (00:24)
[2019-01-29 00:25] LABS: BASOPHILS # (AUTO) 0.1 10^3/uL (0.0-0.1); BASOPHILS % (AUTO) 1 % (0-10); EOSINOPHILS # (AUTO) 0.3 10^3/uL (0.0-0.3); EOSINOPHILS % (AUTO) 3 % (0-10); LYMPHOCYTES # (AUTO) 2.1 X 10^3 (1.0-4.0); LYMPHOCYTES % (AUTO) 20 % (12-44); MEAN PLATELET VOLUME 8.5 FL (7.4-10.4); MONOCYTES # (AUTO) 0.9 X 10^3 (0.0-1.0); MONOCYTES % (AUTO) 9 % (0-12); NEUTROPHILS # (AUTO) 7.1 X 10^3 (1.8-7.8); NEUTROPHILS % (AUTO) 68 % (42-75); PLATELET COUNT 625 10^3/uL (130-400); RED CELL DISTRIBUTION WIDTH 13.3 % (10.0-14.5)
--- OUTSIDE RECORDS SUMMARY | 2019-01-29 00:26 | XMS REPORT | Continuity of Care Document ---
Author Organization Unknown Address Unknown Allergies Active Description Code Type Severity Reaction Onset Reported/Identified Relationship to Patient Clinical Status Yes No Known Drug Allergies [id number] Drug Allergy Unknown N/A 01/18/2019 Medications There is no data. Problems Date Dx Coded Attending Type Code Diagnosis Diagnosed By 10/04/2010 JORGE SOTO, GERARDO S 787.91 DIARRHEA 10/04/2010 ROSCOE TOTH MD 787.91 DIARRHEA 10/04/2010 787.91 DIARRHEA 10/04/2010 787.91 DIARRHEA 10/04/2010 JORGE SOTO, GERARDO S 787.91 DIARRHEA 10/04/2010 OSCAR AVILEZ APRN 787.91 DIARRHEA 10/04/2010 OJRGEESTEBAN MCDONALDN, GERARDO S 787.91 DIARRHEA 10/04/2010 JORGE SOTO, GERARDO S 787.91 DIARRHEA 10/04/2010 JORGE [employer], GERARDO S 787.91 DIARRHEA 10/04/2010 JORGE SOTO, GERARDO S 787.91 DIARRHEA 10/04/2010 OSCAR AIVLEZ APRN T 787.91 DIARRHEA 10/04/2010 OSCAR AVILEZ APRN T 787.91 DIARRHEA 10/04/2010 OSCAR AVILEZ APRN T 787.91 DIARRHEA 10/05/2010 JORGE SOTO, GERARDO S 780.79 fatigue 10/05/2010 ROSCOE TOTH MD 780.79 fatigue 10/05/2010 780.79 fatigue 10/05/2010 780.79 fatigue 10/05/2010 JORGE SOTO, GERARDO S 780.79 fatigue 10/05/2010 OSCAR AVILEZ APRN 780.79 fatigue 10/05/2010 JORGE SOTO, GERARDO S 780.79 fatigue 10/05/2010 JORGE MCDONALDN, GERARDO S 780.79 fatigue 10/05/2010 JORGE SOTO, GERARDO S 780.79 fatigue 10/05/2010 RANJIT PATEL APRNA S 780.79 fatigue 10/05/2010 OSCAR AVILEZ APRN 780.79 fatigue 10/05/2010 OSCAR AVILEZ APRN 780.79 fatigue 10/05/2010 OSCAR AVILEZ APRN 780.79 fatigue 10/23/2010 Ot 787.03 VOMITING ALONE 10/23/2010 Ot 787.91 DIARRHEA 10/23/2010 Ot 789.06 ABDOMINAL PAIN, EPIGASTRIC 04/02/2012 RANJIT PATEL APRNA S 250.00 DIABETES MELLITUS TYPE 2 04/02/2012 ROSCOE TOTH MD 250.00 DIABETES MELLITUS TYPE 2 04/02/2012 250.00 DIABETES MELLITUS TYPE 2 04/02/2012 250.00 DIABETES MELLITUS TYPE 2 04/02/2012 RANJIT PATEL APRNA S 250.00 DIABETES MELLITUS TYPE 2 04/02/2012 OSCAR AVILZE APRN 250.00 DIABETES MELLITUS TYPE 2 04/02/2012 GEORGE PATEL APRNNDA S 250.00 DIABETES MELLITUS TYPE 2 04/02/2012 GEORGE PATEL APRNNDA S 250.00 DIABETES MELLITUS TYPE 2 04/02/2012 GEORGE PATEL APRNNDA S 250.00 DIABETES MELLITUS TYPE 2 04/02/2012 RANJIT PATEL APRNA S 250.00 DIABETES MELLITUS TYPE 2 04/02/2012 OSCAR AVILEZ APRN 250.00 DIABETES MELLITUS TYPE 2 04/02/2012 OSCAR AVILEZ APRN 250.00 DIABETES MELLITUS TYPE 2 04/02/2012 OSCAR AVILEZ APRN 250.00 DIABETES MELLITUS TYPE 2 05/29/2012 GERARDO PATEL APRN S 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 UNSPECIFIED 05/29/2012 ROSCOE TOTH MD 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 UNSPECIFIED 05/29/2012 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 UNSPECIFIED 05/29/2012 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 UNSPECIFIED 05/29/2012 GERARDO PATEL APRN S 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 UNSPECIFIED 05/29/2012 OSCAR AVILEZ APRN 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 UNSPECIFIED 05/29/2012 GERARDO PATEL APRN S 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 UNSPECIFIED 05/29/2012 RANJIT PATEL APRNA S 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 UNSPECIFIED 05/29/2012 GERARDO PATEL APRN S 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 UNSPECIFIED 05/29/2012 GERARDO PATEL APRN S 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 UNSPECIFIED 05/29/2012 OSCAR AVILEZ APRN 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 UNSPECIFIED 05/29/2012 OSCAR AVILEZ APRN 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 UNSPECIFIED 05/29/2012 OSCAR AVILEZ APRN 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 UNSPECIFIED 07/22/2012 RANJIT PATEL APRNA S 250.62 DIABETES W/ NEUROPATHY, TYPE 2 - UNCONTROLLED 07/22/2012 ROSCOE TOTH MD 250.62 DIABETES W/ NEUROPATHY, TYPE 2 - UNCONTROLLED 07/22/2012 250.62 DIABETES W/ NEUROPATHY, TYPE 2 - UNCONTROLLED 07/22/2012 250.62 DIABETES W/ NEUROPATHY, TYPE 2 - UNCONTROLLED 07/22/2012 RANJIT PATEL APRNA S 250.62 DIABETES W/ NEUROPATHY, TYPE 2 - UNCONTROLLED 07/22/2012 OSCAR AVILEZ APRN 250.62 DIABETES W/ NEUROPATHY, TYPE 2 - UNCONTROLLED 07/22/2012 RANJIT PATEL APRNA S 250.62 DIABETES W/ NEUROPATHY, TYPE 2 - UNCONTROLLED 07/22/2012 GEORGE PATEL APRNNDA S 250.62 DIABETES W/ NEUROPATHY, TYPE 2 - UNCONTROLLED 07/22/2012 RANJIT PATEL APRNA S 250.62 DIABETES W/ NEUROPATHY, TYPE 2 - UNCONTROLLED 07/22/2012 RANJIT PATEL APRNA S 250.62 DIABETES W/ NEUROPATHY, TYPE 2 - UNCONTROLLED 07/22/2012 OSCAR AVILEZ APRN 250.62 DIABETES W/ NEUROPATHY, TYPE 2 - UNCONTROLLED 07/22/2012 OSCAR AVILEZ APRN 250.62 DIABETES W/ NEUROPATHY, TYPE 2 - UNCONTROLLED 07/22/2012 OSCAR AVILEZ APRN 250.62 DIABETES W/ NEUROPATHY, TYPE 2 - UNCONTROLLED 09/22/2012 JANEY HAMILTON, ROSCOE 372.30 CONJUNCTIVITIS UNSPECIFIED 09/22/2012 372.30 CONJUNCTIVITIS UNSPECIFIED 09/22/2012 372.30 CONJUNCTIVITIS UNSPECIFIED 09/22/2012 JORGE MCDONALDN, GERARDO S 372.30 CONJUNCTIVITIS UNSPECIFIED 09/22/2012 OSCAR AVILEZ APRN T 372.30 CONJUNCTIVITIS UNSPECIFIED 09/22/2012 JORGE [employer], GERARDO S 372.30 CONJUNCTIVITIS UNSPECIFIED 09/22/2012 JORGE [employer], GERARDO S 372.30 CONJUNCTIVITIS UNSPECIFIED 09/22/2012 JORGE [employer], GERARDO S 372.30 CONJUNCTIVITIS UNSPECIFIED 09/22/2012 JORGE MCDONALDN, GERARDO S 372.30 CONJUNCTIVITIS UNSPECIFIED 09/22/2012 OSCAR AVILEZ APRN 372.30 CONJUNCTIVITIS UNSPECIFIED 09/22/2012 FATMATA SOTO, OSCAR T 372.30 CONJUNCTIVITIS UNSPECIFIED 09/22/2012 OSCAR AVILEZ APRN T 372.30 CONJUNCTIVITIS UNSPECIFIED 11/03/2012 302.72 ERECTILE DISORDER 11/03/2012 356.9 NEUROPATHY 11/03/2012 302.72 ERECTILE DISORDER 11/03/2012 356.9 NEUROPATHY 11/03/2012 JORGE MCDONALDN, GERARDO S 302.72 ERECTILE DISORDER 11/03/2012 JORGE MCDONALDN, GERARDO S 356.9 NEUROPATHY 11/03/2012 OSCAR AVILEZ APRN T 302.72 ERECTILE DISORDER 11/03/2012 OSCAR AVILEZ APRN T 356.9 NEUROPATHY 11/03/2012 JORGE MCDONALDN, GERARDO S 302.72 ERECTILE DISORDER 11/03/2012 JORGE [employer], GERARDO S 356.9 NEUROPATHY 11/03/2012 JORGE [employer], GERARDO S 302.72 ERECTILE DISORDER 11/03/2012 JORGE [employer], GERARDO S 356.9 NEUROPATHY 11/03/2012 JORGE [employer], GERARDO S 302.72 ERECTILE DISORDER 11/03/2012 JORGE [employer], GERARDO S 356.9 NEUROPATHY 11/03/2012 JORGE MCDONALDN, GERARDO S 302.72 ERECTILE DISORDER 11/03/2012 JORGE MCDONALDN, GERARDO S 356.9 NEUROPATHY 11/03/2012 OSCAR AVILEZ APRN 302.72 ERECTILE DISORDER 11/03/2012 OSCAR AVILEZ APRN 356.9 NEUROPATHY 11/03/2012 OSCAR AVILEZ APRN 302.72 ERECTILE DISORDER 11/03/2012 OSCAR AVILEZ APRN 356.9 NEUROPATHY 11/03/2012 OSCAR AVILEZ APRN 302.72 ERECTILE DISORDER 11/03/2012 OSCAR AVILEZ APRN 356.9 NEUROPATHY 03/30/2013 682.7 CELLULITIS AND ABSCESS OF FOOT EXCEPT TOES 03/30/2013 RANJIT PATEL APRNA S 682.7 CELLULITIS AND ABSCESS OF FOOT EXCEPT TOES 03/30/2013 OSCAR AVILEZ APRN 682.7 CELLULITIS AND ABSCESS OF FOOT EXCEPT TOES 03/30/2013 RANJIT PATEL APRNA S 682.7 CELLULITIS AND ABSCESS OF FOOT EXCEPT TOES 03/30/2013 RANJIT PATEL APRNA S 682.7 CELLULITIS AND ABSCESS OF FOOT EXCEPT TOES 03/30/2013 RANJIT PATEL APRNA S 682.7 CELLULITIS AND ABSCESS OF FOOT EXCEPT TOES 03/30/2013 RANJIT PATEL APRNA S 682.7 CELLULITIS AND ABSCESS OF FOOT EXCEPT TOES 03/30/2013 OSCAR AVILEZ APRN 682.7 CELLULITIS AND ABSCESS OF FOOT EXCEPT TOES 03/30/2013 OSCAR AVILEZ APRN 682.7 CELLULITIS AND ABSCESS OF FOOT EXCEPT TOES 03/30/2013 OSCAR AVILEZ APRN 682.7 CELLULITIS AND ABSCESS OF FOOT EXCEPT TOES 08/14/2013 OSCAR AVILEZ APRN 703.9 NAIL DISEASE UNSPEC 08/14/2013 GERARDO PATEL APRN S 703.9 NAIL DISEASE UNSPEC 08/14/2013 GERARDO PATEL APRN S 703.9 NAIL DISEASE UNSPEC 08/14/2013 GERARDO PATEL APRN S 703.9 NAIL DISEASE UNSPEC 08/14/2013 GERARDO PATEL APRN S 703.9 NAIL DISEASE UNSPEC 08/14/2013 OSCAR AVILEZ APRN 703.9 NAIL DISEASE UNSPEC 08/14/2013 OSCAR AVILEZ APRN 703.9 NAIL DISEASE UNSPEC 08/14/2013 OSCAR AVILEZ APRN 703.9 NAIL DISEASE UNSPEC 02/11/2014 GERARDO PATEL APRN S 250.80 DIABETES WITH OTHER SPECIFIED MANIFESTATIONS TYPE II OR UNSPECIFIED TYPE NOT STATED UNCONTROLLED 02/11/2014 GERARDO PATEL APRN S 250.80 DIABETES WITH OTHER SPECIFIED MANIFESTATIONS TYPE II OR UNSPECIFIED TYPE NOT STATED UNCONTROLLED 02/11/2014 GERARDO PATEL APRN S 250.80 DIABETES WITH OTHER SPECIFIED MANIFESTATIONS TYPE II OR UNSPECIFIED TYPE NOT STATED UNCONTROLLED 02/11/2014 OSCAR AVILEZ APRN 250.80 DIABETES WITH OTHER SPECIFIED MANIFESTATIONS TYPE II OR UNSPECIFIED TYPE NOT STATED UNCONTROLLED 02/11/2014 OSCAR AVILEZ APRN 250.80 DIABETES WITH OTHER SPECIFIED MANIFESTATIONS TYPE II OR UNSPECIFIED TYPE NOT STATED UNCONTROLLED 02/11/2014 OSCAR AVILEZ APRN 250.80 DIABETES WITH OTHER SPECIFIED MANIFESTATIONS TYPE II OR UNSPECIFIED TYPE NOT STATED UNCONTROLLED 04/15/2014 GERARDO PATEL APRN S 959.7 OTHER AND UNSPECIFIED INJURY TO KNEE LEG ANKLE AND FOOT 04/15/2014 OSCAR AVILEZ APRN 959.7 OTHER AND UNSPECIFIED INJURY TO KNEE LEG ANKLE AND FOOT 04/15/2014 OSCAR AVILEZ APRN 959.7 OTHER AND UNSPECIFIED INJURY TO KNEE LEG ANKLE AND FOOT 04/15/2014 OSCAR AVILEZ APRN 959.7 OTHER AND UNSPECIFIED INJURY TO KNEE LEG ANKLE AND FOOT 06/07/2014 OSCAR AVILEZ APRN 893.0 OPEN WOUND OF TOE(S) WITHOUT COMPLICATION 06/07/2014 OSCAR AVILEZ APRN 893.0 OPEN WOUND OF TOE(S) WITHOUT COMPLICATION 05/04/2015 PAULIE MILLER MD Ot 250.60 DIAB W NEURO MANIFEST, TYPE II OR UNSPEC 05/04/2015 PAULIE MILLER MD Ot 250.80 DIAB W OTH SPEC MANIFEST, TYPE II OR UNS 05/04/2015 PAULIE MILLER MD Ot 357.2 NEUROPATHY IN DIABETES 05/04/2015 PAULIE MILLER MD Ot 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 05/04/2015 PAULIE MILLER MD Ot 707.15 ULCER OF OTHER PART OF FOOT 05/06/2015 PAULIE MILLER MD, Ot 250.60 05/06/2015 PAULIE MILLER MD, Ot 250.80 05/06/2015 PAULIE MILLER MD G Ot 357.2 05/06/2015 PAUL HAMILTON, PAULIE Serrano Ot 440.23 05/06/2015 PAUL HAMILTON, PAULIE Serrano Ot 707.15 05/26/2015 PAUL HAMILTON, PAULIE Serrano Ot E11.42 05/26/2015 PAUL HAMILTON, PAULIE Serrano Ot E11.621 05/26/2015 PAUL HAMILTON, PAULIE Serrano Ot I70.25 05/26/2015 PAUL HAMILTON, PAULIE Serrano Ot L97.509 05/26/2015 PAUL HAMILTON, PAULIE Serrano Ot 250.80 05/26/2015 PAUL HAMILTON, PAULIE Serrano Ot 707.15 05/26/2015 Ot 575.8 05/26/2015 PAUL HAMILTON, PAULIE Serrano Ot E11.42 05/26/2015 PAUL HAMILTON, PAULIE Serrano Ot E11.621 05/26/2015 PAUL HAMILTON, PAULIE Serrano Ot I70.25 05/26/2015 PAUL HAMILTON, PAULIE Serrano Ot L97.509 08/04/2015 PAUL HAMILTON, PAULIE Serrano Ot E11.42 TYPE 2 DIABETES MELLITUS WITH DIABETIC P 08/04/2015 PAUL HAMILTON, PAULIE Serrano Ot E11.621 TYPE 2 DIABETES MELLITUS WITH FOOT ULCER 08/04/2015 PAUL HAMILTON, PAULIE Serrano Ot I70.25 ATHSCL [place] ARTERIES OF EXTREMITIES W 08/04/2015 PAUL HAMILTON, PAULIE Serrano Ot L97.509 NON-PRESSURE CHRONIC ULCER OTH PRT UNSP 08/08/2015 PAUL HAMILTON, PAULIE Serrano Ot 250.80 08/08/2015 PAUL HAMILTON, PAULIE Serraon Ot 707.15 08/08/2015 Ot 575.8 08/08/2015 PAUL HAMILTON, PAULIE Serrano Ot E11.42 08/08/2015 PAUL HAMILTON, PAULIE Serrano Ot E11.621 08/08/2015 PAUL HAMILTON, PAULIE Serrano Ot I70.25 08/08/2015 PAUL HAMILTON, PAULIE Serrano Ot L97.509 08/09/2015 PAUL HAMILTON, PAULIE Serrano Ot 250.60 08/09/2015 PAUL HAMILTON, PAULIE Serrano Ot 250.80 08/09/2015 PAUL HAMILTON, PAULIE Serrano Ot 357.2 08/09/2015 PAUL HAMILTON, PAULIE Serrano Ot 440.23 08/09/2015 PAUL HAMILTON, PAULIE Serrano Ot 707.15 08/09/2015 PAUL HAMILTON, PAULIE Serrano Ot 707.9 08/09/2015 PAUL HAMILTON, PAULIE Serrano Ot E11.42 08/09/2015 PAUL HAMILTON, PAULIE Serrano Ot E11.621 08/09/2015 PAUL HAMILTON, PAULIE Serrano Ot I70.25 08/09/2015 PAUL HAMILTON, PAULIE Serrano Ot L97.509 08/22/2015 PAUL HAMILTON, PAULIE Serrano Ot 250.80 08/22/2015 PAUL HAMILTON, PAULIE Serrano Ot 707.15 09/19/2015 PAUL HAMILTON, PAULIE Serrano Ot 250.80 09/19/2015 PAUL HAMILTON, PAULIE Serrano Ot 707.15 09/26/2015 PAUL HAMILTON, PAULIE Serrano Ot 250.80 09/26/2015 PAUL HAMILTON, PAULIE Serrano Ot 707.15 10/18/2015 PAUL HAMILTON, PAULIE Serrano Ot E11.621 10/18/2015 PAUL HAMILTON, PAULIE Serrano Ot E11.621 10/20/2015 PAUL HAMILTON, PAULIE Serrano Ot E11.621 10/20/2015 Ot 575.8 10/20/2015 PAUL HAMILTON, PAULIE Serrano Ot E11.42 10/20/2015 PAUL HAMILTON, PAULIE Serrano Ot E11.621 10/20/2015 PAUL HAMILTON, PAULIE Serrano Ot I70.25 10/20/2015 PAUL HAMILTON, PAULIE Serrano Ot L97.509 10/20/2015 PAUL HAMILTON, PAULIE Serrano Ot E11.42 10/20/2015 PAUL HAMILTON, PAULIE Serrano Ot E11.621 10/20/2015 PAUL HAMILTON, PAULIE Serrano Ot L97.513 10/20/2015 PAUL HAMILTON, PAULIE Serrano Ot E11.621 11/06/2015 PAUL HAMILTON, PAULIE Serrano Ot E11.42 TYPE 2 DIABETES MELLITUS WITH DIABETIC P 11/06/2015 PAUL HAMILTON, PAULIE Serrano Ot E11.621 TYPE 2 DIABETES MELLITUS WITH FOOT ULCER 11/06/2015 PAUL HAMILTON, PAULIE Serrano Ot I70.25 ATHSCL [place] ARTERIES OF EXTREMITIES W 11/06/2015 PAUL HAMILTON, PAULIE Serrano Ot L97.509 NON-PRESSURE CHRONIC ULCER OTH PRT UNSP 11/08/2015 PAUL HAMILTON, PAULIE Serrano Ot E11.42 11/08/2015 PAUL HAMILTON, PAULIE Serrano Ot E11.621 11/08/2015 PAUL HAMILTON, PAULIE Serrano Ot L97.514 11/08/2015 PAUL HAMILTON, PAULIE Serrano Ot M86.171 11/08/2015 PAULIE MILLER MD Ot E11.42 11/08/2015 PAULIE MILLER MD Ot E11.621 11/08/2015 PAULIE MILLER MD Ot L97.514 11/08/2015 PAULIE MILLER MD, Ot M86.171 11/08/2015 PAULIE MILLER MD Ot E11.42 11/08/2015 PAUL HAMILTON, PAULIE Serrano Ot E11.621 11/08/2015 PAUL HAMILTON, PAULIE Serrano Ot I70.25 11/08/2015 PAULIE MILLER MD Ot L97.509 11/08/2015 PAULIE MILLER MD Ot E11.42 11/08/2015 PAUL HAIMLTON, PAULIE Serrano Ot E11.621 11/08/2015 PAUL HAMILTON, PAULIE Serrano Ot I70.25 11/08/2015 PAULIE MILLER MD Ot L97.509 12/15/2015 PAULIE MILLER MD Ot 250.80 DIAB W OTH SPEC MANIFEST, TYPE II OR UNS 12/15/2015 PAULIE MILLER MD Ot 707.15 ULCER OF OTHER PART OF FOOT 12/15/2015 PAULIE MILLER MD Ot E11.42 TYPE 2 DIABETES MELLITUS WITH DIABETIC P 12/15/2015 PAULIE MILLER MD Ot E11.621 TYPE 2 DIABETES MELLITUS WITH FOOT ULCER 12/15/2015 PAULIE MILLER MD Ot L97.513 NON-PRS CHRONIC ULCER OTH PRT RIGHT FOOT 12/15/2015 PAULIE MILLER MD Ot E11.621 TYPE 2 DIABETES MELLITUS WITH FOOT ULCER 12/15/2015 PAULIE MILLER MD Ot E11.42 TYPE 2 DIABETES MELLITUS WITH DIABETIC P 12/15/2015 PAULIE MILLER MD Ot E11.621 TYPE 2 DIABETES MELLITUS WITH FOOT ULCER 12/15/2015 PAULIE MILLER MD Ot L97.514 NON-PRS CHRONIC ULCER OTH PRT RIGHT FOOT 12/15/2015 PAULIE MILLER MD Ot M86.171 OTHER ACUTE OSTEOMYELITIS, RIGHT ANKLE A 12/15/2015 PAULIE MILLER MD Ot L97.514 NON-PRS CHRONIC ULCER OTH PRT RIGHT FOOT 12/15/2015 JIMENA DPMROSCOE Ot E11.9 TYPE 2 DIABETES MELLITUS WITHOUT COMPLIC 12/15/2015 ROSCOE HESS DPM, Ot M86.9 OSTEOMYELITIS, UNSPECIFIED 12/26/2015 PAULIE MILLER MD Ot E11.42 TYPE 2 DIABETES MELLITUS WITH DIABETIC P 12/26/2015 PAULIE MILLER MD, Ot E11.621 TYPE 2 DIABETES MELLITUS WITH FOOT ULCER 12/26/2015 PAULIE MILLER MD, Ot I70.25 ATHSCL [place] ARTERIES OF EXTREMITIES W 12/26/2015 PAULIE MILLER MD, Ot L97.509 NON-PRESSURE CHRONIC ULCER OTH PRT UNSP 01/16/2016 Ot 575.8 DIS OF GALLBLADDER NEC 01/16/2016 PAULIE MILLER MD Ot E11.42 TYPE 2 DIABETES MELLITUS WITH DIABETIC P 01/16/2016 PAULIE MILLER MD, Ot E11.621 TYPE 2 DIABETES MELLITUS WITH FOOT ULCER 01/16/2016 PAULIE MILLER MD, Ot L97.513 NON-PRS CHRONIC ULCER OTH PRT RIGHT FOOT 01/16/2016 PAULIE MILLER MD, Ot E11.621 TYPE 2 DIABETES MELLITUS WITH FOOT ULCER 01/16/2016 PAULIE MILLER MD, Ot E11.42 TYPE 2 DIABETES MELLITUS WITH DIABETIC P 01/16/2016 PAULIE MILLER MD, Ot E11.621 TYPE 2 DIABETES MELLITUS WITH FOOT ULCER 01/16/2016 PAULIE MILLER MD Ot L97.514 NON-PRS CHRONIC ULCER OTH PRT RIGHT FOOT 01/16/2016 PAULIE MILLER MD Ot M86.171 OTHER ACUTE OSTEOMYELITIS, RIGHT ANKLE A 01/16/2016 PAULIE MILLER MD, Ot E11.42 TYPE 2 DIABETES MELLITUS WITH DIABETIC P 01/16/2016 PAULIE MILLER MD Ot E11.621 TYPE 2 DIABETES MELLITUS WITH FOOT ULCER 01/16/2016 PAULIE MILLER MD Ot L97.513 NON-PRS CHRONIC ULCER OTH PRT RIGHT FOOT 01/16/2016 PAULIE MILLER MD, Ot E11.621 TYPE 2 DIABETES MELLITUS WITH FOOT ULCER 01/16/2016 PAULIE MILLER MD, Ot E11.42 TYPE 2 DIABETES MELLITUS WITH DIABETIC P 01/16/2016 PAULIE MILLER MD, Ot E11.621 TYPE 2 DIABETES MELLITUS WITH FOOT ULCER 01/16/2016 PAULIE MILLER MD Ot L97.514 NON-PRS CHRONIC ULCER OTH PRT RIGHT FOOT 01/16/2016 PAULIE MILLER MD Ot M86.171 OTHER ACUTE OSTEOMYELITIS, RIGHT ANKLE A 01/16/2016 Ot 575.8 DIS OF GALLBLADDER NEC 01/16/2016 PAULIE MILLER MD Ot E11.42 TYPE 2 DIABETES MELLITUS WITH DIABETIC P 01/16/2016 PAULIE MILLER MD, Ot E11.621 TYPE 2 DIABETES MELLITUS WITH FOOT ULCER 01/16/2016 PAULIE MILLER MD, Ot L97.513 NON-PRS CHRONIC ULCER OTH PRT RIGHT FOOT 01/16/2016 PAULIE MILLER MD, Ot E11.621 TYPE 2 DIABETES MELLITUS WITH FOOT ULCER 01/16/2016 PAULIE MILLER MD, Ot E11.42 TYPE 2 DIABETES MELLITUS WITH DIABETIC P 01/16/2016 PAULIE MILLER MD, Ot E11.621 TYPE 2 DIABETES MELLITUS WITH FOOT ULCER 01/16/2016 PAULIE MILLER MD, Ot L97.514 NON-PRS CHRONIC ULCER OTH PRT RIGHT FOOT 01/16/2016 PAULIE MILLER MD Ot M86.171 OTHER ACUTE OSTEOMYELITIS, RIGHT ANKLE A 01/17/2016 PAULIE MILLER MD Ot E11.621 TYPE 2 DIABETES MELLITUS WITH FOOT ULCER 02/03/2016 PAULIE MILLER MD Ot E11.42 TYPE 2 DIABETES MELLITUS WITH DIABETIC P 02/03/2016 PAULIE MILLER MD Ot E11.621 TYPE 2 DIABETES MELLITUS WITH FOOT ULCER 02/03/2016 PAULIE MILLER MD Ot L97.513 NON-PRS CHRONIC ULCER OTH PRT RIGHT FOOT 02/03/2016 PAULIE MILLER MD, Ot E11.621 TYPE 2 DIABETES MELLITUS WITH FOOT ULCER 02/03/2016 PAULIE MILLER MD Ot E11.42 TYPE 2 DIABETES MELLITUS WITH DIABETIC P 02/03/2016 PAULIE MILLER MD Ot E11.621 TYPE 2 DIABETES MELLITUS WITH FOOT ULCER 02/03/2016 PAULIE MILLER MD Ot L97.514 NON-PRS CHRONIC ULCER OTH PRT RIGHT FOOT 02/03/2016 PAULIE MILLER MD Ot M86.171 OTHER ACUTE OSTEOMYELITIS, RIGHT ANKLE A 02/15/2016 PAULIE MILLER MD Ot 250.80 DIAB W OTH SPEC MANIFEST, TYPE II OR UNS 02/15/2016 PAULIE MILLER MD Ot 707.15 ULCER OF OTHER PART OF FOOT 02/15/2016 PAULIE MILLER MD Ot E11.42 TYPE 2 DIABETES MELLITUS WITH DIABETIC P 02/15/2016 PAULIE MILLER MD, Ot E11.621 TYPE 2 DIABETES MELLITUS WITH FOOT ULCER 02/15/2016 PAULIE MILLER MD Ot L97.513 NON-PRS CHRONIC ULCER OTH PRT RIGHT FOOT 02/15/2016 PAULIE MILLER MD, Ot E11.621 TYPE 2 DIABETES MELLITUS WITH FOOT ULCER 02/15/2016 PAULIE MILLER MD, Ot E11.42 TYPE 2 DIABETES MELLITUS WITH DIABETIC P 02/15/2016 PAULIE MILLER MD, Ot E11.621 TYPE 2 DIABETES MELLITUS WITH FOOT ULCER 02/15/2016 PAULIE MILLER MD, Ot L97.514 NON-PRS CHRONIC ULCER OTH PRT RIGHT FOOT 02/15/2016 PAULIE MILLER MD, Ot M86.171 OTHER ACUTE OSTEOMYELITIS, RIGHT ANKLE A 02/15/2016 PAULIE MILLER MD, Ot L97.514 NON-PRS CHRONIC ULCER OTH PRT RIGHT FOOT 02/16/2016 PAULIE MILLER MD Ot 250.80 DIAB W OTH SPEC MANIFEST, TYPE II OR UNS 02/16/2016 PAULIE MILLER MD Ot 707.15 ULCER OF OTHER PART OF FOOT 02/16/2016 PAULIE MILLER MD, Ot E11.42 TYPE 2 DIABETES MELLITUS WITH DIABETIC P 02/16/2016 PAULIE MILLER MD, Ot E11.621 TYPE 2 DIABETES MELLITUS WITH FOOT ULCER 02/16/2016 PAULIE MILLER MD, Ot L97.513 NON-PRS CHRONIC ULCER OTH PRT RIGHT FOOT 02/16/2016 PAULIE MILLER MD, Ot E11.621 TYPE 2 DIABETES MELLITUS WITH FOOT ULCER 02/16/2016 PAULIE MILLER MD Ot E11.42 TYPE 2 DIABETES MELLITUS WITH DIABETIC P 02/16/2016 PAULIE MILLER MD Ot E11.621 TYPE 2 DIABETES MELLITUS WITH FOOT ULCER 02/16/2016 PAULIE MILLER MD Ot L97.514 NON-PRS CHRONIC ULCER OTH PRT RIGHT FOOT 02/16/2016 PAULIE MILLER MD Ot M86.171 OTHER ACUTE OSTEOMYELITIS, RIGHT ANKLE A 02/16/2016 PAULIE MILLER MD, Ot L97.514 NON-PRS CHRONIC ULCER OTH PRT RIGHT FOOT 02/16/2016 Ot 575.8 DIS OF GALLBLADDER NEC 02/16/2016 PAULIE MILLER MD Ot E11.42 TYPE 2 DIABETES MELLITUS WITH DIABETIC P 02/16/2016 PAULIE MILLER MD Ot E11.621 TYPE 2 DIABETES MELLITUS WITH FOOT ULCER 02/16/2016 PAULIE MILLER MD Ot L97.513 NON-PRS CHRONIC ULCER OTH PRT RIGHT FOOT 02/16/2016 PAULIE MILLER MD, Ot E11.621 TYPE 2 DIABETES MELLITUS WITH FOOT ULCER 02/16/2016 PAULIE MILLER MD, Ot E11.42 TYPE 2 DIABETES MELLITUS WITH DIABETIC P 02/16/2016 PAULIE MILLER MD, Ot E11.621 TYPE 2 DIABETES MELLITUS WITH FOOT ULCER 02/16/2016 PAULIE MILLER MD, Ot L97.514 NON-PRS CHRONIC ULCER OTH PRT RIGHT FOOT 02/16/2016 PAULIE MILLER MD, Ot M86.171 OTHER ACUTE OSTEOMYELITIS, RIGHT ANKLE A 02/16/2016 PAULIE MILLER MD, Ot L97.514 NON-PRS CHRONIC ULCER OTH PRT RIGHT FOOT 02/16/2016 PAULIE MILLER MD, Ot L97.514 NON-PRS CHRONIC ULCER OTH PRT RIGHT FOOT 02/16/2016 JUAN DIEGO GREEN DO Ot E11.9 TYPE 2 DIABETES MELLITUS WITHOUT COMPLIC 02/16/2016 JUAN DIEGO GREEN DO Ot K35.80 UNSPECIFIED ACUTE APPENDICITIS 02/16/2016 JUAN DIEGO GREEN DO Ot Z79.4 AUTOMOBILE MECHANIC RADIATOR (CURRENT) USE OF INSULIN 02/17/2016 PAULIE MILLER MD, Ot L97.514 NON-PRS CHRONIC ULCER OTH PRT RIGHT FOOT 02/23/2016 JUAN DIEGO GREEN DO Ot E11.9 TYPE 2 DIABETES MELLITUS WITHOUT COMPLIC 02/23/2016 JUAN DIEGO GREEN DO B Ot K35.80 UNSPECIFIED ACUTE APPENDICITIS 02/23/2016 JUAN DIEGO GREEN DO Ot Z79.4 AUTOMOBILE MECHANIC RADIATOR (CURRENT) USE OF INSULIN 03/09/2016 PAULIE MILLER MD, Ot L97.514 NON-PRS CHRONIC ULCER OTH PRT RIGHT FOOT 05/13/2018 PAULIE MILLER MD Ot 250.80 DIAB W OTH SPEC MANIFEST, TYPE II OR UNS 05/13/2018 PAULIE MILLER MD Ot 707.15 ULCER OF OTHER PART OF FOOT 05/13/2018 PAULIE MILLER MD, Ot E11.42 TYPE 2 DIABETES MELLITUS WITH DIABETIC P 05/13/2018 PAULIE MILLER MD Ot E11.621 TYPE 2 DIABETES MELLITUS WITH FOOT ULCER 05/13/2018 PAULIE MILLER MD, Ot L97.513 NON-PRS CHRONIC ULCER OTH PRT RIGHT FOOT 05/13/2018 PAULIE MILLER MD, Ot E11.621 TYPE 2 DIABETES MELLITUS WITH FOOT ULCER 05/13/2018 PAULIE MILLER MD, Ot E11.42 TYPE 2 DIABETES MELLITUS WITH DIABETIC P 05/13/2018 PAULIE MILLER MD, Ot E11.621 TYPE 2 DIABETES MELLITUS WITH FOOT ULCER 05/13/2018 PAULIE MILLER MD, Ot L97.514 NON-PRS CHRONIC ULCER OTH PRT RIGHT FOOT 05/13/2018 PAULIE MILLER MD, Ot M86.171 OTHER ACUTE OSTEOMYELITIS, RIGHT ANKLE A 05/13/2018 PAULIE MILLER MD, Ot L97.514 NON-PRS CHRONIC ULCER OTH PRT RIGHT FOOT 05/14/2018 PAULIE MILLER MD Ot 250.80 DIAB W OTH SPEC MANIFEST, TYPE II OR UNS 05/14/2018 PAULIE MILLER MD Ot 707.15 ULCER OF OTHER PART OF FOOT 05/14/2018 PAULIE MILLER MD, Ot E11.42 TYPE 2 DIABETES MELLITUS WITH DIABETIC P 05/14/2018 PAULIE MILLER MD, Ot E11.621 TYPE 2 DIABETES MELLITUS WITH FOOT ULCER 05/14/2018 PAULIE MILLER MD, Ot L97.513 NON-PRS CHRONIC ULCER OTH PRT RIGHT FOOT 05/14/2018 PAULIE MILLER MD, Ot E11.621 TYPE 2 DIABETES MELLITUS WITH FOOT ULCER 05/14/2018 PAULIE MILLER MD, Ot E11.42 TYPE 2 DIABETES MELLITUS WITH DIABETIC P 05/14/2018 PAULIE MILLER MD, Ot E11.621 TYPE 2 DIABETES MELLITUS WITH FOOT ULCER 05/14/2018 PAULIE MILLER MD, Ot L97.514 NON-PRS CHRONIC ULCER OTH PRT RIGHT FOOT 05/14/2018 PAULIE MILLER MD, Ot M86.171 OTHER ACUTE OSTEOMYELITIS, RIGHT ANKLE A 05/14/2018 PAULIE MILLER MD, Ot L97.514 NON-PRS CHRONIC ULCER OTH PRT RIGHT FOOT 05/14/2018 PAULIE MILLER MD Ot 250.80 DIAB W OTH SPEC MANIFEST, TYPE II OR UNS 05/14/2018 PAULIE MILLER MD Ot 707.15 ULCER OF OTHER PART OF FOOT 05/14/2018 PAULIE MILLER MD, Ot E11.42 TYPE 2 DIABETES MELLITUS WITH DIABETIC P 05/14/2018 PAULIE MILLER MD Ot E11.621 TYPE 2 DIABETES MELLITUS WITH FOOT ULCER 05/14/2018 PAULIE MILLER MD Ot L97.513 NON-PRS CHRONIC ULCER OTH PRT RIGHT FOOT 05/14/2018 PAULIE MILLER MD Ot E11.621 TYPE 2 DIABETES MELLITUS WITH FOOT ULCER 05/14/2018 PAULIE MILLER MD Ot E11.42 TYPE 2 DIABETES MELLITUS WITH DIABETIC P 05/14/2018 PAULIE MILLER MD Ot E11.621 TYPE 2 DIABETES MELLITUS WITH FOOT ULCER 05/14/2018 PAULIE MILLER MD Ot L97.514 NON-PRS CHRONIC ULCER OTH PRT RIGHT FOOT 05/14/2018 PAULIE MILLER MD Ot M86.171 OTHER ACUTE OSTEOMYELITIS, RIGHT ANKLE A 05/14/2018 PAULIE MILLER MD Ot L97.514 NON-PRS CHRONIC ULCER OTH PRT RIGHT FOOT 05/16/2018 PAULIE MILLER MD Ot E11.42 TYPE 2 DIABETES MELLITUS WITH DIABETIC P 05/16/2018 PAULIE MILLER MD Ot E11.621 TYPE 2 DIABETES MELLITUS WITH FOOT ULCER 05/16/2018 PAULIE MILLER MD Ot L03.115 CELLULITIS OF RIGHT LOWER LIMB 05/16/2018 PAULIE MILLER MD Ot L97.512 NON-PRS CHRONIC ULCER OTH PRT RIGHT FOOT 05/16/2018 PAULIE MILLER MD Ot L97.513 NON-PRS CHRONIC ULCER OTH PRT RIGHT FOOT 05/16/2018 PAULIE MILLER MD Ot L97.522 NON-PRS CHRONIC ULCER OTH PRT LEFT FOOT 05/16/2018 PAULIE MILLER MD Ot E11.42 TYPE 2 DIABETES MELLITUS WITH DIABETIC P 05/16/2018 PAULIE MILLER MD Ot E11.621 TYPE 2 DIABETES MELLITUS WITH FOOT ULCER 05/16/2018 PAULIE MILLER MD Ot L03.115 CELLULITIS OF RIGHT LOWER LIMB 05/16/2018 PAULIE MILLER MD Ot L97.512 NON-PRS CHRONIC ULCER OTH PRT RIGHT FOOT 05/16/2018 PAULIE MILLER MD Ot L97.513 NON-PRS CHRONIC ULCER OTH PRT RIGHT FOOT 05/16/2018 PAULIE MILLER MD Ot L97.522 NON-PRS CHRONIC ULCER OTH PRT LEFT FOOT 05/16/2018 PAULIE MILLER MD Ot E11.42 TYPE 2 DIABETES MELLITUS WITH DIABETIC P 05/16/2018 PAULIE MILLER MD Ot E11.621 TYPE 2 DIABETES MELLITUS WITH FOOT ULCER 05/16/2018 PAULIE MILLER MD Ot L03.115 CELLULITIS OF RIGHT LOWER LIMB 05/16/2018 PAULIE MILLER MD Ot L97.512 NON-PRS CHRONIC ULCER OTH PRT RIGHT FOOT 05/16/2018 PAULIE MILLER MD Ot L97.513 NON-PRS CHRONIC ULCER OTH PRT RIGHT FOOT 05/16/2018 PAULIE MILLER MD Ot L97.522 NON-PRS CHRONIC ULCER OTH PRT LEFT FOOT 05/22/2018 PAULIE MILLER MD Ot E11.42 TYPE 2 DIABETES MELLITUS WITH DIABETIC P 05/22/2018 PAULIE MILLER MD, Ot E11.621 TYPE 2 DIABETES MELLITUS WITH FOOT ULCER 05/22/2018 PAULIE MILLER MD Ot L03.115 CELLULITIS OF RIGHT LOWER LIMB 05/22/2018 PAULIE MILLER MD Ot L97.512 NON-PRS CHRONIC ULCER OTH PRT RIGHT FOOT 05/22/2018 PAULIE MILLER MD Ot L97.513 NON-PRS CHRONIC ULCER OTH PRT RIGHT FOOT 05/22/2018 PAULIE MILLER MD Ot L97.522 NON-PRS CHRONIC ULCER OTH PRT LEFT FOOT 05/28/2018 PAULIE MILLER MD Ot E11.42 TYPE 2 DIABETES MELLITUS WITH DIABETIC P 05/28/2018 PAULIE MILLER MD Ot E11.621 TYPE 2 DIABETES MELLITUS WITH FOOT ULCER 05/28/2018 PAULIE MILLER MD Ot L03.115 CELLULITIS OF RIGHT LOWER LIMB 05/28/2018 PAULIE MILLER MD Ot L97.512 NON-PRS CHRONIC ULCER OTH PRT RIGHT FOOT 05/28/2018 PAULIE MILLER MD Ot L97.522 NON-PRS CHRONIC ULCER OTH PRT LEFT FOOT 05/29/2018 PAULIE MILLER MD Ot E11.42 TYPE 2 DIABETES MELLITUS WITH DIABETIC P 05/29/2018 PAULIE MILLER MD Ot E11.621 TYPE 2 DIABETES MELLITUS WITH FOOT ULCER 05/29/2018 PAULIE MILLER MD Ot L03.115 CELLULITIS OF RIGHT LOWER LIMB 05/29/2018 PAULIE MILLER MD Ot L97.512 NON-PRS CHRONIC ULCER OTH PRT RIGHT FOOT 05/29/2018 PAULIE MILLER MD Ot L97.513 NON-PRS CHRONIC ULCER OTH PRT RIGHT FOOT 05/29/2018 PAULIE MILLER MD Ot L97.522 NON-PRS CHRONIC ULCER OTH PRT LEFT FOOT 05/29/2018 PAULIE MILLER MD Ot E11.42 TYPE 2 DIABETES MELLITUS WITH DIABETIC P 05/29/2018 PAULIE MILLER MD Ot E11.621 TYPE 2 DIABETES MELLITUS WITH FOOT ULCER 05/29/2018 PAULIE MILLER MD Ot L03.115 CELLULITIS OF RIGHT LOWER LIMB 05/29/2018 PAULIE MILLER MD, Ot L97.512 NON-PRS CHRONIC ULCER OTH PRT RIGHT FOOT 05/29/2018 PAULIE MILLER MD, Ot L97.513 NON-PRS CHRONIC ULCER OTH PRT RIGHT FOOT 05/29/2018 PAULIE MILLER MD, Ot L97.522 NON-PRS CHRONIC ULCER OTH PRT LEFT FOOT 06/03/2018 PAULIE MILLER MD Ot E11.42 TYPE 2 DIABETES MELLITUS WITH DIABETIC P 06/03/2018 PAULIE MILLER MD Ot E11.621 TYPE 2 DIABETES MELLITUS WITH FOOT ULCER 06/03/2018 PAULIE MILLER MD Ot L97.512 NON-PRS CHRONIC ULCER OTH PRT RIGHT FOOT 06/03/2018 PAULIE MILLER MD Ot L97.522 NON-PRS CHRONIC ULCER OTH PRT LEFT FOOT 06/04/2018 PAULIE MILLER MD Ot E11.42 TYPE 2 DIABETES MELLITUS WITH DIABETIC P 06/04/2018 PAULIE MILLER MD Ot E11.621 TYPE 2 DIABETES MELLITUS WITH FOOT ULCER 06/04/2018 PAULIE MILLER MD Ot L03.115 CELLULITIS OF RIGHT LOWER LIMB 06/04/2018 PAULIE MILLER MD Ot L97.512 NON-PRS CHRONIC ULCER OTH PRT RIGHT FOOT 06/04/2018 PAULIE MILLER MD Ot L97.513 NON-PRS CHRONIC ULCER OTH PRT RIGHT FOOT 06/04/2018 PAULIE MILLER MD Ot L97.522 NON-PRS CHRONIC ULCER OTH PRT LEFT FOOT 06/12/2018 PAULIE MILLER MD Ot E11.42 TYPE 2 DIABETES MELLITUS WITH DIABETIC P 06/12/2018 PAULIE MILLER MD Ot E11.621 TYPE 2 DIABETES MELLITUS WITH FOOT ULCER 06/12/2018 PAUL HAMILTON, PAULIE Serrano Ot L03.115 CELLULITIS OF RIGHT LOWER LIMB 06/12/2018 PAUL HAMILTON, PAULIE Serrano Ot L97.512 NON-PRS CHRONIC ULCER OTH PRT RIGHT FOOT 06/12/2018 PAUL HAMILTON, PAULIE Serrano Ot L97.522 NON-PRS CHRONIC ULCER OTH PRT LEFT FOOT 06/20/2018 ELOINA ROSARIO MD, Ot E11.42 TYPE 2 DIABETES MELLITUS WITH DIABETIC P 06/20/2018 ELOINA ROSARIO MD Ot E11.621 TYPE 2 DIABETES MELLITUS WITH FOOT ULCER 06/20/2018 ELOINA ROSARIO MD Ot L97.512 NON-PRS CHRONIC ULCER OTH PRT RIGHT FOOT 07/04/2018 ELOINA ROSARIO MD, Ot E11.42 TYPE 2 DIABETES MELLITUS WITH DIABETIC P 07/04/2018 ELOINA ROSARIO MD, Ot E11.621 TYPE 2 DIABETES MELLITUS WITH FOOT ULCER 07/04/2018 ELOINA ROSARIO MD, Ot L97.516 NON-PRS CHR ULC OTH PRT R FOOT WITH BNE 07/11/2018 ELOINA ROSARIO MD Ot A49.9 BACTERIAL INFECTION, UNSPECIFIED 07/11/2018 ELOINA ROSARIO MD Ot E11.42 TYPE 2 DIABETES MELLITUS WITH DIABETIC P 07/11/2018 ELOINA ROSARIO MD Ot E11.621 TYPE 2 DIABETES MELLITUS WITH FOOT ULCER 07/11/2018 ELOINA ROSARIO MD Ot L97.516 NON-PRS CHR ULC OT PRT R FOOT WITH BNE 07/18/2018 ELOINA ROSARIO MD Ot A49.9 BACTERIAL INFECTION, UNSPECIFIED 07/18/2018 ELOINA ROSARIO MD Ot E11.42 TYPE 2 DIABETES MELLITUS WITH DIABETIC P 07/18/2018 ELOINA ROSARIO MD Ot E11.621 TYPE 2 DIABETES MELLITUS WITH FOOT ULCER 07/18/2018 ELOINA ROSARIO MD Ot L97.516 NON-PRS CHR ULC OTH PRT R FOOT WITH BNE 07/18/2018 ELOINA ROSARIO MD Ot A49.9 BACTERIAL INFECTION, UNSPECIFIED 07/18/2018 ELOINA ROSARIO MD Ot E11.42 TYPE 2 DIABETES MELLITUS WITH DIABETIC P 07/18/2018 ELOINA ROSARIO MD Ot E11.621 TYPE 2 DIABETES MELLITUS WITH FOOT ULCER 07/18/2018 ELOINA ROSARIO MD Ot L97.516 NON-PRS CHR ULC OTH PRT R FOOT WITH BNE 07/21/2018 ELOINA ROSARIO MD Ot A49.9 BACTERIAL INFECTION, UNSPECIFIED 07/21/2018 ELOINA ROSARIO MD Ot E11.42 TYPE 2 DIABETES MELLITUS WITH DIABETIC P 07/21/2018 ELOINA ROSARIO MD Ot E11.621 TYPE 2 DIABETES MELLITUS WITH FOOT ULCER 07/21/2018 ELOINA ROSRAIO MD, Ot L97.516 NON-PRS [facility] ULC OTH PRT R FOOT WITH BNE 07/25/2018 ELOINA ROSARIO MD, Ot E11.42 TYPE 2 DIABETES MELLITUS WITH DIABETIC P 07/25/2018 ELOINA ROSARIO MD Ot E11.621 TYPE 2 DIABETES MELLITUS WITH FOOT ULCER 07/25/2018 ELOINA ROSARIO MD, Ot L97.516 NON-PRS [facility] ULC OTH PRT R FOOT WITH BNE 07/30/2018 ELOINA ROSARIO MD, Ot A49.9 BACTERIAL INFECTION, UNSPECIFIED 07/30/2018 ELOINA ROSARIO MD, Ot E11.42 TYPE 2 DIABETES MELLITUS WITH DIABETIC P 07/30/2018 ELOINA ROSARIO MD Ot E11.621 TYPE 2 DIABETES MELLITUS WITH FOOT ULCER 07/30/2018 ELOINA ROSARIO MD, Ot L97.516 NON-PRS [facility] ULC OT PRT R FOOT WITH BNE 08/02/2018 ELOINA ROSARIO MD Ot A49.9 BACTERIAL INFECTION, UNSPECIFIED 08/02/2018 ELOINA ROSARIO MD Ot E11.42 TYPE 2 DIABETES MELLITUS WITH DIABETIC P 08/02/2018 ELOINA ROSARIO MD Ot E11.621 TYPE 2 DIABETES MELLITUS WITH FOOT ULCER 08/02/2018 ELOINA ROSARIO MD, Ot L97.516 NON-PRS [facility] ULC OT PRT R FOOT WITH BNE 08/07/2018 ELOINA ROSARIO MD Ot A49.9 BACTERIAL INFECTION, UNSPECIFIED 08/07/2018 ELOINA ROSARIO MD Ot E11.42 TYPE 2 DIABETES MELLITUS WITH DIABETIC P 08/07/2018 ELOINA ROSARIO MD Ot E11.621 TYPE 2 DIABETES MELLITUS WITH FOOT ULCER 08/07/2018 ELOINA ROSARIO MD Ot L97.516 NON-PRS [facility] ULC OT PRT R FOOT WITH BNE 08/07/2018 ELOINA ROSARIO MD Ot A49.9 BACTERIAL INFECTION, UNSPECIFIED 08/07/2018 ELOINA ROSARIO MD Ot E11.42 TYPE 2 DIABETES MELLITUS WITH DIABETIC P 08/07/2018 ELOINA ROSARIO MD, Ot E11.621 TYPE 2 DIABETES MELLITUS WITH FOOT ULCER 08/07/2018 ELOINA ROSARIO MD, Ot L97.516 NON-PRS [facility] OT PRT R FOOT WITH BNE 08/08/2018 ELOINA ROSARIO MD, Ot A49.9 BACTERIAL INFECTION, UNSPECIFIED 08/08/2018 ELOINA ROSARIO MD, Ot E11.42 TYPE 2 DIABETES MELLITUS WITH DIABETIC P 08/08/2018 ELOINA ROSARIO MD, Ot E11.621 TYPE 2 DIABETES MELLITUS WITH FOOT ULCER 08/08/2018 ELOINA ROSARIO MD, Ot L97.516 NON-PRS [facility] PRT R FOOT WITH BNE 08/08/2018 ELOINA ROSARIO MD, Ot E11.42 TYPE 2 DIABETES MELLITUS WITH DIABETIC P 08/08/2018 ELOINA ROSARIO MD, Ot E11.621 TYPE 2 DIABETES MELLITUS WITH FOOT ULCER 08/08/2018 ELOINA ROSARIO MD, Ot L97.516 NON-PRS [facility] PRT R FOOT WITH BNE 08/13/2018 ELOINA ROSARIO MD, Ot E11.42 TYPE 2 DIABETES MELLITUS WITH DIABETIC P 08/13/2018 ELOINA ROSARIO MD, Ot E11.621 TYPE 2 DIABETES MELLITUS WITH FOOT ULCER 08/13/2018 ELOINA ROSARIO MD, Ot L97.516 NON-PRS [facility] PRT R FOOT WITH BNE 08/14/2018 PAULIE MILLER MD Ot E11.42 TYPE 2 DIABETES MELLITUS WITH DIABETIC P 08/14/2018 PAULIE MILLER MD Ot E11.621 TYPE 2 DIABETES MELLITUS WITH FOOT ULCER 08/14/2018 PAULIE MILLER MD Ot L97.512 NON-PRS CHRONIC ULCER OTH PRT RIGHT FOOT 08/14/2018 PAULIE MILLER MD Ot M20.41 OTHER HAMMER TOE(S) (ACQUIRED), RIGHT FO 08/14/2018 PAULIE MILLER MD Ot E11.621 TYPE 2 DIABETES MELLITUS WITH FOOT ULCER 08/14/2018 PAULIE MILLER MD, Ot L97.512 NON-PRS CHRONIC ULCER OTH PRT RIGHT FOOT 08/18/2018 PAULIE MILLER MD Ot E11.42 TYPE 2 DIABETES MELLITUS WITH DIABETIC P 08/18/2018 PAULIE MILLER MD Ot E11.621 TYPE 2 DIABETES MELLITUS WITH FOOT ULCER 08/18/2018 PAULIE MILLER MD, Ot L97.512 NON-PRS CHRONIC ULCER OTH PRT RIGHT FOOT 08/18/2018 PAULIE MILLER MD, Ot M20.41 OTHER HAMMER TOE(S) (ACQUIRED), RIGHT FO 08/21/2018 PAULIE MILLER MD, Ot E11.42 TYPE 2 DIABETES MELLITUS WITH DIABETIC P 08/21/2018 PAULIE MILLER MD, Ot E11.621 TYPE 2 DIABETES MELLITUS WITH FOOT ULCER 08/21/2018 PAULIE MILLER MD, Ot L97.512 NON-PRS CHRONIC ULCER OTH PRT RIGHT FOOT 08/21/2018 PAULIE MILLER MD, Ot M20.41 OTHER HAMMER TOE(S) (ACQUIRED), RIGHT FO 08/27/2018 PAULIE MILLER MD, Ot E11.42 TYPE 2 DIABETES MELLITUS WITH DIABETIC P 08/27/2018 PAULIE MILLER MD, Ot E11.621 TYPE 2 DIABETES MELLITUS WITH FOOT ULCER 08/27/2018 PAULIE MILLER MD, Ot L97.512 NON-PRS CHRONIC ULCER OTH PRT RIGHT FOOT 08/27/2018 PAULIE MILLER MD, Ot M20.41 OTHER HAMMER TOE(S) (ACQUIRED), RIGHT FO 08/28/2018 PAULIE MILLER MD Ot E11.42 TYPE 2 DIABETES MELLITUS WITH DIABETIC P 08/28/2018 PAULIE MILLER MD, Ot E11.621 TYPE 2 DIABETES MELLITUS WITH FOOT ULCER 08/28/2018 PAULIE MILLER MD, Ot L97.512 NON-PRS CHRONIC ULCER OTH PRT RIGHT FOOT 08/28/2018 PAULIE MILLER MD, Ot M20.41 OTHER HAMMER TOE(S) (ACQUIRED), RIGHT FO 09/05/2018 PAULIE MILLER MD, Ot E11.42 TYPE 2 DIABETES MELLITUS WITH DIABETIC P 09/05/2018 PAULIE MILLER MD, Ot E11.621 TYPE 2 DIABETES MELLITUS WITH FOOT ULCER 09/05/2018 PAULIE MILLER MD, Ot L97.512 NON-PRS CHRONIC ULCER OTH PRT RIGHT FOOT 09/05/2018 PAULIE MILLER MD, Ot M20.41 OTHER HAMMER TOE(S) (ACQUIRED), RIGHT FO 09/07/2018 PAULIE MILLER MD, Ot E11.42 TYPE 2 DIABETES MELLITUS WITH DIABETIC P 09/07/2018 PAULIE MILLER MD, Ot E11.621 TYPE 2 DIABETES MELLITUS WITH FOOT ULCER 09/07/2018 PAULIE MILLER MD, Ot L97.512 NON-PRS CHRONIC ULCER OTH PRT RIGHT FOOT 09/07/2018 PAULIE MILLER MD, Ot M20.41 OTHER HAMMER TOE(S) (ACQUIRED), RIGHT FO 09/08/2018 PAULIE MILLER MD, Ot E11.42 TYPE 2 DIABETES MELLITUS WITH DIABETIC P 09/08/2018 PAULIE MILLER MD, Ot E11.621 TYPE 2 DIABETES MELLITUS WITH FOOT ULCER 09/08/2018 PAULIE MILLER MD, Ot L97.512 NON-PRS CHRONIC ULCER OTH PRT RIGHT FOOT 09/08/2018 PAULIE MILLER MD, Ot M20.41 OTHER HAMMER TOE(S) (ACQUIRED), RIGHT FO 09/08/2018 PAULIE MILLER MD, Ot E11.42 TYPE 2 DIABETES MELLITUS WITH DIABETIC P 09/08/2018 PAULIE MILLER MD, Ot E11.621 TYPE 2 DIABETES MELLITUS WITH FOOT ULCER 09/08/2018 PAULIE MILLER MD, Ot L97.512 NON-PRS CHRONIC ULCER OTH PRT RIGHT FOOT 09/08/2018 PAULIE MILLER MD, Ot M20.41 OTHER HAMMER TOE(S) (ACQUIRED), RIGHT FO 09/08/2018 PAULIE MILLER MD Ot E11.42 TYPE 2 DIABETES MELLITUS WITH DIABETIC P 09/08/2018 PAULIE MILLER MD, Ot E11.621 TYPE 2 DIABETES MELLITUS WITH FOOT ULCER 09/08/2018 PAULIE MILLER MD, Ot L97.512 NON-PRS CHRONIC ULCER OTH PRT RIGHT FOOT 09/08/2018 PAULIE MILLER MD Ot M20.41 OTHER HAMMER TOE(S) (ACQUIRED), RIGHT FO 09/10/2018 PAULIE MILLER MD Ot E11.42 TYPE 2 DIABETES MELLITUS WITH DIABETIC P 09/10/2018 PAULIE MILLER MD, Ot E11.621 TYPE 2 DIABETES MELLITUS WITH FOOT ULCER 09/10/2018 PAULIE MILLER MD, Ot L97.512 NON-PRS CHRONIC ULCER OTH PRT RIGHT FOOT 09/10/2018 PAULIE MILLER MD, Ot M20.41 OTHER HAMMER TOE(S) (ACQUIRED), RIGHT FO 09/14/2018 PAULIE MILLER MD Ot E11.42 TYPE 2 DIABETES MELLITUS WITH DIABETIC P 09/14/2018 PAULIE MILLER MD, Ot E11.621 TYPE 2 DIABETES MELLITUS WITH FOOT ULCER 09/14/2018 PAULIE MILLER MD Ot L97.512 NON-PRS CHRONIC ULCER OTH PRT RIGHT FOOT 09/14/2018 PAULIE MILLER MD, Ot M20.41 OTHER HAMMER TOE(S) (ACQUIRED), RIGHT FO 09/17/2018 PAULIE MILLER MD, Ot E11.42 TYPE 2 DIABETES MELLITUS WITH DIABETIC P 09/17/2018 PAULIE MILLER MD, Ot E11.621 TYPE 2 DIABETES MELLITUS WITH FOOT ULCER 09/17/2018 PAULIE MILLER MD, Ot L97.512 NON-PRS CHRONIC ULCER OTH PRT RIGHT FOOT 09/17/2018 PAULIE MILLER MD, Ot M20.41 OTHER HAMMER TOE(S) (ACQUIRED), RIGHT FO 09/18/2018 PAULIE MILLER MD, Ot E11.42 TYPE 2 DIABETES MELLITUS WITH DIABETIC P 09/18/2018 PAULIE MILLER MD, Ot E11.621 TYPE 2 DIABETES MELLITUS WITH FOOT ULCER 09/18/2018 PAULIE MILLER MD, Ot L97.512 NON-PRS CHRONIC ULCER OTH PRT RIGHT FOOT 09/18/2018 PAULIE MILLER MD, Ot M20.41 OTHER HAMMER TOE(S) (ACQUIRED), RIGHT FO 09/18/2018 PAULIE MILLER MD Ot E11.42 TYPE 2 DIABETES MELLITUS WITH DIABETIC P 09/18/2018 PAULIE MILLER MD Ot E11.621 TYPE 2 DIABETES MELLITUS WITH FOOT ULCER 09/18/2018 PAULIE MILLER MD Ot L97.512 NON-PRS CHRONIC ULCER OTH PRT RIGHT FOOT 09/18/2018 PAULIE MILLER MD Ot M20.41 OTHER HAMMER TOE(S) (ACQUIRED), RIGHT FO 09/18/2018 PAULIE MILLER MD Ot E11.42 TYPE 2 DIABETES MELLITUS WITH DIABETIC P 09/18/2018 PAULIE MILLER MD, Ot E11.621 TYPE 2 DIABETES MELLITUS WITH FOOT ULCER 09/18/2018 PAULIE MILLER MD, Ot L97.512 NON-PRS CHRONIC ULCER OTH PRT RIGHT FOOT 09/18/2018 PAULIE MILLER MD Ot M20.41 OTHER HAMMER TOE(S) (ACQUIRED), RIGHT FO 09/24/2018 ELOINA ROSARIO MD Ot A49.9 BACTERIAL INFECTION, UNSPECIFIED 09/24/2018 ELOINA ROSARIO MD Ot E11.42 TYPE 2 DIABETES MELLITUS WITH DIABETIC P 09/24/2018 ELOINA ROSARIO MD, Ot E11.621 TYPE 2 DIABETES MELLITUS WITH FOOT ULCER 09/24/2018 ELOINA ROSARIO MD, Ot L97.516 NON-PRS [facility] OTH PRT R FOOT WITH BNE 09/25/2018 PAULIE MILLER MD, Ot E11.42 TYPE 2 DIABETES MELLITUS WITH DIABETIC P 09/25/2018 PAULIE MILLER MD, Ot E11.621 TYPE 2 DIABETES MELLITUS WITH FOOT ULCER 09/25/2018 PAULIE MILLER MD, Ot L97.512 NON-PRS CHRONIC ULCER OTH PRT RIGHT FOOT 09/25/2018 PAULIE MILLER MD, Ot M20.41 OTHER HAMMER TOE(S) (ACQUIRED), RIGHT FO 09/25/2018 PAULIE MILLER MD, Ot E11.42 TYPE 2 DIABETES MELLITUS WITH DIABETIC P 09/25/2018 PAULIE MILLER MD, Ot E11.621 TYPE 2 DIABETES MELLITUS WITH FOOT ULCER 09/25/2018 PAULIE MILLER MD, Ot L97.512 NON-PRS CHRONIC ULCER OTH PRT RIGHT FOOT 09/25/2018 PAULIE MILLER MD, Ot M20.41 OTHER HAMMER TOE(S) (ACQUIRED), RIGHT FO 10/01/2018 PAULIE MILLER MD Ot E11.42 TYPE 2 DIABETES MELLITUS WITH DIABETIC P 10/01/2018 PAULIE MILLER MD, Ot E11.621 TYPE 2 DIABETES MELLITUS WITH FOOT ULCER 10/01/2018 PAULIE MILLER MD, Ot L97.512 NON-PRS CHRONIC ULCER OTH PRT RIGHT FOOT 10/01/2018 PAULIE MILLER MD, Ot M20.41 OTHER HAMMER TOE(S) (ACQUIRED), RIGHT FO 10/01/2018 PAULIE MILLER MD, Ot E11.42 TYPE 2 DIABETES MELLITUS WITH DIABETIC P 10/01/2018 PAULIE MILLER MD, Ot E11.621 TYPE 2 DIABETES MELLITUS WITH FOOT ULCER 10/01/2018 PAULIE MILLER MD, Ot L97.512 NON-PRS CHRONIC ULCER OTH PRT RIGHT FOOT 10/01/2018 PAULIE MILLER MD, Ot M20.41 OTHER HAMMER TOE(S) (ACQUIRED), RIGHT FO 10/01/2018 PAULIE MILLER MD, Ot E11.42 TYPE 2 DIABETES MELLITUS WITH DIABETIC P 10/01/2018 PAUL MD, PAULIE G Ot E11.621 TYPE 2 DIABETES MELLITUS WITH FOOT ULCER 10/01/2018 PAULIE MILLER MD, Ot L97.512 NON-PRS CHRONIC [facility]LC[facility] OTH PRT RIGHT FOOT 10/01/2018 PAULIE MILLER MD, Ot M20.41 OTHER HAMMER TOE(S) (ACQUIRED), RIGHT FO 10/07/2018 PAULIE MILLER MD, Ot E11.42 TYPE 2 DIABETES MELLITUS WITH DIABETIC P 10/07/2018 PAULIE MILLER MD, Ot E11.621 TYPE 2 DIABETES MELLITUS WITH FOOT ULCER 10/07/2018 PAULIE MILLER MD, Ot L97.512 NON-PRS CHRONIC [facility] OTH PRT RIGHT FOOT 10/07/2018 PAULIE MILLER MD, Ot M20.41 OTHER HAMMER TOE(S) (ACQUIRED), RIGHT FO 10/09/2018 PAULIE MILLER MD, Ot E11.42 TYPE 2 DIABETES MELLITUS WITH DIABETIC P 10/09/2018 PAULIE MILLER MD, Ot E11.621 TYPE 2 DIABETES MELLITUS WITH FOOT ULCER 10/09/2018 PAULIE MILLER MD, Ot L97.512 NON-PRS CHRONIC [facility] OTH PRT RIGHT FOOT 10/09/2018 PAULIE MILLER MD, Ot M20.41 OTHER HAMMER TOE(S) (ACQUIRED), RIGHT FO 10/13/2018 ELOIAN ROSARIO MD Ot A49.9 BACTERIAL INFECTION, UNSPECIFIED 10/13/2018 ELOINA ROSARIO MD Ot E11.42 TYPE 2 DIABETES MELLITUS WITH DIABETIC P 10/13/2018 ELOINA ROSARIO MD Ot E11.621 TYPE 2 DIABETES MELLITUS WITH FOOT ULCER 10/13/2018 ELOINA ROSARIO MD Ot L97.516 NON-PRS [facility] OT PRT R FOOT WITH BNE 10/20/2018 PAULIE MILLER MD, Ot E11.42 TYPE 2 DIABETES MELLITUS WITH DIABETIC P 10/20/2018 PAULIE MILLER MD, Ot E11.621 TYPE 2 DIABETES MELLITUS WITH FOOT ULCER 10/20/2018 PAULIE MILLER MD, Ot L97.512 NON-PRS CHRONIC [facility] OTH PRT RIGHT FOOT 10/20/2018 PAULIE MILLER MD, Ot M20.41 OTHER HAMMER TOE(S) (ACQUIRED), RIGHT FO 10/20/2018 PAULIE MILLER MD Ot E11.621 TYPE 2 DIABETES MELLITUS WITH FOOT ULCER 10/20/2018 PAULIE MILLER MD Ot L97.512 NON-PRS CHRONIC [facility] OTH PRT RIGHT FOOT 10/20/2018 PAULIE MILLER MD Ot E11.42 TYPE 2 DIABETES MELLITUS WITH DIABETIC P 10/20/2018 PAULIE MILLER MD, Ot E11.621 TYPE 2 DIABETES MELLITUS WITH FOOT ULCER 10/20/2018 PAULIE MILLER MD, Ot L97.512 NON-PRS CHRONIC [facility] OTH PRT RIGHT FOOT 10/20/2018 PAULIE MILLER MD, Ot M20.41 OTHER HAMMER TOE(S) (ACQUIRED), RIGHT FO 10/21/2018 PAULIE MILLER MD Ot E11.42 TYPE 2 DIABETES MELLITUS WITH DIABETIC P 10/21/2018 PAULIE MILLER MD, Ot E11.621 TYPE 2 DIABETES MELLITUS WITH FOOT ULCER 10/21/2018 PAULIE MILLER MD, Ot L97.512 NON-PRS CHRONIC [facility] OTH PRT RIGHT FOOT 10/21/2018 PAULIE MILLER MD, Ot M20.41 OTHER HAMMER TOE(S) (ACQUIRED), RIGHT FO 10/22/2018 ELOINA ROSARIO MD Ot A49.9 BACTERIAL INFECTION, UNSPECIFIED 10/22/2018 ELOINA ROSARIO MD Ot E11.42 TYPE 2 DIABETES MELLITUS WITH DIABETIC P 10/22/2018 ELOINA ROSARIO MD Ot E11.621 TYPE 2 DIABETES MELLITUS WITH FOOT ULCER 10/22/2018 ELOINA ROSARIO MD, Ot L97.516 NON-PRS [facility] OTH PRT R FOOT WITH BNE 10/22/2018 PAULIE MILLER MD Ot E11.42 TYPE 2 DIABETES MELLITUS WITH DIABETIC P 10/22/2018 PAULIE MILLER MD Ot E11.621 TYPE 2 DIABETES MELLITUS WITH FOOT ULCER 10/22/2018 PAULIE MILLER MD, Ot L97.512 NON-PRS CHRONIC [facility] OTH PRT RIGHT FOOT 10/22/2018 PAULIE MILLER MD Ot M20.41 OTHER HAMMER TOE(S) (ACQUIRED), RIGHT FO 10/28/2018 PAULIE MILLER MD Ot E11.42 TYPE 2 DIABETES MELLITUS WITH DIABETIC P 10/28/2018 PAULIE MILLER MD Ot E11.621 TYPE 2 DIABETES MELLITUS WITH FOOT ULCER 10/28/2018 PAULIE MILLER MD Ot L97.512 NON-PRS CHRONIC [facility] OTH PRT RIGHT FOOT 10/28/2018 PAULIE MILLER MD Ot M20.41 OTHER HAMMER TOE(S) (ACQUIRED), RIGHT FO 10/29/2018 PAULIE MILLER MD Ot E11.42 TYPE 2 DIABETES MELLITUS WITH DIABETIC P 10/29/2018 PAULIE MILLER MD, Ot E11.621 TYPE 2 DIABETES MELLITUS WITH FOOT ULCER 10/29/2018 PAULIE MILLER MD, Ot L97.512 NON-PRS CHRONIC ULCER OTH PRT RIGHT FOOT 10/29/2018 PAULIE MILLER MD, Ot M20.41 OTHER HAMMER TOE(S) (ACQUIRED), RIGHT FO 11/06/2018 PAULIE MILLER MD Ot E11.42 TYPE 2 DIABETES MELLITUS WITH DIABETIC P 11/06/2018 PAULIE MILLER MD, Ot E11.621 TYPE 2 DIABETES MELLITUS WITH FOOT ULCER 11/06/2018 PAULIE MILLER MD, Ot L97.512 NON-PRS CHRONIC ULCER OTH PRT RIGHT FOOT 11/06/2018 PAULIE MILLER MD, Ot M20.41 OTHER HAMMER TOE(S) (ACQUIRED), RIGHT FO 11/09/2018 PAULIE MILLER MD Ot E11.42 TYPE 2 DIABETES MELLITUS WITH DIABETIC P 11/09/2018 PAULIE MILLER MD, Ot E11.621 TYPE 2 DIABETES MELLITUS WITH FOOT ULCER 11/09/2018 PAULIE MILLER MD, Ot L97.512 NON-PRS CHRONIC ULCER OTH PRT RIGHT FOOT 11/09/2018 PAULIE MILLER MD, Ot M20.41 OTHER HAMMER TOE(S) (ACQUIRED), RIGHT FO 11/14/2018 PAULIE MILLER MD Ot E11.42 TYPE 2 DIABETES MELLITUS WITH DIABETIC P 11/14/2018 PAULIE MILLER MD, Ot E11.621 TYPE 2 DIABETES MELLITUS WITH FOOT ULCER 11/14/2018 PAULIE MILLER MD, Ot L97.512 NON-PRS CHRONIC ULCER OTH PRT RIGHT FOOT 11/14/2018 PAULIE MILLER MD Ot M20.41 OTHER HAMMER TOE(S) (ACQUIRED), RIGHT FO 11/20/2018 PAULIE MILLER MD, Ot E11.42 TYPE 2 DIABETES MELLITUS WITH DIABETIC P 11/20/2018 PAULIE MILLER MD, Ot E11.621 TYPE 2 DIABETES MELLITUS WITH FOOT ULCER 11/20/2018 PAULIE MILLER MD, Ot L97.516 NON-PRS CHR ULC OTH PRT R FOOT WITH BNE 11/20/2018 PAULIE MILLER MD, Ot M20.41 OTHER HAMMER TOE(S) (ACQUIRED), RIGHT FO 11/26/2018 PAULIE MILLER MD, Ot E11.42 TYPE 2 DIABETES MELLITUS WITH DIABETIC P 11/26/2018 PAULIE MILLER MD, Ot E11.621 TYPE 2 DIABETES MELLITUS WITH FOOT ULCER 11/26/2018 PAULIE MILLER MD, Ot L97.512 NON-PRS CHRONIC ULCER OTH PRT RIGHT FOOT 11/26/2018 PAULIE MILLER MD, Ot M20.41 OTHER HAMMER TOE(S) (ACQUIRED), RIGHT FO 12/04/2018 PAULIE MILLER MD, Ot E11.42 TYPE 2 DIABETES MELLITUS WITH DIABETIC P 12/04/2018 PAULIE MILLER MD, Ot E11.621 TYPE 2 DIABETES MELLITUS WITH FOOT ULCER 12/04/2018 PAULIE MILLER MD, Ot L97.512 NON-PRS CHRONIC ULCER OTH PRT RIGHT FOOT 12/04/2018 PAULIE MILLER MD, Ot M20.41 OTHER HAMMER TOE(S) (ACQUIRED), RIGHT FO 12/04/2018 PAULIE MILLER MD, Ot E11.42 TYPE 2 DIABETES MELLITUS WITH DIABETIC P 12/04/2018 PAULIE MILLER MD, Ot E11.621 TYPE 2 DIABETES MELLITUS WITH FOOT ULCER 12/04/2018 PAULIE MILLER MD, Ot L97.512 NON-PRS CHRONIC ULCER OTH PRT RIGHT FOOT 12/04/2018 PAULIE MILLER MD, Ot M20.41 OTHER HAMMER TOE(S) (ACQUIRED), RIGHT FO 12/04/2018 PAULIE MILLER MD, Ot E11.42 TYPE 2 DIABETES MELLITUS WITH DIABETIC P 12/04/2018 PAULIE MILLER MD, Ot E11.621 TYPE 2 DIABETES MELLITUS WITH FOOT ULCER 12/04/2018 PAULIE MILLER MD, Ot L97.516 NON-PRS CHR [facility] OTH PRT R FOOT WITH BNE 12/04/2018 PAULIE MILLER MD, Ot M20.41 OTHER HAMMER TOE(S) (ACQUIRED), RIGHT FO 12/10/2018 PAULIE MILLER MD, Ot E11.42 TYPE 2 DIABETES MELLITUS WITH DIABETIC P 12/10/2018 PAULIE MILLER MD, Ot E11.621 TYPE 2 DIABETES MELLITUS WITH FOOT ULCER 12/10/2018 PAULIE MILLER MD, Ot L97.512 NON-PRS CHRONIC ULCER OTH PRT RIGHT FOOT 12/10/2018 PAULIE MILLER MD, Ot M20.41 OTHER HAMMER TOE(S) (ACQUIRED), RIGHT FO 12/22/2018 PAULIE MILLER MD, Ot E11.42 TYPE 2 DIABETES MELLITUS WITH DIABETIC P 12/22/2018 PAULIE MILLER MD, Ot E11.621 TYPE 2 DIABETES MELLITUS WITH FOOT ULCER 12/22/2018 PAULIE MILLER MD, Ot L97.512 NON-PRS CHRONIC ULCER OTH PRT RIGHT FOOT 12/22/2018 PAULIE MILLER MD, Ot M20.41 OTHER HAMMER TOE(S) (ACQUIRED), RIGHT FO 01/15/2019 PAULIE MILLER MD, Ot E11.42 TYPE 2 DIABETES MELLITUS WITH DIABETIC P 01/15/2019 PAULIE MILLER MD, Ot E11.621 TYPE 2 DIABETES MELLITUS WITH FOOT ULCER 01/15/2019 PAULIE MILLER MD, Ot L97.512 NON-PRS CHRONIC ULCER OTH PRT RIGHT FOOT 01/15/2019 PAULIE MILLER MD, Ot M20.41 OTHER HAMMER TOE(S) (ACQUIRED), RIGHT FO 01/18/2019 PAULIE MILLER MD Ot 250.80 DIAB W OTH SPEC MANIFEST, TYPE II OR UNS 01/18/2019 PAULIE MILLER MD Ot 707.15 ULCER OF OTHER PART OF FOOT 01/18/2019 PAULIE MILLER MD, Ot E11.42 TYPE 2 DIABETES MELLITUS WITH DIABETIC P 01/18/2019 PAULIE MILLER MD, Ot E11.621 TYPE 2 DIABETES MELLITUS WITH FOOT ULCER 01/18/2019 PAULIE MILLER MD, Ot L97.513 NON-PRS CHRONIC ULCER OTH PRT RIGHT FOOT 01/18/2019 PAULIE MILLER MD, Ot E11.621 TYPE 2 DIABETES MELLITUS WITH FOOT ULCER 01/18/2019 PAULIE MILLER MD, Ot E11.42 TYPE 2 DIABETES MELLITUS WITH DIABETIC P 01/18/2019 PAULIE MILLER MD, Ot E11.621 TYPE 2 DIABETES MELLITUS WITH FOOT ULCER 01/18/2019 PAULIE MILLER MD, Ot L97.514 NON-PRS CHRONIC ULCER OTH PRT RIGHT FOOT 01/18/2019 PAULIE MILLER MD, Ot M86.171 OTHER ACUTE OSTEOMYELITIS, RIGHT ANKLE A 01/18/2019 PAULIE MILLER MD, Ot L97.514 NON-PRS CHRONIC ULCER OTH PRT RIGHT FOOT 01/18/2019 PAULIE MILLER MD Ot E11.42 TYPE 2 DIABETES MELLITUS WITH DIABETIC P 01/18/2019 PAULIE MILLER MD Ot E11.621 TYPE 2 DIABETES MELLITUS WITH FOOT ULCER 01/18/2019 PAULIE MILLER MD Ot L03.115 CELLULITIS OF RIGHT LOWER LIMB 01/18/2019 PAULIE MILLER MD Ot L97.512 NON-PRS CHRONIC ULCER OTH PRT RIGHT FOOT 01/18/2019 PAULIE MILLER MD Ot L97.513 NON-PRS CHRONIC ULCER OTH PRT RIGHT FOOT 01/18/2019 PAULIE MILLER MD Ot L97.522 NON-PRS CHRONIC ULCER OTH PRT LEFT FOOT 01/18/2019 PAULIE MILLER MD Ot E11.42 TYPE 2 DIABETES MELLITUS WITH DIABETIC P 01/18/2019 PAULIE MILLER MD Ot E11.621 TYPE 2 DIABETES MELLITUS WITH FOOT ULCER 01/18/2019 PAULIE MILLER MD Ot L03.115 CELLULITIS OF RIGHT LOWER LIMB 01/18/2019 PAULIE MILLER MD Ot L97.512 NON-PRS CHRONIC ULCER OTH PRT RIGHT FOOT 01/18/2019 PAULIE MILLER MD Ot L97.513 NON-PRS CHRONIC ULCER OTH PRT RIGHT FOOT 01/18/2019 PAULIE MILLER MD Ot L97.522 NON-PRS CHRONIC ULCER OTH PRT LEFT FOOT 01/18/2019 PAULIE MILLER MD Ot E11.42 TYPE 2 DIABETES MELLITUS WITH DIABETIC P 01/18/2019 PAULIE MILLER MD Ot E11.621 TYPE 2 DIABETES MELLITUS WITH FOOT ULCER 01/18/2019 PAULIE MILLER MD Ot L03.115 CELLULITIS OF RIGHT LOWER LIMB 01/18/2019 PAULIE MILLER MD Ot L97.512 NON-PRS CHRONIC ULCER OTH PRT RIGHT FOOT 01/18/2019 PAULIE MILLER MD Ot L97.513 NON-PRS CHRONIC ULCER OTH PRT RIGHT FOOT 01/18/2019 PAULIE MILLER MD Ot L97.522 NON-PRS CHRONIC ULCER OTH PRT LEFT FOOT 01/18/2019 APULIE MILLER MD Ot E11.42 TYPE 2 DIABETES MELLITUS WITH DIABETIC P 01/18/2019 PAULIE MILLER MD Ot E11.621 TYPE 2 DIABETES MELLITUS WITH FOOT ULCER 01/18/2019 PAULIE MILLER MD Ot L03.115 CELLULITIS OF RIGHT LOWER LIMB 01/18/2019 PAULIE MILLER MD Ot L97.512 NON-PRS CHRONIC ULCER OTH PRT RIGHT FOOT 01/18/2019 PAULIE MILLER MD Ot L97.522 NON-PRS CHRONIC ULCER OTH PRT LEFT FOOT 01/18/2019 PAULIE MILLER MD Ot E11.42 TYPE 2 DIABETES MELLITUS WITH DIABETIC P 01/18/2019 PAULIE MILLER MD Ot E11.621 TYPE 2 DIABETES MELLITUS WITH FOOT ULCER 01/18/2019 PAULIE MILLER MD Ot L97.512 NON-PRS CHRONIC ULCER OTH PRT RIGHT FOOT 01/18/2019 PAULIE MILLER MD Ot L97.522 NON-PRS CHRONIC ULCER OTH PRT LEFT FOOT 01/18/2019 PAULIE MILLER MD Ot E11.42 TYPE 2 DIABETES MELLITUS WITH DIABETIC P 01/18/2019 PAULIE MILLER MD Ot E11.621 TYPE 2 DIABETES MELLITUS WITH FOOT ULCER 01/18/2019 PAULIE MILLER MD Ot L97.512 NON-PRS CHRONIC ULCER OTH PRT RIGHT FOOT 01/18/2019 ELOINA ROSARIO MD Ot E11.42 TYPE 2 DIABETES MELLITUS WITH DIABETIC P 01/18/2019 ELONIA ROSARIO MD Ot E11.621 TYPE 2 DIABETES MELLITUS WITH FOOT ULCER 01/18/2019 ELOINA ROSARIO MD Ot L97.512 NON-PRS CHRONIC ULCER OTH PRT RIGHT FOOT 01/18/2019 ELOINA ROSARIO MD Ot E11.42 TYPE 2 DIABETES MELLITUS WITH DIABETIC P 01/18/2019 ELOINA ROSARIO MD Ot E11.621 TYPE 2 DIABETES MELLITUS WITH FOOT ULCER 01/18/2019 ELOINA ROSARIO MD Ot L97.516 NON-PRS [facility] PRT R FOOT WITH BNE 01/18/2019 ELOINA ROSARIO MD Ot E11.42 TYPE 2 DIABETES MELLITUS WITH DIABETIC P 01/18/2019 ELOINA ROSARIO MD Ot E11.621 TYPE 2 DIABETES MELLITUS WITH FOOT ULCER 01/18/2019 ELOINA ROSARIO MD Ot L97.516 NON-PRS [facility] PRT R FOOT WITH BNE 01/18/2019 ELOINA ROSARIO MD Ot M19.071 PRIMARY OSTEOARTHRITIS, RIGHT ANKLE AND 01/18/2019 ELOINA ROSARIO MD Ot 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 01/18/2019 ELOINA ROSARIO MD, Ot A49.9 BACTERIAL INFECTION, UNSPECIFIED 01/18/2019 ELOINA ROSARIO MD, Ot E11.42 TYPE 2 DIABETES MELLITUS WITH DIABETIC P 01/18/2019 ELOINA ROSARIO MD, Ot E11.621 TYPE 2 DIABETES MELLITUS WITH FOOT ULCER 01/18/2019 ELOINA ROSARIO MD, Ot L97.516 NON-PRS [facility] PRT R FOOT WITH BNE 01/18/2019 ELOINA ROSARIO MD, Ot A49.9 BACTERIAL INFECTION, UNSPECIFIED 01/18/2019 ELOINA ROSARIO MD, Ot E11.42 TYPE 2 DIABETES MELLITUS WITH DIABETIC P 01/18/2019 ELOINA ROSARIO MD, Ot E11.621 TYPE 2 DIABETES MELLITUS WITH FOOT ULCER 01/18/2019 ELOINA ROSARIO MD, Ot L97.516 NON-PRS [facility] PRT R FOOT WITH BNE 01/18/2019 ELOINA ROSARIO MD, Ot A49.9 BACTERIAL INFECTION, UNSPECIFIED 01/18/2019 ELOINA ROSARIO MD, Ot E11.42 TYPE 2 DIABETES MELLITUS WITH DIABETIC P 01/18/2019 ELOINA ROSARIO MD, Ot E11.621 TYPE 2 DIABETES MELLITUS WITH FOOT ULCER 01/18/2019 ELOINA ROSARIO MD, Ot L97.516 NON-PRS [facility] PRT R FOOT WITH BNE 01/18/2019 ELOINA ROSARIO MD, Ot E11.42 TYPE 2 DIABETES MELLITUS WITH DIABETIC P 01/18/2019 ELOINA ROSARIO MD, Ot E11.621 TYPE 2 DIABETES MELLITUS WITH FOOT ULCER 01/18/2019 ELOINA ROSARIO MD, Ot L97.516 NON-PRS [facility] PRT R FOOT WITH BNE 01/18/2019 PAULIE MILLER MD Ot E11.42 TYPE 2 DIABETES MELLITUS WITH DIABETIC P 01/18/2019 PAULIE MILLER MD Ot E11.621 TYPE 2 DIABETES MELLITUS WITH FOOT ULCER 01/18/2019 PAULIE MILLER MD Ot L97.512 NON-PRS CHRONIC ULCER OTH PRT RIGHT FOOT 01/18/2019 PAUL HAMILTON, PAULIE Serrano Ot M20.41 OTHER HAMMER TOE(S) (ACQUIRED), RIGHT FO 01/18/2019 PAULIE MILLER MD Ot E11.621 TYPE 2 DIABETES MELLITUS WITH FOOT ULCER 01/18/2019 PAULIE MILLER MD Ot L97.512 NON-PRS CHRONIC ULCER OTH PRT RIGHT FOOT 01/18/2019 PAULIE MILLER MD Ot E11.42 TYPE 2 DIABETES MELLITUS WITH DIABETIC P 01/18/2019 PAULIE MILLER MD, Ot E11.621 TYPE 2 DIABETES MELLITUS WITH FOOT ULCER 01/18/2019 PAULIE MILLER MD, Ot L97.512 NON-PRS CHRONIC ULCER OTH PRT RIGHT FOOT 01/18/2019 PAULIE MILLER MD, Ot M20.41 OTHER HAMMER TOE(S) (ACQUIRED), RIGHT FO 01/18/2019 PAULIE MILLER MD Ot E11.42 TYPE 2 DIABETES MELLITUS WITH DIABETIC P 01/18/2019 PAULIE MILLER MD, Ot E11.621 TYPE 2 DIABETES MELLITUS WITH FOOT ULCER 01/18/2019 PAULIE MILLER MD, Ot L97.512 NON-PRS CHRONIC ULCER OTH PRT RIGHT FOOT 01/18/2019 PAULIE MILLER MD, Ot M20.41 OTHER HAMMER TOE(S) (ACQUIRED), RIGHT FO 01/18/2019 PAULIE MILLER MD Ot E11.42 TYPE 2 DIABETES MELLITUS WITH DIABETIC P 01/18/2019 PAULIE MILLER MD, Ot E11.621 TYPE 2 DIABETES MELLITUS WITH FOOT ULCER 01/18/2019 PAULIE MILLER MD, Ot L97.512 NON-PRS CHRONIC ULCER OTH PRT RIGHT FOOT 01/18/2019 PAULIE MILLER MD, Ot M20.41 OTHER HAMMER TOE(S) (ACQUIRED), RIGHT FO 01/18/2019 PAULIE MILLER MD Ot E11.42 TYPE 2 DIABETES MELLITUS WITH DIABETIC P 01/18/2019 PAULIE MILLER MD, Ot E11.621 TYPE 2 DIABETES MELLITUS WITH FOOT ULCER 01/18/2019 PAULIE MILLER MD, Ot L97.512 NON-PRS CHRONIC ULCER OTH PRT RIGHT FOOT 01/18/2019 PAULIE MILLER MD Ot M20.41 OTHER HAMMER TOE(S) (ACQUIRED), RIGHT FO 01/18/2019 PAULIE MILLER MD, Ot E11.42 TYPE 2 DIABETES MELLITUS WITH DIABETIC P 01/18/2019 PAULIE MILLER MD, Ot E11.621 TYPE 2 DIABETES MELLITUS WITH FOOT ULCER 01/18/2019 PAULIE MILLER MD, Ot L97.512 NON-PRS CHRONIC ULCER OTH PRT RIGHT FOOT 01/18/2019 PAULIE MILLER MD, Ot M20.41 OTHER HAMMER TOE(S) (ACQUIRED), RIGHT FO 01/18/2019 PAULIE MILLER MD Ot E11.42 TYPE 2 DIABETES MELLITUS WITH DIABETIC P 01/18/2019 PAULIE MILLER MD, Ot E11.621 TYPE 2 DIABETES MELLITUS WITH FOOT ULCER 01/18/2019 PAULIE MILLER MD, Ot L97.512 NON-PRS CHRONIC ULCER OTH PRT RIGHT FOOT 01/18/2019 PAULIE MILLER MD, Ot M20.41 OTHER HAMMER TOE(S) (ACQUIRED), RIGHT FO 01/18/2019 PAULIE MILLER MD Ot E11.42 TYPE 2 DIABETES MELLITUS WITH DIABETIC P 01/18/2019 PAULIE MILLER MD, Ot E11.621 TYPE 2 DIABETES MELLITUS WITH FOOT ULCER 01/18/2019 PAULIE MILLER MD, Ot L97.512 NON-PRS CHRONIC ULCER OTH PRT RIGHT FOOT 01/18/2019 PAULIE MILLER MD, Ot M20.41 OTHER HAMMER TOE(S) (ACQUIRED), RIGHT FO 01/18/2019 PAULIE MILLER MD Ot E11.42 TYPE 2 DIABETES MELLITUS WITH DIABETIC P 01/18/2019 PAULIE MILLER MD, Ot E11.621 TYPE 2 DIABETES MELLITUS WITH FOOT ULCER 01/18/2019 PAULIE MILLER MD, Ot L97.512 NON-PRS CHRONIC ULCER OTH PRT RIGHT FOOT 01/18/2019 PAULIE MILLER MD, Ot M20.41 OTHER HAMMER TOE(S) (ACQUIRED), RIGHT FO 01/18/2019 PAULIE MILLER MD Ot E11.42 TYPE 2 DIABETES MELLITUS WITH DIABETIC P 01/18/2019 PAULIE MILLER MD, Ot E11.621 TYPE 2 DIABETES MELLITUS WITH FOOT ULCER 01/18/2019 PAULIE MILLER MD, Ot L97.512 NON-PRS CHRONIC ULCER OTH PRT RIGHT FOOT 01/18/2019 PAULIE MILLER MD, Ot M20.41 OTHER HAMMER TOE(S) (ACQUIRED), RIGHT FO 01/18/2019 PAULIE MILLER MD Ot E11.42 TYPE 2 DIABETES MELLITUS WITH DIABETIC P 01/18/2019 PAULIE MILLER MD, Ot E11.621 TYPE 2 DIABETES MELLITUS WITH FOOT ULCER 01/18/2019 PAULIE MILLER MD, Ot L97.512 NON-PRS CHRONIC ULCER OTH PRT RIGHT FOOT 01/18/2019 PAULIE MILLER MD, Ot M20.41 OTHER HAMMER TOE(S) (ACQUIRED), RIGHT FO 01/18/2019 PAULIE MILLER MD Ot E11.42 TYPE 2 DIABETES MELLITUS WITH DIABETIC P 01/18/2019 PAULIE MILLER MD, Ot E11.621 TYPE 2 DIABETES MELLITUS WITH FOOT ULCER 01/18/2019 PAULIE MILLER MD, Ot L97.512 NON-PRS CHRONIC ULCER OTH PRT RIGHT FOOT 01/18/2019 PAULIE MILLER MD, Ot M20.41 OTHER HAMMER TOE(S) (ACQUIRED), RIGHT FO 01/18/2019 PAULIE MILLER MD Ot E11.42 TYPE 2 DIABETES MELLITUS WITH DIABETIC P 01/18/2019 PAULIE MILLER MD, Ot E11.621 TYPE 2 DIABETES MELLITUS WITH FOOT ULCER 01/18/2019 PAULIE MILLER MD, Ot L97.512 NON-PRS CHRONIC ULCER OTH PRT RIGHT FOOT 01/18/2019 PAULIE MILLER MD, Ot M20.41 OTHER HAMMER TOE(S) (ACQUIRED), RIGHT FO 01/18/2019 PAULIE MILLER MD Ot E11.42 TYPE 2 DIABETES MELLITUS WITH DIABETIC P 01/18/2019 PAULIE MILLER MD, Ot E11.621 TYPE 2 DIABETES MELLITUS WITH FOOT ULCER 01/18/2019 PAULIE MILLER MD, Ot L97.512 NON-PRS CHRONIC ULCER OTH PRT RIGHT FOOT 01/18/2019 PAULIE MILLER MD, Ot M20.41 OTHER HAMMER TOE(S) (ACQUIRED), RIGHT FO 01/18/2019 PAULIE MILLER MD Ot E11.42 TYPE 2 DIABETES MELLITUS WITH DIABETIC P 01/18/2019 PAULIE MILLER MD Ot E11.621 TYPE 2 DIABETES MELLITUS WITH FOOT ULCER 01/18/2019 PAULIE MILLER MD, Ot L97.512 NON-PRS CHRONIC ULCER OTH PRT RIGHT FOOT 01/18/2019 PAULIE MILLER MD Ot M20.41 OTHER HAMMER TOE(S) (ACQUIRED), RIGHT FO 01/18/2019 PAULIE MILLER MD Ot E11.42 TYPE 2 DIABETES MELLITUS WITH DIABETIC P 01/18/2019 PAULIE MILLER MD, Ot E11.621 TYPE 2 DIABETES MELLITUS WITH FOOT ULCER 01/18/2019 PAULIE MILLER MD Ot L97.512 NON-PRS CHRONIC ULCER OTH PRT RIGHT FOOT 01/18/2019 PAULIE MILLER MD, Ot M20.41 OTHER HAMMER TOE(S) (ACQUIRED), RIGHT FO 01/18/2019 PAULIE MILLER MD Ot E11.42 TYPE 2 DIABETES MELLITUS WITH DIABETIC P 01/18/2019 PAULIE MILLER MD, Ot E11.621 TYPE 2 DIABETES MELLITUS WITH FOOT ULCER 01/18/2019 PAULIE MILLER MD, Ot L97.512 NON-PRS CHRONIC ULCER OTH PRT RIGHT FOOT 01/18/2019 PAULIE MILLER MD, Ot M20.41 OTHER HAMMER TOE(S) (ACQUIRED), RIGHT FO 01/18/2019 PAULIE MILLER MD, Ot E11.42 TYPE 2 DIABETES MELLITUS WITH DIABETIC P 01/18/2019 PAULIE MILLER MD, Ot E11.621 TYPE 2 DIABETES MELLITUS WITH FOOT ULCER 01/18/2019 PAULIE MILLER MD, Ot L97.516 NON-PRS CHR ULC OTH PRT R FOOT WITH BNE 01/18/2019 PAULIE MILLER MD, Ot M20.41 OTHER HAMMER TOE(S) (ACQUIRED), RIGHT FO 01/18/2019 PAULIE MILLER MD Ot E11.42 TYPE 2 DIABETES MELLITUS WITH DIABETIC P 01/18/2019 PAULIE MILLER MD, Ot E11.621 TYPE 2 DIABETES MELLITUS WITH FOOT ULCER 01/18/2019 PAULIE MILLER MD, Ot L97.512 NON-PRS CHRONIC ULCER OTH PRT RIGHT FOOT 01/18/2019 PAULIE MILLER MD, Ot M20.41 OTHER HAMMER TOE(S) (ACQUIRED), RIGHT FO 01/18/2019 PAULIE MILLER MD Ot E11.42 TYPE 2 DIABETES MELLITUS WITH DIABETIC P 01/18/2019 PAULIE MILLER MD, Ot E11.621 TYPE 2 DIABETES MELLITUS WITH FOOT ULCER 01/18/2019 PAULIE MILLER MD, Ot L97.512 NON-PRS CHRONIC ULCER OTH PRT RIGHT FOOT 01/18/2019 PAULIE MILLER MD, Ot M20.41 OTHER HAMMER TOE(S) (ACQUIRED), RIGHT FO 01/18/2019 PAULIE MILLER MD, Ot E11.42 TYPE 2 DIABETES MELLITUS WITH DIABETIC P 01/18/2019 PAULIE MILLER MD Ot E11.621 TYPE 2 DIABETES MELLITUS WITH FOOT ULCER 01/18/2019 PAULIE MILLER MD, Ot L97.512 NON-PRS CHRONIC ULCER OTH PRT RIGHT FOOT 01/18/2019 PAULIE MILLER MD, Ot M20.41 OTHER HAMMER TOE(S) (ACQUIRED), RIGHT FO 01/18/2019 PAULIE MILLER MD Ot E11.42 TYPE 2 DIABETES MELLITUS WITH DIABETIC P 01/18/2019 PAULIE MILLER MD, Ot E11.621 TYPE 2 DIABETES MELLITUS WITH FOOT ULCER 01/18/2019 PAULIE MILLER MD, Ot L97.512 NON-PRS CHRONIC ULCER OTH PRT RIGHT FOOT 01/18/2019 PAULIE MILLER MD, Ot M20.41 OTHER HAMMER TOE(S) (ACQUIRED), RIGHT FO 01/18/2019 PAULIE MILLER MD Ot E11.42 TYPE 2 DIABETES MELLITUS WITH DIABETIC P 01/18/2019 PAULIE MILLER MD, Ot E11.621 TYPE 2 DIABETES MELLITUS WITH FOOT ULCER 01/18/2019 PAULIE MILLER MD, Ot L97.512 NON-PRS CHRONIC ULCER OTH PRT RIGHT FOOT 01/18/2019 PAULIE MILLER MD, Ot M20.41 OTHER HAMMER TOE(S) (ACQUIRED), RIGHT FO 01/22/2019 STACY DORAN MD, Ot 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 01/22/2019 STACY DORAN MD, Ot E11.621 TYPE 2 DIABETES MELLITUS WITH FOOT ULCER 01/22/2019 STACY DORAN MD, Ot E66.9 OBESITY, UNSPECIFIED 01/22/2019 STACY DORAN MD Ot I10 ESSENTIAL (PRIMARY) HYPERTENSION 01/22/2019 STACY DORAN MD, Ot K52.9 NONINFECTIVE GASTROENTERITIS AND COLITIS 01/22/2019 STACY DORAN MD, Ot L02.611 CUTANEOUS ABSCESS OF RIGHT FOOT 01/22/2019 STACY DORAN MD, Ot L03.115 CELLULITIS OF RIGHT LOWER LIMB 01/22/2019 STACY DORAN MD, Ot L97.513 NON-PRS CHRONIC ULCER OTH PRT RIGHT FOOT 01/22/2019 STACY DORAN MD, Ot R78.81 BACTEREMIA 01/22/2019 STACY DORAN MD, Ot T87.43 INFECTION OF AMPUTATION STUMP, RIGHT LOW 01/22/2019 STACY DORAN MD, Ot Z68.37 BODY MASS INDEX (BMI) 37.0-37.9, ADULT 01/22/2019 STACY DORAN MD, Ot Z79.4 AUTOMOBILE MECH[employer]IC RADIATOR (CURRENT) USE OF INSULIN 01/22/2019 STACY DORAN MD, Ot 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 01/22/2019 STACY DORAN MD, Ot 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 01/22/2019 STACY DORAN MD, Ot 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 01/22/2019 STACY DORAN MD, Ot E11.621 TYPE 2 DIABETES MELLITUS WITH FOOT ULCER 01/22/2019 STACY DORAN MD, Ot E11.628 TYPE 2 DIABETES MELLITUS WITH OTHER SKIN 01/22/2019 STACY DORAN MD, Ot E66.9 OBESITY, UNSPECIFIED 01/22/2019 STACY DORAN MD, Ot I10 ESSENTIAL (PRIMARY) HYPERTENSION 01/22/2019 STACY DORAN MD, Ot K52.9 NONINFECTIVE GASTROENTERITIS AND COLITIS 01/22/2019 STACY DORAN MD, Ot L02.611 CUTANEOUS ABSCESS OF RIGHT FOOT 01/22/2019 STACY DORAN MD, Ot L03.115 CELLULITIS OF RIGHT LOWER LIMB 01/22/2019 STACY DORAN MD, Ot L97.513 NON-PRS CHRONIC ULCER OTH PRT RIGHT FOOT 01/22/2019 STACY DORAN MD, Ot T87.43 INFECTION OF AMPUTATION STUMP, RIGHT LOW 01/22/2019 STACY DORAN MD, Ot Z68.37 BODY MASS INDEX (BMI) 37.0-37.9, ADULT 01/22/2019 STACY DORAN MD, Ot Z79.4 AUTOMOBILE MECH[employer]IC RADIATOR (CURRENT) USE OF INSULIN 01/22/2019 STACY DORAN MD, Ot 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 01/28/2019 PAULIE MILLER MD Ot E11.42 TYPE 2 DIABETES MELLITUS WITH DIABETIC P 01/28/2019 PAULIE MILLER MD, Ot E11.621 TYPE 2 DIABETES MELLITUS WITH FOOT ULCER 01/28/2019 PAULIE MILLER MD, Ot L97.512 NON-PRS CHRONIC ULCER OTH PRT RIGHT FOOT 01/28/2019 PAULIE MILLER MD, Ot M20.41 OTHER HAMMER TOE(S) (ACQUIRED), RIGHT FO Procedures Code Description [place] [address] ROUTINE VENIPUNCTURE 07/18/2012 04089 MICRO ALBUMIN-IN HOUSE 07/18/2012 36746 A1C (IN-HOUSE) 07/18/2012 93507 CMP 07/18/2012 [id number] GFR CALC (RESULT ONLY) 07/18/2012 64184 LIPID PANEL 07/18/2012 12229 A1C (IN-HOUSE) 11/03/2012 78817 MICRO ALBUMIN-IN HOUSE 03/30/2013 25137 A1C (IN-HOUSE) 03/30/2013 J0696 ROCEPHIN INJ 03/30/2013 70522 THERAPUTIC INJ SQ/IM 03/30/2013 82205 CULTURE WOUND (AEROBIC) 04/02/2013 56718 ROUTINE VENIPUNCTURE 07/15/2013 69528 A1C (IN-HOUSE) 07/15/[id number] GFR CALC (RESULT ONLY) 07/15/2013 89518 CMP 07/15/2013 84307 LIPID PANEL 07/15/2013 10113 MICRO ALBUMIN-IN HOUSE 12/01/2013 12667 A1C (IN-HOUSE) 12/01/2013 72414 A1C (IN-HOUSE) 04/15/2014 48905 DERMATOLOGICAL PROCEDURE 05/24/2014 33272 DERMATOLOGICAL PROCEDURE 07/19/2014 73896 A1C (IN-HOUSE) 07/19/2014 84828 MICRO ALBUMIN-IN HOUSE 07/19/2014 [id number] EXCISION OF RIGHT FOOT MUSCLE, OPEN APPR 01/20/2019 Results Test Result Range Bacteria identification in isolate by anaerobe culture - 05/14/18 14:58 Bacteria identification in isolate by anaerobe culture TAMY NR Gram stain microscopy - 05/14/18 14:58 Gram stain microscopy REPORTED 05-15-2018, 0606. NRG Bacteria identification in wound by culture - 05/14/18 14:58 Bacteria identification in wound by culture NG NRG Complete blood count (CBC) with automated white blood cell (WBC) differential - 05/15/18 15:42 Blood leukocytes automated count (number/volume) 8.7 10*3/uL 4.3-11.0 Blood erythrocytes automated count (number/volume) 4.30 10*6/uL 4.35-5.85 Venous blood hemoglobin measurement (mass/volume) 12.9 g/dL 13.3-17.7 Blood hematocrit (volume fraction) 38 % 40-54 Automated erythrocyte mean corpuscular volume 88 [foz_us] 80-99 Automated erythrocyte mean corpuscular hemoglobin (mass per erythrocyte) 30 pg 25-34 Automated erythrocyte mean corpuscular hemoglobin concentration measurement (mass/volume) 34 g/dL 32-36 Automated erythrocyte distribution width ratio 12.8 % 10.0- 14.5 Automated blood platelet count (count/volume) 319 10*3/uL 130-400 Automated blood platelet mean volume measurement 9.1 [foz_us] 7.4-10.4 Automated blood neutrophils/100 leukocytes 61 % 42-75 Automated blood lymphocytes/100 leukocytes 30 % 12-44 Blood monocytes/100 leukocytes 7 % 0-12 Automated blood eosinophils/100 leukocytes 2 % 0-10 Automated blood basophils/100 leukocytes 1 % 0-10 Blood neutrophils automated count (number/volume) 5.3 10*3 1.8-7.8 Blood lymphocytes automated count (number/volume) 2.6 10*3 1.0-4.0 Blood monocytes automated count (number/volume) 0.6 10*3 0.0- 1.0 Automated eosinophil count 0.2 10*3/uL 0.0-0.3 Automated blood basophil count (count/volume) 0.1 10*3/uL 0.0-0.1 Bacteria identification in isolate by anaerobe culture - 05/26/18 14:44 Bacteria identification in isolate by anaerobe culture NOANA NRG Gram stain microscopy - 05/26/18 14:44 Gram stain microscopy No bacteria seen NR Bacteria identification in wound by culture - 05/26/18 14:44 Bacteria identification in wound by culture [id number] NR FREE TEXT EXTERNAL ID/SENSITIVITY REPORTED 05/29/18 15:05 NRG QUANTITY OF GROWTH Rare NRG CALL POSITIVES (F1 HELP) CALLED TO [facility] 05/29/18 15:[address] [facility] RML Sensitivity Panel - 05/26/18 14:44 Oxacillin susceptibility test by minimum inhibitory concentration R NRG Clindamycin susceptibility test by minimum inhibitory concentration <= NRG Erythromycin susceptibility test by minimum inhibitory concentration > NRG Trimethoprim/sulfamethoxazole susceptibility test by minimum inhibitoryconcentration S NRG Vancomycin susceptibility test by minimum inhibitory concentration <= NRG Levofloxacin susceptibility test by minimum inhibitory concentration 4 NRG Rifampin susceptibility test by minimum inhibitory concentration <= NRG Cefazolin susceptibility test by minimum inhibitory concentration R NRG Linezolid susceptibility test by minimum inhibitory concentration <= NRG Penicillin G susceptibility test by minimum inhibitory concentration > NRG Moxifloxacin susceptibility test by minimum inhibitory concentration S NRG Minocycline susc ADAM <= NRG Gram stain microscopy - 07/02/18 14:41 Gram stain microscopy No bacteria seen NRG Bacteria identification in wound by culture - 07/02/18 14:41 Bacteria identification in wound by culture [id number] NRG FREE TEXT EXTERNAL SUSCEPTIBILITY REPORTED 07-05-18, 1305 NRG QUANTITY OF GROWTH FEW NRG FREE TEXT ENTRY 2 RML SENT MEROPENEM RESULT 07/11:RESISTANT NRG FREE TEXT ENTRY 3 TO FOLLOW NR RML Sensitivity Panel - 07/02/18 14:41 Gentamicin susceptibility test by minimum inhibitory concentration R NRG Trimethoprim/sulfamethoxazole susceptibility test by minimum inhibitoryconcentration R NRG Levofloxacin susceptibility test by minimum inhibitory concentration <= NRG Ceftriaxone susceptibility test by minimum inhibitory concentration R NRG Piperacillin/tazobactam susceptibility test by minimum inhibitory concentration I NRG Ciprofloxacin susceptibility test by minimum inhibitory concentration 2 NR RML Sensitivity Panel - 07/02/18 14:41 Gentamicin susceptibility test by minimum inhibitory concentration 4 NRG Trimethoprim/sulfamethoxazole susceptibility test by minimum inhibitoryconcentration S NRG Levofloxacin susceptibility test by minimum inhibitory concentration <= NRG Ampicillin susceptibility test by minimum inhibitory concentration > NRG Cefazolin susceptibility test by minimum inhibitory concentration > NRG Ceftriaxone susceptibility test by minimum inhibitory concentration > NRG Piperacillin/tazobactam susceptibility test by minimum inhibitory concentration S NRG Ciprofloxacin susceptibility test by minimum inhibitory concentration <= NRG Meropenem susceptibility test by minimum inhibitory concentration <= NRG Amoxicillin and clavulanate potassium susc ADAM <= NRG Bacteria identification in isolate by anaerobe culture - 08/11/18 15:35 Bacteria identification in isolate by anaerobe culture NOANA NRG Gram stain microscopy - 08/11/18 15:35 Gram stain microscopy Red blood cell debris NRG Bacteria identification in wound by culture - 08/11/18 15:35 Bacteria identification in wound by culture SEE COMMEN NRG FREE TEXT EXTERNAL FROM [facility] ONLY NRG QUANTITY OF GROWTH . NRG FREE TEXT ENTRY 2 SUSCEPTIBILITY REPORTED 08-16-2018, 1205 NRG CALL POSITIVES (F1 HELP) CALLED TO [facility] AT 1319, 1-/KD NRG RML Sensitivity Panel - 08/11/18 15:35 Oxacillin susceptibility test by minimum inhibitory concentration R NRG Clindamycin susceptibility test by minimum inhibitory concentration <= NRG Erythromycin susceptibility test by minimum inhibitory concentration > NRG Trimethoprim/sulfamethoxazole susceptibility test by minimum inhibitoryconcentration S NRG Vancomycin susceptibility test by minimum inhibitory concentration <= NRG Levofloxacin susceptibility test by minimum inhibitory concentration 4 NRG Rifampin susceptibility test by minimum inhibitory concentration <= NRG Cefazolin susceptibility test by minimum inhibitory concentration R NRG Linezolid susceptibility test by minimum inhibitory concentration 2 NRG Penicillin G susceptibility test by minimum inhibitory concentration > NRG Minocycline susc ADAM <= NRG Complete blood count (CBC) with automated white blood cell (WBC) differential - 08/11/18 16:26 Blood leukocytes automated count (number/volume) 9.4 10*3/uL 4.3-11.0 Blood erythrocytes automated count (number/volume) 4.45 10*6/uL 4.35-5.85 Venous blood hemoglobin measurement (mass/volume) 13.3 g/dL 13.3-17.7 Blood hematocrit (volume fraction) 40 % 40-54 Automated erythrocyte mean corpuscular volume 90 [foz_us] 80-99 Automated erythrocyte mean corpuscular hemoglobin (mass per erythrocyte) 30 pg 25-34 Automated erythrocyte mean corpuscular hemoglobin concentration measurement (mass/volume) 33 g/dL 32-36 Automated erythrocyte distribution width ratio 13.0 % 10.0- 14.5 Automated blood platelet count (count/volume) 322 10*3/uL 130-400 Automated blood platelet mean volume measurement 8.7 [foz_us] 7.4-10.4 Automated blood neutrophils/100 leukocytes 63 % 42-75 Automated blood lymphocytes/100 leukocytes 26 % 12-44 Blood monocytes/100 leukocytes 9 % 0-12 Automated blood eosinophils/100 leukocytes 2 % 0-10 Automated blood basophils/100 leukocytes 0 % 0-10 Blood neutrophils automated count (number/volume) 5.9 10*3 1.8-7.8 Blood lymphocytes automated count (number/volume) 2.5 10*3 1.0-4.0 Blood monocytes automated count (number/volume) 0.8 10*3 0.0- 1.0 Automated eosinophil count 0.2 10*3/uL 0.0-0.3 Automated blood basophil count (count/volume) 0.0 10*3/uL 0.0-0.1 Comprehensive metabolic panel - 08/11/18 16:26 Serum or plasma sodium measurement (moles/volume) 139 mmol/L 135-145 Serum or plasma potassium measurement (moles/volume) 4.6 mmol/L 3.6-5.0 Serum or plasma chloride measurement (moles/volume) 104 mmol/L 98-107 Carbon dioxide 26 mmol/L 21-32 Serum or plasma anion gap determination (moles/volume) 9 mmol/L 5-14 Serum or plasma urea nitrogen measurement (mass/volume) 25 mg/dL 7-18 Serum or plasma creatinine measurement (mass/volume) 1.26 mg/dL 0.60-1.30 Serum or plasma urea nitrogen/creatinine mass ratio 20 NRG Serum or plasma creatinine measurement with calculation of estimated glomerular filtration rate > NRG Serum or plasma glucose measurement (mass/volume) 166 mg/dL 70-105 Serum or plasma calcium measurement (mass/volume) 9.5 mg/dL 8.5-10.1 Serum or plasma total bilirubin measurement (mass/volume) 0.3 mg/dL 0.1-1.0 Serum or plasma alkaline phosphatase measurement (enzymatic activity/volume) 95 U/L 40-136 Serum or plasma aspartate aminotransferase measurement (enzymatic activity/volume) 17 U/L 5-34 Serum or plasma alanine aminotransferase measurement (enzymatic activity/volume) 16 U/L 0-55 Serum or plasma protein measurement (mass/volume) 8.2 g/dL 6.4-8.2 Serum or plasma albumin measurement (mass/volume) 4.1 g/dL 3.2-4.5 CALCIUM CORRECTED 9.4 mg/dL 8.5-10.1 Hemoglobin A1c - 08/11/18 16:26 Blood hemoglobin A1C measurement (mass/volume) 7.5 % 4.0-5.6 MEAN BLOOD GLUCOSE 169 % <=126 Bacteria identification in isolate by anaerobe culture - 09/08/18 14:51 Bacteria identification in isolate by anaerobe culture NOANA NRG Gram stain microscopy - 09/08/18 14:51 Gram stain microscopy No bacteria seen NRG Bacteria identification in wound by culture - 09/08/18 14:51 Bacteria identification in wound by culture [id number] NRG FREE TEXT EXTERNAL SUSCEPTIBILITY REPORT RECEIVED 09/15 09:0 NRG QUANTITY OF GROWTH Rare NRG FREE TEXT ENTRY 2 LEVOFLOXACIN ADAM: >16 (NO INTERP) NRG RML Sensitivity Panel - 09/08/18 14:51 Oxacillin susceptibility test by minimum inhibitory concentration > NRG Clindamycin susceptibility test by minimum inhibitory concentration > NRG Erythromycin susceptibility test by minimum inhibitory concentration > NRG Vancomycin susceptibility test by minimum inhibitory concentration 1 NRG Levofloxacin susceptibility test by minimum inhibitory concentration > NRG Rifampin susceptibility test by minimum inhibitory concentration <= NRG Cefazolin susceptibility test by minimum inhibitory concentration R NRG Linezolid susceptibility test by minimum inhibitory concentration 2 NRG Penicillin G susceptibility test by minimum inhibitory concentration 0.5 NRG Minocycline susc ADAM <= NRG RML Sensitivity Panel - 09/08/18 14:51 Gentamicin susceptibility test by minimum inhibitory concentration 4 NRG Clindamycin susceptibility test by minimum inhibitory concentration > NRG Erythromycin susceptibility test by minimum inhibitory concentration > NRG Trimethoprim/sulfamethoxazole susceptibility test by minimum inhibitoryconcentration > NRG Vancomycin susceptibility test by minimum inhibitory concentration <= NRG Ceftriaxone susceptibility test by minimum inhibitory concentration > NRG Meropenem susceptibility test by minimum inhibitory concentration R NRG Linezolid susceptibility test by minimum inhibitory concentration 0.5 NRG Penicillin G susceptibility test by minimum inhibitory concentration R NRG Doxycycline > NRG Gram stain microscopy - 09/29/18 14:15 Gram stain microscopy Red blood cell debris NRG Bacteria identification in wound by culture - 09/29/18 14:15 Bacteria identification in wound by culture SEE COMMEN NRG FREE TEXT EXTERNAL SUSCEPTIBILITY REPORTED [id number] NRG QUANTITY OF GROWTH . NRG FREE TEXT ENTRY 2 ID REPORTED 10/01/18 13:05 NRG RML Sensitivity Panel - 09/29/18 14:15 Oxacillin susceptibility test by minimum inhibitory concentration > NRG Clindamycin susceptibility test by minimum inhibitory concentration R NRG Erythromycin susceptibility test by minimum inhibitory concentration > NRG Vancomycin susceptibility test by minimum inhibitory concentration 1 NRG Levofloxacin susceptibility test by minimum inhibitory concentration > NRG Rifampin susceptibility test by minimum inhibitory concentration <= NRG Cefazolin susceptibility test by minimum inhibitory concentration R NRG Linezolid susceptibility test by minimum inhibitory concentration 2 NRG Penicillin G susceptibility test by minimum inhibitory concentration > NRG Minocycline susc ADAM <= NRG RML Sensitivity Panel - 09/29/18 14:15 Gentamicin susceptibility test by minimum inhibitory concentration <= NRG Trimethoprim/sulfamethoxazole susceptibility test by minimum inhibitoryconcentration S NRG Levofloxacin susceptibility test by minimum inhibitory concentration <= NRG Ampicillin susceptibility test by minimum inhibitory concentration > NRG Cefazolin susceptibility test by minimum inhibitory concentration > NRG Ceftriaxone susceptibility test by minimum inhibitory concentration <= NRG Piperacillin/tazobactam susceptibility test by minimum inhibitory concentration S NRG Ciprofloxacin susceptibility test by minimum inhibitory concentration <= NRG Meropenem susceptibility test by minimum inhibitory concentration <= NRG Amoxicillin and clavulanate potassium susc ADAM > NRG Gram stain microscopy - 10/20/18 13:19 Bacteria identification in wound by culture - 10/20/18 13:19 Bacteria identification in wound by culture [id number] NR FREE TEXT EXTERNAL SUSCEPTIBILITY REPORT ([facility]) RCD 10/25 NRG QUANTITY OF GROWTH FEW NR RML Sensitivity Panel - 10/20/18 13:19 Gentamicin susceptibility test by minimum inhibitory concentration 2 NRG Clindamycin susceptibility test by minimum inhibitory concentration > NRG Erythromycin susceptibility test by minimum inhibitory concentration > NRG Trimethoprim/sulfamethoxazole susceptibility test by minimum inhibitoryconcentration > NRG Vancomycin susceptibility test by minimum inhibitory concentration <= NRG Levofloxacin susceptibility test by minimum inhibitory concentration R NRG Ceftriaxone susceptibility test by minimum inhibitory concentration > NRG Meropenem susceptibility test by minimum inhibitory concentration R NRG Linezolid susceptibility test by minimum inhibitory concentration <= NRG Penicillin G susceptibility test by minimum inhibitory concentration > NRG Doxycycline > NRG Gram stain microscopy - 11/19/18 13:44 Gram stain microscopy 11-20-18, 604. NRG Bacteria identification in wound by culture - 11/19/18 13:44 Bacteria identification in wound by culture [id number] NR FREE TEXT EXTERNAL SUSCEPTIBILITY REPORTED 11/22/18 14:05 NRG QUANTITY OF GROWTH Rare NRG RML Sensitivity Panel - 11/19/18 13:44 Oxacillin susceptibility test by minimum inhibitory concentration > NRG Clindamycin susceptibility test by minimum inhibitory concentration <= NRG Erythromycin susceptibility test by minimum inhibitory concentration > NRG Trimethoprim/sulfamethoxazole susceptibility test by minimum inhibitoryconcentration <= NRG Vancomycin susceptibility test by minimum inhibitory concentration 1 NRG Levofloxacin susceptibility test by minimum inhibitory concentration 4 NRG Rifampin susceptibility test by minimum inhibitory concentration <= NRG Cefazolin susceptibility test by minimum inhibitory concentration > NRG Linezolid susceptibility test by minimum inhibitory concentration 2 NRG Penicillin G susceptibility test by minimum inhibitory concentration > NRG Moxifloxacin susceptibility test by minimum inhibitory concentration 2 NRG Minocycline susc ADAM <= NRG Complete blood count (CBC) with automated white blood cell (WBC) differential - 01/18/19 17:17 Blood leukocytes automated count (number/volume) 18.8 10*3/uL 4.3-11.0 Blood erythrocytes automated count (number/volume) 4.04 10*6/uL 4.35-5.85 Venous blood hemoglobin measurement (mass/volume) 12.2 g/dL 13.3-17.7 Blood hematocrit (volume fraction) 36 % 40-54 Automated erythrocyte mean corpuscular volume 89 [foz_us] 80-99 Automated erythrocyte mean corpuscular hemoglobin (mass per erythrocyte) 30 pg 25-34 Automated erythrocyte mean corpuscular hemoglobin concentration measurement (mass/volume) 34 g/dL 32-36 Automated erythrocyte distribution width ratio 12.9 % 10.0- 14.5 Automated blood platelet count (count/volume) 322 10*3/uL 130-400 Automated blood platelet mean volume measurement 9.2 [foz_us] 7.4-10.4 Automated blood neutrophils/100 leukocytes 83 % 42-75 Automated blood lymphocytes/100 leukocytes 6 % 12-44 Blood monocytes/100 leukocytes 9 % 0-12 Automated blood eosinophils/100 leukocytes 1 % 0-10 Automated blood basophils/100 leukocytes 0 % 0-10 Blood neutrophils automated count (number/volume) 15.7 10*3 1.8-7.8 Blood lymphocytes automated count (number/volume) 1.2 10*3 1.0-4.0 Blood monocytes automated count (number/volume) 1.8 10*3 0.0- 1.0 Automated eosinophil count 0.2 10*3/uL 0.0-0.3 Automated blood basophil count (count/volume) 0.0 10*3/uL 0.0-0.1 Blood lactic acid measurement (moles/volume) - 01/18/19 17:17 Blood lactic acid measurement (moles/volume) 1.16 mmol/L 0.50- 2.00 PT panel in platelet poor plasma by coagulation assay - 01/18/19 17:17 Prothrombin time (PT) in platelet poor plasma by coagulation assay 14.3 s 12.2-14.7 INR in platelet poor plasma or blood by coagulation assay 1.1 0.8-1.4 Activated partial thromboplastin time (aPTT) in platelet poor plasma bycoagulation assay - 01/18/19 17:17 Activated partial thromboplastin time (aPTT) in platelet poor plasma bycoagulation assay 39 s 24-35 Comprehensive metabolic panel - 01/18/19 17:17 Serum or plasma sodium measurement (moles/volume) 136 mmol/L 135-145 Serum or plasma potassium measurement (moles/volume) 4.0 mmol/L 3.6-5.0 Serum or plasma chloride measurement (moles/volume) 102 mmol/L 98-107 Carbon dioxide 23 mmol/L 21-32 Serum or plasma anion gap determination (moles/volume) 11 mmol/L 5-14 Serum or plasma urea nitrogen measurement (mass/volume) 16 mg/dL 7-18 Serum or plasma creatinine measurement (mass/volume) 1.42 mg/dL 0.60-1.30 Serum or plasma urea nitrogen/creatinine mass ratio 11 NRG Serum or plasma creatinine measurement with calculation of estimated glomerular filtration rate 54 NRG Serum or plasma glucose measurement (mass/volume) 234 mg/dL 70-105 Serum or plasma calcium measurement (mass/volume) 9.5 mg/dL 8.5-10.1 Serum or plasma total bilirubin measurement (mass/volume) 0.8 mg/dL 0.1-1.0 Serum or plasma alkaline phosphatase measurement (enzymatic activity/volume) 90 U/L 40-136 Serum or plasma aspartate aminotransferase measurement (enzymatic activity/volume) 10 U/L 5-34 Serum or plasma alanine aminotransferase measurement (enzymatic activity/volume) 13 U/L 0-55 Serum or plasma protein measurement (mass/volume) 8.1 g/dL 6.4-8.2 Serum or plasma albumin measurement (mass/volume) 3.8 g/dL 3.2-4.5 CALCIUM CORRECTED 9.7 mg/dL 8.5-10.1 Manual absolute plasma cell count - 01/18/19 17:17 Blood monocytes/100 leukocytes 4 % NRG Manual blood segmented neutrophils/100 leukocytes 89 % NRG Manual blood lymphocytes/100 leukocytes 5 % NRG Manual eosinophils/100 leukocytes in nose 2 % NRG Blood erythrocyte morphology finding identification NORMAL NRG Bacterial blood culture - 01/18/19 17:17 FREE TEXT EXTERNAL METHICILLIN-RESISTANT STAPH AUREUS NRG QUANTITY OF GROWTH Isolated NRG MRSA AGAR RESISTANT ORGANISM/CONTACT PRECAUTIONS NRG Bacterial blood culture [id number] NRG CALL POSITIVES (F1 HELP) MRSA PREVIOUSLY REPORTED ON WOUND NRG PBP2 CLINDAMYCIN RESISTANT WITHOUT INDUCTION NRG RML SENSITIVITY MAIN LAB - 01/18/19 17:17 Oxacillin susceptibility test by minimum inhibitory concentration > NRG Clindamycin susceptibility test by minimum inhibitory concentration > NRG Erythromycin susceptibility test by minimum inhibitory concentration > NRG Trimethoprim/sulfamethoxazole susceptibility test by minimum inhibitoryconcentration > NRG Vancomycin susceptibility test by minimum inhibitory concentration 1 NRG Levofloxacin susceptibility test by minimum inhibitory concentration > NRG Rifampin susceptibility test by minimum inhibitory concentration <= NRG Cefazolin susceptibility test by minimum inhibitory concentration > NRG Penicillin G susceptibility test by minimum inhibitory concentration > NRG Moxifloxacin susceptibility test by minimum inhibitory concentration 2 NRG Minocycline susc ADAM <= NRG Bacterial blood culture - 01/18/19 17:44 FREE TEXT EXTERNAL SEE OTHER BLOOD CULTURE FOR SENSITIVITY NRG QUANTITY OF GROWTH Isolated NRG MRSA AGAR RESISTANT ORGANISM/CONTACT PRECAUTIONS. NRG Bacterial blood culture [id number] NRG CALL POSITIVES (F1 HELP) MRSA REPORTED WITH OTHER CULTURE. NRG Complete urinalysis with reflex to culture - 01/18/19 18:26 Urine color determination KAUR NRG Urine clarity determination SLIGHTLY CLOUDY NRG Urine pH measurement by test strip 5 5-9 Specific gravity of urine by test strip 1.020 1.016-1.022 Urine protein assay by test strip, semi-quantitative 4+ NEGATIVE Urine glucose detection by automated test strip 2+ NEGATIVE Erythrocytes detection in urine sediment by light microscopy 4+ NEGATIVE Urine ketones detection by automated test strip 3+ NEGATIVE Urine nitrite detection by test strip NEGATIVE NEGATIVE Urine total bilirubin detection by test strip NEGATIVE NEGATIVE Urine urobilinogen measurement by automated test strip (mass/volume) 1 mg/dL NORMAL Urine leukocyte esterase detection by dipstick 1+ NEGATIVE Automated urine sediment erythrocyte count by microscopy (number/high power field) [HPF] NRG Automated urine sediment leukocyte count by microscopy (number/high power field) [HPF] NRG Bacteria detection in urine sediment by light microscopy FEW NRG Squamous epithelial cells detection in urine sediment by light microscopy 0-2 NRG Crystals detection in urine sediment by light microscopy NONE NRG Casts detection in urine sediment by light microscopy NONE NRG Mucus detection in urine sediment by light microscopy LARGE NRG Complete urinalysis with reflex to culture CULTURE PENDING NRG Bacterial urine culture - 01/18/19 18:26 Bacterial urine culture NG NRG Gram stain microscopy - 01/18/19 18:32 Gram stain microscopy Rare gram positive cocci in clusters NRG Bacteria identification in wound by culture - 01/18/19 18:32 Bacteria identification in wound by culture [id number] NRG FREE TEXT EXTERNAL SUSCEPTIBILITY REPORTED 01/20 10:50 NRG QUANTITY OF GROWTH Moderate Growth NRG FREE TEXT ENTRY 2 ID REPORTED 01/19/19 16:05 NRG Dirithromycin susceptibility test by disk diffusion - 01/18/19 18:32 Oxacillin susceptibility test by minimum inhibitory concentration > NRG Clindamycin susceptibility test by minimum inhibitory concentration > NRG Erythromycin susceptibility test by minimum inhibitory concentration > NRG Trimethoprim/sulfamethoxazole susceptibility test by minimum inhibitoryconcentration > NRG Vancomycin susceptibility test by minimum inhibitory concentration 1 NRG Levofloxacin susceptibility test by minimum inhibitory concentration > NRG Rifampin susceptibility test by minimum inhibitory concentration <= NRG Cefazolin susceptibility test by minimum inhibitory concentration > NRG Linezolid susceptibility test by minimum inhibitory concentration <= NRG Penicillin G susceptibility test by minimum inhibitory concentration > NRG Moxifloxacin susceptibility test by minimum inhibitory concentration 2 NRG Minocycline susc ADAM <= NRG Capillary blood glucose measurement by glucometer (mass/volume) - 01/18/19 20:05 Capillary blood glucose measurement by glucometer (mass/volume) 236 mg/dL 70-110 Capillary blood glucose measurement by glucometer (mass/volume) - 01/19/19 00:08 Capillary blood glucose measurement by glucometer (mass/volume) 328 mg/dL 70-110 Capillary blood glucose measurement by glucometer (mass/volume) - 01/19/19 04:20 Capillary blood glucose measurement by glucometer (mass/volume) 269 mg/dL 70-110 Complete blood count (CBC) with automated white blood cell (WBC) differential - 01/19/19 05:25 Blood leukocytes automated count (number/volume) 17.2 10*3/uL 4.3-11.0 Blood erythrocytes automated count (number/volume) 3.49 10*6/uL 4.35-5.85 Venous blood hemoglobin measurement (mass/volume) 10.7 g/dL 13.3-17.7 Blood hematocrit (volume fraction) 32 % 40-54 Automated erythrocyte mean corpuscular volume 90 [foz_us] 80-99 Automated erythrocyte mean corpuscular hemoglobin (mass per erythrocyte) 31 pg 25-34 Automated erythrocyte mean corpuscular hemoglobin concentration measurement (mass/volume) 34 g/dL 32-36 Automated erythrocyte distribution width ratio 12.9 % 10.0- 14.5 Automated blood platelet count (count/volume) 299 10*3/uL 130-400 Automated blood platelet mean volume measurement 9.3 [foz_us] 7.4-10.4 Automated blood neutrophils/100 leukocytes 83 % 42-75 Automated blood lymphocytes/100 leukocytes 6 % 12-44 Blood monocytes/100 leukocytes 9 % 0-12 Automated blood eosinophils/100 leukocytes 2 % 0-10 Automated blood basophils/100 leukocytes 0 % 0-10 Blood neutrophils automated count (number/volume) 14.3 10*3 1.8-7.8 Blood lymphocytes automated count (number/volume) 1.1 10*3 1.0-4.0 Blood monocytes automated count (number/volume) 1.5 10*3 0.0- 1.0 Automated eosinophil count 0.3 10*3/uL 0.0-0.3 Automated blood basophil count (count/volume) 0.0 10*3/uL 0.0-0.1 Comprehensive metabolic panel - 01/19/19 05:25 Serum or plasma sodium measurement (moles/volume) 137 mmol/L 135-145 Serum or plasma potassium measurement (moles/volume) 3.8 mmol/L 3.6-5.0 Serum or plasma chloride measurement (moles/volume) 105 mmol/L 98-107 Carbon dioxide 22 mmol/L 21-32 Serum or plasma anion gap determination (moles/volume) 10 mmol/L 5-14 Serum or plasma urea nitrogen measurement (mass/volume) 14 mg/dL 7-18 Serum or plasma creatinine measurement (mass/volume) 1.25 mg/dL 0.60-1.30 Serum or plasma urea nitrogen/creatinine mass ratio 11 NRG Serum or plasma creatinine measurement with calculation of estimated glomerular filtration rate > NRG Serum or plasma glucose measurement (mass/volume) 268 mg/dL 70-105 Serum or plasma calcium measurement (mass/volume) 9.0 mg/dL 8.5-10.1 Serum or plasma total bilirubin measurement (mass/volume) 0.7 mg/dL 0.1-1.0 Serum or plasma alkaline phosphatase measurement (enzymatic activity/volume) 93 U/L 40-136 Serum or plasma aspartate aminotransferase measurement (enzymatic activity/volume) 12 U/L 5-34 Serum or plasma alanine aminotransferase measurement (enzymatic activity/volume) 13 U/L 0-55 Serum or plasma protein measurement (mass/volume) 7.1 g/dL 6.4-8.2 Serum or plasma albumin measurement (mass/volume) 3.3 g/dL 3.2-4.5 CALCIUM CORRECTED 9.6 mg/dL 8.5-10.1 Capillary blood glucose measurement by glucometer (mass/volume) - 01/19/19 11:37 Capillary blood glucose measurement by glucometer (mass/volume) 234 mg/dL 70-110 Capillary blood glucose measurement by glucometer (mass/volume) - 01/19/19 16:52 Capillary blood glucose measurement by glucometer (mass/volume) 156 mg/dL 70-110 Capillary blood glucose measurement by glucometer (mass/volume) - 01/19/19 20:44 Capillary blood glucose measurement by glucometer (mass/volume) 128 mg/dL 70-110 Methicillin resistant Staphylococcus aureus (MRSA) screening culture - 01/19/19 21:00 MRSA SCREEN RESULT MRSA ISOLATED NR Capillary blood glucose measurement by glucometer (mass/volume) - 01/20/19 00:08 Capillary blood glucose measurement by glucometer (mass/volume) 150 mg/dL 70-110 Capillary blood glucose measurement by glucometer (mass/volume) - 01/20/19 04:09 Capillary blood glucose measurement by glucometer (mass/volume) 140 mg/dL 70-110 Complete blood count (CBC) with automated white blood cell (WBC) differential - 01/20/19 05:05 Blood leukocytes automated count (number/volume) 7.6 10*3/uL 4.3-11.0 Blood erythrocytes automated count (number/volume) 3.41 10*6/uL 4.35-5.85 Venous blood hemoglobin measurement (mass/volume) 10.4 g/dL 13.3-17.7 Blood hematocrit (volume fraction) 31 % 40-54 Automated erythrocyte mean corpuscular volume 89 [foz_us] 80-99 Automated erythrocyte mean corpuscular hemoglobin (mass per erythrocyte) 30 pg 25-34 Automated erythrocyte mean corpuscular hemoglobin concentration measurement (mass/volume) 34 g/dL 32-36 Automated erythrocyte distribution width ratio 13.4 % 10.0- 14.5 Automated blood platelet count (count/volume) 269 10*3/uL 130-400 Automated blood platelet mean volume measurement 9.1 [foz_us] 7.4-10.4 Automated blood neutrophils/100 leukocytes 67 % 42-75 Automated blood lymphocytes/100 leukocytes 14 % 12-44 Blood monocytes/100 leukocytes 14 % 0-12 Automated blood eosinophils/100 leukocytes 5 % 0-10 Automated blood basophils/100 leukocytes 0 % 0-10 Blood neutrophils automated count (number/volume) 5.1 10*3 1.8-7.8 Blood lymphocytes automated count (number/volume) 1.1 10*3 1.0-4.0 Blood monocytes automated count (number/volume) 1.0 10*3 0.0- 1.0 Automated eosinophil count 0.4 10*3/uL 0.0-0.3 Automated blood basophil count (count/volume) 0.0 10*3/uL 0.0-0.1 Comprehensive metabolic panel - 01/20/19 05:15 Serum or plasma sodium measurement (moles/volume) 141 mmol/L 135-145 Serum or plasma potassium measurement (moles/volume) 3.5 mmol/L 3.6-5.0 Serum or plasma chloride measurement (moles/volume) 111 mmol/L 98-107 Carbon dioxide 21 mmol/L 21-32 Serum or plasma anion gap determination (moles/volume) 9 mmol/L 5-14 Serum or plasma urea nitrogen measurement (mass/volume) 17 mg/dL 7-18 Serum or plasma creatinine measurement (mass/volume) 1.30 mg/dL 0.60-1.30 Serum or plasma urea nitrogen/creatinine mass ratio 13 NRG Serum or plasma creatinine measurement with calculation of estimated glomerular filtration rate 60 NRG Serum or plasma glucose measurement (mass/volume) 145 mg/dL 70-105 Serum or plasma calcium measurement (mass/volume) 8.4 mg/dL 8.5-10.1 Serum or plasma total bilirubin measurement (mass/volume) 0.2 mg/dL 0.1-1.0 Serum or plasma alkaline phosphatase measurement (enzymatic activity/volume) 85 U/L 40-136 Serum or plasma aspartate aminotransferase measurement (enzymatic activity/volume) 21 U/L 5-34 Serum or plasma alanine aminotransferase measurement (enzymatic activity/volume) 16 U/L 0-55 Serum or plasma protein measurement (mass/volume) 6.2 g/dL 6.4-8.2 Serum or plasma albumin measurement (mass/volume) 2.8 g/dL 3.2-4.5 CALCIUM CORRECTED 9.4 mg/dL 8.5-10.1 Capillary blood glucose measurement by glucometer (mass/volume) - 01/20/19 07:55 Capillary blood glucose measurement by glucometer (mass/volume) 114 mg/dL 70-110 Bacteria identification in isolate by anaerobe culture - 01/20/19 09:04 Bacteria identification in isolate by anaerobe culture NOANA NRG Gram stain microscopy - 01/20/19 09:04 Gram stain microscopy Many Gram positivie cocci in clusters NRG Bacteria identification in wound by culture - 01/20/19 09:04 Bacteria identification in wound by culture [id number] NRG FREE TEXT EXTERNAL REFER TO PREVIOUS CULTURE FOR NRG QUANTITY OF GROWTH Many NRG FREE TEXT ENTRY 2 SUSCEPTIBILITY NRG FREE TEXT ENTRY 3 METHICILLIN-RESISTANT STAPH AUREUS NRG CALL POSITIVES (F1 HELP) MRSA PREVIOUSLY REPORTED ON OTHER CULT. NRG PBP2 RESISTANT ORGANISM/CONTACT PRECAUTIONS NRG Vancomycin trough - 01/20/19 13:29 Vancomycin trough 19.5 ug/mL 10.0-20.0 C DIFFICILE AG + TOXIN A/B. - 01/20/19 13:45 C DIFFICILE AG + TOXIN A/B. TNP NRG Stool bacteria identification by culture - 01/20/19 13:45 Capillary blood glucose measurement by glucometer (mass/volume) - 01/20/19 15:58 Capillary blood glucose measurement by glucometer (mass/volume) 206 mg/dL 70-110 Capillary blood glucose measurement by glucometer (mass/volume) - 01/20/19 20:39 Capillary blood glucose measurement by glucometer (mass/volume) 99 mg/dL 70-110 Complete blood count (CBC) with automated white blood cell (WBC) differential - 01/21/19 04:45 Blood leukocytes automated count (number/volume) 9.3 10*3/uL 4.3-11.0 Blood erythrocytes automated count (number/volume) 3.20 10*6/uL 4.35-5.85 Venous blood hemoglobin measurement (mass/volume) 9.7 g/dL 13.3-17.7 Blood hematocrit (volume fraction) 29 % 40-54 Automated erythrocyte mean corpuscular volume 89 [foz_us] 80-99 Automated erythrocyte mean corpuscular hemoglobin (mass per erythrocyte) 30 pg 25-34 Automated erythrocyte mean corpuscular hemoglobin concentration measurement (mass/volume) 34 g/dL 32-36 Automated erythrocyte distribution width ratio 13.1 % 10.0- 14.5 Automated blood platelet count (count/volume) 285 10*3/uL 130-400 Automated blood platelet mean volume measurement 9.0 [foz_us] 7.4-10.4 Automated blood neutrophils/100 leukocytes 70 % 42-75 Automated blood lymphocytes/100 leukocytes 14 % 12-44 Blood monocytes/100 leukocytes 13 % 0-12 Automated blood eosinophils/100 leukocytes 2 % 0-10 Automated blood basophils/100 leukocytes 1 % 0-10 Blood neutrophils automated count (number/volume) 6.5 10*3 1.8-7.8 Blood lymphocytes automated count (number/volume) 1.3 10*3 1.0-4.0 Blood monocytes automated count (number/volume) 1.2 10*3 0.0- 1.0 Automated eosinophil count 0.2 10*3/uL 0.0-0.3 Automated blood basophil count (count/volume) 0.1 10*3/uL 0.0-0.1 Comprehensive metabolic panel - 01/21/19 04:45 Serum or plasma sodium measurement (moles/volume) 139 mmol/L 135-145 Serum or plasma potassium measurement (moles/volume) 3.9 mmol/L 3.6-5.0 Serum or plasma chloride measurement (moles/volume) 108 mmol/L 98-107 Carbon dioxide 20 mmol/L 21-32 Serum or plasma anion gap determination (moles/volume) 11 mmol/L 5-14 Serum or plasma urea nitrogen measurement (mass/volume) 12 mg/dL 7-18 Serum or plasma creatinine measurement (mass/volume) 1.41 mg/dL 0.60-1.30 Serum or plasma urea nitrogen/creatinine mass ratio 9 NRG Serum or plasma creatinine measurement with calculation of estimated glomerular filtration rate 55 NRG Serum or plasma glucose measurement (mass/volume) 150 mg/dL 70-105 Serum or plasma calcium measurement (mass/volume) 8.0 mg/dL 8.5-10.1 Serum or plasma total bilirubin measurement (mass/volume) 0.3 mg/dL 0.1-1.0 Serum or plasma alkaline phosphatase measurement (enzymatic activity/volume) 75 U/L 40-136 Serum or plasma aspartate aminotransferase measurement (enzymatic activity/volume) 19 U/L 5-34 Serum or plasma alanine aminotransferase measurement (enzymatic activity/volume) 18 U/L 0-55 Serum or plasma protein measurement (mass/volume) 6.0 g/dL 6.4-8.2 Serum or plasma albumin measurement (mass/volume) 2.7 g/dL 3.2-4.5 CALCIUM CORRECTED 9.0 mg/dL 8.5-10.1 Capillary blood glucose measurement by glucometer (mass/volume) - 01/21/19 16:11 Capillary blood glucose measurement by glucometer (mass/volume) 165 mg/dL 70-110 Capillary blood glucose measurement by glucometer (mass/volume) - 01/21/19 20:36 Capillary blood glucose measurement by glucometer (mass/volume) 163 mg/dL 70-110 Vancomycin trough - 01/22/19 01:20 Vancomycin trough 18.8 ug/mL 10.0-20.0 Capillary blood glucose measurement by glucometer (mass/volume) - 01/22/19 06:20 Capillary blood glucose measurement by glucometer (mass/volume) 181 mg/dL 70-110 Complete blood count (CBC) with automated white blood cell (WBC) differential - 01/22/19 06:35 Blood leukocytes automated count (number/volume) 8.6 10*3/uL 4.3-11.0 Blood erythrocytes automated count (number/volume) 2.87 10*6/uL 4.35-5.85 Venous blood hemoglobin measurement (mass/volume) 8.6 g/dL 13.3-17.7 Blood hematocrit (volume fraction) 26 % 40-54 Automated erythrocyte mean corpuscular volume 90 [foz_us] 80-99 Automated erythrocyte mean corpuscular hemoglobin (mass per erythrocyte) 30 pg 25-34 Automated erythrocyte mean corpuscular hemoglobin concentration measurement (mass/volume) 33 g/dL 32-36 Automated erythrocyte distribution width ratio 13.3 % 10.0- 14.5 Automated blood platelet count (count/volume) 290 10*3/uL 130-400 Automated blood platelet mean volume measurement 8.7 [foz_us] 7.4-10.4 Automated blood neutrophils/100 leukocytes 70 % 42-75 Automated blood lymphocytes/100 leukocytes 16 % 12-44 Blood monocytes/100 leukocytes 12 % 0-12 Automated blood eosinophils/100 leukocytes 2 % 0-10 Automated blood basophils/100 leukocytes 0 % 0-10 Blood neutrophils automated count (number/volume) 6.0 10*3 1.8-7.8 Blood lymphocytes automated count (number/volume) 1.4 10*3 1.0-4.0 Blood monocytes automated count (number/volume) 1.1 10*3 0.0- 1.0 Automated eosinophil count 0.1 10*3/uL 0.0-0.3 Automated blood basophil count (count/volume) 0.0 10*3/uL 0.0-0.1 Comprehensive metabolic panel - 01/22/19 06:35 Serum or plasma sodium measurement (moles/volume) 140 mmol/L 135-145 Serum or plasma potassium measurement (moles/volume) 3.2 mmol/L 3.6-5.0 Serum or plasma chloride measurement (moles/volume) 110 mmol/L 98-107 Carbon dioxide 21 mmol/L 21-32 Serum or plasma anion gap determination (moles/volume) 9 mmol/L 5-14 Serum or plasma urea nitrogen measurement (mass/volume) 9 mg/dL 7-18 Serum or plasma creatinine measurement (mass/volume) 1.16 mg/dL 0.60-1.30 Serum or plasma urea nitrogen/creatinine mass ratio 8 NRG Serum or plasma creatinine measurement with calculation of estimated glomerular filtration rate > NRG Serum or plasma glucose measurement (mass/volume) 180 mg/dL 70-105 Serum or plasma calcium measurement (mass/volume) 7.3 mg/dL 8.5-10.1 Serum or plasma total bilirubin measurement (mass/volume) 0.3 mg/dL 0.1-1.0 Serum or plasma alkaline phosphatase measurement (enzymatic activity/volume) 60 U/L 40-136 Serum or plasma aspartate aminotransferase measurement (enzymatic activity/volume) 22 U/L 5-34 Serum or plasma alanine aminotransferase measurement (enzymatic activity/volume) 21 U/L 0-55 Serum or plasma protein measurement (mass/volume) 5.4 g/dL 6.4-8.2 Serum or plasma albumin measurement (mass/volume) 2.4 g/dL 3.2-4.5 CALCIUM CORRECTED 8.6 mg/dL 8.5-10.1 Capillary blood glucose measurement by glucometer (mass/volume) - 01/22/19 10:50 Capillary blood glucose measurement by glucometer (mass/volume) 194 mg/dL 70-110 Encounters ACCT No. Visit Date/Time Discharge Status Pt. Type Provider Facility Loc./Unit Complaint [id number] 07/19/2014 09:01:00 07/19/2014 23:59:59 CLS Outpatient OSCAR AVILEZ APRN [id number] 06/07/2014 11:35:00 06/07/2014 23:59:59 CLS Outpatient OSCAR AVILEZ APRN [id number] 05/24/2014 08:56:00 05/24/2014 23:59:59 CLS Outpatient OSCAR AVILEZ APRN [id number] 04/15/2014 12:21:00 04/15/2014 23:59:59 CLS Outpatient GERARDO PATEL APRN [id number] 02/25/2014 10:38:00 02/25/2014 23:59:59 CLS Outpatient GERARDO PATEL APRN [id number] 02/11/2014 15:50:00 02/11/2014 23:59:59 CLS Outpatient GERARDO PATEL APRN [id number] 12/01/2013 15:53:00 12/01/2013 23:59:59 CLS Outpatient GERARDO PATEL APRN [id number] 08/14/2013 10:18:00 08/14/2013 23:59:59 CLS Outpatient OSCAR AVILEZ APRN [id number] 07/15/2013 09:07:00 07/15/2013 23:59:59 CLS Outpatient GERARDO PATEL APRN [id number] 11/03/2012 08:41:00 11/03/2012 23:59:59 CLS Outpatient [id number] 09/22/2012 13:26:00 09/22/2012 23:59:59 CLS Outpatient ROSCOE TOTH MD [id number] 07/22/2012 11:05:00 07/22/2012 23:59:59 CLS Outpatient GERARDO PATEL APRN [id number] 04/13/2013 11:51:00 Document Registration [id number] 01/19/2019 12:26:00 01/22/2019 11:57:00 DIS Outpatient STACY DORAN MD [facility] 4TH FEVER, DIARRHEA, DEHYDRATION, WOUND RT FOOT DM2 [id number] 01/12/2019 12:50:00 01/12/2019 23:59:59 CLS Outpatient PAULIE MILLER MD [facility] [id number] 01/02/2019 10:56:00 01/02/2019 23:59:59 CLS Outpatient PAULIE MILLER MD [facility] [id number] 12/15/2018 13:58:00 12/15/2018 23:59:59 CLS Outpatient PAULIE MILLER MD [facility] [id number] 12/01/2018 14:01:00 12/01/2018 23:59:59 CLS Outpatient PAULIE MILLER MD [facility] [id number] 11/24/2018 13:16:00 11/24/2018 23:59:59 CLS Outpatient PAULIE MILLER MD [facility] [id number] 11/19/2018 13:13:00 11/19/2018 23:59:59 CLS Outpatient PAULIE MILLER MD [facility] [id number] 11/03/2018 12:45:00 11/03/2018 23:59:59 CLS Outpatient PAULIE MILLER MD [facility] [id number] 10/27/2018 14:02:00 10/27/2018 23:59:59 CLS Outpatient PAULIE MILLER MD [facility] [id number] 10/20/2018 12:46:00 10/20/2018 23:59:59 CLS Outpatient PAULIE MILLER MD [facility] [id number] 10/13/2018 14:00:00 10/13/2018 23:59:59 CLS Outpatient PAULIE MILLER MD [id number] 10/06/2018 13:00:00 10/06/2018 23:59:59 CLS Outpatient PAULIE MILLER MD [facility] [id number] 09/29/2018 13:45:00 09/29/2018 23:59:59 CLS Outpatient PAULIE MILLER MD [facility] [id number] 09/22/2018 13:47:00 09/22/2018 23:59:59 CLS Outpatient PAULIE MILLER MD [facility] [id number] 09/15/2018 13:34:00 09/15/2018 23:59:59 CLS Outpatient PAULIE MILLER MD [facility] [id number] 09/10/2018 10:33:00 09/10/2018 23:59:59 CLS Outpatient PAULIE MILLER MD [facility] [id number] 09/08/2018 13:33:00 09/08/2018 23:59:59 CLS Outpatient PAULIE MILLER MD [facility] [id number] 09/05/2018 09:39:00 09/05/2018 23:59:59 CLS Outpatient PAULIE MILLER MD [facility] [id number] 09/03/2018 10:41:00 09/03/2018 23:59:59 CLS Outpatient PAULIE MILLER MD [facility] [id number] 09/01/2018 13:46:00 09/01/2018 23:59:59 CLS Outpatient PAULIE MILLER MD [facility] [id number] 08/25/2018 13:54:00 08/25/2018 23:59:59 CLS Outpatient PAULIE MILLER MD [facility] [id number] 08/20/2018 10:48:00 08/20/2018 23:59:59 CLS Outpatient PAULIE MILLER MD [facility] [id number] 08/18/2018 13:58:00 08/18/2018 23:59:59 CLS Outpatient PAULIE MILLER MD [facility] [id number] 08/11/2018 16:10:00 08/11/2018 23:59:59 CLS Outpatient PAULIE MILLER MD [facility] LAB TYPE 2 DIABETES WITH FOOT ULCER [id number] 08/11/2018 13:58:00 08/11/2018 23:59:59 CLS Outpatient PAULIE MILLER MD [facility] [id number] 07/23/2018 09:59:00 07/23/2018 23:59:59 CLS Outpatient ELOINA ROSARIO MD [facility] [id number] 07/19/2018 09:47:00 07/19/2018 23:59:59 CLS Outpatient ELOINA ROSARIO MD [facility] RAD TYPE 2 DM, NON PRESSURE CHRONIC ULCER OF RIGHT FT [id number] 07/16/2018 13:58:00 07/16/2018 23:59:59 CLS Outpatient ELOINA ROSARIO MD [facility] [id number] 07/09/2018 13:54:00 07/09/2018 23:59:59 CLS Outpatient ELOINA ROSARIO MD [facility] [id number] 07/02/2018 14:57:00 07/02/2018 23:59:59 CLS Outpatient ELOINA ROSARIO MD [facility] RAD E11.42 [id number] 07/02/2018 13:53:00 07/02/2018 23:59:59 CLS Outpatient ELOINA ROSARIO MD [facility] [id number] 06/18/2018 14:00:00 06/18/2018 23:59:59 CLS Outpatient ELOINA ROSARIO MD [facility] [id number] 06/09/2018 15:06:00 06/09/2018 23:59:59 CLS Outpatient PAULIE MILLER MD [facility] [id number] 06/02/2018 15:11:00 06/02/2018 23:59:59 CLS Outpatient PAULIE MILLER MD [facility] [id number] 05/26/2018 14:09:00 05/26/2018 23:59:59 CLS Outpatient PAULIE MILLER MD [facility] [id number] 05/19/2018 15:39:00 05/19/2018 23:59:59 CLS Outpatient PAULIE MILLER MD [facility] [id number] 05/15/2018 15:28:00 05/15/2018 23:59:59 CLS Outpatient APULIE MILLER MD [facility] RAD E11.621,E11.42 [id number] 05/14/2018 13:20:00 05/14/2018 23:59:59 CLS Outpatient PAULIE MILLER MD [facility] [id number] 02/16/2016 03:30:00 02/16/2016 20:45:00 DIS Outpatient JUAN DIEGO GREEN DO [facility] ACUTE APPENDICITIS [id number] 12/26/2015 08:28:00 12/26/2015 12:00:00 DIS Outpatient PAULIE MILLER MD [facility] [id number] 12/15/2015 10:16:00 12/15/2015 14:05:00 DIS Outpatient ROSCOE HESS DPM [facility] OSTEOMYLITIS RT.TOE [id number] 12/12/2015 09:34:00 12/12/2015 23:59:59 CLS Outpatient PAULIE MILLER MD [facility] RAD R GREAT TOE DIABETIC ULCER [id number] 11/02/2015 09:26:00 11/02/2015 23:59:59 CLS Outpatient PAULIE MILLER MD [facility] [id number] 10/24/2015 12:28:00 10/24/2015 23:59:59 CLS Outpatient PAULIE MILLER MD [facility] RAD RIGHT GREAT TO DIABETIC USLER, [id number] 10/18/2015 11:38:00 10/18/2015 23:59:59 CLS Outpatient PAULIE MILLER MD [facility] RAD R GREAT DIABETIC ULCER,PNEUMONIA [id number] 09/26/2015 10:51:00 09/26/2015 23:59:59 CLS Outpatient PAULIE MILLER MD [facility] RAD TYPE 2 DIABETES [id number] 08/01/2015 09:18:00 08/04/2015 00:01:00 DIS Outpatient PAULIE MILLER MD [facility] [id number] 05/03/2015 08:47:00 05/04/2015 00:01:00 DIS Outpatient PAULIE MILLER MD [facility] [id number] 02/22/2015 10:28:00 02/22/2015 23:59:59 CLS Outpatient PAULIE MILLER MD [facility] RAD R GREAT TOE WOUND DM COMPLICATION [id number] 01/28/2019 22:41:00 ACT Emergency JOSE R HAMIL[place], [place] [facility] ER VOMITING [id number] 01/28/2019 14:09:00 ACT Outpatient LISA GODINEZ DO [facility] SDC WOUND RT FOOT DM2 [id number] 01/26/2019 12:18:00 ACT Outpatient PAULIE MILLER MD [facility] [id number] 10/23/2010 14:58:00 Document Registration [id number] 10/13/2010 11:43:00 Document Registration
[2019-01-29] MEDS ORDERED: METOCLOPRAMIDE INJ 10 MG/2 ML (REGLAN) ONE (00:35)
[2019-01-29] MEDS ORDERED: METOCLOPRAMIDE INJ 10 MG/2 ML (REGLAN) IVP ONE (00:45)
[2019-01-29] MEDS ORDERED: SCOPOLAMINE 1.5 MG (TRANSDERM-SCOP) PATCH TD ONE (01:45)
[2019-01-29] MEDS ORDERED: fentaNYL INJECTION 100 MCG/2 ML AMP IVP ONE (02:30)
[2019-01-29 02:48] LABS: BILIRUBIN,URINE NEGATIVE (NEGATIVE); CLARITY,URINE CLEAR; COLOR,URINE YELLOW; GLUCOSE, URINE (UA) NEGATIVE (NEGATIVE); KETONES,URINE 2+ (NEGATIVE); LEUKOCYTE ESTERASE ,URINE NEGATIVE (NEGATIVE); NITRITE,URINE NEGATIVE (NEGATIVE); PH,URINE 8 (5-9); PROTEIN,URINE 3+ (NEGATIVE); UROBILINOGEN,URINE NORMAL (NORMAL)
[2019-01-29 02:53] LABS: BACTERIA,URINE TRACE /HPF; RBC,URINE 0-2 /HPF; SQUAMOUS EPITHELIAL CELL,UR RARE /HPF
[2019-01-29] MEDS ORDERED: HOLD METFORMIN - RECEIVED CONTRAST 20 ML VIAL IV SCH (03:30)
[2019-01-29] MEDS ORDERED: LIDOCAINE 2% VISCOUS 15 ML UDC PO ONE (03:30)
[2019-01-29] MEDS ORDERED: IOHEXOL 350 MG/ML 100 ML (OMNIPAQUE 350) VIAL IV ONE (03:30)
[2019-01-29] MEDS ORDERED: ANTACID SUSP 30 ML UDC (MYLANTA) PO ONE (03:30)
[2019-01-29] MEDS ORDERED: NS 100 ML (IVPB) BAG IV ONE (03:30)
[2019-01-29] MEDS ORDERED: ONDANSETRON 4 MG/2 ML (SDV) Z0FRAN IVP ONE (04:15)
[2019-01-29] MEDS ORDERED: PROMETHAZINE INJ 25 MG/ML (PHENERGAN) AMP IVP ONE (05:45)
[2019-01-29 06:14] LABS: AMPHETAMINE SCREEN, URINE NEGATIVE (NEGATIVE); BARBITURATE SCREEN URINE NEGATIVE (NEGATIVE); BENZODIAZEPINES SCREEN URINE NEGATIVE (NEGATIVE); CANNABINOID SCREEN, URINE NEGATIVE (NEGATIVE); COCAINE SCREEN URINE NEGATIVE (NEGATIVE); METHADONE STAT NEGATIVE (NEGATIVE); METHAMPHETAMINE SCREEN URINE S NEGATIVE (NEGATIVE); OPIATE SCREEN URINE NEGATIVE (NEGATIVE); OXYCODONE STAT NEGATIVE (NEGATIVE); PROPOXYPHENE STAT NEGATIVE (NEGATIVE); TRICYCLIC ANTIDEPRESSANTS SCRE NEGATIVE (NEGATIVE)
--- NOTE | 2019-01-29 06:14 | ED Abdominal Pain ---
General Chief Complaint: Abdominal/GI Problems Stated Complaint: VOMITING Nursing Triage Note: PT PRESENTS TO THE ED AMBULATORY, STATES HE HAS BEEN EXPERIENCING UNRETRACTIVE NAUSEA AND VOMITING SINCE BEING PLACED ON A NEW ANTIBIOTIC BY PCP YESTERDAY. Sepsis Screen: No Definite Risk Source of Information: Patient Exam Limitations: No Limitations History of Present Illness Date Seen by Provider: Jan 28, 2019 Time Seen by Provider: 22:40 Initial Comments This 43-year-old gentleman presents to the emergency room with primary complaints of nausea, vomiting, generalized weakness, and generalized abdominal pain. He is presently being treated with IV antibiotics via PICC line for infection of the toes. He comes to the hospital for daily infusions. 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 At that appointment he was started on doxycycline and rifampin. He is suspicious rifampin is causing his nausea and vomiting. He has taken doxycycline in the past without difficulty. He is afebrile. He denies d iarrhea. He is notably hypertensive despite being able to take his blood pressure medications this morning and keep them down. Allergies and Home Medications Allergies Coded Allergies: No Known Drug Allergies (Unverified , 01/18/19) Home Medications Atorvastatin Calcium 40 Mg Tablet, 40 MG PO 1500 HOLD WHILE ON DAPTOMYCIN (CUBICIN) IV Prescribed by: LISA GODINEZ on 01/22/19 1001 Daptomycin 500 Mg Vial, 500 MG IV DAILY Prescribed by: LISA GODINEZ on 01/22/19 1001 Insulin Aspart 300 Units/3 Ml Solution, 10-15 UNITS SC TIDAC, (Reported) Insulin Detemir 100 Unit/1 Ml Insuln.pen, 30 UNITS SC BID, (Reported) Lisinopril 20 Mg Tablet, 10 MG PO 1200, (Reported) TAKES 1/2 (20MG) TABLET Multivitamin 1 Each Tablet, 1 TAB PO DAILY, (Reported) Patient Home Medication List Home Medication List Reviewed: Yes Review of Systems Review of Systems Constitutional: no symptoms reported EENTM: No Symptoms Reported Respiratory: No Symptoms Reported Cardiovascular: No Symptoms Reported Gastrointestinal: See HPI Genitourinary: No Symptoms Reported Musculoskeletal: see HPI Skin: no symptoms reported Psychiatric/Neurological: No Symptoms Reported Endocrine: No Symptoms Reported Past Mxcixct-Xmdccl-Sbhbwm Hx Past Med/Social Hx: Reviewed and Corrections made Patient Social History Alcohol Use: Denies Use Recreational Drug Use: No Smoking Status: Never a Smoker Recent Foreign Travel: No Contact w/Someone Who Travel: No Recent Infectious Disease Expo: No Recent Hopitalizations: No Immunizations Up To Date Tetanus Booster (TDap): Less than 5yrs PED Vaccines UTD: Yes Seasonal Allergies Seasonal Allergies: No Past Medical History Surgeries: Yes (RT GREAT TOE REMOVED.) Abdominal, Amputation Respiratory: No Cardiac: Yes Hypertension Neurological: No Reproductive Disorders: No Gastrointestinal: No Musculoskeletal: No Endocrine: Yes Diabetes, Insulin dep HEENT: No Cancer: No Psychosocial: No Integumentary: No Family Medical History Reviewed Nursing Family Hx Cardiovascular disease 19 MOTHER Diabetes mellitus 19 MOTHER Diabetes Physical Exam Vital Signs Vital Signs - First Documented 01/28/19 22:47 Temp 98.8 Pulse 80 Resp 22 B/P (MAP) 206/105 (138) Pulse Ox 98 O2 Delivery Room Air Capillary Refill : Less Than 3 Seconds Height/Weight/BMI Height: 6'4.00" Weight: 300lbs. 8.0oz. 136.171476mo; 36.4 BMI Method:Stated General Appearance: WD/WN, mild distress (from nausea and vomiting) HEENT: normal ENT inspection, pharynx normal Neck: normal inspection Respiratory: lungs clear, normal breath sounds, no respiratory distress, no accessory muscle use Cardiovascular: regular rate, rhythm, no edema, no murmur Gastrointestinal: normal bowel sounds, soft; No distended; tenderness (generalized tenderness even to light percussion) Extremities: normal inspection, no pedal edema Back: normal inspection Neurologic/Psychiatric: risk mgr II-XII nml as tested, no motor/sensory deficits, alert, normal mood/affect, oriented x 3 Skin: normal color, warm/dry Progress/Results/Core Measures Results/Orders Lab Results Laboratory Tests Test 01/28/19 22:53 01/29/19 02:32 Range/Units White Blood Count 10.5 4.3-11.0 10^3/uL Red Blood Count 3.56 L 4.35-5.85 10^6/uL Hemoglobin 10.6 #L 13.3-17.7 G/DL Hematocrit 32 L 40-54 % Mean Corpuscular Volume 90 80-99 FL Mean Corpuscular Hemoglobin 30 25-34 PG Mean Corpuscular Hemoglobin Concent 33 32-36 G/DL Red Cell Distribution Width 13.3 10.0-14.5 % Platelet Count 625 H 130-400 10^3/uL Mean Platelet Volume 8.5 7.4-10.4 FL Neutrophils (%) (Auto) 68 42-75 % Lymphocytes (%) (Auto) 20 12-44 % Monocytes (%) (Auto) 9 0-12 % Eosinophils (%) (Auto) 3 0-10 % Basophils (%) (Auto) 1 0-10 % Neutrophils # (Auto) 7.1 1.8-7.8 X 10^3 Lymphocytes # (Auto) 2.1 1.0-4.0 X 10^3 Monocytes # (Auto) 0.9 0.0-1.0 X 10^3 Eosinophils # (Auto) 0.3 0.0-0.3 10^3/uL Basophils # (Auto) 0.1 0.0-0.1 10^3/uL Sodium Level 138 135-145 MMOL/L Potassium Level 3.5 L 3.6-5.0 MMOL/L Chloride Level 102 98-107 MMOL/L Carbon Dioxide Level 23 21-32 MMOL/L Anion Gap 13 5-14 MMOL/L Blood Urea Nitrogen 10 7-18 MG/DL Creatinine 1.51 H 0.60-1.30 MG/DL Estimat Glomerular Filtration Rate 51 BUN/Creatinine Ratio 7 Glucose Level 176 H 70-105 MG/DL Calcium Level 9.4 8.5-10.1 MG/DL Corrected Calcium 10.0 8.5-10.1 MG/DL Total Bilirubin 0.5 0.1-1.0 MG/DL Aspartate Amino Transf (AST/SGOT) 36 H 5-34 U/L Alanine Aminotransferase (ALT/SGPT) 79 H 0-55 U/L Alkaline Phosphatase 77 40-136 U/L C-Reactive Protein High Sensitivity 2.19 H 0.00-0.50 MG/DL Total Protein 8.1 6.4-8.2 GM/DL Albumin 3.3 3.2-4.5 GM/DL Lipase 22 8-78 U/L Urine Color YELLOW Urine Clarity CLEAR Urine pH 8 5-9 Urine Specific [place] 1.010 L 1.016-1.022 Urine Protein 3+ H NEGATIVE Urine Glucose (UA) NEGATIVE NEGATIVE Urine Ketones 2+ H NEGATIVE Urine Nitrite NEGATIVE NEGATIVE Urine Bilirubin NEGATIVE NEGATIVE Urine Urobilinogen NORMAL NORMAL MG/DL Urine Leukocyte Esterase NEGATIVE NEGATIVE Urine RBC (Auto) 1+ H NEGATIVE Urine RBC 0-2 /HPF Urine WBC NONE /HPF Urine Squamous Epithelial Cells RARE /HPF Urine Crystals NONE /LPF Urine Bacteria TRACE /HPF Urine Casts NONE /LPF Urine Mucus SMALL H /LPF Urine Culture Indicated NO Urine Opiates Screen NEGATIVE NEGATIVE Urine Oxycodone Screen NEGATIVE NEGATIVE Urine Methadone Screen NEGATIVE NEGATIVE Urine Propoxyphene Screen NEGATIVE NEGATIVE Urine Barbiturates Screen NEGATIVE NEGATIVE Ur Tricyclic Antidepressants Screen NEGATIVE NEGATIVE Urine Phencyclidine Screen NEGATIVE NEGATIVE Urine Amphetamines Screen NEGATIVE NEGATIVE Urine Methamphetamines Screen NEGATIVE NEGATIVE Urine Benzodiazepines Screen NEGATIVE NEGATIVE Urine Cocaine Screen NEGATIVE NEGATIVE Urine Cannabinoids Screen NEGATIVE NEGATIVE My Orders Orders - DECLAN ODELL MD Cbc With Automated Diff (01/28/19 22:53) Comprehensive Metabolic Panel (01/28/19 22:53) Hs C Reactive Protein (01/28/19 22:53) Lipase (01/28/19 22:53) Ct Abdomen/Pelvis W (01/29/19 ) Ed Iv/Invasive Line Start (01/29/19 00:24) Lactated Ringers (Lr 1000 Ml Iv Solution (01/29/19 00:24) Metoclopramide Injection (Reglan Injecti (01/29/19 00:45) Metoclopramide Injection (Reglan Injecti (01/29/19 00:35) Scopolamine Patch (Transderm-Scop Patch) (01/29/19 01:45) Fentanyl Injection (Sublimaze Injection (01/29/19 02:30) Ua Culture If Indicated (01/29/19 02:44) Iohexol Injection (Omnipaque 350 Mg/Ml 1 (01/29/19 03:30) Received Contrast (Hold Metformin- Contr (01/29/19 03:30) Ns (Ivpb) (Sodium Chloride 0.9% Ivpb Bag (01/29/19 03:30) Lidocaine 2% Viscous 15 Ml (Xylocaine Vi (01/29/19 03:30) Antacid Suspension (Mylanta Suspension (01/29/19 03:30) Ondansetron Injection (Zofran Injectio (01/29/19 04:15) Promethazine Injection (Phenergan Injec (01/29/19 05:45) Drug Screen Stat (Urine) (01/29/19 05:53) Lorazepam Injection (Ativan Injection) (01/29/19 06:45) Medications Given in ED Current Medications Medications Dose Ordered Sig/Sonia Route Start Time Stop Time Status Last Admin Dose Admin Al Hydrox/Mg Hydrox/Simethicone 30 ml ONCE ONCE PO 01/29/19 03:30 01/29/19 03:31 DC 01/29/19 03:33 30 ML Fentanyl Citrate 75 mcg ONCE ONCE IVP 01/29/19 02:30 01/29/19 02:31 DC 01/29/19 02:39 75 MCG Iohexol 100 ml ONCE ONCE IV 01/29/19 03:30 01/29/19 03:31 DC 01/29/19 03:28 100 ML Lactated Ringer's 1,000 ml @ 0 mls/hr Q0M ONCE IV 01/29/19 00:24 01/29/19 00:25 DC 01/29/19 01:53 999 MLS/HR Lidocaine HCl 15 ml ONCE ONCE PO 01/29/19 03:30 01/29/19 03:31 DC 01/29/19 03:33 15 ML Metoclopramide HCl 5 mg ONCE ONCE IVP 01/29/19 00:45 01/29/19 00:46 DC 01/29/19 00:40 5 MG Ondansetron HCl 8 mg ONCE ONCE IVP 01/29/19 04:15 01/29/19 04:16 DC 01/29/19 04:19 8 MG Promethazine HCl 25 mg ONCE ONCE IVP 01/29/19 05:45 01/29/19 05:46 DC 01/29/19 05:54 25 MG Scopolamine 1.5 mg ONCE ONCE TD 01/29/19 01:45 01/29/19 01:46 DC 01/29/19 01:53 1.5 MG Sodium Chloride 100 ml ONCE ONCE IV 01/29/19 03:30 01/29/19 03:31 DC 01/29/19 03:28 80 ML Vital Signs/I&O 01/28/19 22:47 Temp 98.8 Pulse 80 Resp 22 B/P (MAP) 206/105 (138) Pulse Ox 98 O2 Delivery Room Air Blood Pressure Mean: 138 Progress Progress Note #1: Time: 00:45 Progress Note Patient is receiving IV fluids. Labs are relatively unremarkable. Given the peritoneal nature of patient's abdominal tenderness, CT scan is felt appropriate. I was called from the CT room with request for more antiemetics as patient felt like he was going to vomit. He has already received Zofran 8 mg and Phenergan 25 mg. I've ordered Reglan 5 [address] to [address] in [address]. Progress Note #2: Time: 01:45 Progress Note Patient is still complaining of significant nausea after Zofran, Phenergan, and Reglan. A scopolamine patch has been ordered. On repeat examination after pain was controlled with fentanyl, patient was found to have a more focal tenderness toward the right and upper abdomen. Progress Note #3: Time: 03:40 Progress Note Patient was finally getting some significant relief from his nausea. A GI cocktail was given which did actually improve his pain. I was arranging for dismissal and reviewing discharge instructions when patient suddenly began to vomit again. CT scan demonstrated no acute pathology to explain his pain. Progress Note #4: Time: 06:18 Progress Note Patient has persistent nausea. Repeat doses of Zofran and Phenergan have been ordered. Progress Note #5: Time: 06:35 Progress Note Patient is still a little nauseated. We will try a small dose of Ativan 0.5 mg IV. He is still hypertensive but blood pressure has improved a little from prior. Case was discussed with Dr. Fatima who is agreeable to admission. Diagnostic Imaging Diagonstic Imaging: CT Plain Films/CT/US/NM/MRI: abdomen, pelvis Comments CT abdomen and pelvis viewed by me and [employer] report reviewed. No bowel obstruction was seen. Bladder wall was thickened and there was recommendation for correlation with UA. UA demonstrated no evidence of infection. Departure Communication (Admissions) Time/Spoke to Admitting Phy: 06:20 Dr. Fatima Impression Primary Impression: Intractable nausea and vomiting Qualified Codes: G43.A1 - Cyclical vomiting, intractable Additional Impression: Generalized abdominal pain Disposition: ADMITTED INPATIENT Condition: Improved Admissions Decision to Admit Reason: Admit from ER (General) Decision to Admit/Date: Jan 29, 2019 Time/Decision to Admit Time: 04:15 Departure-Patient Inst. Referrals: [facility] (PCP/Family) Primary Care Physician DECLAN ODELL MD Jan 29, 2019 06:14
[2019-01-29] MEDS ORDERED: LORazepam INJ 2 MG/ML (ATIVAN) VIAL IVP ONE (06:45)
--- NOTE | 2019-01-29 07:30 | NUR ---
JOEL CHRISTINA V admitted to room 427-1, with an admitting diagnosis of N/V, on 01/29/19 from ED via W/C, accompanied by FAMILY AND STAFF. JOEL CHRISTINA V introduced to surroundings, call light, bed controls, phone, TV, temperature control, lights, meal times, smoking policy, visitor policy, side rail policy, bathrooms and showers. Patient Rights given to patient in the handbook. JOEL CHRISTINA V verbalizes understanding that [facility] is not responsible for the loss or damage to any personal effects or valuables that are kept in the patients possession during their hospitalization.
[2019-01-29] MEDS ORDERED: DAPTOmycin 500 MG/NS 50 ML IVPB IV SCH ×2 (07:52)
--- NOTE | 2019-01-29 08:00 | Diagnostic Imaging Report ---
PROCEDURE: CT abdomen and pelvis with contrast. TECHNIQUE: Multiple contiguous axial images were obtained through the abdomen and pelvis after administration of intravenous contrast. Auto Exposure Controls were utilized during the CT exam to meet ALARA standards for radiation dose reduction. INDICATION: Nausea and vomiting. Exam compared with nonenhanced study 02/16/2016. FINDINGS: Mild infiltration and edema at the bilateral perinephric fat with patchy heterogeneous nephrographic and pyelographic phases of the renal parenchyma bilaterally correlate clinically as the imaging features are suspicious for bilateral pyelonephritis. No radiodense stone is apparent with a postcontrast enhanced imaging and there is no hydronephrosis. There is opacification of the ureters bilaterally. The urinary bladder has a grossly unremarkable appearance. The gallbladder is surgically absent. The liver, bile ducts, spleen, adrenals and pancreas unremarkable. Aorta is nonaneurysmal. There is no bowel obstruction. Small pleural effusions, lung bases themselves clear. IMPRESSION: 1. Heterogeneous density and enhancement of the renal parenchyma with mild perinephric edema suspicious for bilateral pyelonephritis correlate with urinalysis. 2. However, no radiodense stone, obstruction or abscess. 3. No other significant finding. Dictated by: Dictated on workstation # [id number]
[2019-01-29] MEDS: inSUlin ASPART (NovoLOG) 1 UNIT/0.01 ML (CHARGE PER UNIT) SC SCH ×3 (08:51→18:12)
[2019-01-29] MEDS ORDERED: RIFA300C3 PO (08:57)
[2019-01-29] MEDS ORDERED: DOXY100C42 PO (08:57)
[2019-01-29] MEDS: LACTATED RINGERS 1,000 ML IV SCH ×2 (08:59→17:40)
[2019-01-29] MEDS ORDERED: FAMOTIDINE 20MG/2ML IV (PEPCID) IV ONE (09:00)
--- NOTE | 2019-01-29 09:06 | NUR ---
PATIENT WAS SLEEPING AND DID NOT WAKE HOWEVER WAS RECENTLY ADMITTED AND MED REC COMPLETED AT THAT TIME. I SPOKE WITH WOMAN IN THE ROOM WHO WAS ABLE TO ANSWER QUESTIONS ABOUT HIS MEDICATIONS. I VERIFIED WITH [facility] THAT THE PATIENT FILLED RIFAMPIN AND DOXYCYCLINE ON 01-26-19 HOWEVER THEY WERE NOT PICKED UP UNTIL LATE AFTERNOON ON 01-27-19. THE RIFAMPIN WAS WRITTEN FOR A 14 DAY THERAPY HOWEVER IT REQUIRED A PRIOR AUTHORIZATION AND ONLY 3 DAYS WAS DISPENSE TO THE PATIENT ON THE UNTIL THE PA COULD BE AUTHORIZED.
[2019-01-29 12:00] VITALS: BP 167/76
--- NOTE | 2019-01-29 13:59 | NUR ---
PER DISCUSSION WITH DR LEVINE, RESTARTED VANCOMYCIN (STOPPED DAPTOMYCIN) AND SHE WILL FOLLOW UP WITH DR MILLER.
--- NOTE | 2019-01-29 14:48 | History & Physicial (CHS) ---
HPI History of Present Illness: 43 yo male with diabetes and chronic foot wound came to ER due to intractable nausea, vomiting and abdominal pain. He was being treated for foot wound at right great toe are (history of amputation prior) with IV daptomycin outpatient and has been on and off of doxycyline over time, had rifampin added and shortly after starting that he had severe nausea and vomiting that was not able to be managed with multiple IV medications in the ER. He is to have the rest of his toes amputated next week per report. Source: family Exam Limitations: clinical condition (extremely drowsy) Date seen by provider: Jan 29, 2019 Time Seen by Provider: 11:55 Attending Physician Cindy Fatima MD [facility] [place] Consult Date of Admission Jan 29, 2019 at 07:19 Home Medications Home Medications Reviewed patient Home Medication Reconciliation performed by pharmacy medication reconciliations gis technician and/or nursing. Patients Allergies have been reviewed. Allergies Coded Allergies: No Known Drug Allergies (Unverified , 01/18/19) UCE-Yzmfaj-Vogvok Hx Patient Social History Alcohol Use: Denies Use Recreational Drug Use: No Smoking Status: Never a Smoker Recent Foreign Travel: No Contact w/other who traveled: No Recent Hopitalizations: No Recent Infectious Disease Expo: No Immunizations Up To Date Tetanus Booster (TDap): Less than 5yrs Past Medical History PMHx: DMI Chronic foot ulcer Family Medical History Significant Family History: Diabetes Family History: Cardiovascular disease 19 MOTHER Diabetes mellitus 19 MOTHER Review of Systems (CHC) Constitutional: No fever; other (limited as patient quite sedated secondary to meds received. ) Respiratory: cough Reviewed Test Results Reviewed Test Results Lab Laboratory Tests Test 01/28/19 22:53 01/29/19 02:32 01/29/19 08:36 01/29/19 11:10 Range/Units White Blood Count 10.5 4.3-11.0 10^3/uL Red Blood Count 3.56 L 4.35-5.85 10^6/uL Hemoglobin 10.6 #L 13.3-17.7 G/DL Hematocrit 32 L 40-54 % Mean Corpuscular Volume 90 80-99 FL Mean Corpuscular Hemoglobin 30 25-34 PG Mean Corpuscular Hemoglobin Concent 33 32-36 G/DL Red Cell Distribution Width 13.3 10.0-14.5 % Platelet Count 625 H 130-400 10^3/uL Mean Platelet Volume 8.5 7.4-10.4 FL Neutrophils (%) (Auto) 68 42-75 % Lymphocytes (%) (Auto) 20 12-44 % Monocytes (%) (Auto) 9 0-12 % Eosinophils (%) (Auto) 3 0-10 % Basophils (%) (Auto) 1 0-10 % Neutrophils # (Auto) 7.1 1.8-7.8 X 10^3 Lymphocytes # (Auto) 2.1 1.0-4.0 X 10^3 Monocytes # (Auto) 0.9 0.0-1.0 X 10^3 Eosinophils # (Auto) 0.3 0.0-0.3 10^3/uL Basophils # (Auto) 0.1 0.0-0.1 10^3/uL Sodium Level 138 135-145 MMOL/L Potassium Level 3.5 L 3.6-5.0 MMOL/L Chloride Level 102 98-107 MMOL/L Carbon Dioxide Level 23 21-32 MMOL/L Anion Gap 13 5-14 MMOL/L Blood Urea Nitrogen 10 7-18 MG/DL Creatinine 1.51 H 0.60-1.30 MG/DL Estimat Glomerular Filtration Rate 51 BUN/Creatinine Ratio 7 Glucose Level 176 H 70-105 MG/DL Calcium Level 9.4 8.5-10.1 MG/DL Corrected Calcium 10.0 8.5-10.1 MG/DL Total Bilirubin 0.5 0.1-1.0 MG/DL Aspartate Amino Transf (AST/SGOT) 36 H 5-34 U/L Alanine Aminotransferase (ALT/SGPT) 79 H 0-55 U/L Alkaline Phosphatase 77 40-136 U/L C-Reactive Protein High Sensitivity 2.19 H 0.00-0.50 MG/DL Total Protein 8.1 6.4-8.2 GM/DL Albumin 3.3 3.2-4.5 GM/DL Lipase 22 8-78 U/L Urine Color YELLOW Urine Clarity CLEAR Urine pH 8 5-9 Urine Specific [place] 1.010 L 1.016-1.022 Urine Protein 3+ H NEGATIVE Urine Glucose (UA) NEGATIVE NEGATIVE Urine Ketones 2+ H NEGATIVE Urine Nitrite NEGATIVE NEGATIVE Urine Bilirubin NEGATIVE NEGATIVE Urine Urobilinogen NORMAL NORMAL MG/DL Urine Leukocyte Esterase NEGATIVE NEGATIVE Urine RBC (Auto) 1+ H NEGATIVE Urine RBC 0-2 /HPF Urine WBC NONE /HPF Urine Squamous Epithelial Cells RARE /HPF Urine Crystals NONE /LPF Urine Bacteria TRACE /HPF Urine Casts NONE /LPF Urine Mucus SMALL H /LPF Urine Culture Indicated NO Urine Opiates Screen NEGATIVE NEGATIVE Urine Oxycodone Screen NEGATIVE NEGATIVE Urine Methadone Screen NEGATIVE NEGATIVE Urine Propoxyphene Screen NEGATIVE NEGATIVE Urine Barbiturates Screen NEGATIVE NEGATIVE Ur Tricyclic Antidepressants Screen NEGATIVE NEGATIVE Urine Phencyclidine Screen NEGATIVE NEGATIVE Urine Amphetamines Screen NEGATIVE NEGATIVE Urine Methamphetamines Screen NEGATIVE NEGATIVE Urine Benzodiazepines Screen NEGATIVE NEGATIVE Urine Cocaine Screen NEGATIVE NEGATIVE Urine Cannabinoids Screen NEGATIVE NEGATIVE Glucometer 179 H 169 H 70-110 MG/DL Radiology CT abdomen/pelvis: bilateral perinephric edema consistent with possible pyelonephritis Physical Exam-([facility]) Physical Exam Vital Signs VS - Last 72 Hours, by Label 01/28/19 01/29/19 01/29/19 01/29/19 22:47 07:24 09:47 12:00 Temp 98.8 98.8 97.4 Pulse 80 79 83 Resp 22 20 18 B/P (MAP) 206/105 (138) 156/81 (106) 167/76 (106) Pulse Ox 98 98 90 O2 Delivery Room Air Room Air Room Air Capillary Refill : Less Than 3 Seconds General Appearance: no apparent distress, other (lethargic) Respiratory: lungs clear, normal breath sounds Cardiovascular: regular rate, rhythm, no murmur Gastrointestinal: normal bowel sounds, non tender, soft Skin: other (right foot with dressing in place, no drainage on bandage) Assessment/Plan Assessment/Plan Admission Status: Observation (1) Intractable nausea and vomiting Status: Acute Assessment & Plan: Suspect secondary to rifampin. Received zofran, prome thazine, reglan, scopalamine and ativan in ER before any relief. Continue supportive care. Qualifiers: Qualified Codes: G43.A1 - Cyclical vomiting, intractable (2) Wound, open, foot Status: Chronic Assessment & Plan: Completing a week of IV daptomycin today, unclear how long he needs to be on treatment. Wound has MRSA, will start vancomycin and consult Dr. Lau. Qualifiers: (3) Diabetes mellitus Status: Chronic Assessment & Plan: Sliding scale insulin. Qualifiers: (4) Anemia Status: Chronic Assessment & Plan: Suspect anemia of chronic disease, but do not see iron studies done in past, will check. (5) Thrombocytosis Status: Acute Assessment & Plan: Suspect reactive, monitor. (6) Acute kidney injury Status: Acute Assessment & Plan: Secondary to dehydration, IVF and monitor. (7) Elevated LFTs Status: Acute Assessment & Plan: Suspect side effect of rifampin, follow. (8) Perinephric fluid collection Status: Acute Assessment & Plan: No evidence of urinary tract infection per UA. (9) DVT prophylaxis Status: Acute Assessment & Plan: Enoxaparin Clinical Quality Measures DVT/VTE Risk/Contraindication: Risk Factor Score Per Nursin RFS Level Per Nursing on Admit: 2=Moderate CINDY FATIMA MD Jan 29, 2019 14:48
[2019-01-29] MEDS ORDERED: ENOXAPARIN 40 MG/0.4 ML (LOVENOX) SYR SQ SCH (15:00)
[2019-01-29 16:00] VITALS: BP 173/92
[2019-01-29] MEDS: ENOXAPARIN 40 MG/0.4 ML (LOVENOX) SYR SQ SCH (16:24)
[2019-01-29 19:59] VITALS: BP 169/91
[2019-01-29] MEDS ORDERED: VANCOMYCIN INJECTION 1GM (OMNI 250 ML IV ONE ×3 (21:59→22:01)
[2019-01-29] MEDS: ONDANSETRON 4 MG/2 ML (SDV) Z0FRAN IV PRN (22:01)
[2019-01-29] MEDS ORDERED: VANCOMYCIN 750 MG/VIAL IV ONE (22:02)
[2019-01-29] MEDS ORDERED: NS IV 500 ML 500 ML ONE (22:04)
[2019-01-29] MEDS: VANCOMYCIN 1500 MG/NS 500 ML IVPB IV SCH ×2 (22:30)
[2019-01-30] VITALS (13 sets, daily range): BP systolic 154–210; BP diastolic 80–118
[2019-01-30] MEDS: LORazepam INJ 2 MG/ML (ATIVAN) VIAL IV PRN ×4 (00:15→18:29)
[2019-01-30] MEDS: fentaNYL INJECTION 100 MCG/2 ML AMP IV PRN ×6 (00:16→23:57)
[2019-01-30] MEDS: inSUlin ASPART (NovoLOG) 1 UNIT/0.01 ML (CHARGE PER UNIT) SC SCH ×4 (00:24→18:16)
[2019-01-30] MEDS: LACTATED RINGERS 1,000 ML IV SCH ×2 (03:36→14:54)
[2019-01-30 06:33] LABS: HEMOGLOBIN 9.8 G/DL (13.3-17.7); MEAN PLATELET VOLUME 8.2 FL (7.4-10.4); RED CELL DISTRIBUTION WIDTH 13.5 % (10.0-14.5); WHITE BLOOD COUNT 8.8 10^3/uL (4.3-11.0)
[2019-01-30 06:51] LABS: ALANINE AMINOTRANSFERASE 57 U/L (0-55); ALBUMIN 2.8 GM/DL (3.2-4.5); ALKALINE PHOSPHATASE 62 U/L (40-136); BILIRUBIN,TOTAL 0.2 MG/DL (0.1-1.0); BUN/CREATININE RATIO 10; CALCIUM 8.2 MG/DL (8.5-10.1); CARBON DIOXIDE 26 MMOL/L (21-32); CHLORIDE 104 MMOL/L (98-107); CREATININE SERUM 1.27 MG/DL (0.60-1.30); GFR ESTIMATED > 60; GLUCOSE 180 MG/DL (70-105); POTASSIUM 3.8 MMOL/L (3.6-5.0); SODIUM 137 MMOL/L (135-145); TOTAL PROTEIN 6.7 GM/DL (6.4-8.2)
[2019-01-30] MEDS: ONDANSETRON 4 MG/2 ML (SDV) Z0FRAN IV PRN ×3 (07:50→22:35)
--- NOTE | 2019-01-30 08:26 | Wound Care Assessment ---
Wound Care Assessment Date Seen by Provider: Jan 30, 2019 Time Seen by Provider: 08:15 Chief Complaint Vomiting. HPI The patient is a 43 year old male with intractable vomiting secondary to Rifampin, ordered to address polymicrobial wound culture. The patient has a non-healing R submetatarsal ulcer, for which he has been recommended to have R transmetatarsal amputation two months ago. The patient was admitted with sepsis related to infection in the R foot wound on January 19. Past Medical History: Admits Diabetes Type II Acute renal impairment. Smoking Status: Never a Smoker Recreational Drug Use: No Alcohol Use: Denies Use Review of Systems Gastrointestinal: Nausea, Vomiting, Abdominal Pain Exam Vital Signs Date Time Temp Pulse Resp B/P (MAP) Pulse Ox O2 Delivery O2 Flow Rate FiO2 01/30/19 07:30 99.1 85 16 199/104 (135) 100 Nasal Cannula 2.00 Capillary Refill : Less Than 3 Seconds General Appearance: moderate distress Respiratory: no respiratory distress, no accessory muscle use Extremities: other (Dressing R foot intact.) Results Laboratory Tests 01/29/19 08:36: Glucometer 179H 01/29/19 11:10: Glucometer 169H 01/29/19 18:00: Glucometer 186H 01/30/19 00:03: Glucometer 281H 01/30/19 05:38: Glucometer 169H 01/30/19 06:20: White Blood Count 8.8, Red Blood Count 3.34L, Hemoglobin 9.8L, Hematocrit 30L, Mean Corpuscular Volume 91, Mean Corpuscular Hemoglobin 29, Mean Corpuscular Hemoglobin Concent 32, Red Cell Distribution Width 13.5, Platelet Count 627H, Mean Platelet Volume 8.2, Sodium Level 137, Potassium Level 3.8, Chloride Level 104, Carbon Dioxide Level 26, Anion Gap 7, Blood Urea Nitrogen 13, Creatinine 1.27, Estimat Glomerular Filtration Rate > 60, BUN/Creatinine Ratio 10, Glucose Level 180H, Calcium Level 8.2L, Corrected Calcium 9.2, Total Bilirubin 0.2, Aspartate Amino Transf (AST/SGOT) 26, Alanine Aminotransferase (ALT/SGPT) 57H, Alkaline Phosphatase 62, Total Protein 6.7, Albumin 2.8L Assessment/Plan/Dx 1. Intractable vomiting, due to rifampin. 2. Infected R foot ulcer, s/p surgical drainage. 3. Hypertension. 4. Acute renal impairment. Plan: Management as per medical service. When medically stable, R TMA offers the patient the best opportunity to avoid further complications related to his R foot ulcer. PAULIE MILLER MD Jan 30, 2019 08:25
[2019-01-30] MEDS: VANCOMYCIN 1500 MG/NS 500 ML IVPB IV SCH ×2 (10:16)
[2019-01-30] MEDS: PROMETHAZINE INJ 25 MG/ML (PHENERGAN) AMP IV PRN ×2 (12:31→18:30)
[2019-01-30] MEDS ORDERED: lisINopril 20 MG (PRINIVIL) TABLET PO SCH (14:30)
--- NOTE | 2019-01-30 14:31 | Progress Note (SOAP) ---
Subjective Subjective/Events-last exam More alert today, less spontaneous vomiting, but didn't tolerate clears well yet. Family reports he is very depressed and has mentioned suicide in the past. Review of Systems Date Seen by Provider: Jan 30, 2019 Time Seen by Provider: 11:10 Objective Exam Last Set of Vital Signs Vital Signs Date Time Temp Pulse Resp B/P (MAP) Pulse Ox O2 Delivery O2 Flow Rate FiO2 01/30/19 12:00 99.0 85 20 210/103 (138) 94 Room Air 01/30/19 07:30 2.00 Capillary Refill : Less Than 3 Seconds I&O Intake and Output 01/30/19 00:00 Intake Total 1460 ml Output Total 100 ml Balance 1360 ml Intake Oral 1460 ml Output Emesis 100 ml # Voids 4 # Bowel Movements 3 Daily Weight Change No No General: Alert Lungs: Clear to Auscultation, Normal Air Movement Heart: Regular Rate, No Murmurs Abdomen: Normal Bowel Sounds, Soft, No Tenderness Neuro: Normal Speech Results/Procedures Lab Laboratory Tests 01/29/19 18:00: Glucometer 186H 01/30/19 00:03: Glucometer 281H 01/30/19 05:38: Glucometer 169H 01/30/19 06:20: White Blood Count 8.8, Red Blood Count 3.34L, Hemoglobin 9.8L, Hematocrit 30L, Mean Corpuscular Volume 91, Mean Corpuscular Hemoglobin 29, Mean Corpuscular Hemoglobin Concent 32, Red Cell Distribution Width 13.5, Platelet Count 627H, Mean Platelet Volume 8.2, Sodium Level 137, Potassium Level 3.8, Chloride Level 104, Carbon Dioxide Level 26, Anion Gap 7, Blood Urea Nitrogen 13, Creatinine 1.27, Estimat Glomerular Filtration Rate > 60, BUN/Creatinine Ratio 10, Glucose Level 180H, Calcium Level 8.2L, Corrected Calcium 9.2, Total Bilirubin 0.2, Aspartate Amino Transf (AST/SGOT) 26, Alanine Aminotransferase (ALT/SGPT) 57H, Alkaline Phosphatase 62, Total Protein 6.7, Albumin 2.8L 01/30/19 10:15: 01/30/19 11:03: Glucometer 168H Radiology CT abdomen/pelvis: bilateral perinephric edema consistent with possible pyelonephritis Assessment/Plan Assessment/Plan (1) Intractable nausea and vomiting Status: Acute Assessment & Plan: Suspect secondary to rifampin. Received zofran, promethazine, reglan, scopalamine and ativan in ER before any relief. Continue supportive care. Qualifiers: Qualified Codes: G43.A1 - Cyclical vomiting, intractable (2) Wound, open, foot Status: Chronic Assessment & Plan: Completing a week of IV daptomycin today, unclear how long he needs to be on treatment. Wound has MRSA, will start vancomycin and consult Dr. Lau. Qualifiers: (3) Diabetes mellitus Status: Chronic Assessment & Plan: Sliding scale insulin. Qualifiers: (4) Anemia Status: Chronic Assessment & Plan: Suspect anemia of chronic disease, but do not see iron studies done in past, will check. (5) Thrombocytosis Status: Acute Assessment & Plan: Suspect reactive, monitor. (6) Acute kidney injury Status: Resolved Assessment & Plan: Secondary to dehydration, IVF and monitor. (7) Elevated LFTs Status: Acute Assessment & Plan: Suspect side effect of rifampin, follow. (8) Perinephric fluid collection Status: Acute Assessment & Plan: No evidence of urinary tract infection per UA. (9) Hypertension Status: Chronic (10) Depression Status: Chronic Assessment & Plan: Start Prozac (11) DVT prophylaxis Status: Acute Assessment & Plan: Enoxaparin Clinical Quality Measures DVT/VTE Risk/Contraindication: Risk Factor Score Per Nursin RFS Level Per Nursing on Admit: 2=Moderate CINDY LEVINE MD Jan 30, 2019 14:31
[2019-01-30] MEDS ORDERED: meTOprolol TARTRATE 50 MG (LOPRESSOR) TAB PO NR (16:00)
[2019-01-30] MEDS: ENOXAPARIN 40 MG/0.4 ML (LOVENOX) SYR SQ SCH (16:43)
[2019-01-30] MEDS ORDERED: meTOprolol 5 MG/5 ML (LOPRESSOR) VIAL IV NR (18:15)
--- NOTE | 2019-01-30 20:35 | NUR ---
Dr Fatima called in to check on status of pt. Discuss with that pt mother was requesting that pt be transferred to or [place]. Dr Fatima spoke with pt mother
--- NOTE | 2019-01-30 21:30 | NUR ---
approached by mother. she was requesting to talk to wide area network administrator parks and recreation manager, or medical billing clerk or chief operating engineer. mother stated she wanted her son moved tonight. Attempted to explain that she would need to start with the nursing supervisor dehydrogenation. Apron Man notified of family members request
[2019-01-30] MEDS ORDERED: niCARdipine IV 50 MG in NS (IVPB) 230 ML IV SCH (21:45)
--- NOTE | 2019-01-30 21:45 | NUR ---
supervisor floor assembly here and talking with mother of pt.
--- NOTE | 2019-01-30 22:00 | NUR ---
Dr Fatima called in and gave orders to transfer pt and requested that staff explain to patient's mother that physician was unable to get pt transferred to mother's first requested facility. Pt was excepted by a at [facility]. Dr request to speak with nursing vendor quality supervisor. Phone given to vendor quality supervisor and plan of care explain to mother.
--- NOTE | 2019-01-30 22:27 | Discharge Summary ---
Diagnosis/Chief Complaint Date of Admission Jan 29, 2019 at 07:19 Date of Discharge January 30, 2019 Admission Diagnosis Admission Diagnosis Intractable nausea and vomiting Diabetic foot wound Diabetes mellitus type II Acute kidney injury Thrombocytosis Anemia Discharge Diagnosis See problem list Problems/Diagnosis: (1) Intractable nausea and vomiting Assessment & Plan: Suspect secondary to rifampin. Received zofran, promethazine, reglan, scopalamine and ativan in ER before any relief. Improved on 01/29, but still only able to tolerate few sips. Status: Acute (2) Wound, open, foot Assessment & Plan: Completed a week of IV daptomycin outpatient with last dose on 11/29 inpatient, unclear how long he needs to be on treatment. Wound has MRSA, restarted vancomycin that he was on at last hospitalization and consulted Dr. Lau/wound care. Qualifiers: Status: Chronic (3) Diabetes mellitus Assessment & Plan: Sliding scale insulin. Held metformin due to contrast use on 01/28 pm. Held home insulin with current minimal intake. Qualifiers: Status: Chronic (4) Anemia Assessment & Plan: Suspect anemia of chronic disease, but do not see iron studies done in past, pending at d/c. Status: Chronic (5) Thrombocytosis Assessment & Plan: Suspect reactive, monitor. Status: Acute (6) Acute kidney injury Assessment & Plan: Secondary to dehydration, IVF and monitor. Resolved on 01/30. Status: Resolved Resolution Date/Time: 01/30/19 @ 14:29 (7) Elevated LFTs Assessment & Plan: Suspect side effect of rifampin, improved on day 2. Status: Acute (8) Perinephric fluid collection Assessment & Plan: No evidence of urinary tract infection per UA. Status: Acute (9) Hypertension Assessment & Plan: BP very high in ER, down to 150-160s initially after admission, held lisinopril due to EDER, resumed on 01/30 at increased dose (compared to MANAGER TITLE dose) due to elevated blood pressure in the 170s-200s. BP remained high 2 hours after lisinopril, given metoprolol 50 mg with minimal response. About 2 hours later Metoprolol 5 mg IV given, BP down from 200s to 180s, but I was not notified of persistent elevated blood pressure at that time, and mother requested transfer due to hypertension and concern about infection. I talked with her via telephone about plan of care, she continued to request transfer immediately, discussed with Dr. Vivas at [facility] and accepted in transfer. Started nicardipine drip while awaiting transfer. Status: Chronic (10) Depression Assessment & Plan: Started Prozac 01/30. Status: Chronic (11) DVT prophylaxis Assessment & Plan: On enoxaparin during stay. Status: Acute Chief Complaint/HPI Chief Complaint/HPI 43 yo male with diabetes and chronic foot wound came to ER due to intractable nausea, vomiting and abdominal pain. He was being treated for foot wound at right great toe are (history of amputation prior) with IV daptomycin outpatient and has been on and off of doxycyline over time, had rifampin added and shortly after starting that he had severe nausea and vomiting that was not able to be managed with multiple IV medications in the ER. He is to have the rest of his toes amputated next week per report. Discharge Summary-Simple/Stand Consultations Discharge Physical Examination Allergies: Coded Allergies: No Known Drug Allergies (Unverified , 01/18/19) Vitals & I&Os Vital Sign - Last 12Hours Date Time Temp Pulse Resp B/P (MAP) Pulse Ox O2 Delivery O2 Flow Rate FiO2 01/30/19 20:00 98.5 88 20 187/98 (127) 91 Room Air 01/30/19 07:30 2.00 Intake and Output 01/30/19 00:00 Intake Total 1460 ml Output Total 100 ml Balance 1360 ml Hospital Course See final discharge diagnosis. Labs Laboratory Tests Test 01/28/19 22:53 01/29/19 02:32 01/29/19 07:19 01/29/19 08:36 Range/Units White Blood Count 10.5 4.3-11.0 10^3/uL Red Blood Count 3.56 L 4.35-5.85 10^6/uL Hemoglobin 10.6 #L 13.3-17.7 G/DL Hematocrit 32 L 40-54 % Mean Corpuscular Volume 90 80-99 FL Mean Corpuscular Hemoglobin 30 25-34 PG Mean Corpuscular Hemoglobin Concent 33 32-36 G/DL Red Cell Distribution Width 13.3 10.0-14.5 % Platelet Count 625 H 130-400 10^3/uL Mean Platelet Volume 8.5 7.4-10.4 FL Neutrophils (%) (Auto) 68 42-75 % Lymphocytes (%) (Auto) 20 12-44 % Monocytes (%) (Auto) 9 0-12 % Eosinophils (%) (Auto) 3 0-10 % Basophils (%) (Auto) 1 0-10 % Neutrophils # (Auto) 7.1 1.8-7.8 X 10^3 Lymphocytes # (Auto) 2.1 1.0-4.0 X 10^3 Monocytes # (Auto) 0.9 0.0-1.0 X 10^3 Eosinophils # (Auto) 0.3 0.0-0.3 10^3/uL Basophils # (Auto) 0.1 0.0-0.1 10^3/uL Sodium Level 138 135-145 MMOL/L Potassium Level 3.5 L 3.6-5.0 MMOL/L Chloride Level 102 98-107 MMOL/L Carbon Dioxide Level 23 21-32 MMOL/L Anion Gap 13 5-14 MMOL/L Blood Urea Nitrogen 10 7-18 MG/DL Creatinine 1.51 H 0.60-1.30 MG/DL Estimat Glomerular Filtration Rate 51 BUN/Creatinine Ratio 7 Glucose Level 176 H 70-105 MG/DL Calcium Level 9.4 8.5-10.1 MG/DL Corrected Calcium 10.0 8.5-10.1 MG/DL Total Bilirubin 0.5 0.1-1.0 MG/DL Aspartate Amino Transf (AST/SGOT) 36 H 5-34 U/L Alanine Aminotransferase (ALT/SGPT) 79 H 0-55 U/L Alkaline Phosphatase 77 40-136 U/L C-Reactive Protein High Sensitivity 2.19 H 0.00-0.50 MG/DL Total Protein 8.1 6.4-8.2 GM/DL Albumin 3.3 3.2-4.5 GM/DL Lipase 22 8-78 U/L Urine Color YELLOW Urine Clarity CLEAR Urine pH 8 5-9 Urine Specific Dolphin 1.010 L 1.016-1.022 Urine Protein 3+ H NEGATIVE Urine Glucose (UA) NEGATIVE NEGATIVE Urine Ketones 2+ H NEGATIVE Urine Nitrite NEGATIVE NEGATIVE Urine Bilirubin NEGATIVE NEGATIVE Urine Urobilinogen NORMAL NORMAL MG/DL Urine Leukocyte Esterase NEGATIVE NEGATIVE Urine RBC (Auto) 1+ H NEGATIVE Urine RBC 0-2 /HPF Urine WBC NONE /HPF Urine Squamous Epithelial Cells RARE /HPF Urine Crystals NONE /LPF Urine Bacteria TRACE /HPF Urine Casts NONE /LPF Urine Mucus SMALL H /LPF Urine Culture Indicated NO Urine Opiates Screen NEGATIVE NEGATIVE Urine Oxycodone Screen NEGATIVE NEGATIVE Urine Methadone Screen NEGATIVE NEGATIVE Urine Propoxyphene Screen NEGATIVE NEGATIVE Urine Barbiturates Screen NEGATIVE NEGATIVE Ur Tricyclic Antidepressants Screen NEGATIVE NEGATIVE Urine Phencyclidine Screen NEGATIVE NEGATIVE Urine Amphetamines Screen NEGATIVE NEGATIVE Urine Methamphetamines Screen NEGATIVE NEGATIVE Urine Benzodiazepines Screen NEGATIVE NEGATIVE Urine Cocaine Screen NEGATIVE NEGATIVE Urine Cannabinoids Screen NEGATIVE NEGATIVE Lab Scanned Report LAB Reports [id number] Glucometer 179 H 70-110 MG/DL Test 01/29/19 11:10 01/29/19 18:00 01/30/19 00:03 01/30/19 05:38 Range/Units Glucometer 169 H 186 H 281 H 169 H 70-110 MG/DL Test 01/30/19 06:20 01/30/19 10:15 01/30/19 11:03 01/30/19 18:14 Range/Units White Blood Count 8.8 4.3-11.0 10^3/uL Red Blood Count 3.34 L 4.35-5.85 10^6/uL Hemoglobin 9.8 L 13.3-17.7 G/DL Hematocrit 30 L 40-54 % Mean Corpuscular Volume 91 80-99 FL Mean Corpuscular Hemoglobin 29 25-34 PG Mean Corpuscular Hemoglobin Concent 32 32-36 G/DL Red Cell Distribution Width 13.5 10.0-14.5 % Platelet Count 627 H 130-400 10^3/uL Mean Platelet Volume 8.2 7.4-10.4 FL Sodium Level 137 135-145 MMOL/L Potassium Level 3.8 3.6-5.0 MMOL/L Chloride Level 104 98-107 MMOL/L Carbon Dioxide Level 26 21-32 MMOL/L Anion Gap 7 5-14 MMOL/L Blood Urea Nitrogen 13 7-18 MG/DL Creatinine 1.27 0.60-1.30 MG/DL Estimat Glomerular Filtration Rate > 60 BUN/Creatinine Ratio 10 Glucose Level 180 H 70-105 MG/DL Calcium Level 8.2 L 8.5-10.1 MG/DL Corrected Calcium 9.2 8.5-10.1 MG/DL Total Bilirubin 0.2 0.1-1.0 MG/DL Aspartate Amino Transf (AST/SGOT) 26 5-34 U/L Alanine Aminotransferase (ALT/SGPT) 57 H 0-55 U/L Alkaline Phosphatase 62 40-136 U/L Total Protein 6.7 6.4-8.2 GM/DL Albumin 2.8 L 3.2-4.5 GM/DL Glucometer 168 H 168 H 70-110 MG/DL Radiology Reviewed CT abdomen/pelvis 01/28: IMPRESSION: 1. Heterogeneous density and enhancement of the renal parenchyma with mild perinephric edema suspicious for bilateral pyelonephritis correlate with urinalysis. 2. However, no radiodense stone, obstruction or abscess. 3. No other significant finding. Discharge Instructions to patient/family Please see electronic discharge instructions given to patient. Discharge Medications Reviewed and agree with Discharge Medication list on patient's Discharge Instruc tion sheet Clinical Quality Measures DVT/VTE Risk/Contraindication: Risk Factor Score Per Nursin RFS Level Per Nursing on Admit: 2=Moderate CINDY LEVINE MD Jan 30, 2019 22:27
[2019-01-31] VITALS: BP 137/66
[2019-01-31 00:30] VITALS: BP 150/85
--- NOTE | 2019-01-31 01:46 | NUR ---
Report given to KIARA Mckee at 1:10 am on 01/31/19. EMS arrived at 1:30 am. Pt was on 7.5 mg of Cardizem. Pt's belonging's with pt's parents. VS: 144/84 HR: 93 95% RA Resp: 16 No pain
[2019-01-31 01:48] VITALS: BP 144/87
[2019-01-31] MEDS ORDERED: FLUoxetine HCL 20 MG (PROzac) CAP PO SCH (09:00)
== END 2019-01-31 01:30 | disposition short-term general hospital (02) ==
LOC: EDUNIT# 22:41 → ER 22:41 → UNDOADMOB 01-29 07:19 → 4TH 01-29 07:19 → ICU 01-30 22:12 → 4TH 01-30 22:12 → UNDODISOB 01-31 01:28
PROVIDERS: ADMIT Family Medicine; ATTEND Family Medicine
DX: G43.A1 Cyclical vomiting, in migraine, intractable (principal); N17.9 Acute kidney failure, unspecified; E86.0 Dehydration; E11.621 Type 2 diabetes mellitus with foot ulcer; L97.519 Non-pressure chronic ulcer of other part of right foot with unspecified severity; D64.9 Anemia, unspecified; D47.3 Essential (hemorrhagic) thrombocythemia; R79.89 Other specified abnormal findings of blood chemistry; N28.89 Other specified disorders of kidney and ureter; I10 Essential (primary) hypertension; F32.9 Major depressive disorder, single episode, unspecified; Z79.4 Long term (current) use of insulin; Z79.899 Other long term (current) drug therapy
CPT/HCPCS: 36415; 74177; 80053; 80306; 81000; 82728; 82962; 83540; 83690; 85025; 85027; 86141; 96361; 96374; 96375; G0378

== ENCOUNTER → 2020-11-07 | Outpatient (CLI) | payer MEDICAID ==
[~2020-11-07] MED LIST changes: +ACHD5005 PO; +ARGI500C9 PO; +CEPH500T PO; +DAPA10TA PO; +DOXY100C42 PO; +GINK60TA7 PO; +GLUC1AUT2 SQ; -LISI-552 PO; +LISI20TA26 PO; +MULT-985 PO; +RIFA300C3 PO; +TADA5TAB3 PO; +[UNRECOGNIZED DRUG - OTHER] PO
== END ==
LOC: RAD 08:00
PROVIDERS: ATTEND Nurse Practitioner Family
DX: L97.519 Non-pressure chronic ulcer of other part of right foot with unspecified severity (principal); R93.6 Abnormal findings on diagnostic imaging of limbs

== ENCOUNTER 2020-12-02 09:58 | Inpatient (IN) | payer MEDICAID ==
[~2020-12-02] VITALS: Ht 193 cm; Wt 143.3 kg
[~2020-12-02 09:58] MED LIST changes: -ACHD5005 PO; -ARGI500C9 PO; -CEPH500T PO; -DAPA10TA PO; -GINK60TA7 PO; -GLUC1AUT2 SQ; -MULT-985 PO; -TADA5TAB3 PO; -[UNRECOGNIZED DRUG - OTHER] PO
[2020-12-02] MEDS ORDERED: PIPERACILLIN SODIUM/TAZOBACTAM 4.5 GM in NS (IVPB) 100 ML IV ONE (10:30)
[2020-12-02] MEDS ORDERED: VANCOMYCIN INJECTION 2,000 MG in NS IV 500 ML 500 ML IV SCH (10:30)
[2020-12-02 10:36] LABS: BILIRUBIN,URINE NEGATIVE (NEGATIVE); CLARITY,URINE CLEAR; COLOR,URINE YELLOW; GLUCOSE, URINE (UA) 2+ (NEGATIVE); KETONES,URINE NEGATIVE (NEGATIVE); LEUKOCYTE ESTERASE ,URINE NEGATIVE (NEGATIVE); NITRITE,URINE NEGATIVE (NEGATIVE); PH,URINE 5.5 (5-9); PROTEIN,URINE 2+ (NEGATIVE)
[2020-12-02 10:44] LABS: BACTERIA,URINE TRACE /HPF; SQUAMOUS EPITHELIAL CELL,UR RARE /HPF; URINE OTHER FEW SPERM /HPF; WBC,URINE RARE /HPF
--- NOTE | 2020-12-02 10:46 | Diagnostic Imaging Report ---
PATIENT HISTORY: sepsis. TECHNIQUE: Single frontal view of the chest. COMPARISON: 01/20/2019 FINDINGS: The PICC line has since been removed. The lung volumes are mildly low. No focal consolidation is seen. No large pleural effusion or pneumothorax is seen. The cardiomediastinal silhouette is normal in size and contour. No acute osseous abnormality is seen. IMPRESSION: Mildly low lung volumes with no acute pulmonary abnormality seen. Dictated by: Dictated on workstation # [id number]
[2020-12-02] MEDS ORDERED: NS IV 1000 ML 1,000 ML IV SCH (11:00)
[2020-12-02 11:54] LABS: BASOPHILS # (AUTO) 0.1 10^3/uL (0.0-0.1); BASOPHILS % (AUTO) 1 % (0-10); EOSINOPHILS # (AUTO) 0.5 10^3/uL (0.0-0.3); EOSINOPHILS % (AUTO) 4 % (0-10); HEMATOCRIT 34 % (40-54); HEMOGLOBIN 10.6 g/dL (13.3-17.7); LYMPHOCYTES # (AUTO) 2.2 10^3/uL (1.0-4.0); LYMPHOCYTES % (AUTO) 19 % (12-44); MEAN CORPUSCULAR HEMOGLOBIN 29 pg (25-34); MEAN CORPUSCULAR HGB CONC 31 g/dL (32-36); MEAN CORPUSCULAR VOLUME 93 fL (80-99); MEAN PLATELET VOLUME 8.9 fL (9.0-12.2); MONOCYTES # (AUTO) 1.2 10^3/uL (0.0-1.0); MONOCYTES % (AUTO) 10 % (0-12); NEUTROPHILS # (AUTO) 7.6 10^3/uL (1.8-7.8); NEUTROPHILS % (AUTO) 65 % (42-75); PLATELET COUNT 587 10^3/uL (130-400); WHITE BLOOD COUNT 11.6 10^3/uL (4.3-11.0)
[2020-12-02 12:21] LABS: FIBRIN DEGRADATION PRODUCTS 6.32 UG/ML (0.00-0.49); INR 1.1 (0.8-1.4); PROTHROMBIN TIME PATIENT 14.2 SEC (12.2-14.7)
[2020-12-02 12:23] LABS: ALBUMIN 3.8 GM/DL (3.2-4.5); BILIRUBIN,TOTAL 0.3 MG/DL (0.1-1.0); CALCIUM 9.6 MG/DL (8.5-10.1); CREATININE SERUM 2.03 MG/DL (0.60-1.30); POTASSIUM 4.5 MMOL/L (3.6-5.0); TOTAL PROTEIN 8.5 GM/DL (6.4-8.2)
--- NOTE | 2020-12-02 13:08 | Diagnostic Imaging Report ---
INDICATION: Calf pain, elevated d-dimer TECHNIQUE: Multiple real-time grayscale images were obtained over the right lower extremity in various projections, bilaterally. Additional duplex Doppler and color Doppler images were also obtained. CORRELATION STUDY: None FINDINGS: Color and grayscale sonographic images demonstrate no intraluminal defect within the visualized portion of the common femoral, superficial femoral and/or popliteal veins to suggest thrombus formation. These vessels demonstrate normal response to compression and augmentation. No soft tissue fluid collection. IMPRESSION: 1. Negative for deep venous thrombosis of the right leg. Dictated by: Dictated on workstation # [id number]
--- NOTE | 2020-12-02 13:26 | ED General ---
General Chief Complaint: Lower Extremity Stated Complaint: DM R FOOT ULCER Nursing Triage Note: PT AMB TO RM 5 WITH COMPLAINT OF POSSIBLE RIGHT FOOT INFECTION. STATES HE HAS A DIABETIC ULCER THAT HE WENT TO [facility] FOR AND WAS SENT TO ER FOR FURTHER EVALUATION. STATES HIS PCP TOLD HIM HE NEEDED ANTIBIOTICS FOR FOOT, BUT DID NOT FEEL COMFORTABLE PRESCRIBING ORAL DUE TO HIS STAGE 3 KIDNEY DISEASE. Nursing Sepsis Screen: No Definite Risk Source of Information: Patient Exam Limitations: No Limitations History of Present Illness Date Seen by Provider: Dec 02, 2020 Time Seen by Provider: 10:05 Initial Comments This 44-year-old gentleman presents to the emergency room with about 6 days of pain, swelling, and erythema of the right foot stump where he has been treating a diabetic foot ulcer. 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 He has been managed by Dr. English. He has noted to be tachycardic. He is afebrile. There is erythema of the distal foot. He also describes a cramping pain in his calf. He is an insulin-dependent diabetic. MRI was obtained from [facility] yesterday. He does not know the results. Results were obtained electronically and he was noted to have osteomyelitis of the remaining first metatarsal and abscess formation. Allergies and Home Medications Allergies Coded Allergies: No Known Drug Allergies (Unverified , 01/18/19) Home Medications Atorvastatin Calcium 40 Mg Tablet, 40 MG PO 1500 HOLD WHILE ON DAPTOMYCIN (CUBICIN) IV Prescribed by: LISA GODINEZ on 01/22/19 100 Daptomycin 500 Mg Vial, 500 MG IV DAILY Prescribed by: LISA GODINEZ on 01/22/19 1001 Doxycycline Monohydrate 100 Mg Capsule, 100 MG PO BID, (Reported) 14 DAY SUPPLY PICKED UP 01-27-19 @ 1551- FILLED 01-26-19 Insulin Aspart 300 Units/3 Ml Solution, 10-15 UNITS SC TIDAC, (Reported) Insulin Detemir 100 Unit/1 Ml Insuln.pen, 30 UNITS SC BID, (Reported) Lisinopril 20 Mg Tablet, 10 MG PO 1200, (Reported) LAST FILLED #30 11-24-18 TAKES 1/2 (20MG) TABLET Multivitamin 1 Each Tablet, 1 TAB PO DAILY, (Reported) Rifampin 300 Mg Capsule, 300 MG PO BID, (Reported) PICKED UP 01-27-19 @ 1551 - FILLED #6 01-26-19 WAS WRITTENF OR A 14 DAY SUPPLY HOWEVER REQUIRED A PA SO ONLY RECEIVED 3 DAYS AT THIS TIME. Patient Home Medication List Home Medication List Reviewed: Yes Review of Systems Review of Systems Constitutional: no symptoms reported EENTM: no symptoms reported Respiratory: no symptoms reported Cardiovascular: see HPI Gastrointestinal: no symptoms reported Genitourinary: no symptoms reported Musculoskeletal: see HPI Skin: see HPI Psychiatric/Neurological: No Symptoms Reported Hematologic/Lymphatic: No Symptoms Reported Immunological/Allergic: no symptoms reported Past Ziqxwtp-Ffohbl-Xpbaoz Hx Past Med/Social Hx: Reviewed Nursing Past Med/Soc Hx Patient Social History Alcohol Use: Rarely Uses Smoking Status: Never a Smoker Recent Infectious Disease Expo: No Recent Hopitalizations: No Immunizations Up To Date Tetanus Booster (TDap): Less than 5yrs PED Vaccines UTD: Yes Seasonal Allergies Seasonal Allergies: No Past Medical History Surgeries: Yes (RT GREAT TOE REMOVED.) Abdominal, Amputation Respiratory: No Cardiac: Yes Hypertension Neurological: No Reproductive Disorders: No Genitourinary: No Gastrointestinal: No Musculoskeletal: No Endocrine: Yes Diabetes, Insulin dep HEENT: No Cancer: No Psychosocial: No Integumentary: No Family Medical History Cardiovascular disease 19 MOTHER Diabetes mellitus 19 MOTHER Diabetes Physical Exam-Suspected Sepsis Physical Exam Vital Signs Vital Signs - First Documented 12/02/20 10:04 Temp 35.3 Pulse 111 Resp 20 B/P (MAP) 198/95 (129) Pulse Ox 97 O2 Delivery Room Air Capillary Refill : Less Than 3 Seconds Blood Pressure Mean: 129 Height, Weight, BMI Height: 6'4.00" Weight: 300lbs. 8.0oz. 136.157148jg; 38.00 BMI Method:Stated General Appearance: No Apparent Distress, WD/WN HEENT: PERRL/EOMI, Normal ENT Inspection Neck: Normal Inspection Respiratory: Lungs Clear, Normal Breath Sounds, No Accessory Muscle Use Cardiovascular: No Edema, No Murmur, Tachycardia Gastrointestinal: Non Tender, Soft; No Distended Extremity: Calf Tenderness (Right calf), Other (There is a nickel size ulceration on the distal right foot. The distal right foot is also tender, warm, and exhibiting blanching erythema. There is no significant drainage.) Skin: warm/dry, other (See above) Focused Exam Lactate Level 12/02/20 11:35: Lactic Acid Level 2.22*H 12/02/20 14:25: Lactic Acid Level 1.12 Lactic Acid Level Laboratory Tests Test 12/02/20 14:25 Lactic Acid Level 1.12 MMOL/L (0.50-2.00) Progress/Results/Core Measures Suspected Sepsis Recent Fever Within 48 Hours: No Infection Criteria Present: None New/Unexplained Altered Menta: No Sepsis Screen: No Definite Risk SIRS Temperature: Pulse: 111 Respiratory Rate: 20 Laboratory Tests 12/02/20 11:35: White Blood Count 11.6H Blood Pressure 198 /95 Mean: 129 12/02/20 11:35: Lactic Acid Level 2.22*H 12/02/20 14:25: Lactic Acid Level 1.12 Laboratory Tests 12/02/20 11:35: Creatinine 2.03H, INR Comment 1.1, Platelet Count 587H, Total Bilirubin 0.3 Results/Orders Lab Results Laboratory Tests Test 12/02/20 10:23 12/02/20 11:35 12/02/20 14:25 12/02/20 16:00 Range/Units Urine Color YELLOW Urine Clarity CLEAR Urine pH 5.5 5-9 Urine Specific [place] 1.025 H 1.016-1.022 Urine Protein 2+ H NEGATIVE Urine Glucose (UA) 2+ H NEGATIVE Urine Ketones NEGATIVE NEGATIVE Urine Nitrite NEGATIVE NEGATIVE Urine Bilirubin NEGATIVE NEGATIVE Urine Urobilinogen 0.2 < = 1.0 MG/DL Urine Leukocyte Esterase NEGATIVE NEGATIVE Urine RBC (Auto) NEGATIVE NEGATIVE Urine RBC NONE /HPF Urine WBC RARE /HPF Urine Squamous Epithelial Cells RARE /HPF Urine Crystals NONE /LPF Urine Bacteria TRACE /HPF Urine Casts NONE /LPF Urine Mucus SMALL H /LPF Urine Other FEW SPERM H /HPF Urine Culture Indicated CULTURE PENDING White Blood Count 11.6 H 4.3-11.0 10^3/uL Red Blood Count 3.64 L 4.30-5.52 10^6/uL Hemoglobin 10.6 L 13.3-17.7 g/dL Hematocrit 34 L 40-54 % Mean Corpuscular Volume 93 80-99 fL Mean Corpuscular Hemoglobin 29 25-34 pg Mean Corpuscular Hemoglobin Concent 31 L 32-36 g/dL Red Cell Distribution Width 13.0 10.0-14.5 % Platelet Count 587 H 130-400 10^3/uL Mean Platelet Volume 8.9 L 9.0-12.2 fL Immature Granulocyte % (Auto) 1 % Neutrophils (%) (Auto) 65 42-75 % Lymphocytes (%) (Auto) 19 12-44 % Monocytes (%) (Auto) 10 0-12 % Eosinophils (%) (Auto) 4 0-10 % Basophils (%) (Auto) 1 0-10 % Neutrophils # (Auto) 7.6 1.8-7.8 10^3/uL Lymphocytes # (Auto) 2.2 1.0-4.0 10^3/uL Monocytes # (Auto) 1.2 H 0.0-1.0 10^3/uL Eosinophils # (Auto) 0.5 H 0.0-0.3 10^3/uL Basophils # (Auto) 0.1 0.0-0.1 10^3/uL Immature Granulocyte # (Auto) 0.1 0.0-0.1 10^3/uL Prothrombin Time 14.2 12.2-14.7 SEC INR Comment 1.1 0.8-1.4 Activated Partial Thromboplast Time 35 24-35 SEC D-Dimer 6.32 H 0.00-0.49 UG/ML Sodium Level 137 135-145 MMOL/L Potassium Level 4.5 3.6-5.0 MMOL/L Chloride Level 102 98-107 MMOL/L Carbon Dioxide Level 22 21-32 MMOL/L Anion Gap 13 5-14 MMOL/L Blood Urea Nitrogen 30 H 7-18 MG/DL Creatinine 2.03 H 0.60-1.30 MG/DL Estimat Glomerular Filtration Rate 36 BUN/Creatinine Ratio 15 Glucose Level 156 H 70-105 MG/DL Lactic Acid Level 2.22 *H 1.12 0.50-2.00 MMOL/L Calcium Level 9.6 8.5-10.1 MG/DL Corrected Calcium 9.8 8.5-10.1 MG/DL Total Bilirubin 0.3 0.1-1.0 MG/DL Aspartate Amino Transf (AST/SGOT) 18 5-34 U/L Alanine Aminotransferase (ALT/SGPT) 31 0-55 U/L Alkaline Phosphatase 98 40-136 U/L Total Protein 8.5 H 6.4-8.2 GM/DL Albumin 3.8 3.2-4.5 GM/DL Glucometer 120 H 70-110 MG/DL My Orders Orders - BRUEGGEMANN,DECLAN T MD Cbc With Automated Diff (12/02/20 10:15) Comprehensive Metabolic Panel (12/02/20 10:15) Blood Culture (12/02/20 10:15) Sputum Culture (12/02/20 10:15) Urinalysis (12/02/20 10:15) Urine Culture (12/02/20 10:15) Protime With Inr (12/02/20 10:15) Partial Thromboplastin Time (12/02/20 10:15) Chest 1 View, Ap/Pa Only (12/02/20 10:15) Ed Iv/Invasive Line Start (12/02/20 10:15) Vital Signs Adult Sepsis Patie Q15M (12/02/20 10:15) O2 (12/02/20 10:15) Remove Rings In Anticipation O (12/02/20 10:15) Lactic Acid Analyzer (12/02/20 10:15) Fibrin Degradation Products (12/02/20 10:15) Vancomycin Injection (Vancomycin Injecti (12/02/20 10:30) Piperacillin Sodium/Tazobactam (Zosyn Vi (12/02/20 10:30) Ns Iv 1000 Ml (Sodium Chloride 0.9%) (12/02/20 11:00) Us Venous Lower Ext Rt (12/02/20 12:29) Venous Access Request Order (12/02/20 13:48) Medications Given in ED Current Medications Medications Dose Ordered Sig/Sonia Route Start Time Stop Time Status Last Admin Dose Admin Piperacillin Sod/ Tazobactam Sod 4.5 gm/Sodium Chloride 100 ml @ 200 mls/hr ONCE ONCE IV 12/02/20 10:30 12/02/20 10:59 DC 12/02/20 11:48 200 MLS/HR Vital Signs/I&O 12/02/20 12/02/20 12/02/20 12/02/20 10:04 16:02 17:29 17:40 Temp 35.3 36.6 Pulse 111 76 Resp 20 19 18 20 B/P (MAP) 198/95 (129) 148/76 142/75 (97) 143/86 (105) Pulse Ox 97 96 99 100 O2 Delivery Room Air Room Air Room Air Room Air 12/02/20 12/02/20 17:50 17:55 Temp 36.4 Resp 20 20 B/P (MAP) 142/75 (97) 148/82 (104) Pulse Ox 100 100 O2 Delivery Room Air Room Air Capillary Refill : Less Than 3 Seconds Blood Pressure Mean: 129 Progress Note #1: Time: 13:43 Progress Note Patient was tachycardic but did not meet other septic criteria. MRI from [facility] was reviewed and demonstrated osteomyelitis of the first metatarsal stump and abscess formation. Antibiotic therapy was started with Zosyn and vancomycin. PICC line was established. A liter of IV fluids was infused. Dr. Fontenot was consulted and will present to the emergency room to assess the patient and advised surgical plan. I am presently working on contact of the hospital medicine provider. Progress Note #2: Progress Note After Dr. Fontenot evaluated the patient, he was taken directly to surgery. Diagnostic Imaging Diagonstic Imaging: MRI Plain Films/CT/US/NM/MRI: other (Right foot) Comments Report of right foot MRI was reviewed. It demonstrated osteomyelitis of the right first metatarsal and adjacent abscess formation. Departure Communication (Admissions) Time/Spoke to Admitting Phy: 13:30 Dr. Chisholm Time/Spoke to Consulting Phy: 13:00 Dr. Fontenot Impression Primary Impression: Osteomyelitis of right foot Qualified Codes: M86.9 - Osteomyelitis, unspecified Additional Impression: Abscess of right foot Disposition: ADMITTED INPATIENT Condition: Stable Admissions Decision to Admit Reason: Admit from ER (General) Decision to Admit/Date: Dec 02, 2020 Time/Decision to Admit Time: 10:15 Departure-Patient Inst. Referrals: [facility] (PCP/Family) Primary Care Physician DECLAN ODELL MD Dec 02, 2020 13:26
[2020-12-02] MEDS ORDERED: LIDOCAINE/EPI 1%-1:100,000 (XYLOCAINE) 20ML ONE (15:19)
[2020-12-02] MEDS ORDERED: KETAMINE/NaCl 50 MG/5 ML SYRINGE (ED ONLY) ONE (15:28)
[2020-12-02] MEDS ORDERED: PROPOFOL INJECTION 50 ML IV ONE ×2 (15:28→17:15)
[2020-12-02] MEDS ORDERED: fentaNYL INJ 100 MCG/2 ML AMP ONE (15:28)
[2020-12-02] MEDS ORDERED: MEPERIDINE (DEMEROL) INJ 50 MG/ML IVP ONE (15:30)
[2020-12-02] MEDS ORDERED: LACTATED RINGERS 1,000 ML IV PRN (15:30)
[2020-12-02] MEDS ORDERED: ONDANSETRON 4 MG/2 ML (SDV) Z0FRAN IVP PRN (15:30)
[2020-12-02] MEDS ORDERED: morphine INJ 10 MG/ML 1ML (SYR OR VIAL) IVP ONE (15:30)
[2020-12-02] MEDS ORDERED: fentaNYL INJ 100 MCG/2 ML AMP IVP ONE (15:30)
--- NOTE | 2020-12-02 15:39 | Consultation - Surgery ---
History of Present Illness History of Present Illness Patient Consulted On(tavia/time) 12/02/20 15:34 Date Seen by Provider: Dec 02, 2020 Time Seen by Provider: 15:34 History of Present Illness Consult requested by Dr. Sam for Abscess/osteomyelitis right foot. Patient is a 55 year old male with diabetic right foot ulcer for about last year and a half. He has undergone a right metatarsal amputation. Having recently started seeing Dr. Faith for wound care. Patient over last 6 days started having increasing pain in the right foot and having to walk on lateral part of foot. Increasing redness. Nothing really making it better. Walking on it and pressure making worse. Patient had MRI at [facility] yesterday that demonstrated abscess and osteomyelitis around 1st metatarsal. Allergies and Home Medications Allergies Coded Allergies: No Known Drug Allergies (Unverified , 01/18/19) Home Medications Atorvastatin Calcium 40 Mg Tablet, 40 MG PO 1500 HOLD WHILE ON DAPTOMYCIN (CUBICIN) IV Prescribed by: LISA GODINEZ on 01/22/19 1001 Daptomycin 500 Mg Vial, 500 MG IV DAILY Prescribed by: LISA GODINEZ on 01/22/19 1001 Doxycycline Monohydrate 100 Mg Capsule, 100 MG PO BID, (Reported) 14 DAY SUPPLY PICKED UP 01-27-19 @ 1551- FILLED 01-26-19 Insulin Aspart 300 Units/3 Ml Solution, 10-15 UNITS SC TIDAC, (Reported) Insulin Detemir 100 Unit/1 Ml Insuln.pen, 30 UNITS SC BID, (Reported) Lisinopril 20 Mg Tablet, 10 MG PO 1200, (Reported) LAST FILLED #30 11-24-18 TAKES 1/2 (20MG) TABLET Multivitamin 1 Each Tablet, 1 TAB PO DAILY, (Reported) Rifampin 300 Mg Capsule, 300 MG PO BID, (Reported) PICKED UP 01-27-19 @ 1551 - FILLED #6 01-26-19 WAS WRITTENF OR A 14 DAY SUPPLY HOWEVER REQUIRED A PA SO ONLY RECEIVED 3 DAYS AT THIS TIME. Patient Home Medication List Home Medication List Reviewed: Yes Past Agugxev-Ydnbhx-Daqxej Hx Patient Social History Smoking Status: Never a Smoker Recent Hopitalizations: No Immunizations Up To Date Tetanus Booster (TDap): Less than 5yrs PED Vaccines UTD: Yes Seasonal Allergies Seasonal Allergies: No Surgeries History of Surgeries: Yes (RT GREAT TOE REMOVED.) Surgeries: Abdominal, Amputation (trans metatarsal amputation) Respiratory History of Respiratory Disorde: No Cardiovascular History of Cardiac Disorders: Yes Cardiac Disorders: Hypertension Neurological History of Neurological Disord: No Reproductive System Hx Reproductive Disorders: No Gastrointestinal History of Gastrointestinal Di: No Musculoskeletal History of Musculoskeletal Dis: No Endocrine History of Endocrine Disorders: Yes Endocrine Disorders: Diabetes, Insulin dep HEENT History of HEENT Disorders: No Cancer History of Cancer: No Psychosocial History of Psychiatric Problem: No Integumentary History of Skin or Integumenta: No Reviewed Nursing Assessment Reviewed/Agree w Nursing PMH: Yes Family Medical History Significant Family History: Diabetes Family Medial History: Cardiovascular disease 19 MOTHER Diabetes mellitus 19 MOTHER Review of Systems-General Constitutional: No chills, No diaphoresis EENTM: No blurred vision, No double vision Respiratory: No cough, No dyspnea on exertion Cardiovascular: No chest pain, No palpitations Gastrointestinal: No abdominal pain, No nausea, No vomiting Genitourinary: No decreased output, No discharge Musculoskeletal: No back pain; joint pain (right foot) Skin: No change in color, No change in hair/nails Psychiatric/Neurological: Denies Anxiety, Denies Depressed, Denies Emotional Problems All Other Systems Reviewed Negative Unless Noted: Yes (Negative excepted noted.) Physical Exam-General Problems Physical Exam Vital Signs Vital Signs - First Documented 12/02/20 10:04 Temp 35.3 Pulse 111 Resp 20 B/P (MAP) 198/95 (129) Pulse Ox 97 O2 Delivery Room Air Capillary Refill : Less Than 3 Seconds General Appearance: WD/WN, no apparent distress HEENT: PERRL/EOMI, normal ENT inspection Neck: non-tender, full range of motion, supple, normal inspection Respiratory: chest non-tender, no respiratory distress, no accessory muscle use Cardiovascular: regular rate, rhythm, no JVD Gastrointestinal: non tender, soft, no organomegaly, no pulsatile mass Back: no CVA tenderness, no vertebral tenderness Extremities: no calf tenderness, other (right foot transmetatarsal amputation with ulceration plantar surface quarter sized, erythema and swelling to the dorsal aspect.) Neurologic/Psychiatric: alert, normal mood/affect, oriented x 3 Skin: warm/dry, other (erythema right dorsum foot) Lymphatic: no adenopathy Data Review Labs Laboratory Tests 12/02/20 10:23: Urine Color YELLOW, Urine Clarity CLEAR, Urine pH 5.5, Urine Specific [place] 1.025H, Urine Protein 2+H, Urine Glucose (UA) 2+H, Urine Ketones NEGATIVE, Urine Nitrite NEGATIVE, Urine Bilirubin NEGATIVE, Urine Urobilinogen 0.2, Urine Leukocyte Esterase NEGATIVE, Urine RBC (Auto) NEGATIVE, Urine RBC NONE, Urine WBC RARE, Urine Squamous Epithelial Cells RARE, Urine Crystals NONE, Urine Bacteria TRACE, Urine Casts NONE, Urine Mucus SMALLH, Urine Other FEW SPERMH, Urine Culture Indicated CULTURE PENDING 12/02/20 11:35: White Blood Count 11.6H, Red Blood Count 3.64L, Hemoglobin 10.6L, Hematocrit 34L , Mean Corpuscular Volume 93, Mean Corpuscular Hemoglobin 29, Mean Corpuscular Hemoglobin Concent 31L, Red Cell Distribution Width 13.0, Platelet Count 587H, Mean Platelet Volume 8.9L, Immature Granulocyte % (Auto) 1, Neutrophils (%) (Auto) 65, Lymphocytes (%) (Auto) 19, Monocytes (%) (Auto) 10, Eosinophils (%) ( Auto) 4, Basophils (%) (Auto) 1, Neutrophils # (Auto) 7.6, Lymphocytes # (Auto) 2.2, Monocytes # (Auto) 1.2H, Eosinophils # (Auto) 0.5H, Basophils # (Auto) 0.1, Immature Granulocyte # (Auto) 0.1, Prothrombin Time 14.2, INR Comment 1.1, Activated Partial Thromboplast Time 35, D-Dimer 6.32H, Sodium Level 137, Potassium Level 4.5, Chloride Level 102, Carbon Dioxide Level 22, Anion Gap 13, Blood Urea Nitrogen 30H, Creatinine 2.03H, Estimat Glomerular Filtration Rate 36, BUN/Creatinine Ratio 15, Glucose Level 156H, Lactic Acid Level 2.22*H, Calcium Level 9.6, Corrected Calcium 9.8, Total Bilirubin 0.3, Aspartate Amino Transf (AST/SGOT) 18, Alanine Aminotransferase (ALT/SGPT) 31, Alkaline Phosphatase 98, Total Protein 8.5H, Albumin 3.8 12/02/20 14:25: Lactic Acid Level 1.12 Assessment/Plan Assessment/Plan Assessment/Plan right foot cellulitis abscess and osteomyelitis of right metatarsal DM Reviewed MRI and patient is NPO discussed opening wound and possibly removing the rest of metatarsal amputation patient understands risks and benefits and wishes to proceed. TO OR MARÍA CABAN DO Dec 02, 2020 15:39
[2020-12-02] MEDS ORDERED: MIDAZOLAM 2 MG/2 ML (VERSED) VIAL ONE (15:57)
--- NOTE | 2020-12-02 17:23 | Progress Note-Post Operative ---
Post-Operative Progess Note Surgeon (s)/Paint Line Supervisor (s) Surgeon MARÍA CABAN DO Paint Line Supervisor: na Pre-Operative Diagnosis RIGHT FOOT ULCER/ABSCESS, OSTEOMYELITIS RIGHT 1ST METATARSAL Post-Operative Diagnosis SAME Procedure & Operative Findings Date of Procedure 12/02/20 Procedure Performed/Findings RIGHT ANKLE BLOCK, EXCISION RIGHT FOOT ULCER, INCISION AND DRAINAGE OF RIGHT FOOT ABSCESS, AMPUTATION OF RIGHT 1ST METATARSAL Anesthesia Type MAC C RIGHT ANKLE BLOCK Estimated Blood Loss Estimated blood loss (mL): MINIMAL Specimens/Packing Specimens Removed CULTURE, SKIN SUBCUTANEOUS TISSUE AND 1ST METATARSAL MARÍA CABAN DO Dec 02, 2020 17:23
[2020-12-02 17:29] VITALS: BP 142/75
[2020-12-02] MEDS ORDERED: HYDROcodone/APAP 5 MG/325 MG (LORTAB) TAB PO PRN (17:30)
[2020-12-02 17:40] VITALS: BP 143/86
[2020-12-02 17:50] VITALS: BP 142/75
[2020-12-02 17:55] VITALS: BP 148/82
[2020-12-02] MEDS ORDERED: fentaNYL INJ 100 MCG/2 ML AMP IV PRN (18:45)
[2020-12-02] MEDS: LACTATED RINGERS 1,000 ML IV SCH (18:49)
[2020-12-02 19:29] VITALS: BP 185/92
[2020-12-02] MEDS: PIPERACILLIN/TAZO 4.5 GM/NS 100 ML IV SCH ×2 (20:02)
[2020-12-02] MEDS: inSUlin ASPART (NovoLOG) 1 UNIT/0.01 ML (CHARGE PER UNIT) SC SCH (21:33)
[2020-12-03] VITALS: BP 122/56
--- NOTE | 2020-12-03 01:47 | OPERATIVE REPORT ---
DATE OF SERVICE: 12/02/2020 PREOPERATIVE DIAGNOSES: Right foot ulcer, abscess and osteomyelitis of the right first metatarsal. POSTOPERATIVE DIAGNOSES: Right foot ulcer, abscess and osteomyelitis of the right first metatarsal. PROCEDURE: Right ankle block, excision of foot ulcer with incision and drainage and amputation of the right first metatarsal. SURGEON: María Fontenot DO ANESTHESIA: MAC with right ankle block. ESTIMATED BLOOD LOSS: Minimal. COMPLICATIONS: None. INDICATIONS: The patient is a 44-year-old male, who has had a chronic right foot ulcer on the plantar portion of his foot. Over the last 6 days, his foot has worsened. He had an MRI done yesterday demonstrating abscess at the first metatarsal bone on the right. He has also had changes consistent with osteomyelitis of the right first metatarsal. The patient understands these findings and he understands the procedure planned the risk and benefits. The patient wishes to proceed. DESCRIPTION OF PROCEDURE: The patient was taken to the operating suite, was prepped and draped in a sterile fashion. Ankle block was performed injecting local anesthetic on the posteromedial and lateral aspects of the ankle and also in a distribution along the dorsum of the foot for adequate ankle block. Once anesthetic effect took place, 15 blade scalpel was used to make an incision around the ulceration on the plantar portion of the foot and extending towards the dorsum. This was removed. Cautery was used to remove the skin and subcutaneous tissue, abscess was encountered, which had some murky fluid erupted. Culture was obtained. All of the infected tissue was continued to be debrided, which was all in the subcutaneous tissue. Once the first metatarsal head was encountered. This appeared to have significant changes of osteomyelitis and blunt dissection was continued to be used isolating the bone until it could go back to the joint space, which was then able to be dissected around and removing the first metatarsal bone in its entirety that was present up on surgical intervention. The wound was then irrigated with copious amounts of irrigation and suction. Hemostasis was achieved. The wound was then packed with iodoform and sterile bandage was applied. The patient tolerated procedure well without any complications and taken to recovery room in stable condition. Job ID: [id number] DocumentID: [id number] Dictated Date: 12/02/2020 20:30:44 Security Systems Installer Date: 12/03/2020 01:46:51 Dictated By: MARÍA FONTENOT DO
[2020-12-03] MEDS: PIPERACILLIN/TAZO 4.5 GM/NS 100 ML IV SCH ×6 (02:21→19:31)
[2020-12-03] MEDS: LACTATED RINGERS 1,000 ML IV SCH ×4 (02:21→18:37)
[2020-12-03 04:00] VITALS: BP 141/82
[2020-12-03] MEDS: inSUlin ASPART (NovoLOG) 1 UNIT/0.01 ML (CHARGE PER UNIT) SC SCH ×6 (06:38→20:36)
[2020-12-03 08:31] VITALS: BP 143/78
--- NOTE | 2020-12-03 10:38 | Progress Note - Surgery ---
Subjective Date Seen by a Provider: December 03, 2020 Time Seen by a Provider: 10:35 Subjective/Events-last exam Patient states pain is controlled. Had some bleeding from the right foot bandage. This was reinforced. Patient has no other complaints at this time. Denies any nausea vomiting fever sweats chills shortness of breath or chest pain. Focused Exam Lactate Level 12/02/20 11:35: Lactic Acid Level 2.22*H 12/02/20 14:25: Lactic Acid Level 1.12 Objective Exam Vital Signs Date Time Temp Pulse Resp B/P (MAP) Pulse Ox O2 Delivery O2 Flow Rate FiO2 12/03/20 08:31 36.3 91 18 143/78 (99) 98 Room Air 12/03/20 08:00 97 Room Air 12/03/20 04:00 36.2 85 18 141/82 (101) 96 Room Air 12/03/20 00:30 97 Room Air 12/03/20 00:00 36.0 80 18 122/56 (78) 97 Room Air 12/02/20 19:29 36.1 79 18 185/92 (123) 97 Room Air 12/02/20 17:55 Room Air 12/02/20 17:55 36.4 20 148/82 (104) 100 Room Air 12/02/20 17:55 100 Room Air 12/02/20 17:50 20 142/75 (97) 100 Room Air 12/02/20 17:45 Room Air 12/02/20 17:40 20 143/86 (105) 100 Room Air 12/02/20 17:29 Room Air 12/02/20 17:29 36.6 18 142/75 (97) 99 Room Air 12/02/20 16:02 76 19 148/76 96 Room Air I & O 12/03/20 07:00 Intake Total 3660 ml Output Total 900 ml Balance 2760 ml Capillary Refill : Less Than 3 SecondsLess Than 3 Seconds General Appearance: No Apparent Distress, WD/WN HEENT: PERRL/EOMI, Normal ENT Inspection Neck: Normal Inspection Respiratory: Chest Non Tender, No Accessory Muscle Use, No Respiratory Distress Cardiovascular: Regular Rate, Rhythm, No JVD Gastrointestinal: non tender, soft, no organomegaly, no pulsatile mass Extremity: Other (wound open on right foot, no active bleeding. ) Neurologic/Psychiatric: Alert, Oriented x3, No Motor/Sensory Deficits Skin: Normal Color, Warm/Dry Lymphatic: No Adenopathy Results Lab Laboratory Tests 12/02/20 11:35: White Blood Count 11.6H, Red Blood Count 3.64L, Hemoglobin 10.6L, Hematocrit 34L , Mean Corpuscular Volume 93, Mean Corpuscular Hemoglobin 29, Mean Corpuscular Hemoglobin Concent 31L, Red Cell Distribution Width 13.0, Platelet Count 587H, Mean Platelet Volume 8.9L, Immature Granulocyte % (Auto) 1, Neutrophils (%) (Auto) 65, Lymphocytes (%) (Auto) 19, Monocytes (%) (Auto) 10, Eosinophils (%) (Auto) 4, Basophils (%) (Auto) 1, Neutrophils # (Auto) 7.6, Lymphocytes # (Auto) 2.2, Monocytes # (Auto) 1.2H, Eosinophils # (Auto) 0.5H, Basophils # (Auto) 0.1, Immature Granulocyte # (Auto) 0.1, Prothrombin Time 14.2, INR Comment 1.1, Activated Partial Thromboplast Time 35, D-Dimer 6.32H, Sodium Level 137, Potassium Level 4.5, Chloride Level 102, Carbon Dioxide Level 22, Anion Gap 13, Blood Urea Nitrogen 30H, Creatinine 2.03H, Estimat Glomerular Filtration Rate 36, BUN/Creatinine Ratio 15, Glucose Level 156H, Lactic Acid Level 2.22*H, Calcium Level 9.6, Corrected Calcium 9.8, Total Bilirubin 0.3, Aspartate Amino Transf (AST/SGOT) 18, Alanine Aminotransferase (ALT/SGPT) 31, Alkaline Phosphatase 98, Total Protein 8.5H, Albumin 3.8 12/02/20 14:25: Lactic Acid Level 1.12 12/02/20 16:00: Glucometer 120H 12/02/20 20:39: Glucometer 185H 12/03/20 06:30: Glucometer 172H 12/03/20 10:15: Glucometer 209H Microbiology 12/02/20 Gram Stain, Resulted Pending 12/02/20 Anaerobic Culture, Resulted Pending 12/02/20 Surgical Culture - Preliminary, Resulted Staphylococcus aureus Assessment/Plan Assessment/Plan Assessment/Plan right foot cellulitis abscess and osteomyelitis of right metatarsal DM s/p excision ulcer, debridment wound, drainage of abscess and amputation 1st metatarsal, (right foot) pain control dressing changed daily and prn using iodoform gauze. continue ABX discussed tight glucose control MARÍA CABAN DO December 03, 2020 10:38
--- NOTE | 2020-12-03 10:52 | History & Physical-Hospitalist ---
History of Present Illness HPI/Chief Complaint This 44-year-old gentleman presents to the emergency room with about 6 days of pain, swelling, and erythema of the right foot stump where he has been treating a diabetic foot ulcer. 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 He has been managed by Dr. English. He has noted to be tachycardic. He is afebrile. There is erythema of the distal foot. He also describes a cramping pain in his calf. He is an insulin-dependent diabetic. MRI was obtained from [facility] yesterday. He does not know the results. Results were obtained electronically and he was noted to have osteomyelitis of the remaining first metatarsal and abscess formation. Patient denies any postoperative pain this morning upon arrival and denies chills fever or night sweats. Date Seen 12/03/20 Time Seen by a Provider: 07:00 Attending Physician GEORGIANA ROD MD [facility] Referring Physician Date of Admission Dec 02, 2020 at 13:38 Home Medications & Allergies Home Medications Reviewed patient Home Medication Reconciliation performed by pharmacy medication reconciliations power tool repair technician and/or nursing. Patients Allergies have been reviewed. Allergies Allergies Coded Allergies No Known Drug Allergies (Unverified01/18/19) Patient Social History Marrital Status: Tobacco Use?: No Smoking Status: Never a Smoker Substance use?: No Alcohol Use?: No Pt stated abuse/neglect: No Immunizations Up To Date TB Skin Test: None Current Status Do you have an Advance Directi: No Communicates: Verbally Primary Language: Kazakh Preferred Spoken Language: Kazakh Is interpretation needed?: No Past Medical History PMHx: DMI Chronic foot ulcer Review of Systems Constitutional: no symptoms reported Physical Exam Physical Exam Vital Signs Vital Signs - First Documented 12/02/20 10:04 Temp 35.3 Pulse 111 Resp 20 B/P (MAP) 198/95 (129) Pulse Ox 97 O2 Delivery Room Air Capillary Refill : Less Than 3 SecondsLess Than 3 Seconds Height, Weight, BMI Height: 6'4.00" Weight: 300lbs. 8.0oz. [id number]; 38.33 BMI Method:Stated General Appearance: No Apparent Distress Respiratory: Chest Non Tender, Lungs Clear, Normal Breath Sounds, No Accessory Muscle Use, No Respiratory Distress Cardiovascular: Regular Rate, Rhythm, No Edema, No Gallop, No JVD, No Murmur, Normal Peripheral Pulses Extremity: Other (Right forefoot bandaged with serosanguineous drainage. No erythema above the level of the bandaging extremity warm.) Results Results/Procedures Labs Laboratory Tests 12/02/20 11:35 Patient resulted labs reviewed. Assessment/Plan Admission Diagnosis 1. Longstanding right first metatarsal osteomyelitis postop day 1 status post right metatarsal removal per Dr. Fontenot continue IV antibiotics cultures pending. 2. Type 2 diabetes mellitus presumed will add back slightly lower than baseline levels of basal bolus insulin therapy and continue to monitor blood sugars. 3. History of hypertension hold lisinopril for now as the patient is normotensive will likely be resuming. 4. Hyperlipidemia continue Lipitor 40 mg at at bedtime. Admission Status: Inpatient Order (span 2 midnights) Reason for Inpatient Admission: See admission diagnosis GEORGIANA ROD MD December 03, 2020 10:52
[2020-12-03] MEDS: VANCOMYCIN 2000 MG/NS 500 ML IVPB IV SCH ×2 (12:11)
[2020-12-03 12:13] VITALS: BP 164/80
--- NOTE | 2020-12-03 14:36 | Anesthesia-General Post-Op ---
MAC Patient Condition Mental Status/LOC: Same as Preop Cardiovascular: Satisfactory Nausea/Vomiting: Absent Respiratory: Satisfactory Pain: Controlled Complications: Absent Post Op Complications Complications None Follow Up Care/Instructions Patient Instructions None needed. Anesthesiology Discharge Order Discharge Order Patient is doing well, no complaints, stable vital signs, no apparent adverse anesthesia problems. No complications reported per nursing. COLLIN MEDINA CRNA December 03, 2020 14:36
[2020-12-03 16:04] VITALS: BP_SYST 130; BP_SYST 74; BP_DIAS 56; BP_DIAS 74
[2020-12-03 20:27] VITALS: BP 159/82
[2020-12-04 00:09] VITALS: BP 157/97
[2020-12-04] MEDS: PIPERACILLIN/TAZO 4.5 GM/NS 100 ML IV SCH ×6 (02:56→19:03)
[2020-12-04 04:56] VITALS: BP 159/62
[2020-12-04] MEDS: inSUlin ASPART (NovoLOG) 1 UNIT/0.01 ML (CHARGE PER UNIT) SC SCH ×7 (05:59→20:13)
[2020-12-04 08:17] VITALS: BP 131/74
--- NOTE | 2020-12-04 09:46 | Progress Note - Surgery ---
Subjective Date Seen by a Provider: December 04, 2020 Time Seen by a Provider: 09:44 Subjective/Events-last exam Patient no new complaints. Foot pain is under control. Had a little bit of oozing he states but that is improved. Patient denies any nausea vomiting fever sweats chills shortness of breath or chest pain Focused Exam Lactate Level 12/02/20 11:35: Lactic Acid Level 2.22*H 12/02/20 14:25: Lactic Acid Level 1.12 Objective Exam Vital Signs Date Time Temp Pulse Resp B/P (MAP) Pulse Ox O2 Delivery O2 Flow Rate FiO2 12/04/20 08:19 97 Room Air 12/04/20 08:17 37.0 81 18 131/74 (93) 97 Room Air 12/04/20 04:56 36.9 88 20 159/62 (94) 94 Room Air 12/04/20 00:09 36.8 80 18 157/97 (117) 97 Room Air 12/03/20 20:35 37.5 12/03/20 20:27 37.5 84 16 159/82 (107) 96 Room Air 12/03/20 20:01 97 Room Air 12/03/20 16:04 37.1 83 16 130/74 (92) 96 Room Air 12/03/20 12:13 36.5 86 20 164/80 (108) 96 Room Air I & O 12/04/20 07:00 Intake Total 3480 ml Output Total 3550 ml Balance -70 ml Capillary Refill : Less Than 3 SecondsLess Than 3 Seconds General Appearance: No Apparent Distress HEENT: PERRL/EOMI, Normal ENT Inspection Neck: Normal Inspection Respiratory: Chest Non Tender, Lungs Clear, Normal Breath Sounds, No Accessory Muscle Use, No Respiratory Distress Cardiovascular: Regular Rate, Rhythm, No JVD, Normal Peripheral Pulses Gastrointestinal: non tender, soft, no organomegaly, no pulsatile mass Extremity: Other (Right forefoot open wound slight serosanguineous drainage. minimal erythema dorsal part of wound) Neurologic/Psychiatric: Alert, Oriented x3, No Motor/Sensory Deficits Skin: Normal Color, Warm/Dry Lymphatic: No Adenopathy Results Lab Laboratory Tests 12/03/20 10:15: Glucometer 209H 12/03/20 17:06: Glucometer 160H 12/03/20 20:12: Glucometer 210H 12/04/20 05:56: Glucometer 139H Microbiology 12/02/20 Gram Stain, Resulted Pending 12/02/20 Anaerobic Culture, Resulted Pending 12/02/20 Surgical Culture - Preliminary, Resulted Staphylococcus aureus 12/02/20 Blood Culture - Preliminary, Resulted No growth 12/02/20 Urine Culture - Final, Complete NO GROWTH Assessment/Plan Assessment/Plan Assessment/Plan right foot cellulitis abscess and osteomyelitis of right metatarsal DM s/p excision ulcer, debridment wound, drainage of abscess and amputation 1st metatarsal, (right foot) pain control dressing changed daily and prn using iodoform gauze. continue ABX discussed tight glucose control home soon MARÍA CABAN DO December 04, 2020 09:46
[2020-12-04] MEDS ORDERED: TROUGH ORDER-PHARMACY XX NR (11:00)
[2020-12-04 11:25] VITALS: BP 128/73
[2020-12-04] MEDS: LACTATED RINGERS 1,000 ML IV SCH ×2 (11:29→20:17)
--- NOTE | 2020-12-04 12:25 | Progress Note - Hospitalist ---
Subjective HPI/CC On Admission Date Seen by Provider: December 04, 2020 Time Seen by Provider: 09:00 This 44-year-old gentleman presents to the emergency room with about 6 days of pain, swelling, and erythema of the right foot stump where he has been treating a diabetic foot ulcer. 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 He has been managed by Dr. English. He has noted to be tachycardic. He is afebrile. There is erythema of the distal foot. He also describes a cramping pain in his calf. He is an insulin-dependent diabetic. MRI was obtained from [facility] yesterday. He does not know the results. Results were obtained electronically and he was noted to have osteomyelitis of the remaining first metatarsal and abscess formation. Patient denies any postoperative pain this morning upon arrival and denies chills fever or night sweats. Subjective/Events-last exam Patient denies night sweats chills or fever and denies foot pain. Focused Exam Lactate Level 12/02/20 11:35: Lactic Acid Level 2.22*H 12/02/20 14:25: Lactic Acid Level 1.12 Objective Exam Vital Signs Vital Signs Date Time Temp Pulse Resp B/P (MAP) Pulse Ox O2 Delivery O2 Flow Rate FiO2 12/04/20 11:25 36.6 78 16 128/73 (91) 96 Room Air Capillary Refill : Less Than 3 SecondsLess Than 3 Seconds General Appearance: No Apparent Distress Respiratory: Chest Non Tender, Lungs Clear, Normal Breath Sounds, No Accessory Muscle Use, No Respiratory Distress Cardiovascular: Regular Rate, Rhythm, No Edema, No Gallop, No JVD, No Murmur, Normal Peripheral Pulses Extremity: Other (Extremity exam unchanged from yesterday foot bandaged no drainage noted trace edema with no erythema above the level of the bandage.) Results/Procedures Lab Patient resulted labs reviewed. Assessment/Plan Assessment and Plan Assess & Plan/Chief Complaint 1. Longstanding right first metatarsal osteomyelitis postop day 2 status post right metatarsal removal per Dr. 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 Discharge antibiotics per Dr. Fontenot.. 2. Type 2 diabetes mellitus presumed will add back slightly lower than baseline levels of basal bolus insulin therapy and continue to monitor blood sugars. 3. History of hypertension hold lisinopril for now as the patient is normotensive will likely be resuming. 4. Hyperlipidemia continue Lipitor 40 mg at at bedtime GEORGIANA ROD MD December 04, 2020 12:25
[2020-12-04] MEDS: VANCOMYCIN 2000 MG/NS 500 ML IVPB IV SCH ×2 (13:44)
[2020-12-04 14:52] VITALS: BP 161/79
[2020-12-04 15:30] VITALS: BP 161/79
[2020-12-05 00:58] VITALS: BP 119/69
[2020-12-05] MEDS: PIPERACILLIN/TAZO 4.5 GM/NS 100 ML IV SCH ×4 (03:19→12:44)
[2020-12-05] MEDS: LACTATED RINGERS 1,000 ML IV SCH ×2 (03:19→07:59)
[2020-12-05 06:24] LABS: BASOPHILS # (AUTO) 0.1 10^3/uL (0.0-0.1); BASOPHILS % (AUTO) 1 % (0-10); EOSINOPHILS # (AUTO) 0.8 10^3/uL (0.0-0.3); EOSINOPHILS % (AUTO) 9 % (0-10); HEMATOCRIT 34 % (40-54); HEMOGLOBIN 10.7 g/dL (13.3-17.7); LYMPHOCYTES # (AUTO) 2.6 10^3/uL (1.0-4.0); LYMPHOCYTES % (AUTO) 30 % (12-44); MEAN CORPUSCULAR HEMOGLOBIN 29 pg (25-34); MEAN CORPUSCULAR HGB CONC 31 g/dL (32-36); MEAN CORPUSCULAR VOLUME 91 fL (80-99); MEAN PLATELET VOLUME 8.8 fL (9.0-12.2); MONOCYTES # (AUTO) 0.8 10^3/uL (0.0-1.0); MONOCYTES % (AUTO) 9 % (0-12); NEUTROPHILS # (AUTO) 4.6 10^3/uL (1.8-7.8); NEUTROPHILS % (AUTO) 52 % (42-75); PLATELET COUNT 431 10^3/uL (130-400); WHITE BLOOD COUNT 8.9 10^3/uL (4.3-11.0)
[2020-12-05 06:45] LABS: ALBUMIN 3.4 GM/DL (3.2-4.5); BILIRUBIN,TOTAL 0.2 MG/DL (0.1-1.0); CREATININE SERUM 1.93 MG/DL (0.60-1.30); POTASSIUM 4.3 MMOL/L (3.6-5.0); TOTAL PROTEIN 7.6 GM/DL (6.4-8.2)
[2020-12-05 07:42] VITALS: BP 163/87
[2020-12-05] MEDS: inSUlin ASPART (NovoLOG) 1 UNIT/0.01 ML (CHARGE PER UNIT) SC SCH ×4 (07:59→12:45)
[2020-12-05] MEDS ORDERED: MULT-985 PO (10:26)
[2020-12-05] MEDS ORDERED: TADA5TAB3 PO (10:26)
[2020-12-05] MEDS ORDERED: DAPA10TA PO (10:26)
[2020-12-05] MEDS ORDERED: ARGI500C9 PO (10:26)
[2020-12-05] MEDS ORDERED: METF-399 PO (10:26)
[2020-12-05] MEDS ORDERED: ATOR40TA70 PO (10:26)
[2020-12-05] MEDS ORDERED: [UNRECOGNIZED DRUG - OTHER] PO (10:26)
[2020-12-05] MEDS ORDERED: GINK60TA7 PO (10:26)
[2020-12-05] MEDS ORDERED: GLUC1AUT2 SQ (10:27)
[2020-12-05] MEDS ORDERED: ACHD5005 PO (10:29)
[2020-12-05] MEDS ORDERED: CEPH500T PO (10:29)
[2020-12-05] MEDS ORDERED: GLUCAGON SQ PRN (10:30)
[2020-12-05] MEDS ORDERED: NON-FORMULARY MEDICATION 1 EA EA (Tadalafil 5 MG) PO PRN (10:30)
--- NOTE | 2020-12-05 10:31 | Discharge Summary ---
Discharge Summary Hospital Course Was the Problem List Reviewed?: Yes Problems/Dx: (1) Osteomyelitis of right foot Status: Acute Qualifiers: Qualified Codes: M86.9 - Osteomyelitis, unspecified (2) Abscess of right foot Status: Acute (3) Acute kidney injury Status: Resolved (4) Hypertension Status: Chronic (5) Depression Status: Chronic (6) Anemia Status: Chronic (7) Diabetes mellitus Status: Chronic Hospital Course Date of Admission: Dec 02, 2020 at 13:38 Admission Diagnosis : Family Physician/Provider: [place] Date of Discharge: 12/05/20 Discharge Diagnosis: Right foot cellulitis with abscess, DM, EDER Hospital Course: Hospital course: Pt had a lengthy hospital course for four days, he was admitted fro osteomyeliti s of the right foot with abscess s/p management by Dr. Fontenot, he initiated wound care, he will continue management with Keflex 500 mg TID for an additional five days, home meds were restarted and pain medication was sent into [facility]. Labs and Pending Lab Test: Laboratory Tests 12/04/20 11:13: Glucometer 170H 12/04/20 11:15: Vancomycin Level Trough 14.4 12/04/20 14:50: Glucometer 151H 12/04/20 19:01: Glucometer 159H 12/05/20 06:05: White Blood Count 8.9, Red Blood Count 3.75L, Hemoglobin 10.7L, Hematocrit 34L, Mean Corpuscular Volume 91, Mean Corpuscular Hemoglobin 29, Mean Corpuscular Hemoglobin Concent 31L, Red Cell Distribution Width 12.8, Platelet Count 431H, Mean Platelet Volume 8.8L, Immature Granulocyte % (Auto) 1, Neutrophils (%) (Auto) 52, Lymphocytes (%) (Auto) 30, Monocytes (%) (Auto) 9, Eosinophils (%) (Auto) 9, Basophils (%) (Auto) 1, Neutrophils # (Auto) 4.6, Lymphocytes # (Auto) 2.6, Monocytes # (Auto) 0.8, Eosinophils # (Auto) 0.8H, Basophils # (Auto) 0.1, Immature Granulocyte # (Auto) 0.0, Sodium Level 140, Potassium Level 4.3, Chloride Level 106, Carbon Dioxide Level 24, Anion Gap 10, Blood Urea Nitrogen 16, Creatinine 1.93H, Estimat Glomerular Filtration Rate 38, BUN/Creatinine Ratio 8, Glucose Level 142H, Calcium Level 9.0, Corrected Calcium 9.5, Total Bilirubin 0.2, Aspartate Amino Transf (AST/SGOT) 14, Alanine Aminotransferase (ALT/SGPT) 19, Alkaline Phosphatase 78, Total Protein 7.6, Albumin 3.4 12/05/20 06:11: Glucometer 131H Microbiology 12/02/20 Gram Stain - Final, Resulted 12/02/20 Anaerobic Culture - Preliminary, Resulted No anaerobes isolated 12/02/20 Surgical Culture - Preliminary, Resulted Staphylococcus aureus 12/02/20 Blood Culture - Preliminary, Resulted No growth 12/02/20 Urine Culture - Final, Complete NO GROWTH Home Meds Active Cephalexin 500 Mg Tablet 500 Mg PO TID HYDROcodone/APAP 5 MG/325 MG TAB (Acetaminophen/Hydrocodone Bitart) 1 Tab Tab 1 Ea PO Q4H PRN Reported Gvoke Hypopen 2-Pack (Glucagon) 1 Mg/0.2 Ml Auto.injct 1 Ea SQ UD PRN Ginkgo Biloba 60 Mg Tablet 60 Mg PO DAILY l-Arginine (Arginine) 500 Mg Capsule 500 Mg PO DAILY Hair, Skin & Nails (Multivitamin with Minerals) 1 Each Tablet 3 Each PO DAILY [Alive Mens 50+] 1 Ea PO DAILY Tadalafil 5 Mg Tablet 5 Mg PO UD PRN Metformin HCl 1,000 Mg Tablet 1,000 Mg PO 0800,1500 Farxiga (Dapagliflozin Propanediol) 10 Mg Tablet 10 Mg PO DAILY Atorvastatin Calcium 40 Mg Tablet 40 Mg PO DAILY Levemir Flextouch (Insulin Detemir) 100 Unit/1 Ml Insuln.pen 30 Units SC BID Lisinopril 20 Mg Tablet 20 Mg PO DAILY Novolog Flexpen (Insulin Aspart) 300 Units/3 Ml Solution 20 Units SC PC Assessment/Pt Instructions Dr Fontenot as directed Discharge Planning: <30 minutes discharge planning Discharge Instructions Discharge Diet: ADA Diet Discharge Physical Examination Vital Signs Vital Signs Date Time Temp Pulse Resp B/P (MAP) Pulse Ox O2 Delivery O2 Flow Rate FiO2 12/05/20 08:00 95 Room Air 12/05/20 07:42 36.7 68 17 163/87 (112) General Appearance: No Apparent Distress, WD/WN, Chronically ill, Obese Allergies: Coded Allergies: No Known Drug Allergies (Unverified , 01/18/19) Discharge Summary Date of Admission Dec 02, 2020 at 13:38 Date of Discharge Discharge Date: December 05, 2020 Admission Diagnosis 1. Longstanding right first metatarsal osteomyelitis postop day 1 status post right metatarsal removal per Dr. Fontenot continue IV antibiotics cultures pending. 2. Type 2 diabetes mellitus presumed will add back slightly lower than baseline levels of basal bolus insulin therapy and continue to monitor blood sugars. 3. History of hypertension hold lisinopril for now as the patient is normotensive will likely be resuming. 4. Hyperlipidemia continue Lipitor 40 mg at at bedtime. LISA GODINEZ DO December 05, 2020 10:31
[2020-12-05 12:12] VITALS: BP 169/87
[2020-12-05] MEDS: VANCOMYCIN 2000 MG/NS 500 ML IVPB IV SCH ×2 (12:45)
[2020-12-05] MEDS ORDERED: NON-FORMULARY MEDICATION 1 EA EA (Insulin Aspart (Novolog Flexpen) 20 UNITS) SC SCH (14:00)
[2020-12-05] MEDS ORDERED: NON-FORMULARY MEDICATION 1 EA EA (Metformin HCl 1,000 MG) PO SCH (15:00)
[2020-12-05] MEDS ORDERED: NON-FORMULARY MEDICATION 1 EA EA (Insulin Detemir (Levemir Flextouch) 30 UNITS) SC SCH (21:00)
[2020-12-06] MEDS ORDERED: ARGININE 500 MG PO SCH (09:00)
[2020-12-06] MEDS ORDERED: [UNRECOGNIZED DRUG - OTHER] PO SCH (09:00)
[2020-12-06] MEDS ORDERED: GINKGO BILOBA 60 MG PO SCH (09:00)
[2020-12-06] MEDS ORDERED: lisINopril 20 MG (PRINIVIL) TABLET PO SCH (09:00)
[2020-12-06] MEDS ORDERED: NON-FORMULARY MEDICATION 1 EA EA (Dapagliflozin Propanediol (Farxiga) 10 MG) PO SCH (09:00)
[2020-12-06] MEDS ORDERED: [UNRECOGNIZED DRUG - OTHER] PO SCH (09:00)
[2020-12-06] MEDS ORDERED: MULTIVITAMIN WITH MINERALS PO SCH (09:00)
== END 2020-12-05 13:00 | disposition home or self-care (01) | DRG 617 ==
LOC: EDUNIT# 09:58 → ER 10:00 → 4TH 13:38
PROVIDERS: ADMIT Internal Medicine; ATTEND Internal Medicine
PROC: 0JBQ0ZZ Excision of Right Foot Subcutaneous Tissue and Fascia, Open Approach (ICD-10-PCS; 2020-12-02)
PROC: 0Y9M0ZZ Drainage of Right Foot, Open Approach (ICD-10-PCS; 2020-12-02)
PROC: 0Y6M0Z9 Detachment at Right Foot, Partial 1st Ray, Open Approach (ICD-10-PCS; principal; 2020-12-02 16:03)
DX: E11.69 Type 2 diabetes mellitus with other specified complication (principal); M86.8X7 Other osteomyelitis, ankle and foot; L02.611 Cutaneous abscess of right foot; L03.115 Cellulitis of right lower limb; I10 Essential (primary) hypertension; E78.5 Hyperlipidemia, unspecified; E11.621 Type 2 diabetes mellitus with foot ulcer; L97.519 Non-pressure chronic ulcer of other part of right foot with unspecified severity; N17.9 Acute kidney failure, unspecified; F32.9 Major depressive disorder, single episode, unspecified; D64.9 Anemia, unspecified; Z79.4 Long term (current) use of insulin
CPT/HCPCS: 36415; 36569; 71045; 76937; 80053; 80202; 81000; 82947; 83605; 85025; 85379; 85610; 85730; 87040; 87070; 87075; 87077; 87088; 87186; 87205

== ENCOUNTER 2021-02-23 17:17 | Emergency (ER) | payer MEDICAID ==
[~2021-02-23] VITALS: Ht 193 cm; Wt 143.0 kg
[~2021-02-23 17:17] MED LIST changes: +ACHD5005 PO; +ARGI500C9 PO; +CEPH500T PO; +DAPA10TA PO; +DOXY-311 PO; -DOXY100C42 PO; +GINK60TA7 PO; +GLUC1AUT2 SQ; +MULT-985 PO; +TADA5TAB3 PO; +[UNRECOGNIZED DRUG - OTHER] PO
[2021-02-23] MEDS ORDERED: LACTATED RINGERS 1,000 ML IV SCH (17:45)
[2021-02-23] MEDS ORDERED: ACETAMINOPHEN 500 MG TAB (TYLENOL) PO ONE (17:45)
[2021-02-23 18:10] LABS: BASOPHILS % (AUTO) 0 % (0-10); HEMOGLOBIN 11.8 g/dL (13.3-17.7)
[2021-02-23 18:12] LABS: EOSINOPHILS % (AUTO) 0 % (0-10); HEMATOCRIT 36 % (40-54); LYMPHOCYTES # (AUTO) 1.1 10^3/uL (1.0-4.0); LYMPHOCYTES % (AUTO) 22 % (12-44); MEAN CORPUSCULAR HEMOGLOBIN 29 pg (25-34); MEAN CORPUSCULAR HGB CONC 33 g/dL (32-36); MEAN CORPUSCULAR VOLUME 88 fL (80-99); MEAN PLATELET VOLUME 10.5 fL (9.0-12.2); MONOCYTES # (AUTO) 0.3 10^3/uL (0.0-1.0); MONOCYTES % (AUTO) 5 % (0-12); NEUTROPHILS # (AUTO) 3.8 10^3/uL (1.8-7.8); NEUTROPHILS % (AUTO) 72 % (42-75); PLATELET COUNT 129 10^3/uL (130-400); WHITE BLOOD COUNT 5.2 10^3/uL (4.3-11.0)
[2021-02-23 18:16] LABS: ALBUMIN 3.6 GM/DL (3.2-4.5); POTASSIUM 5.1 MMOL/L (3.6-5.0)
--- NOTE | 2021-02-23 18:16 | ED Cough/URI ---
General Chief Complaint: Cough/Cold/Flu Symptoms Stated Complaint: FEVER, VOMITING, BODY ACHES Nursing Triage Note: PT CO OF COLD COUGH AND FEVER SINCE LAST SATURDAY 6 DAYS AGO. AND [id number] HAVE TESTED + FOR COVID. Source: patient Exam Limitations: no limitations History of Present Illness Date Seen by Provider: Feb 23, 2021 Time Seen by Provider: 18:12 Initial Comments Obese hypertensive insulin-dependent diabetic with stage III chronic kidney disease presents to ER with 6 days of nausea diarrhea malaise fevers weakness. Unvaccinated against Covid. [id number] with whom he lives tested positive for Covid 2 days ago. Timing/Duration: getting worse Severity/Quality: moderate Associated Symptoms: cough, fever/chills, headache, muscle aches, shortness of breath Allergies and Home Medications Allergies Coded Allergies: No Known Drug Allergies (Unverified , 01/18/19) Home Medications Arginine 500 Mg Capsule, 500 MG PO DAILY, (Reported) Atorvastatin Calcium 40 Mg Tablet, 40 MG PO DAILY, (Reported) Cephalexin 500 Mg Tablet, 500 MG PO TID Prescribed by: LISA GODINEZ on 12/05/20 1029 Dapagliflozin Propanediol 10 Mg Tablet, 10 MG PO DAILY, (Reported) Ginkgo Biloba 60 Mg Tablet, 60 MG PO DAILY, (Reported) Glucagon 1 Mg/0.2 Ml Auto.injct, 1 EA SQ UD PRN for HYPOGLYCEMIA, (Reported) Hydrocodone Bit/Acetaminophen 1 Tab Tab, 1 EA PO Q4H PRN for PAIN-MODERATE (5-7) Prescribed by: LISA GODINEZ on 12/05/20 1031 Insulin Aspart 300 Units/3 Ml Solution, 20 UNITS SC PC, (Reported) Insulin Detemir 100 Unit/1 Ml Insuln.pen, 30 UNITS SC BID, (Reported) Lisinopril 20 Mg Tablet, 20 MG PO DAILY, (Reported) Metformin HCl 1,000 Mg Tablet, 1,000 MG PO 0800,1500, (Reported) Multivitamin with Minerals 1 Each Tablet, 3 EACH PO DAILY, (Reported) Tadalafil 5 Mg Tablet, 5 MG PO UD PRN for ED, (Reported) [Alive Mens 50+] , 1 EA PO DAILY, (Reported) Patient Home Medication List Home Medication List Reviewed: Yes Review of Systems Review of Systems Constitutional: see HPI, fever, malaise EENTM: see HPI Respiratory: see HPI, cough, short of breath Genitourinary: no symptoms reported Musculoskeletal: no symptoms reported Skin: no symptoms reported Psychiatric/Neurological: No Symptoms Reported Hematologic/Lymphatic: No Symptoms Reported Immunological/Allergic: no symptoms reported Past Mnbervj-Iypiet-Nphphz Hx Patient Social History Tobacco Use?: No Substance use?: No Alcohol Use?: No Pt feels they are or have been: No Immunizations Up To Date Tetanus Booster (TDap): Less than 5yrs PED Vaccines UTD: Yes Seasonal Allergies Seasonal Allergies: No Past Medical History Surgery/Hospitalization HX: DECEMBER 2020 R FOOT SURG Surgeries: Yes (RT GREAT TOE REMOVED.) Abdominal, Amputation Respiratory: No Currently Using CPAP: No Currently Using BIPAP: No Cardiac: Yes Hypertension Neurological: No Reproductive Disorders: No Genitourinary: No Gastrointestinal: No Musculoskeletal: No Endocrine: Yes Diabetes, Insulin dep HEENT: No Cancer: No Psychosocial: No Integumentary: No Family Medical History Cardiovascular disease 19 MOTHER Diabetes mellitus 19 MOTHER Diabetes Physical Exam Vital Signs - First Documented 02/23/21 17:25 Temp 38.7 Pulse 103 Resp 20 B/P (MAP) 146/76 (99) Pulse Ox 95 Capillary Refill : Less Than 3 Seconds Height: 6'4.00" Weight: 300lbs. 8.0oz. 136.528261zx; 38.00 BMI Method:Stated General Appearance: WD/WN, no apparent distress, obese, other (95% on room air heart rate 92 blood pressure 142/86) Eyes: Bilateral Eye Normal Inspection, Bilateral Eye PERRL, Bilateral Eye EOMI HEENT: PERRL/EOMI, normal ENT inspection Respiratory: no respiratory distress, no accessory muscle use Cardiovascular: regular rate, rhythm, no murmur Gastrointestinal: normal bowel sounds, non tender, soft Neurologic/Psychiatric: alert, normal mood/affect, oriented x 3 Skin: normal color, warm/dry Progress/Results/Core Measures Suspected Sepsis SIRS Temperature: Pulse: 103 Respiratory Rate: 20 Laboratory Tests 02/23/21 17:50: White Blood Count 5.2 Blood Pressure 146 /76 Mean: 99 Laboratory Tests 02/23/21 17:50: Creatinine 1.87H, Platelet Count 129L, Total Bilirubin 0.3 Results/Orders Lab Results Laboratory Tests Test 02/23/21 17:35 02/23/21 17:50 Range/Units SARS-CoV-2 RNA (RT-PCR) Detected H Not Detecte White Blood Count 5.2 4.3-11.0 10^3/uL Red Blood Count 4.04 L 4.30-5.52 10^6/uL Hemoglobin 11.8 L 13.3-17.7 g/dL Hematocrit 36 L 40-54 % Mean Corpuscular Volume 88 80-99 fL Mean Corpuscular Hemoglobin 29 25-34 pg Mean Corpuscular Hemoglobin Concent 33 32-36 g/dL Red Cell Distribution Width 14.2 10.0-14.5 % Platelet Count 129 L 130-400 10^3/uL Mean Platelet Volume 10.5 9.0-12.2 fL Immature Granulocyte % (Auto) 1 % Neutrophils (%) (Auto) 72 42-75 % Lymphocytes (%) (Auto) 22 12-44 % Monocytes (%) (Auto) 5 0-12 % Eosinophils (%) (Auto) 0 0-10 % Basophils (%) (Auto) 0 0-10 % Neutrophils # (Auto) 3.8 1.8-7.8 10^3/uL Lymphocytes # (Auto) 1.1 1.0-4.0 10^3/uL Monocytes # (Auto) 0.3 0.0-1.0 10^3/uL Eosinophils # (Auto) 0.0 0.0-0.3 10^3/uL Basophils # (Auto) 0.0 0.0-0.1 10^3/uL Immature Granulocyte # (Auto) 0.0 0.0-0.1 10^3/uL Percent Immature Platelet Fraction 5.3 0.0-7.6 % D-Dimer 0.72 H 0.00-0.49 UG/ML Sodium Level 134 L 135-145 MMOL/L Potassium Level 5.1 H 3.6-5.0 MMOL/L Chloride Level 102 98-107 MMOL/L Carbon Dioxide Level 17 L 21-32 MMOL/L Anion Gap 15 H 5-14 MMOL/L Blood Urea Nitrogen 23 H 7-18 MG/DL Creatinine 1.87 H 0.60-1.30 MG/DL Estimat Glomerular Filtration Rate 39 BUN/Creatinine Ratio 12 Glucose Level 331 H 70-105 MG/DL Calcium Level 8.1 L 8.5-10.1 MG/DL Corrected Calcium 8.4 L 8.5-10.1 MG/DL Total Bilirubin 0.3 0.1-1.0 MG/DL Aspartate Amino Transf (AST/SGOT) 38 H 5-34 U/L Alanine Aminotransferase (ALT/SGPT) 32 0-55 U/L Alkaline Phosphatase 89 40-136 U/L C-Reactive Protein High Sensitivity 12.10 H 0.00-0.50 MG/DL B-Type Natriuretic Peptide 12.9 <100.0 PG/ML Total Protein 7.7 6.4-8.2 GM/DL Albumin 3.6 3.2-4.5 GM/DL My Orders Orders - JC CHINCHILLA APRN Covid 19 Inhouse Test (02/23/21 17:23) Medications Given in ED Current Medications Medications Dose Ordered Sig/Sonia Route Start Time Stop Time Status Last Admin Dose Admin Acetaminophen 1,000 mg ONCE ONCE PO 02/23/21 17:45 02/23/21 17:46 DC 02/23/21 17:52 1,000 MG Vital Signs/I&O 02/23/21 17:25 Temp 38.7 Pulse 103 Resp 20 B/P (MAP) 146/76 (99) Pulse Ox 95 Capillary Refill : Less Than 3 Seconds Blood Pressure Mean: 99 Departure Communication (Admissions) discussed with him the emergency use authorization for Regeneron and recommended that he get it given comorbidities. He was informed of the alternatives of treatment and risks. He would like to proceed with getting it. Impression Primary Impression: COVID-19 Disposition: 01 HOME, SELF-CARE Condition: Stable Departure-Patient Inst. Decision time for Depature: 18:45 Referrals: [facility] [place] (PCP/Family) Primary Care Physician Patient Instructions: COVID-19 (DC) Add. Discharge Instructions: 1. The scheduling department will call you tomorrow with an appointment time to show up tomorrow for the infusion of Regeneron. All discharge instructions reviewed with patient and/or family. Voiced understanding. JC CHINCHILLA APRN Feb 23, 2021 18:16
[2021-02-23 18:17] LABS: CALCIUM 8.1 MG/DL (8.5-10.1)
[2021-02-23 18:18] LABS: TOTAL PROTEIN 7.7 GM/DL (6.4-8.2)
[2021-02-23 18:20] LABS: BILIRUBIN,TOTAL 0.3 MG/DL (0.1-1.0)
[2021-02-23 18:22] LABS: CREATININE SERUM 1.87 MG/DL (0.60-1.30)
--- NOTE | 2021-02-23 18:54 | Diagnostic Imaging Report ---
HISTORY: Shortness of air, Covid positive COMPARISON: 12/02/2020 TECHNIQUE: Single frontal view of the chest FINDINGS: Lung volumes are mildly low. There are patchy airspace opacities in the lung bases and in the left midlung, concerning for infection. There is no pleural effusion or pneumothorax. The cardiac silhouette is normal in size. IMPRESSION: 1. Increased patchy airspace opacities, left greater than right, concerning for infection. Dictated by: Dictated on workstation # [id number]
[2021-02-23 20:01] VITALS: BP 164/94
[2021-02-24] MEDS ORDERED: AZIT250T12 PO (21:13)
[2021-02-24] MEDS ORDERED: DEXA4TAB66 PO (21:13)
[2021-02-24] MEDS ORDERED: AMOX-358 PO (21:13)
[2021-02-27] MEDS ORDERED: AZIT250T12 PO (15:43)
[2021-02-27] MEDS ORDERED: DEXA4TAB PO (15:43)
[2021-02-27] MEDS ORDERED: ONDA8TAB13 PO (15:43)
[2021-02-27] MEDS ORDERED: AMOX1TAB12 PO (15:43)
[2021-02-27] MEDS ORDERED: ARGI500C9 PO (15:47)
[2021-02-27] MEDS ORDERED: MULT-1061 PO (15:47)
== END 2021-02-23 20:01 | disposition home or self-care (01) ==
LOC: EDUNIT# 17:17 → ER 17:20
DX: U07.1 COVID-19 (principal); I10 Essential (primary) hypertension; E66.9 Obesity, unspecified; E11.9 Type 2 diabetes mellitus without complications; Z68.38 Body mass index [BMI] 38.0-38.9, adult; Z79.4 Long term (current) use of insulin
CPT/HCPCS: 36415; 71045; 80053; 83880; 85025; 85379; 86141; 87636

== ENCOUNTER 2021-02-24 18:48 | Emergency (ER) | payer MEDICAID ==
[~2021-02-24] VITALS: Ht 193 cm; Wt 143.0 kg
[2021-02-24] MEDS ORDERED: ACETAMINOPHEN 500 MG TAB (TYLENOL) PO STA (19:27)
[2021-02-24] MEDS ORDERED: ACETAMINOPHEN 500 MG TAB (TYLENOL) ONE (19:27)
[2021-02-24] MEDS ORDERED: ONDANSETRON 4 MG/2 ML (SDV) Z0FRAN ONE (19:37)
[2021-02-24] MEDS ORDERED: NS IV 1000 ML 1,000 ML IV SCH ×2 (19:45→20:15)
[2021-02-24 19:46] LABS: BASOPHILS % (AUTO) 0 % (0-10); EOSINOPHILS % (AUTO) 0 % (0-10); HEMATOCRIT 40 % (40-54); HEMOGLOBIN 13.3 g/dL (13.3-17.7); LYMPHOCYTES % (AUTO) 11 % (12-44); MEAN CORPUSCULAR HEMOGLOBIN 29 pg (25-34); MEAN CORPUSCULAR HGB CONC 33 g/dL (32-36); MEAN CORPUSCULAR VOLUME 87 fL (80-99); MEAN PLATELET VOLUME 9.7 fL (9.0-12.2); MONOCYTES # (AUTO) 0.3 10^3/uL (0.0-1.0); MONOCYTES % (AUTO) 4 % (0-12); NEUTROPHILS % (AUTO) 85 % (42-75); PLATELET COUNT 186 10^3/uL (130-400); WHITE BLOOD COUNT 9.4 10^3/uL (4.3-11.0)
[2021-02-24 20:01] LABS: PROTHROMBIN TIME PATIENT 13.3 SEC (12.2-14.7)
[2021-02-24 20:04] LABS: ERYTHROCYTE SEDIMENTATION RATE 61 MM/HR (0-15)
[2021-02-24 20:10] LABS: ALBUMIN 3.4 GM/DL (3.2-4.5); BILIRUBIN,TOTAL 0.3 MG/DL (0.1-1.0); CALCIUM 8.3 MG/DL (8.5-10.1); CREATININE SERUM 2.09 MG/DL (0.60-1.30); POTASSIUM 4.7 MMOL/L (3.6-5.0); TOTAL PROTEIN 7.6 GM/DL (6.4-8.2)
--- NOTE | 2021-02-24 20:13 | Diagnostic Imaging Report ---
EXAMINATION: Chest radiograph, portable AP view. DATE: 02/24/2021 7:59 PM INDICATION: 45-year-old male, Covid positive. Cough, fever, chills. COMPARISON: February 23, 2021. FINDINGS: Heart size and mediastinal contours are unchanged. There is no identified pneumothorax. There is no large pleural effusion. There is multifocal bilateral alveolar consolidation which appears to be slightly increased since the comparison exam. IMPRESSION: 1. Slightly increased multifocal bilateral lung consolidation. This may relate to provided history of Covid 19 infection or multifocal pneumonia/pneumonitis. Dictated by: Dictated on workstation # [id number]
--- NOTE | 2021-02-24 20:23 | ED Cough/URI ---
General Chief Complaint: Fever-Adult/Adol Stated Complaint: COVID POSITIVE/FEVER Nursing Triage Note: COVID POSITIVE 02/23/21 C/O PERSISTANT COUGH, FEVER/CHILLS, N/V. also c/o left ear pain History of Present Illness Date Seen by Provider: Feb 24, 2021 Time Seen by Provider: 19:30 Initial Comments 45-year-old insulin-dependent diabetic with stage III kidney disease presents with fever and continued cough secondary to Covid. He has been Covid positive since yesterday. His symptoms began approximately 2 days prior to that. He was referred for [facility] however pharmacy and internal medicine are reviewing his chart to determine if he is a candidate or not. He has not taken any medications since 0100 this morning for fever, he did not take his insulin today either. He reports severe malaise and resting most of the day. He has not received the Covid vaccine. He did speak with his primary care provider earlier today and a prescription for nausea medicine was called into the pharmacy, he did not obtain this prior to arriving here. Approximately 2 months ago he had a partial amputation to his foot. Timing/Duration: yesterday Severity/Quality: moderate Prior Episodes/Possible Cause: no prior episodes Associated Symptoms: cough, earache, fever/chills, muscle aches Allergies and Home Medications Allergies Coded Allergies: No Known Drug Allergies (Unverified , 01/18/19) Home Medications Amoxicillin/Potassium Clav 1 Each Tablet, 1 EACH PO BID Prescribed by: AUREA OLGUIN on 02/24/212112 Arginine 500 Mg Capsule, 500 MG PO DAILY, (Reported) Atorvastatin Calcium 40 Mg Tablet, 40 MG PO DAILY, (Reported) Azithromycin 250 Mg Tablet, 250 MG PO UD TAKE 2 TABLETS ON DAY ONE THEN TAKE 1 TABLET DAILY FOR FOUR MORE DAYS Prescribed by: AUREA OLGUIN on 02/24/212112 Cephalexin 500 Mg Tablet, 500 MG PO TID Prescribed by: LISA GODINEZ on 12/05/20 1029 Dapagliflozin Propanediol 10 Mg Tablet, 10 MG PO DAILY, (Reported) Dexamethasone 4 Mg Tablet, 4 MG PO DAILY Prescribed by: AUREA OLGUIN on 02/24/212112 Ginkgo Biloba 60 Mg Tablet, 60 MG PO DAILY, (Reported) Glucagon 1 Mg/0.2 Ml Auto.injct, 1 EA SQ UD PRN for HYPOGLYCEMIA, (Reported) Hydrocodone Bit/Acetaminophen 1 Tab Tab, 1 EA PO Q4H PRN for PAIN-MODERATE (5-7) Prescribed by: LISA GODINEZ on 12/05/20 1031 Insulin Aspart 300 Units/3 Ml Solution, 20 UNITS SC PC, (Reported) Insulin Detemir 100 Unit/1 Ml Insuln.pen, 30 UNITS SC BID, (Reported) Lisinopril 20 Mg Tablet, 20 MG PO DAILY, (Reported) Metformin HCl 1,000 Mg Tablet, 1,000 MG PO 0800,1500, (Reported) Multivitamin with Minerals 1 Each Tablet, 3 EACH PO DAILY, (Reported) Tadalafil 5 Mg Tablet, 5 MG PO UD PRN for ED, (Reported) [Alive Mens 50+] , 1 EA PO DAILY, (Reported) Patient Home Medication List Home Medication List Reviewed: Yes Review of Systems Review of Systems Constitutional: no symptoms reported, chills, fever, malaise EENTM: see HPI, ear pain (Left) Respiratory: see HPI, cough, short of breath (With activity) Cardiovascular: no symptoms reported, see HPI Gastrointestinal: see HPI, nausea Genitourinary: no symptoms reported, see HPI Skin: no symptoms reported, see HPI All Other Systems Reviewed Negative Unless Noted: Yes Past Vlytzvy-Qrmuwd-Wfveee Hx Patient Social History Tobacco Use?: No Use of E-Cig and/or Vaping dev: No Substance use?: No Alcohol Use?: No Pt feels they are or have been: No Immunizations Up To Date Tetanus Booster (TDap): Less than 5yrs PED Vaccines UTD: Yes Seasonal Allergies Seasonal Allergies: No Past Medical History Surgery/Hospitalization HX: DECEMBER 2020 R FOOT SURG Surgeries: Yes (RT GREAT TOE REMOVED.) Abdominal, Amputation Respiratory: No Currently Using CPAP: No Currently Using BIPAP: No Cardiac: Yes Hypertension Neurological: No Reproductive Disorders: No Genitourinary: No Gastrointestinal: No Musculoskeletal: No Endocrine: Yes Diabetes, Insulin dep HEENT: No Cancer: No Psychosocial: No Integumentary: No Family Medical History Reviewed Nursing Family Hx Cardiovascular disease 19 MOTHER Diabetes mellitus 19 MOTHER Diabetes Physical Exam Vital Signs - First Documented 02/24/21 02/24/21 19:26 22:20 Temp 38.9 Pulse 106 Resp 18 B/P (MAP) 134/79 (97) Pulse Ox 96 O2 Delivery Room Air Capillary Refill : Less Than 3 Seconds Height: 6'4.00" Weight: 300lbs. 8.0oz. 136.278144yp; 38.00 BMI Method:Stated General Appearance: WD/WN, mild distress HEENT: PERRL/EOMI, normal ENT inspection, TMs normal, pharynx normal; No TM abnormal (L) Neck: non-tender, full range of motion, supple, normal inspection Respiratory: chest non-tender, lungs clear, normal breath sounds, other (SaO2 94 to 98% on room air.) Cardiovascular: normal peripheral pulses, regular rate, rhythm, tachycardia (On presentation 100-110, after 1 L of fluid 90s) Gastrointestinal: normal bowel sounds, non tender, soft Neurologic/Psychiatric: no motor/sensory deficits, alert, normal mood/affect, oriented x 3 Skin: normal color, warm/dry; No diaphoresis Focused Exam Sepsis Stage: Ruled Out Lactate Level 02/24/21 19:40: Lactic Acid Level 1.49 Respiratory: Chest Non Tender, Lungs Clear, Normal Breath Sounds Cardiovascular: Regular Rate, Rhythm, Normal Peripheral Pulses Capillary Refill: Less Than 3 Seconds Skin: normal color, warm/dry; No diaphoresis Lactic Acid Level Laboratory Tests Test 02/24/21 19:40 Lactic Acid Level 1.49 MMOL/L (0.50-2.00) Progress/Results/Core Measures Suspected Sepsis Recent Fever Within 48 Hours: Yes Infection Criteria Present: Documented Infection New/Unexplained Altered Menta: No Within 3hrs of presentation: Admin fluids, Admin ABX, Blood cultures prior to ABX's, Focus exam, Lactate level SIRS Temperature: Pulse: 106 Respiratory Rate: 18 Laboratory Tests 02/24/21 19:40: White Blood Count 9.4 Blood Pressure 134 /79 Mean: 97 02/24/21 19:40: Lactic Acid Level 1.49 Laboratory Tests 02/24/21 19:40: Creatinine 2.09H, INR Comment 1.0, Platelet Count 186, Total Bilirubin 0.3 Results/Orders Lab Results Laboratory Tests Test 02/24/21 19:40 02/24/21 20:35 02/24/21 20:38 Range/Units White Blood Count 9.4 4.3-11.0 10^3/uL Red Blood Count 4.61 4.30-5.52 10^6/uL Hemoglobin 13.3 13.3-17.7 g/dL Hematocrit 40 40-54 % Mean Corpuscular Volume 87 80-99 fL Mean Corpuscular Hemoglobin 29 25-34 pg Mean Corpuscular Hemoglobin Concent 33 32-36 g/dL Red Cell Distribution Width 13.9 10.0-14.5 % Platelet Count 186 130-400 10^3/uL Mean Platelet Volume 9.7 9.0-12.2 fL Immature Granulocyte % (Auto) 0 % Neutrophils (%) (Auto) 85 H 42-75 % Lymphocytes (%) (Auto) 11 L 12-44 % Monocytes (%) (Auto) 4 0-12 % Eosinophils (%) (Auto) 0 0-10 % Basophils (%) (Auto) 0 0-10 % Neutrophils # (Auto) 8.0 H 1.8-7.8 10^3/uL Lymphocytes # (Auto) 1.0 1.0-4.0 10^3/uL Monocytes # (Auto) 0.3 0.0-1.0 10^3/uL Eosinophils # (Auto) 0.0 0.0-0.3 10^3/uL Basophils # (Auto) 0.0 0.0-0.1 10^3/uL Immature Granulocyte # (Auto) 0.0 0.0-0.1 10^3/uL Erythrocyte Sedimentation Rate 61 H 0-15 MM/HR Prothrombin Time 13.3 12.2-14.7 SEC INR Comment 1.0 0.8-1.4 Activated Partial Thromboplast Time 39 H 24-35 SEC Sodium Level 131 L 135-145 MMOL/L Potassium Level 4.7 3.6-5.0 MMOL/L Chloride Level 101 98-107 MMOL/L Carbon Dioxide Level 18 L 21-32 MMOL/L Anion Gap 12 5-14 MMOL/L Blood Urea Nitrogen 20 H 7-18 MG/DL Creatinine 2.09 H 0.60-1.30 MG/DL Estimat Glomerular Filtration Rate 35 BUN/Creatinine Ratio 10 Glucose Level 355 H 70-105 MG/DL Lactic Acid Level 1.49 0.50-2.00 MMOL/L Calcium Level 8.3 L 8.5-10.1 MG/DL Corrected Calcium 8.8 8.5-10.1 MG/DL Total Bilirubin 0.3 0.1-1.0 MG/DL Aspartate Amino Transf (AST/SGOT) 34 5-34 U/L Alanine Aminotransferase (ALT/SGPT) 23 0-55 U/L Alkaline Phosphatase 86 40-136 U/L Lactate Dehydrogenase 362 H 125-220 U/L C-Reactive Protein High Sensitivity 18.97 H 0.00-0.50 MG/DL Total Protein 7.6 6.4-8.2 GM/DL Albumin 3.4 3.2-4.5 GM/DL Procalcitonin 0.33 H <0.10 NG/ML Glucometer 167 H 70-110 MG/DL Urine Color YELLOW Urine Clarity SL CLOUDY Urine pH 6.0 5-9 Urine Specific [place] >=1.030 1.016-1.022 Urine Protein 3+ H NEGATIVE Urine Glucose (UA) 3+ H NEGATIVE Urine Ketones 1+ H NEGATIVE Urine Nitrite NEGATIVE NEGATIVE Urine Bilirubin 1+ H NEGATIVE Urine Urobilinogen 0.2 < = 1.0 MG/DL Urine Leukocyte Esterase NEGATIVE NEGATIVE Urine RBC (Auto) 2+ H NEGATIVE Urine RBC NONE /HPF Urine WBC 0-2 /HPF Urine Squamous Epithelial Cells RARE /HPF Urine Crystals PRESENT H /LPF Urine Amorphous Sediment FEW ILENE URATES H /LPF Urine Bacteria TRACE /HPF Urine Casts PRESENT /LPF Urine Hyaline Casts 0-2 H /LPF Urine Granular Casts 5-10 H /LPF Urine Mucus NEGATIVE /LPF Urine Culture Indicated NO My Orders Orders - AUREA OLGUIN Acetaminophen Tablet (Tylenol Tablet) (02/24/21 19:27) Cbc With Automated Diff (02/24/21 19:33) Comprehensive Metabolic Panel (02/24/21 19:33) Procalcitonin (Pct) (02/24/21 19:33) Hs C Reactive Protein (02/24/21 19:33) Erythrocyte Sedimentation Rate (02/24/21 19:33) LDH (02/24/21 19:33) Chest 1 View, Ap/Pa Only (02/24/21 19:33) Ed Iv/Invasive Line Start (02/24/21 19:33) Ns Iv 1000 Ml (Sodium Chloride 0.9%) (02/24/21 19:45) Ua Culture If Indicated (02/24/21 19:33) Ondansetron Injection (Zofran Injectio (02/24/21 19:37) Blood Culture (02/24/21 19:43) Protime With Inr (02/24/21 19:43) Partial Thromboplastin Time (02/24/21 19:43) Lactic Acid Analyzer (02/24/21 19:43) Ed Iv/Invasive Line Start (02/24/21 20:08) Ns Iv 1000 Ml (Sodium Chloride 0.9%) (02/24/21 20:15) Accucheck Stat ONCE (02/24/21 20:43) Rx-Albuterol Inhaler (Rx-Ventolin Hfa) (02/24/21 20:45) Ceftriaxone (Rocephin) (02/24/21 20:45) Dexamethasone Injection (Decadron Inje (02/24/21 21:00) Ceftriaxone (Rocephin) (02/24/21 20:53) Water (Sterile) For Injection (Sterile W (02/24/21 20:53) Rx-Albuterol Inhaler (Rx-Ventolin Hfa) (02/24/21 20:52) Ibuprofen Tablet (Motrin Tablet) (02/24/21 21:58) Medications Given in ED Current Medications Medications Dose Ordered Sig/Sonia Route Start Time Stop Time Status Last Admin Dose Admin Ceftriaxone Sodium 2000 mg/ Sterile Water 20 ml @ 240 mls/hr ONCE ONCE IV 02/24/21 20:45 02/24/21 21:14 DC 02/24/21 20:56 240 MLS/HR Dexamethasone Sodium Phosphate 6 mg ONCE ONCE IV 02/24/21 21:00 02/24/21 21:01 DC 02/24/21 20:56 6 MG Ibuprofen 800 mg STK-MED ONCE PO 02/24/21 21:58 02/24/21 22:02 DC 02/24/21 22:00 800 MG Ondansetron HCl 4 mg STK-MED ONCE .ROUTE 02/24/21 19:37 02/24/21 19:41 DC 02/24/21 19:44 8 MG Vital Signs/I&O 02/24/21 02/24/21 02/24/21 02/24/21 19:26 19:30 22:00 22:20 Temp 38.9 38.9 37.9 37.8 Pulse 106 91 Resp 18 18 B/P (MAP) 134/79 (97) 126/74 (97) Pulse Ox 96 O2 Delivery Room Air Room Air Capillary Refill : Less Than 3 Seconds Blood Pressure Mean: 97 Progress Note : Time: 19:30 Progress Note Patient seen and evaluated, will do a sepsis work-up based on fever and tachycardia. No hypotension noted. Will give normal saline 1 L now followed by a second liter. Labs, chest x-ray, and Zofran 8 mg IV for nausea. 2014 heart rate 85 to 100. SaO2 is remaining greater than 95% on room air. No significant dyspnea. Glucose 355 initially, 167 now. Patient vomited, 1 time. 2049 will give Rocephin 2 g IV, Decadron 6 mg IV, and Ventolin HFA 2 puffs, With spacer. Temp 101.3. 2199 Temp 100.3, will give Ibuprofen 800 mg po. Patient reports symptoms to be improving. He would like to try to manage from home if possible. Stressed the importance of him using all conservative measures related to Covid and the medical recommendations. Discharge instructions and return precautions reviewed with the patient in detail. All questions answered. Diagnostic Imaging Diagonstic Imaging: Xray Plain Films/CT/US/NM/MRI: chest Comments NAME: JOEL CHRISTINA V [facility] REC#: [id number] PT STATUS: REG ER : 1975 PHYSICIAN: AUREA OLGUIN ADMIT DATE: 02/24/21/ER Signed Date of Exam:02/24/21 CHEST 1 VIEW, AP/PA ONLY EXAMINATION: Chest radiograph, portable AP view. DATE: 02/24/2021 7:59 PM INDICATION: 45-year-old male, Covid positive. Cough, fever, chills. COMPARISON: February 23, 2021. FINDINGS: Heart size and mediastinal contours are unchanged. There is no identified pneumothorax. There is no large pleural effusion. There is multifocal bilateral alveolar consolidation which appears to be slightly increased since the comparison exam. IMPRESSION: 1. Slightly increased multifocal bilateral lung consolidation. This may relate to provided history of Covid 19 infection or multifocal pneumonia/pneumonitis. Dictated by: Dictated on workstation # [id number] Dict: 02/24/212004 Trans: 02/24/212010 [facility] [id number] Interpreted by: ELVIRA BERMUDEZ MD Electronically signed by: ELVIRA BERMUDEZ MD 02/24/212010 Departure Impression Primary Impression: COVID-19 Additional Impressions: Fever Qualified Codes: R50.81 - Fever presenting with conditions classified elsewhere Cough Hyperglycemia due to type 1 diabetes mellitus Disposition: HOME, SELF-CARE Condition: Stable Departure-Patient Inst. Decision time for Depature: 22:00 Referrals: [facility] (PCP/Family) Primary Care Physician Patient Instructions: COVID-19 (DC), Fever, Adult (DC) Add. Discharge Instructions: You must take all of your medications as prescribed, especially check your blood sugar 4x5 times daily and adjust your insulin as needed. You must increase your water intake, 16 ounces every 2 hours while awake. Take the antibiotics and steroids as prescribed. Use your inhaler 2 puffs every 4 hours for the next 5 days. Take aspirin 81 mg once daily. Call your primary care provider on Saturday for reevaluation. Walk for 5 to 10 minutes around your house, every hour while awake. Sleep on your stomach. Take Tylenol 650 mg alternating with ibuprofen 600 mg every 4 hours for fever or pain. Return to the emergency department for worsening symptoms. All discharge instructions reviewed with patient and/or family. Voiced understanding. Scripts Dexamethasone (Decadron) 4 Mg Tablet 4 MG PO DAILY, #5 TAB 0 Refills Prov: AUREA OLGUIN 02/24/21 Amoxicillin/Potassium Clav (Augmentin 875-125 Tablet) 1 Each Tablet 1 EACH PO BID, #20 TAB 0 Refills Prov: AUREA OLGUIN 02/24/21 Azithromycin (Azithromycin) 250 Mg Tablet 250 MG PO UD, #6 TAB TAKE 2 TABLETS ON DAY ONE THEN TAKE 1 TABLET DAILY FOR FOUR MORE DAYS Prov: AUREA OLGUIN 02/24/21 Copy Copies To 1: JULIET OBREGON APRN, AMY ARNP Feb 24, 2021 20:23
[2021-02-24] MEDS ORDERED: RX-ALBUTEROL INHALER (VENTOLIN HFA) 18 GM IH STA (20:45)
[2021-02-24] MEDS ORDERED: cefTRIAXone 2,000 MG in WATER (STERILE) FOR INJECTION 20 ML IV ONE (20:45)
[2021-02-24 20:46] LABS: CLARITY,URINE SL CLOUDY; COLOR,URINE YELLOW; GLUCOSE, URINE (UA) 3+ (NEGATIVE); KETONES,URINE 1+ (NEGATIVE); LEUKOCYTE ESTERASE ,URINE NEGATIVE (NEGATIVE); NITRITE,URINE NEGATIVE (NEGATIVE); PROTEIN,URINE 3+ (NEGATIVE)
[2021-02-24 20:48] LABS: BILIRUBIN,URINE 1+ (NEGATIVE)
[2021-02-24 20:51] LABS: AMORPHOUS SEDIMENT,UR FEW AMOR URATES /LPF; BACTERIA,URINE TRACE /HPF; HYALINE CASTS, URINE 0-2 /LPF; SQUAMOUS EPITHELIAL CELL,UR RARE /HPF; WBC,URINE 0-2 /HPF
[2021-02-24] MEDS ORDERED: RX-ALBUTEROL INHALER (VENTOLIN HFA) 18 GM IH ONE (20:52)
[2021-02-24] MEDS ORDERED: WATER (STERILE) FOR INJECTION 20 ML ONE (20:53)
[2021-02-24] MEDS ORDERED: cefTRIAXone 2,000 MG VIAL ONE (20:53)
[2021-02-24] MEDS ORDERED: AMOX-358 PO (21:13)
[2021-02-24] MEDS ORDERED: AZIT250T12 PO (21:13)
[2021-02-24] MEDS ORDERED: DEXA4TAB66 PO (21:13)
[2021-02-24] MEDS ORDERED: IBUPROFEN 800 MG (MOTRIN) TAB PO ONE (21:58)
[2021-02-24 22:20] VITALS: BP 126/74
[2021-02-27] MEDS ORDERED: DEXA4TAB PO (15:43)
[2021-02-27] MEDS ORDERED: AMOX1TAB12 PO (15:43)
[2021-02-27] MEDS ORDERED: AZIT250T12 PO (15:43)
[2021-02-27] MEDS ORDERED: ONDA8TAB13 PO (15:43)
[2021-02-27] MEDS ORDERED: MULT-1061 PO (15:47)
[2021-02-27] MEDS ORDERED: ARGI500C9 PO (15:47)
== END 2021-02-24 22:21 | disposition home or self-care (01) ==
LOC: EDUNIT# 18:48 → ER 18:50
DX: U07.1 COVID-19 (principal); E10.65 Type 1 diabetes mellitus with hyperglycemia; I10 Essential (primary) hypertension
CPT/HCPCS: 36415; 71045; 80053; 81000; 82947; 83605; 83615; 84145; 85025; 85610; 85652; 85730; 86141; 87040